=== PATIENT | female | born 2000 ===

== ENCOUNTER 2020-04-14 10:29 | Outpatient (REF) | payer MEDICAID, SELFPAY ==
--- NOTE | 2020-04-14 | US_ITS ---
EXAMINATION: US THYROID CLINICAL INFORMATION: Hypothyroidism. COMPARISON: None TECHNIQUE: Linear transducer lance-scale and color Doppler examination with attention to the region of the thyroid. FINDINGS: SIZE: Measurements of the thyroid lobes and nodules are given in sagittal, anteroposterior and transverse dimensions respectively. Right Thyroid Lobe: 4.0 x 1.3 x 1.5 cm, volume 4.1 mL. Parenchyma: The gland echotexture is homogeneous. Thyroid vascularity is normal. Left Thyroid Lobe: 3.7 x 1.0 x 1.4 cm, volume 2.7 mL. Parenchyma: The gland echotexture is homogeneous. Thyroid vascularity is normal. Isthmus: 0.3 cm in maximum AP dimension. RIGHT THYROID LOBE: No nodules. ISTHMUS: No nodules. LEFT THYROID LOBE: No nodules. NODES: No lymphadenopathy is seen in the tissue surrounding the thyroid gland. ADDITIONAL FINDINGS: There is a 1.2 x 0.5 to 0.8 cm oval hypoechoic nodule adjacent to the dorsal aspect of the inferior pole of the right thyroid gland. IMPRESSION: * Unremarkable sonographic appearance of the thyroid gland. * Incidental 1.2 x 0.5 x 0.8 cm soft tissue nodule along the dorsal aspect of the inferior right thyroid. This could be compatible with a parathyroid adenoma (a normal parathyroid gland measures 3-5 mm).
== END 2020-04-14 10:30 | disposition home or self-care (01) ==
LOC: HO.US 10:29
PROVIDERS: PCP Pediatrics; Visit Provider Internal Medicine
DX: E03.9 Hypothyroidism, unspecified (principal)
CPT/HCPCS: 76536

== ENCOUNTER 2020-05-16 15:34 | Emergency (ER) | payer MEDICAID, SELFPAY ==
[2020-05-16 15:51] VITALS: BP 140/71; PULSE 76; RESP 20; TEMP 36.8; O2SAT 99; BMI 34.0
--- NOTE | 2020-05-16 16:32 | ED.HA ---
HPI - Headache General Chief Complaint: Headache Stated Complaint: Migraine Time Seen by Provider: 05/16/20 16:08 Source: patient Mode of arrival: ambulatory History of Present Illness HPI Narrative: 19-year-old female with a past medical history of hyperlipidemia, hypertension, hypothyroid, migraines presenting to the ED complaining of migraine headache x2 weeks. Was taking ibuprofen at home without relief, however denies taking any pain medications x1 week. Admits to associated nausea and heavy feeling in her eyes. Denies headache being maximal at onset, vomiting, weakness, numbness/tingling, CP/SOB MD elicited complaint: migraine Related Data Previous Rx's Medication Instructions Recorded uxqlpxhntd-gfaybpzjelaxr-ciay 2 cap PO Q6H PRN #10 cap 05/16/20 [Fioricet] Allergies Allergy/AdvReac Type Severity Reaction Status Date / Time aloe [ALOE] Allergy Unknown RASH Unverified 03/19/20 16:53 sertraline [SERTRALINE] Allergy Unknown UNKNOWN Unverified 03/19/20 16:53 Review of Systems Review of Systems: Constitutional: No Weight loss, No Fever, No Chills ENT/Mouth: No Hearing loss, No Ear Pain, No Nasal Congestion Eyes: No Eye Pain, No Vision Changes Cardiovascular: No Chest Pain, No SOB, No Palpitations Respiratory: No Cough, No Sputum Gastrointestinal: +Nausea, No Vomiting, No Diarrhea, No Constipation, No Abdominal pain Musculoskeletal: No joint pain, No Myalgias, No Joint Swelling Skin: No Skin Lesions, No rash Neuro: No Weakness, No Numbness, No Paresthesias, No Loss of Consciousness, No Dizziness, +Headache Yes all other systems are reviewed and are negative Neurologic: Denies Abnormal speech present and Denies Sensory deficit (Neuro) [facility] Past Medical History Attestation statement: The following information was validated with the patient. Medical History (Updated 05/16/20 @ 16:44 by CR Eddy) Hypercholesteremia Hypertension Hypothyroidism Migraines Social History Social History Alcohol intake: never Smoking Status: Never smoker Use of substances other than those prescribed or required for medical reasons: No Advance Directives: No Advance Directives Information Provided: Yes Physical Exam Vital Signs: Vital Signs: Last Vital Signs Temp 98.9 F 05/16/20 17:35 Pulse 76 05/16/20 17:35 Resp 20 05/16/20 17:35 BP 121/77 05/16/20 17:35 Pulse Ox 100 05/16/20 17:35 Body Mass Index 34.0 Const: General: cooperative and healthy appearing Orientation/consciousness: patient oriented x3 Limitations: no limitations HENMT: Head: Yes normal to inspection Ears: hearing grossly normal bilaterally General nose exam: Normal external nose present Face and sinus: Yes normal facial exam Eyes: General: appearance normal, both eyes and all related structures Pupils: Equal, round and reactive pupils present EOM: EOMs intact bilaterally Neck: Neck: Yes normal visual inspection and Yes no meningeal signs Resp: Effort & Inspection: normal respiratory effort Cardio: Rate: regular rate Rhythm: regular rhythm GI: Inspection: Yes normal to inspection Palpation (GI): Soft to palpation, nontender, no guarding and not rigid Skin: Rashes: no rashes Wounds: no wounds Neuro: General: patient oriented x3, gait normal, tone normal, moves all extremities, no meningeal signs, no focal motor deficits and CN's II-XI intact bilaterally Cranial nerves: Yes Equal, round and reactive pupils present Cognition (Neuro): normal cognition Speech: No Abnormal speech present Gait exam (Neuro): Normal gait present Motor exam (neuro): 5/5 motor strength present throughout Sensory Exam: No Sensory deficit (Neuro) Extrem: General: Yes normal to inspection Course Course Course Narrative: Mild leukocytosis of 12, labs otherwise unremarkable -[id number]--patient reports symptomatic improvement in the ED, feel safe for discharge MDM - Headache MDM Narrative Medical decision making narrative: 19-year-old female with a past medical history of HLD, HTN, hypothyroid, migraines presenting to the ED complaining of migraine headache x2 weeks. On exam VSS, NAD/well-appearing, no focal neuro deficits, no meningeal signs. Likely migraine headache. Low concern for SAH/CVT, meningitis or encephalitis Plan: Labs, symptomatic therapy/reassess Lab Data Result diagrams: 05/16/20 16:54 05/16/20 16:54 Labs: Lab Results 05/16/20 05/16/20 Range/Units 16:54 16:54 WBC 12.0 H (4.8-10.8) X10*3/uL RBC 4.67 (4.20-5.50) X10*6/uL Hgb 13.7 (12.0-16.0) g/dl Hct 40.6 (37-47) % MCV 86.9 (80-98) fL MCH 29.3 (27.0-33.0) pg MCHC 33.7 (31.0-35.0) g/dl RDW 12.8 (11.0-16.0) % Plt Count 370 (160-400) X10*3/uL MPV 9.3 L (9.4-12.3) fL Immature Gran % (Auto) 0.2 (0.0-0.4) % Neut % (Auto) 66.0 (45-73) % Lymph % (Auto) 24.5 (20-40) % [place] % (Auto) 5.7 (2-11) % Eos % (Auto) 3.2 (0-4) % Baso % (Auto) 0.4 (0-2) % Lymph # (Auto) 2.9 (1.2-4.9) X10*3/uL [place] # (Auto) 0.7 (0.1-1.2) X10*3/uL Eos # (Auto) 0.4 (0.0-0.4) X10*3/uL Baso # (Auto) 0.1 (0.0-0.2) X10*3/uL Abs Immat Gran (auto) 0.03 (0.00-0.03) X10*3/uL Absolute Neuts (auto) 7.9 (2.0-8.3) X10*3/uL Absolute Nucleated RBC 0.000 (0.0-0.012) X10*3/uL Nucleated RBC % (auto) 0.0 (0.0-0.2) /100WBC Sodium 140 (135-145) mmol/L Potassium 4.0 (3.3-5.1) mmol/l Chloride 102 (96-108) mmol/L Carbon Dioxide 25 (22-29) mmol/L Anion Gap 17 (12-20) BUN 7 L (9-16) mg/dL Creatinine 0.70 (0.5-1.4) mg/dL Estim Creat Clear Calc 125.1 Estimated GFR > 60 Random Glucose 92 (60-115) mg/dL Calcium 9.3 (8.4-10.2) mg/dL Discharge Plan Discharge Clinical Impression: Migraine Patient Disposition: Home, Self-Care Instructions: Migraine Headache (ED) Additional Instructions: Your blood work was unremarkable today in the ED Continue taking ibuprofen at home for headache In addition you can take Fioricet which is a combination medication which has Tylenol mixed in Follow up with her doctor If her symptoms persist/worsen, develop nausea/persistent vomiting, weakness, or vision changes return to the ED Prescriptions: New elukuhtjff-eeqzguluczgqu-jjeb [Fioricet] 50-300-40 mg capsule 2 cap PO Q6H PRN (Reason: pain) Qty: 10 RF: 0 Referrals: Ashly Ozuna MD [Primary Care Provider] - 2 days
[2020-05-16] MEDS: Metoclopramide HCl 10 MG/2 ML VIAL IVPUSH (17:01)
[2020-05-16] MEDS: Ketorolac Tromethamine 15 MG/ML VIAL IVPUSH (17:01)
[2020-05-16] MEDS: diphenhydrAMINE HCL 50 MG/ML VIAL 25 MG IVPUSH (17:01)
[2020-05-16] MEDS: 0.9 % Sodium Chloride 1,000 ML 999 ML IVCONT (17:01)
[2020-05-16 17:07] LABS: Basophils Absolute Auto 0.1 X10*3/uL (0.0-0.2); Basophils Percent Auto 0.4 % (0-2); Eosinophils Absolute Auto 0.4 X10*3/uL (0.0-0.4); Eosinophils Percent Auto 3.2 % (0-4); Hematocrit 40.6 % (37-47); Hemoglobin 13.7 g/dl (12.0-16.0); Imm Gran Abs Auto 0.03 X10*3/uL (0.00-0.03); Imm Gran Pct Auto 0.2 % (0.0-0.4); Lymphocytes Absolute Auto 2.9 X10*3/uL (1.2-4.9); Lymphocytes Percent Auto 24.5 % (20-40); MANUAL DIFF FLAG NO; Mean Corpuscular HGB Conc 33.7 g/dl (31.0-35.0); Mean Corpuscular Hemoglobin 29.3 pg (27.0-33.0); Mean Corpuscular Volume 86.9 fL (80-98); Mean Platelet Volume 9.3 fL (9.4-12.3); Monocytes Absolute Auto 0.7 X10*3/uL (0.1-1.2); Monocytes Percent Auto 5.7 % (2-11); Neutrophils Absolute Auto 7.9 X10*3/uL (2.0-8.3); Platelet Count 370 X10*3/uL (160-400); Red Blood Count 4.67 X10*6/uL (4.20-5.50); Red Cell Distribution Width 12.8 % (11.0-16.0)
[2020-05-16 17:35] VITALS: BP 121/77; PULSE 76; RESP 20; TEMP 37.2; O2SAT 100
[2020-05-16 17:36] LABS: Anion Gap 17 (12-20); Blood Urea Nitrogen 7 mg/dL (9-16); Calcium 9.3 mg/dL (8.4-10.2); Carbon Dioxide 25 mmol/L (22-29); Chloride 102 mmol/L (96-108); Creatinine Clr Calc Pharmacy 125.1; Estimated Glomerular Filt Rate > 60; Glucose Random 92 mg/dL (60-115); Sodium 140 mmol/L (135-145)
== END 2020-05-16 19:02 | disposition home or self-care (01) ==
PROVIDERS: Physician Assistant; Emergency Provider Emergency Medicine; PCP Pediatrics
DX: G43.909 Migraine, unspecified, not intractable, without status migrainosus (principal); I10 Essential (primary) hypertension; Z79.899 Other long term (current) drug therapy
CPT/HCPCS: 36415; 80048; 85025; 96361; 96374; 96375; 99284; J1200; J1885; J2765

== ENCOUNTER → 2020-08-05 13:09 | Outpatient (BNVA) | payer MEDICAID, SELFPAY | PROVIDERS: PCP Pediatrics; Visit Provider Dietitian, Registered ==

== ENCOUNTER 2020-10-16 18:29 | Emergency (ER) | payer MEDICAID, SELFPAY ==
--- NOTE | ~2020-10-16 | US_ITS ---
EXAMINATION: US ABDOMEN LIMITED CLINICAL INFORMATION: Right upper quadrant pain with question of cystitis. COMPARISON: None TECHNIQUE: Real-time imaging of the right upper quadrant abdominal viscera. FINDINGS: PANCREAS: The pancreas appears unremarkable, without masses or ductal dilatation, with the exception of the tail which is obscured by bowel gas. LIVER: The liver is enlarged measuring over 20 cm in greatest length. The liver contour is normal. There is diffuse increased liver parenchymal echogenicity, consistent with hepatic steatosis. No focal hepatic lesion. There is no intrahepatic biliary duct dilatation seen. GALLBLADDER: The gallbladder is physiologically distended without evidence of stones, sludge, polyps, wall thickening or pericholecystic fluid. COMMON BILE DUCT: Normal in caliber measuring 0.2 cm in diameter. RIGHT KIDNEY: No hydronephrosis. No renal calculi or focal parenchymal lesions. The kidney measures 10.9 cm in maximum dimension. FREE FLUID: None. US/US abdomen limited IMPRESSION: Enlarged fatty liver. No evidence of cholecystitis.
[2020-10-16 18:30] VITALS: BP 145/97; PULSE 99; RESP 18; TEMP 36; O2SAT 100; BMI 39.0
[2020-10-16 20:24] VITALS: BP 138/87; PULSE 93; RESP 19; TEMP 37; O2SAT 99
--- NOTE | 2020-10-16 20:42 | ED_ITS ---
HPI - Abdominal Pain General Chief Complaint: Abdominal Pain Stated Complaint: right side pain Time Seen by Provider: 10/16/20 20:37 Source: patient Mode of arrival: ambulatory Limitations: no limitations History of Present Illness HPI narrative: Patient apparently fell down 5 steps started down eating mostly the lower back to the steps was doing okay for initial 3 days now complaining of pain in the right upper quadrant and right-sided abdominal pain for last 2 days no nausea no vomiting no urinary complaints history of similar pain 2 months ago not seen any doctor that time. No fever no blood in the urine MD elicited complaint: abdominal pain Related Data Previous Rx's Medication Instructions Recorded wbiddhqtfs-jiyzkttcqxllp-ddfl 2 cap PO Q6H PRN #10 cap 05/16/20 [Fioricet] ibuprofen 600 mg PO Q6H PRN #20 tab 10/16/20 Allergies Allergy/AdvReac Type Severity Reaction Status Date / Time aloe [ALOE] Allergy Unknown RASH Unverified 03/19/20 16:53 sertraline [SERTRALINE] Allergy Unknown UNKNOWN Unverified 03/19/20 16:53 Review of Systems Review of Systems Constitutional : No Weight loss, No Fever, No Chills ENT/Mouth : No sore throat, No Rhinorrhea Eyes: No Eye Pain, No Swelling Cardiovascular : No Chest Pain, no palpitations Respiratory : No Cough, No Sputum, no shortness of breath Gastrointestinal : no Nausea, No Vomiting, No Diarrhea, + abdominal Pain, no black stools Genitourinary : No Dysuria, No Urinary Frequency Musculoskeletal : No joint pain, No Myalgias, No Joint Swelling Skin : No Skin Lesions, No rash Neuro : No Weakness, No Numbness, No Dizziness, No Headache Psych : No Anxiety/Panic, No Depression Heme/Lymph: No Bruising, No Lymphadenopathy Endocrine : No Polyuria, No Polydipsia All other systems reviewed and are negative Physical Exam Vital Signs: Vital Signs: Last Vital Signs Temp 98.2 F 10/16/20 21:59 Pulse 80 10/16/20 21:59 Resp 15 10/16/20 21:59 BP 125/70 10/16/20 21:59 Pulse Ox 100 10/16/20 21:59 Body Mass Index 39.0 Appearance: Alert. Oriented X3. No acute distress. Eyes: Pupils equal, round and reactive to light. ENT: Pharynx normal. Neck: Normal inspection. Neck supple. CVS: Normal heart rate and rhythm. Pulses normal. Respiratory: No respiratory distress. Breath sounds normal. Abdomen: Soft and tender right upper quadrant no rebound tenderness or guarding , Bowel sounds are present, no mass palpable, no CVA tenderness Skin: Skin warm and dry. Normal skin color. Normal skin turgor. Extremities: No lower extremity edema. Neuro: Oriented X 3. No motor deficit. No sensory deficit. MDM - Abdominal Pain MDM Narrative Medical decision making narrative: Patient with right side abdominal pain without any direct trauma in the front also has back pain which is muscular ultrasound abdomen done which was negative labs also normal no blood in the urine nonspecific pain will discharge her on pain medication Differential Diagnosis Differential diagnosis: Likely abdominal pain Medical Records Attestation: I reviewed the patient's medical records. Lab Data Attestation: I reviewed the patient's lab results. Result diagrams: 10/16/20 21:50 10/16/20 21:50 Labs: Lab Results 10/16/20 10/16/20 10/16/20 Range/Units 20:37 20:37 21:50 WBC 12.2 H (4.8-10.8) X10*3/uL RBC 4.78 (4.20-5.50) X10*6/uL Hgb 13.8 (12.0-16.0) g/dl Hct 41.1 (37-47) % MCV 86.0 (80-98) fL MCH 28.9 (27.0-33.0) pg MCHC 33.6 (31.0-35.0) g/dl RDW 13.2 (11.0-16.0) % Plt Count 370 (160-400) X10*3/uL MPV 9.3 L (9.4-12.3) fL Immature Gran % (Auto) 0.2 (0.0-0.4) % Neut % (Auto) 63.6 (45-73) % Lymph % (Auto) 26.2 (20-40) % [place] % (Auto) 6.4 (2-11) % Eos % (Auto) 3.2 (0-4) % Baso % (Auto) 0.4 (0-2) % Lymph # (Auto) 3.2 (1.2-4.9) X10*3/uL [place] # (Auto) 0.8 (0.1-1.2) X10*3/uL Eos # (Auto) 0.4 (0.0-0.4) X10*3/uL Baso # (Auto) 0.1 (0.0-0.2) X10*3/uL Abs Immat Gran (auto) 0.02 (0.00-0.03) X10*3/uL Absolute Neuts (auto) 7.8 (2.0-8.3) X10*3/uL Absolute Nucleated RBC 0.000 (0.0-0.012) X10*3/uL Nucleated RBC % (auto) 0.0 (0.0-0.2) /100WBC Sodium (135-145) mmol/L Potassium (3.3-5.1) mmol/L Chloride (96-108) mmol/L Carbon Dioxide (22-29) mmol/L Anion Gap (12-20) BUN (9-16) mg/dL Creatinine (0.5-1.4) mg/dL Estim Creat Clear Calc Estimated GFR Random Glucose (60-115) mg/dL Calcium (8.4-10.2) mg/dL Total Bilirubin (0.0-1.0) mg/dL Direct Bilirubin (0.0-0.5) mg/dL AST (5-31) U/L ALT (0-31) U/L Alkaline Phosphatase (39-117) U/L Total Protein (6.5-8.0) g/dL Albumin (3.5-5.0) g/dL Lipase (8-78) U/L Urine Color YELLOW Urine Appearance CLEAR Urine pH 6.0 (5.0-8.0) Ur Specific [place] >= 1.030 H (1.005-1.025) Urine Protein NEG (NEG-TRACE) MG/DL Urine Glucose (UA) NEG (NEG) MG/DL Urine Ketones NEG (NEG) MG/DL Urine Blood NEG (NEG) Urine Nitrite NEG (NEG) Ur Leukocyte Esterase NEG (NEG) Urine Test NEGATIVE (NEGATIVE) 10/16/20 Range/Units 21:50 WBC (4.8-10.8) X10*3/uL RBC (4.20-5.50) X10*6/uL Hgb (12.0-16.0) g/dl Hct (37-47) % MCV (80-98) fL MCH (27.0-33.0) pg MCHC (31.0-35.0) g/dl RDW (11.0-16.0) % Plt Count (160-400) X10*3/uL MPV (9.4-12.3) fL Immature Gran % (Auto) (0.0-0.4) % Neut % (Auto) (45-73) % Lymph % (Auto) (20-40) % [place] % (Auto) (2-11) % Eos % (Auto) (0-4) % Baso % (Auto) (0-2) % Lymph # (Auto) (1.2-4.9) X10*3/uL [place] # (Auto) (0.1-1.2) X10*3/uL Eos # (Auto) (0.0-0.4) X10*3/uL Baso # (Auto) (0.0-0.2) X10*3/uL Abs Immat Gran (auto) (0.00-0.03) X10*3/uL Absolute Neuts (auto) (2.0-8.3) X10*3/uL Absolute Nucleated RBC (0.0-0.012) X10*3/uL Nucleated RBC % (auto) (0.0-0.2) /100WBC Sodium 139 (135-145) mmol/L Potassium 4.3 (3.3-5.1) mmol/L Chloride 105 (96-108) mmol/L Carbon Dioxide 23 (22-29) mmol/L Anion Gap 15 (12-20) BUN 9 (9-16) mg/dL Creatinine 0.66 (0.5-1.4) mg/dL Estim Creat Clear Calc 136.4 Estimated GFR > 60 Random Glucose 91 (60-115) mg/dL Calcium 9.5 (8.4-10.2) mg/dL Total Bilirubin 0.3 (0.0-1.0) mg/dL Direct Bilirubin < 0.2 (0.0-0.5) mg/dL AST 20 (5-31) U/L ALT 22 (0-31) U/L Alkaline Phosphatase 100 (39-117) U/L Total Protein 8.0 (6.5-8.0) g/dL Albumin 4.5 (3.5-5.0) g/dL Lipase 14 (8-78) U/L Urine Color Urine Appearance Urine pH (5.0-8.0) Ur Specific [place] (1.005-1.025) Urine Protein (NEG-TRACE) MG/DL Urine Glucose (UA) (NEG) MG/DL Urine Ketones (NEG) MG/DL Urine Blood (NEG) Urine Nitrite (NEG) Ur Leukocyte Esterase (NEG) Urine Test (NEGATIVE) Imaging Data US - abdomen: Attestation: I personally reviewed and interpreted this imaging study as follows: Radiologist's impression: Patient: Andrew GonzalezMR#: [id number]: [id number]:[id number]/Sex: 20 / FADM Date: 10/16/20Loc: EDAttending Dr: Ordering Physician: Lexx Adams MD Date of Service: 10/16/20 Procedure(s): US abdomen limited Accession Number(s): [id number] cc: Lexx Adams MD~ EXAMINATION: US ABDOMEN LIMITED CLINICAL INFORMATION: Right upper quadrant pain with question of cystitis. COMPARISON: None TECHNIQUE: Real-time imaging of the right upper quadrant abdominal viscera. FINDINGS: PANCREAS: The pancreas appears unremarkable, without masses or ductal dilatation, with the exception of the tail which is obscured by bowel gas. LIVER: The liver is enlarged measuring over 20 cm in greatest length. The liver contour is normal. There is diffuse increased liver parenchymal echogenicity, consistent with hepatic steatosis. No focal hepatic lesion. There is no intrahepatic biliary duct dilatation seen. GALLBLADDER: The gallbladder is physiologically distended without evidence of stones, sludge, polyps, wall thickening or pericholecystic fluid. COMMON BILE DUCT: Normal in caliber measuring 0.2 cm in diameter. RIGHT KIDNEY: No hydronephrosis. No renal calculi or focal parenchymal lesions. The kidney measures 10.9 cm in maximum dimension. FREE FLUID: None. US/US abdomen limited IMPRESSION: Enlarged fatty liver. No evidence of cholecystitis. Dictated By:BABS MEJÍA MDSigned By:<Electronically signed by BABS MEJÍA MD in [place]>10/16/[id number] Discharge Plan Discharge Clinical Impression: Abdominal pain Qualifiers: Abdominal location: right upper quadrant Qualified Code(s): R10.11 - Right upper quadrant pain Patient Disposition: Home, Self-Care Instructions: Abdominal Pain (ED) Additional Instructions: Your pain is nonspecific on the right side does seems musculoskeletal your urine is normal labs are stable and ultrasound for gallbladder and kidneys are normal. Tylenol/ibuprofen for pain Report to the ER/PCP pain gets worse Prescriptions: New ibuprofen 600 mg tablet 600 mg PO Q6H PRN (Reason: pain) Qty: 20 RF: 0 No Action yucsyqglrg-doefprccxbvxr-ksuo [Fioricet] 50-300-40 mg capsule 2 cap PO Q6H PRN (Reason: pain) Qty: 10 RF: 0 PMFSH Past Medical History Medical History Hypercholesteremia Hypertension Hypothyroidism Migraines Surgical History No pertinent past surgical history Family History Family History Father No problems noted. Mother Hepatitis C Hypothyroidism Hypertension Cirrhosis of liver Social History Social History Alcohol intake: never Smoking Status: Never smoker Use of substances other than those prescribed or required for medical reasons: No Advance Directives: No Advance Directives Information Provided: Yes
[2020-10-16 20:44] LABS: Glucose Urine UA NEG (NEG); Leukocyte Esterase Urine NEG (NEG); Nitrite Urine NEG (NEG); Specific Gravity - Urine >= 1.030 (1.005-1.025); Urine Blood NEG (NEG); Urine Ketones NEG (NEG); Urine Protein NEG (NEG-TRACE)
[2020-10-16 20:45] LABS: Appearance Urine CLEAR; Color Urine YELLOW
[2020-10-16 21:27] LABS: UPreg QC Valid YES; Urine Pregnancy NEGATIVE (NEGATIVE)
[2020-10-16 21:54] LABS: MANUAL DIFF FLAG NO
[2020-10-16 21:59] VITALS: BP 125/70; PULSE 80; RESP 15; TEMP 36.8; O2SAT 100
[2020-10-16 22:13] LABS: Basophils Absolute Auto 0.1 X10*3/uL (0.0-0.2); Basophils Percent Auto 0.4 % (0-2); Eosinophils Absolute Auto 0.4 X10*3/uL (0.0-0.4); Eosinophils Percent Auto 3.2 % (0-4); Hematocrit 41.1 % (37-47); Hemoglobin 13.8 g/dl (12.0-16.0); Imm Gran Abs Auto 0.02 X10*3/uL (0.00-0.03); Imm Gran Pct Auto 0.2 % (0.0-0.4); Lymphocytes Absolute Auto 3.2 X10*3/uL (1.2-4.9); Lymphocytes Percent Auto 26.2 % (20-40); Mean Corpuscular HGB Conc 33.6 g/dl (31.0-35.0); Mean Corpuscular Hemoglobin 28.9 pg (27.0-33.0); Mean Platelet Volume 9.3 fL (9.4-12.3); Monocytes Absolute Auto 0.8 X10*3/uL (0.1-1.2); Monocytes Percent Auto 6.4 % (2-11); Neutrophils Absolute Auto 7.8 X10*3/uL (2.0-8.3); Neutrophils Percent Auto 63.6 % (45-73); Platelet Count 370 X10*3/uL (160-400); Red Blood Count 4.78 X10*6/uL (4.20-5.50); Red Cell Distribution Width 13.2 % (11.0-16.0); White Blood Count 12.2 X10*3/uL (4.8-10.8)
[2020-10-16 22:29] LABS: Alanine Aminotransferase 22 U/L (0-31); Albumin Level 4.5 g/dL (3.5-5.0); Alkaline Phosphatase 100 U/L (39-117); Anion Gap 15 (12-20); Aspartate Amino Transferase 20 U/L (5-31); Bilirubin Direct < 0.2 mg/dL (0.0-0.5); Bilirubin Total 0.3 mg/dL (0.0-1.0); Blood Urea Nitrogen 9 mg/dL (9-16); Calcium 9.5 mg/dL (8.4-10.2); Carbon Dioxide 23 mmol/L (22-29); Chloride 105 mmol/L (96-108); Creatinine Clr Calc Pharmacy 136.4; Estimated Glomerular Filt Rate > 60; Glucose Random 91 mg/dL (60-115); Lipase 14 U/L (8-78); Potassium 4.3 mmol/L (3.3-5.1); Sodium 139 mmol/L (135-145)
== END 2020-10-16 23:52 | disposition home or self-care (01) ==
PROVIDERS: Emergency Provider Internal Medicine; PCP Pediatrics
DX: R10.11 Right upper quadrant pain (principal); Z79.899 Other long term (current) drug therapy
CPT/HCPCS: 36415; 76705; 80048; 80076; 81003; 81025; 83690; 85025; 99284

== ENCOUNTER 2020-11-22 04:20 | Emergency (ER) | payer MEDICAID, SELFPAY ==
[2020-11-22 05:53] VITALS: BP 116/83; PULSE 81; RESP 20; TEMP 36.9; O2SAT 100; BMI 37.0
[2020-11-22 06:20] LABS: MANUAL DIFF FLAG NO
[2020-11-22 06:23] LABS: Basophils Percent Auto 0.4 % (0-2); Eosinophils Absolute Auto 0.3 X10*3/uL (0.0-0.4); Eosinophils Percent Auto 3.5 % (0-4); Hematocrit 36.2 % (37-47); Hemoglobin 12.2 g/dl (12.0-16.0); Imm Gran Abs Auto 0.02 X10*3/uL (0.00-0.03); Imm Gran Pct Auto 0.3 % (0.0-0.4); Lymphocytes Absolute Auto 2.2 X10*3/uL (1.2-4.9); Lymphocytes Percent Auto 28.1 % (20-40); Mean Corpuscular HGB Conc 33.7 g/dl (31.0-35.0); Mean Corpuscular Hemoglobin 29.1 pg (27.0-33.0); Mean Corpuscular Volume 86.4 fL (80-98); Mean Platelet Volume 9.3 fL (9.4-12.3); Monocytes Absolute Auto 0.6 X10*3/uL (0.1-1.2); Monocytes Percent Auto 7.9 % (2-11); Neutrophils Absolute Auto 4.7 X10*3/uL (2.0-8.3); Neutrophils Percent Auto 59.8 % (45-73); Platelet Count 323 X10*3/uL (160-400); Red Blood Count 4.19 X10*6/uL (4.20-5.50); Red Cell Distribution Width 13.4 % (11.0-16.0); White Blood Count 7.8 X10*3/uL (4.8-10.8)
[2020-11-22 06:30] LABS: Glucose Urine UA NEG (NEG); Leukocyte Esterase Urine NEG (NEG); Nitrite Urine NEG (NEG); Specific Gravity - Urine >= 1.030 (1.005-1.025); Urine Blood 1+ (NEG); Urine Ketones NEG (NEG); Urine Protein 1+ MG/DL (NEG-TRACE)
[2020-11-22 06:34] LABS: Appearance Urine TURBID; Color Urine DARK YELLOW
[2020-11-22 06:47] LABS: Alanine Aminotransferase 18 U/L (0-31); Albumin Level 4.6 g/dL (3.5-5.0); Alkaline Phosphatase 93 U/L (39-117); Anion Gap 12 (12-20); Aspartate Amino Transferase 15 U/L (5-31); Bilirubin Total 0.6 mg/dL (0.0-1.0); Blood Urea Nitrogen 10 mg/dL (9-16); Calcium 9.3 mg/dL (8.4-10.2); Carbon Dioxide 24 mmol/L (22-29); Chloride 107 mmol/L (96-108); Creatinine Clr Calc Pharmacy 112.1; Estimated Glomerular Filt Rate > 60; Glucose Random 110 mg/dL (60-115); Potassium 3.6 mmol/L (3.3-5.1); Sodium 139 mmol/L (135-145); Total Protein 7.7 g/dL (6.5-8.0)
[2020-11-22 07:13] LABS: Amorphous Sediment Urine 3+ /LPF; Bacteria Urine TRACE /LPF; Calcium Oxalate Crystals Urine 1+ /LPF; Mucus Urine 2+ /LPF; Squamous Epithelial Cell Urine 1+ /LPF; WBC Urine 0 /HPF (0-4)
[2020-11-22 07:31] LABS: UPreg QC Valid YES; Urine Pregnancy NEGATIVE (NEGATIVE)
--- NOTE | 2020-11-22 09:09 | ED.GENADULT ---
HPI - General Adult General Chief complaint: Abdominal Pain Stated complaint: abdominal pain Time Seen by Provider: 11/22/20 09:02 History of Present Illness HPI narrative: This is a very pleasant 20 years old presented to the ED feeling shakiness abdominal cramps after drinking an energy drink for the 1st time. Denies any vomiting any diarrhea any chills and fever she states that she is feeling better at this time Onset (ago): hour(s) (6) Location: abdomen Radiation: non-radiation Severity: mild Quality: other (Cramps) Pain Consistency: now resolved Exacerbating factors: none Related Data Previous Rx's Medication Instructions Recorded cwqhnubslg-nuvadnfmlmmqo-axpb 2 cap PO Q6H PRN #10 cap 05/16/20 [Fioricet] ibuprofen 600 mg PO Q6H PRN #20 tab 10/16/20 Allergies Allergy/AdvReac Type Severity Reaction Status Date / Time aloe [ALOE] Allergy Unknown RASH Unverified 11/22/20 05:53 sertraline [SERTRALINE] Allergy Unknown UNKNOWN Unverified 11/22/20 05:53 Review of Systems Review of Systems: Yes all other systems are reviewed and are negative Cardiovascular: Cardiovascular: Reports no additional cardiovascular complaints Gastrointestinal: Gastrointestinal: Reports no additional gastrointestinal complaints Psychiatric: Psychiatric: Reports no additional psychiatric complaints PMFSH Past Medical History Medical History Hypercholesteremia Hypertension Hypothyroidism Migraines Surgical History No pertinent past surgical history Family History Family History Father No problems noted. Mother Hepatitis C Hypothyroidism Hypertension Cirrhosis of liver Social History Social History Alcohol intake: never Smoking Status: Never smoker Advance Directives: No Advance Directives Information Provided: No Patient : No Physical Exam Vital Signs: Vital Signs: Last Vital Signs Temp 98.4 F 11/22/20 05:53 Pulse 81 11/22/20 05:53 Resp 20 11/22/20 05:53 BP 116/83 11/22/20 05:53 Pulse Ox 100 11/22/20 05:53 Body Mass Index 37.0 Const: Other: Patient looks well she is not in distress Orientation/consciousness: oriented to person, oriented to place, oriented to time and patient oriented x3 HENMT: Head: Yes normal to inspection and Yes No palpable skull fracture present Eyes: General: appearance normal, both eyes and all related structures Visual Nunes: normal visual nunes by confrontation Eyelids: Yes eyelids normal Neck: Neck: Yes normal visual inspection, Yes full ROM, Yes no lymphadenopathy and Yes no meningeal signs Chest: Chest palpation & inspection: normal inspection of the chest and normal palpation of entire chest wall Resp: Effort & Inspection: normal respiratory effort and able to speak in complete sentences Cardio: Jugular venous distension: no JVD Palpation: normal PMI Rate: regular rate Rhythm: regular rhythm GI: Inspection: Yes normal to inspection Palpation (GI): Soft to palpation, nontender and no guarding Skin: General skin exam: no rashes or lesions noted and elasticity normal Neuro: General: oriented to person, oriented to place, oriented to time, patient oriented x3, gait normal and no meningeal signs Extrem: General: Yes normal to inspection, Yes full ROM, Yes capillary refill normal and Yes normal exam except as noted Course Course Course Narrative: Labs are within normal limited she is feeling better at this time a patient can be discharged home Medical Decision Making Lab Data Result diagrams: 11/22/20 06:13 11/22/20 06:13 Labs: Lab Results 11/22/20 11/22/20 11/22/20 Range/Units 06:13 06:13 06:13 WBC 7.8 (4.8-10.8) X10*3/uL RBC 4.19 L (4.20-5.50) X10*6/uL Hgb 12.2 (12.0-16.0) g/dl Hct 36.2 L (37-47) % MCV 86.4 (80-98) fL MCH 29.1 (27.0-33.0) pg MCHC 33.7 (31.0-35.0) g/dl RDW 13.4 (11.0-16.0) % Plt Count 323 (160-400) X10*3/uL MPV 9.3 L (9.4-12.3) fL Immature Gran % (Auto) 0.3 (0.0-0.4) % Neut % (Auto) 59.8 (45-73) % Lymph % (Auto) 28.1 (20-40) % Woodward % (Auto) 7.9 (2-11) % Eos % (Auto) 3.5 (0-4) % Baso % (Auto) 0.4 (0-2) % Lymph # (Auto) 2.2 (1.2-4.9) X10*3/uL Woodward # (Auto) 0.6 (0.1-1.2) X10*3/uL Eos # (Auto) 0.3 (0.0-0.4) X10*3/uL Baso # (Auto) 0.0 (0.0-0.2) X10*3/uL Abs Immat Gran (auto) 0.02 (0.00-0.03) X10*3/uL Absolute Neuts (auto) 4.7 (2.0-8.3) X10*3/uL Absolute Nucleated RBC 0.000 (0.0-0.012) X10*3/uL Nucleated RBC % (auto) 0.0 (0.0-0.2) /100WBC Hold Blue Top SEE NOTE Sodium 139 (135-145) mmol/L Potassium 3.6 (3.3-5.1) mmol/L Chloride 107 (96-108) mmol/L Carbon Dioxide 24 (22-29) mmol/L Anion Gap 12 (12-20) BUN 10 (9-16) mg/dL Creatinine 0.78 (0.5-1.4) mg/dL Estim Creat Clear Calc 112.1 Estimated GFR > 60 Random Glucose 110 (60-115) mg/dL Calcium 9.3 (8.4-10.2) mg/dL Total Bilirubin 0.6 (0.0-1.0) mg/dL AST 15 (5-31) U/L ALT 18 (0-31) U/L Alkaline Phosphatase 93 (39-117) U/L Total Protein 7.7 (6.5-8.0) g/dL Albumin 4.6 (3.5-5.0) g/dL Urine Color Urine Appearance Urine pH (5.0-8.0) Ur Specific Vermilion (1.005-1.025) Urine Protein (NEG-TRACE) MG/DL Urine Glucose (UA) (NEG) MG/DL Urine Ketones (NEG) MG/DL Urine Blood (NEG) Urine Nitrite (NEG) Ur Leukocyte Esterase (NEG) Urine RBC (0) /HPF Urine WBC (0-4) /HPF Ur Squamous Epith Cells /LPF Calcium Oxalate Crystal /LPF Amorphous Sediment /LPF Urine Bacteria /LPF Urine Mucus /LPF Urine Test (NEGATIVE) 11/22/20 11/22/20 Range/Units 06:14 06:14 WBC (4.8-10.8) X10*3/uL RBC (4.20-5.50) X10*6/uL Hgb (12.0-16.0) g/dl Hct (37-47) % MCV (80-98) fL MCH (27.0-33.0) pg MCHC (31.0-35.0) g/dl RDW (11.0-16.0) % Plt Count (160-400) X10*3/uL MPV (9.4-12.3) fL Immature Gran % (Auto) (0.0-0.4) % Neut % (Auto) (45-73) % Lymph % (Auto) (20-40) % Woodward % (Auto) (2-11) % Eos % (Auto) (0-4) % Baso % (Auto) (0-2) % Lymph # (Auto) (1.2-4.9) X10*3/uL Woodward # (Auto) (0.1-1.2) X10*3/uL Eos # (Auto) (0.0-0.4) X10*3/uL Baso # (Auto) (0.0-0.2) X10*3/uL Abs Immat Gran (auto) (0.00-0.03) X10*3/uL Absolute Neuts (auto) (2.0-8.3) X10*3/uL Absolute Nucleated RBC (0.0-0.012) X10*3/uL Nucleated RBC % (auto) (0.0-0.2) /100WBC Hold Blue Top Sodium (135-145) mmol/L Potassium (3.3-5.1) mmol/L Chloride (96-108) mmol/L Carbon Dioxide (22-29) mmol/L Anion Gap (12-20) BUN (9-16) mg/dL Creatinine (0.5-1.4) mg/dL Estim Creat Clear Calc Estimated GFR Random Glucose (60-115) mg/dL Calcium (8.4-10.2) mg/dL Total Bilirubin (0.0-1.0) mg/dL AST (5-31) U/L ALT (0-31) U/L Alkaline Phosphatase (39-117) U/L Total Protein (6.5-8.0) g/dL Albumin (3.5-5.0) g/dL Urine Color DARK YELLOW Urine Appearance TURBID Urine pH 6.0 (5.0-8.0) Ur Specific Vermilion >= 1.030 H (1.005-1.025) Urine Protein 1+ H (NEG-TRACE) MG/DL Urine Glucose (UA) NEG (NEG) MG/DL Urine Ketones NEG (NEG) MG/DL Urine Blood 1+ H (NEG) Urine Nitrite NEG (NEG) Ur Leukocyte Esterase NEG (NEG) Urine RBC 1-4 (0) /HPF Urine WBC 0 (0-4) /HPF Ur Squamous Epith Cells 1+ /LPF Calcium Oxalate Crystal 1+ /LPF Amorphous Sediment 3+ /LPF Urine Bacteria TRACE /LPF Urine Mucus 2+ /LPF Urine Test NEGATIVE (NEGATIVE) Discharge Plan Discharge Clinical Impression: Abdominal pain Patient Disposition: Home, Self-Care Instructions: Abdominal Pain (ED) Additional Instructions: Follow-up with your primary care physician tomorrow or return to the emergency department if you worse, vomiting ,increasing abdominal pain Prescriptions: No Action iktxlmsrcw-egqazenjotial-btlk [Fioricet] 50-300-40 mg capsule 2 cap PO Q6H PRN (Reason: pain) Qty: 10 RF: 0 ibuprofen 600 mg tablet 600 mg PO Q6H PRN (Reason: pain) Qty: 20 RF: 0 Stand Alone Forms: Work/School Release Interventions: ED Discharge Assessment Last Done: 11/22/20 09:33 Discharge Date/Time: 11/22/20 09:34
== END 2020-11-22 09:34 | disposition home or self-care (01) ==
PROVIDERS: Emergency Provider Emergency Medicine; PCP Pediatrics
DX: R10.9 Unspecified abdominal pain (principal); Z79.899 Other long term (current) drug therapy
CPT/HCPCS: 36415; 80053; 81001; 81025; 85025; 99283

== ENCOUNTER → 2021-01-13 16:30 | Outpatient (BNVA) | payer MEDICAID, SELFPAY | PROVIDERS: PCP Pediatrics; Visit Provider Dietitian, Registered | DX: E66.9 Obesity, unspecified (principal); Z68.35 Body mass index [BMI] 35.0-35.9, adult | CPT/HCPCS: 97803 ==

== ENCOUNTER 2021-04-01 07:44 | Emergency (ER) | payer MEDICAID, SELFPAY ==
[2021-04-01 07:53] VITALS: BP 122/79; PULSE 75; RESP 12; TEMP 36.4; O2SAT 99; BMI 36.1
--- NOTE | 2021-04-01 08:28 | PC.NURSE ---
SEEN BY PA. PLAN IS TO D/C TO HOME WITH RX FOR ABX AND PAIN MEDS, LIST OF DENTAL PROVIDERS. PT AWARE OF PLAN, AGREES.
--- NOTE | 2021-04-01 08:34 | ED.GENADULT ---
HPI - General Adult General Chief complaint: General Medical Stated complaint: dental pain Time Seen by Provider: 04/01/21 08:22 Source: patient Mode of arrival: ambulatory Limitations: no limitations History of Present Illness HPI narrative: 20 y/o female presenting to the ER with left sided dental pain for the last 1 year. She reports pain worsening over last 1 day. She feels like the left side of her face is swollen. She has bleeding when she brushes her teeth. She is eating and drinking normally. No fever or chills. She has not seen a dentist in 2 years. complaint: toothache Onset (ago): month(s) Location: face and mouth Radiation: other (to left ear) Severity: moderate Severity scale (1-10): 7 Quality: aching Pain Consistency: constant Relieving factors: medication Exacerbating factors: none Associated symptoms: denies other symptoms Treatments prior to arrival: none Related Data Previous Rx's Medication Instructions Recorded vynxxobawh-yevbgjfclhwzm-pcjormjj 2 cap PO Q6H PRN #10 cap 05/16/20 50 mg-300 mg-40 mg capsule (Fioricet) ibuprofen 600 mg tablet 600 mg PO Q6H PRN #20 tab 10/16/20 ibuprofen 600 mg tablet 600 mg PO Q8H PRN #20 tab 04/01/21 penicillin V potassium 500 mg 500 mg PO TID 7 Days #21 tab 04/01/21 tablet tramadol 50 mg tablet 50 mg PO BID PRN #6 tab 04/01/21 Allergies Allergy/AdvReac Type Severity Reaction Status Date / Time aloe [ALOE] Allergy Unknown RASH Unverified 11/22/20 05:53 sertraline [SERTRALINE] Allergy Unknown UNKNOWN Unverified 11/22/20 05:53 Review of Systems Review of Systems: Constitutional: No Fever, No Chills ENT/Mouth: No sore throat, No Rhinorrhea, No Swallowing Difficulty, +dental pain Cardiovascular: No Chest Pain, No SOB Respiratory: No Cough, No Sputum Gastrointestinal: No Nausea, No Vomiting,, No abdominal Pain Musculoskeletal: No joint pain, No Myalgias Skin: No Skin Lesions, No rash Neuro: No Dizziness, + Headache Psych: No Anxiety/Panic, No Depression Heme/Lymph: No Bruising, No Lymphadenopathy PMFSH Past Medical History Medical History Hypercholesteremia Hypertension Hypothyroidism Migraines Surgical History No pertinent past surgical history Family History Family History Father No problems noted. Mother Hepatitis C Hypothyroidism Hypertension Cirrhosis of liver Social History Social History Alcohol intake: never Advance Directives: No Patient : No Physical Exam Vital Signs: Vital Signs: Last Vital Signs Temp 97.5 F 04/01/21 07:53 Pulse 75 04/01/21 07:53 Resp 12 04/01/21 07:53 BP 122/79 04/01/21 07:53 Pulse Ox 99 04/01/21 07:53 Body Mass Index 36.1 Appearance: Alert. Oriented X3. No acute distress. Eyes: Pupils equal, round and reactive to light. ENT: Pharynx normal. Moist mucus membranes. Left lower molar is cracked with tenderness and associated gingival tenderness, no palpable abscess. Normal inspection and palpation of left upper dentitiion. Neck: Normal inspection. Neck supple. CVS: Normal heart rate and rhythm. Pulses normal. Respiratory: No respiratory distress. Breath sounds normal. Skin: Skin warm and dry. Normal skin color. Normal skin turgor. No rashes. Extremities: No lower extremity edema. Neuro: Oriented X 3. CN II-XII grossly intact Course Course Course Narrative: 20 y/o female presenting with acute on chronic dental pain. No appreciated abscess on exam. Emergency dentist list has been provided. She has no facial swelling objectively and appears well. Will start on empiric abx, NSAID and PRN tramadol for severe pain. She agrees to follow up with dental [facility]. Stable for d/c home. Critical Care Time Critical Care Time Critical Care Time: No Discharge Plan Discharge Clinical Impression: Toothache Patient Disposition: Home, Self-Care Instructions: Toothache (ED) Additional Instructions: Follow up with the dentist on the list provided Prescriptions: New ibuprofen 600 mg tablet 600 mg PO Q8H PRN (Reason: pain) Qty: 20 RF: 0 penicillin V potassium 500 mg tablet 500 mg PO TID 7 Days Qty: 21 RF: 0 tramadol 50 mg tablet 50 mg PO BID PRN (Reason: pain) Qty: 6 RF: 0 No Action vyhjymblsw-zfhkwcyhnkqcu-muoy [Fioricet] 50-300-40 mg capsule 2 cap PO Q6H PRN (Reason: pain) Qty: 10 RF: 0 ibuprofen 600 mg tablet 600 mg PO Q6H PRN (Reason: pain) Qty: 20 RF: 0 Interventions: ED Discharge Assessment Last Done: 04/01/21 08:45 Discharge Date/Time: 04/01/21 08:46
== END 2021-04-01 08:46 | disposition home or self-care (01) ==
PROVIDERS: Emergency Provider Emergency Medicine Emergency Medical Services; PCP Pediatrics
DX: K02.9 Dental caries, unspecified (principal); H92.02 Otalgia, left ear; Z79.899 Other long term (current) drug therapy
CPT/HCPCS: 99283

== ENCOUNTER 2021-05-06 01:30 | Emergency (ER) | payer MEDICAID, SELFPAY ==
--- NOTE | 2021-05-06 | ECG_ITS ---
Test Reason : CP Blood Pressure : / mmHG Vent. Rate : 111 BPM Atrial Rate : 111 BPM P-R Int : 136 ms QRS Dur : 066 ms QT Int : 346 ms P-R-T Axes : 044 048 019 degrees QTc Int : 470 ms Sinus tachycardia Possible Left atrial enlargement Nonspecific ST and T wave abnormality Inferior leads Abnormal ECG No previous ECGs available Referred By: Generic ED Physician Electronically Signed By:CARTER KUMAR MD
[2021-05-06 01:35] VITALS: BP 136/79; PULSE 107; RESP 18; TEMP 37.3; O2SAT 100; BMI 36.1
--- NOTE | 2021-05-06 02:13 | ED.ANXIETY ---
HPI - Anxiety General Chief Complaint: Anxiety Stated Complaint: anxiety Time Seen by Provider: 05/06/21 02:10 Source: patient Mode of arrival: ambulatory Limitations: no limitations History of Present Illness HPI narrative: Patient comes emergency room complaining of severe anxiety. Patient states that she has been diagnosed with anxiety and OCD in the past, currently not on medications. Earlier today, patient had a panic attack, her leg started shaking. Patient denies chest pain or shortness of breath. Patient states she has outpatient therapy. Patient denies SI or HI MD complaint: anxiety Related Data Previous Rx's Medication Instructions Recorded hxpoyprehd-khkpjtloznqua-qkslpcyc 2 cap PO Q6H PRN #10 cap 05/16/20 50 mg-300 mg-40 mg capsule (Fioricet) ibuprofen 600 mg tablet 600 mg PO Q6H PRN #20 tab 10/16/20 ibuprofen 600 mg tablet 600 mg PO Q8H PRN #20 tab 04/01/21 penicillin V potassium 500 mg 500 mg PO TID 7 Days #21 tab 04/01/21 tablet tramadol 50 mg tablet 50 mg PO BID PRN #6 tab 04/01/21 hydroxyzine HCl 25 mg tablet 25 mg PO TID PRN #10 tab 05/06/21 Allergies Allergy/AdvReac Type Severity Reaction Status Date / Time aloe [ALOE] Allergy Unknown RASH Verified 05/06/21 01:35 sertraline [SERTRALINE] Allergy Unknown UNKNOWN Verified 05/06/21 01:35 Review of Systems Review of Systems: Constitutional : No Weight loss, No Fever, No Chills, No Night Sweats, No Fatigue, No Malaise ENT/Mouth : No Hearing loss, No Ear Pain, No Nasal Congestion, No Sinus Pain, No Hoarseness, No sore throat, No Rhinorrhea, No Swallowing Difficulty Eyes: No Eye Pain, No Swelling, No Redness, No Foreign Body, No Discharge, No Vision Changes Cardiovascular : No Chest Pain, No SOB, No Dyspnea on Exertion, No Orthopnea, No Edema, No Palpitations Respiratory : No Cough, No Sputum, No Wheezing, No Smoke Exposure, No Dyspnea Gastrointestinal : No Nausea, No Vomiting, No Diarrhea, No Constipation, No abdominal Pain, No Hematochezia, No Melena Genitourinary : no irregular bleeding, No Dysuria, No Urinary Frequency, No Hematuria, No Urinary Incontinence, No Urgency, No Flank Pain, No Urinary Flow Changes, No Hesitancy Musculoskeletal : No joint pain, No Myalgias, No Joint Swelling Skin : No Skin Lesions, No rash Neuro : No Weakness, No Numbness, No Paresthesias, No Loss of Consciousness, No Dizziness, No Headache Psych : Complaining of anxiety and panic attack, No Depression, No SI/HI/AH/VH, No Social Issues, Heme/Lymph: No Bruising, No Bleeding,No Lymphadenopathy Endocrine : No Polyuria, No Polydipsia, No Temperature Intolerance [facility] Past Medical History Medical History Anxiety Hypercholesteremia Hypertension Hypothyroidism Migraines Surgical History No pertinent past surgical history Family History Family History Father No problems noted. Mother Hepatitis C Hypothyroidism Hypertension Cirrhosis of liver Social History Social History Alcohol intake: never Advance Directives: No Advance Directives Information Provided: Yes Patient : No Physical Exam Vital Signs: Vital Signs: Last Vital Signs Temp 99.1 F 05/06/21 01:35 Pulse 107 H 05/06/21 01:35 Resp 18 05/06/21 01:35 BP 136/79 05/06/21 01:35 Pulse Ox 100 05/06/21 01:35 Body Mass Index 36.1 Const: Other: Appearance: Alert. Oriented X3. No acute distress. Eyes: Pupils equal, round and reactive to light. ENT: Pharynx normal. Neck: Normal inspection. Neck supple. No lymph nodes noted. No crepitus CVS: Normal heart rate and rhythm. Pulses normal. Normal S1 and S2 Respiratory: No respiratory distress. Breath sounds normal. No Wheezing. No rales Abdomen: Soft and nontender. No rigidity. No distention. good BS x4 Skin: Skin warm and dry. Normal skin color. Normal skin turgor. Extremities: No lower extremity edema. No lower extremity edema. No Lacerations. No Rash Neuro: Oriented X 3. No motor deficit. No sensory deficit. Moving all extermities. No slurred speech. Course Course Course Narrative: Patient's family at bedside consoling her. Patient given 1 mg of Ativan p.o.. Patient will follow-up with her primary care physician. Patient denies SI or HI Discharge Plan Discharge Clinical Impression: Anxiety Patient Disposition: Home, Self-Care Instructions: Anxiety (ED) Additional Instructions: Please follow-up with your primary care physician tomorrow. If you have any worsening or new symptoms, please return to the emergency room or call 911 Prescriptions: New hydroxyzine HCl 25 mg tablet 25 mg PO TID PRN (Reason: nausea and vomiting) Qty: 10 RF: 0 No Action gudcthbqtz-mfimrscfuycsl-yuxa [Fioricet] 50-300-40 mg capsule 2 cap PO Q6H PRN (Reason: pain) Qty: 10 RF: 0 ibuprofen 600 mg tablet 600 mg PO Q6H PRN (Reason: pain) Qty: 20 RF: 0 ibuprofen 600 mg tablet 600 mg PO Q8H PRN (Reason: pain) Qty: 20 RF: 0 penicillin V potassium 500 mg tablet 500 mg PO TID 7 Days Qty: 21 RF: 0 tramadol 50 mg tablet 50 mg PO BID PRN (Reason: pain) Qty: 6 RF: 0
[2021-05-06] MEDS: LORazepam 1 MG TABLET PO (02:40)
[2021-05-06 03:02] VITALS: BP 138/96; PULSE 100; RESP 16; O2SAT 99
== END 2021-05-06 03:04 | disposition home or self-care (01) ==
PROVIDERS: Emergency Provider Emergency Medicine; PCP Pediatrics
DX: F41.9 Anxiety disorder, unspecified (principal); I10 Essential (primary) hypertension
CPT/HCPCS: 93005; 96365; 99283; 99284

== ENCOUNTER 2021-05-10 17:06 | Emergency (ER) | payer MEDICAID, SELFPAY ==
[2021-05-10 18:17] VITALS: BP 127/79; PULSE 100; RESP 20; TEMP 36.8; O2SAT 99; BMI 36.1
--- NOTE | 2021-05-10 21:25 | ED.DIZZY ---
HPI - Dizziness General Chief Complaint: Dizziness Stated Complaint: dizzyness and blurry vision Time Seen by Provider: 05/10/21 21:23 Source: patient Mode of arrival: ambulatory Limitations: no limitations History of Present Illness HPI Narrative: Patient history of anxiety/panic attack was seen here before started on fluoxetine by PCP and hydroxyzine but patient has not taken it as it stays side effects as dizziness. For last 1 week patient able to sleep well very anxious feel dizzy not eating well feel depressed but not suicidal Related Data Previous Rx's Medication Instructions Recorded iwwbgokmgw-ogzsfiapzppnw-hcqmfynz 2 cap PO Q6H PRN #10 cap 05/16/20 50 mg-300 mg-40 mg capsule (Fioricet) ibuprofen 600 mg tablet 600 mg PO Q6H PRN #20 tab 10/16/20 ibuprofen 600 mg tablet 600 mg PO Q8H PRN #20 tab 04/01/21 penicillin V potassium 500 mg 500 mg PO TID 7 Days #21 tab 04/01/21 tablet tramadol 50 mg tablet 50 mg PO BID PRN #6 tab 04/01/21 hydroxyzine HCl 25 mg tablet 25 mg PO TID PRN #10 tab 05/06/21 Allergies Allergy/AdvReac Type Severity Reaction Status Date / Time aloe [ALOE] Allergy Unknown RASH Verified 05/10/21 18:17 sertraline [SERTRALINE] Allergy Unknown UNKNOWN Verified 05/10/21 18:17 Review of Systems Review of Systems: Yes all other systems are reviewed and are negative [facility] Past Medical History Medical History Anxiety Hypercholesteremia Hypertension Hypothyroidism Migraines Surgical History No pertinent past surgical history Family History Family History Father No problems noted. Mother Hepatitis C Hypothyroidism Hypertension Cirrhosis of liver Social History Social History Alcohol intake: never Advance Directives: No Patient : No Physical Exam Vital Signs: Vital Signs: Last Vital Signs Temp 98.2 F 05/10/21 18:17 Pulse 100 05/10/21 18:17 Resp 20 05/10/21 18:17 BP 127/79 05/10/21 18:17 Pulse Ox 99 05/10/21 18:17 Body Mass Index 36.1 Appearance: Alert. Oriented X3. No acute distress. Anxious Eyes no pallor icterus ENT: Pharynx normal. Oral Mucosa moist Neck: Normal inspection. Neck supple. CVS: Normal heart rate and rhythm. Pulses normal. Respiratory: No respiratory distress. Equal air entry bilateral, no wheezing/rales/rhonchi Abdomen: Soft and nontender. Bowel sounds are present, no mass palpable, Skin: Skin warm and dry. Normal skin color. Normal skin turgor. Extremities: No lower extremity edema. No calf tenderness Neuro: Oriented X 3. Discharge Plan Discharge Clinical Impression: Anxiety Patient Disposition: Home, Self-Care Instructions: Anxiety (ED) Additional Instructions: Continue medication as prescribed and follow with PCP/therapist Prescriptions: No Action [place]-rrilatbhpvtwf-etbq [Fioricet] 50-300-40 mg capsule 2 cap PO Q6H PRN (Reason: pain) Qty: 10 RF: 0 ibuprofen 600 mg tablet 600 mg PO Q6H PRN (Reason: pain) Qty: 20 RF: 0 hydroxyzine HCl 25 mg tablet 25 mg PO TID PRN (Reason: nausea and vomiting) Qty: 10 RF: 0 ibuprofen 600 mg tablet 600 mg PO Q8H PRN (Reason: pain) Qty: 20 RF: 0 penicillin V potassium 500 mg tablet 500 mg PO TID 7 Days Qty: 21 RF: 0 tramadol 50 mg tablet 50 mg PO BID PRN (Reason: pain) Qty: 6 RF: 0 Interventions: ED Discharge Assessment Last Done: 05/10/21 23:36 Discharge Date/Time: 05/10/21 23:38
[2021-05-10] MEDS: clonazePAM 1 MG TABLET PO (22:17)
== END 2021-05-10 23:38 | disposition home or self-care (01) ==
PROVIDERS: Emergency Provider Internal Medicine; PCP Pediatrics
DX: R42 Dizziness and giddiness (principal); F41.1 Generalized anxiety disorder; F43.0 Acute stress reaction; Z79.899 Other long term (current) drug therapy
CPT/HCPCS: 99283

== ENCOUNTER 2021-06-03 17:36 | Emergency (ER) | payer MEDICAID, SELFPAY ==
--- NOTE | 2021-06-03 | ECG_ITS ---
Test Reason : CP Blood Pressure : / mmHG Vent. Rate : 074 BPM Atrial Rate : 074 BPM P-R Int : 138 ms QRS Dur : 074 ms QT Int : 392 ms P-R-T Axes : 054 066 027 degrees QTc Int : 435 ms Normal sinus rhythm with sinus arrhythmia Normal ECG When compared with ECG of 06-MAY-2021 01:45, Vent. rate has decreased BY 37 BPM Referred By: Generic ED Physician Electronically Signed By:YVONNE ARMANDO
--- NOTE | ~2021-06-03 | XR_ITS ---
EXAMINATION: XR CHEST CLINICAL INFORMATION: Sternal pain COMPARISON: None TECHNIQUE: Frontal view of the chest was obtained. FINDINGS: No significant abnormality is noted involving the heart, lungs, mediastinum, bony thorax or soft tissues. XR/XR chest 1V IMPRESSION: Unremarkable examination.
[2021-06-03 17:38] VITALS: BP 146/91; PULSE 87; RESP 18; TEMP 36.1; O2SAT 100; BMI 36.1
--- NOTE | 2021-06-03 18:27 | ED.CHESTPAIN ---
HPI - Chest Pain General Chief Complaint: Chest Pain Stated Complaint: Chest/Rib Pain Time Seen by Provider: 06/03/21 18:13 Source: patient Mode of arrival: ambulatory Limitations: no limitations History of Present Illness HPI narrative: Patient comes emergency room complaining of 1 month of left-sided rib pain and substernal chest pain. Patient denies coughing, no shortness of breath. Patient states that for the last 4 days she has had a constant home patient that there is something sitting on her chest. Related Data Previous Rx's Medication Instructions Recorded ojiippixco-moeiympzdythh-czvvdtjh 2 cap PO Q6H PRN #10 cap 05/16/20 50 mg-300 mg-40 mg capsule (Fioricet) ibuprofen 600 mg tablet 600 mg PO Q6H PRN #20 tab 10/16/20 ibuprofen 600 mg tablet 600 mg PO Q8H PRN #20 tab 04/01/21 penicillin V potassium 500 mg 500 mg PO TID 7 Days #21 tab 04/01/21 tablet tramadol 50 mg tablet 50 mg PO BID PRN #6 tab 04/01/21 hydroxyzine HCl 25 mg tablet 25 mg PO TID PRN #10 tab 05/06/21 Allergies Allergy/AdvReac Type Severity Reaction Status Date / Time aloe [ALOE] Allergy Unknown RASH Verified 05/10/21 18:17 sertraline [SERTRALINE] Allergy Unknown UNKNOWN Verified 05/10/21 18:17 [facility] Past Medical History Medical History Anxiety Hypercholesteremia Hypertension Hypothyroidism Migraines Surgical History No pertinent past surgical history Family History Family History Father No problems noted. Mother Hepatitis C Hypothyroidism Hypertension Cirrhosis of liver Social History Social History Alcohol intake: never Advance Directives: No Advance Directives Information Provided: No Physical Exam Vital Signs: Vital Signs: Last Vital Signs Temp 97 F 06/03/21 17:38 Pulse 87 06/03/21 17:38 Resp 18 06/03/21 17:38 BP 146/91 H 06/03/21 17:38 Pulse Ox 100 06/03/21 17:38 BMI result Body Mass Index 36.1 Course Course Course Narrative: I discussed the labs and imaging with the patient. Patient's pain is likely musculoskeletal. Unlikely to be of cardiac etiology. Will be criteria score is 0, DVT not suspected. MDM - Chest Pain Lab Data Result diagrams: 06/03/21 19:24 06/03/21 19:24 Labs: Lab Results 06/03/21 06/03/21 06/03/21 Range/Units 19:24 19:24 19:24 WBC 7.4 (4.8-10.8) X10*3/uL RBC 4.33 (4.20-5.50) X10*6/uL Hgb 12.4 (12.0-16.0) g/dl Hct 36.8 L (37.0-47.0) % MCV 85.0 (80.0-98.0) fL MCH 28.6 (27.0-33.0) pg MCHC 33.7 (31.0-35.0) g/dl RDW 13.3 (11.0-16.0) % Plt Count 339 (160-400) X10*3/uL MPV 9.2 L (9.4-12.3) fL Immature Gran % (Auto) 0.1 (0.0-0.4) % Neut % (Auto) 60.4 (45-73) % Lymph % (Auto) 29.1 (20-40) % Hayes % (Auto) 7.3 (2-11) % Eos % (Auto) 2.7 (0-4) % Baso % (Auto) 0.4 (0-2) % Lymph # (Auto) 2.2 (1.2-4.9) X10*3/uL Hayes # (Auto) 0.5 (0.1-1.2) X10*3/uL Eos # (Auto) 0.2 (0.0-0.4) X10*3/uL Baso # (Auto) 0.0 (0.0-0.2) X10*3/uL Abs Immat Gran (auto) 0.01 (0.00-0.03) X10*3/uL Absolute Neuts (auto) 4.5 (2.0-8.3) x10*3/uL Absolute Nucleated RBC 0.000 (0.0-0.012) X10*3/uL Nucleated RBC % (auto) 0.0 (0.0-0.2) /100WBC Sodium 139 (135-145) mmol/L Potassium 3.5 (3.3-5.1) mmol/L Chloride 106 (96-108) mmol/L Carbon Dioxide 25 (22-29) mmol/L Anion Gap 12 (12-20) BUN 8 L (9-16) mg/dL Creatinine 0.68 (0.5-1.4) mg/dL Estim Creat Clear Calc 126.7 Estimated GFR > 60 Random Glucose 90 (60-115) mg/dL Calcium 9.3 (8.4-10.2) mg/dL Troponin I High Sens < 3.5 (<3.5-17.0) ng/L Discharge Plan Discharge Clinical Impression: Atypical chest pain Patient Disposition: Home, Self-Care Instructions: Chest Pain (ED) Additional Instructions: Please follow-up with your primary care physician tomorrow. If you have any worsening or new symptoms, please return to the emergency room or call 911 Prescriptions: No Action qauoyoneos-pnysnylbekqfd-vqrc [Fioricet] 50-300-40 mg capsule 2 cap PO Q6H PRN (Reason: pain) Qty: 10 RF: 0 ibuprofen 600 mg tablet 600 mg PO Q6H PRN (Reason: pain) Qty: 20 RF: 0 hydroxyzine HCl 25 mg tablet 25 mg PO TID PRN (Reason: nausea and vomiting) Qty: 10 RF: 0 ibuprofen 600 mg tablet 600 mg PO Q8H PRN (Reason: pain) Qty: 20 RF: 0 penicillin V potassium 500 mg tablet 500 mg PO TID 7 Days Qty: 21 RF: 0 tramadol 50 mg tablet 50 mg PO BID PRN (Reason: pain) Qty: 6 RF: 0
[2021-06-03 19:30] LABS: MANUAL DIFF FLAG NO
[2021-06-03 19:31] LABS: Basophils Percent Auto 0.4 % (0-2); Eosinophils Absolute Auto 0.2 X10*3/uL (0.0-0.4); Eosinophils Percent Auto 2.7 % (0-4); Hematocrit 36.8 % (37.0-47.0); Hemoglobin 12.4 g/dl (12.0-16.0); Imm Gran Abs Auto 0.01 X10*3/uL (0.00-0.03); Imm Gran Pct Auto 0.1 % (0.0-0.4); Lymphocytes Absolute Auto 2.2 X10*3/uL (1.2-4.9); Lymphocytes Percent Auto 29.1 % (20-40); Mean Corpuscular HGB Conc 33.7 g/dl (31.0-35.0); Mean Corpuscular Hemoglobin 28.6 pg (27.0-33.0); Mean Platelet Volume 9.2 fL (9.4-12.3); Monocytes Absolute Auto 0.5 X10*3/uL (0.1-1.2); Monocytes Percent Auto 7.3 % (2-11); Neutrophils Absolute Auto 4.5 x10*3/uL (2.0-8.3); Neutrophils Percent Auto 60.4 % (45-73); Platelet Count 339 X10*3/uL (160-400); Red Blood Count 4.33 X10*6/uL (4.20-5.50); Red Cell Distribution Width 13.3 % (11.0-16.0); White Blood Count 7.4 X10*3/uL (4.8-10.8)
[2021-06-03 19:48] LABS: Anion Gap 12 (12-20); Blood Urea Nitrogen 8 mg/dL (9-16); Calcium 9.3 mg/dL (8.4-10.2); Carbon Dioxide 25 mmol/L (22-29); Chloride 106 mmol/L (96-108); Creatinine Clr Calc Pharmacy 126.7; Estimated Glomerular Filt Rate > 60; Glucose Random 90 mg/dL (60-115); Potassium 3.5 mmol/L (3.3-5.1); Sodium 139 mmol/L (135-145)
[2021-06-03 19:50] LABS: Troponin-I High Sensitivity < 3.5 ng/L (<3.5-17.0)
== END 2021-06-03 20:51 | disposition home or self-care (01) ==
PROVIDERS: Emergency Provider Emergency Medicine; PCP Pediatrics
DX: R07.89 Other chest pain (principal); I10 Essential (primary) hypertension
CPT/HCPCS: 36415; 71045; 80048; 84484; 85025; 93005; 99283

== ENCOUNTER → 2021-07-19 14:09 | Outpatient (BNVA) | payer MEDICAID, SELFPAY | PROVIDERS: PCP Pediatrics; Visit Provider Dietitian, Registered | DX: E66.9 Obesity, unspecified (principal); Z68.35 Body mass index [BMI] 35.0-35.9, adult; I10 Essential (primary) hypertension; Z71.3 Dietary counseling and surveillance | CPT/HCPCS: 97803 ==

== ENCOUNTER 2021-09-13 16:50 | Emergency (ER) | payer MEDICAID, SELFPAY ==
--- NOTE | 2021-09-13 18:05 | ED.GENADULT ---
HPI - General Adult General Chief complaint: Dental/Oral Stated complaint: Dental pain Time Seen by Provider: 09/13/21 18:04 Source: patient Mode of arrival: ambulatory Limitations: no limitations History of Present Illness HPI narrative: Patient is a 21 year old female presenting to the emergency department today with dental pain. Patient states that she has a tooth on the lower right side of her mouth that needs a root canal and she has problems with it every now and then. Patient states that she has had her dentist appointment moved, multiple times. Patient denies any dizziness, lightheadedness, abdominal pain, nausea, vomiting, fever, chills, blurry vision, double vision, loss of vision, chest pain, difficulty breathing, shortness of breath, back pain, night sweats, pain with urination, increased urinary frequency, increased urinary urgency, blood in her urine or stool, syncope or a near syncopal episode, recent trauma or falls, bowel incontinence, bladder incontinence, bowel retention, bladder retention, or any other complaints at this time. Patient describes the pain as achy, non-radiating from the lower right side of her mouth, and a 4/10 on the pain scale. Onset (ago): hour(s) Location: mouth Radiation: non-radiation Severity: mild Severity scale (1-10): 4 Quality: aching Pain Consistency: constant Relieving factors: none Exacerbating factors: none Associated symptoms: denies other symptoms Treatments prior to arrival: none Related Data Previous Rx's Medication Instructions Recorded ftewusvttn-gmmnioakpplwx-eedwsqwc 2 cap PO Q6H PRN #10 cap 05/16/20 50 mg-300 mg-40 mg capsule (Fioricet) ibuprofen 600 mg tablet 600 mg PO Q6H PRN #20 tab 10/16/20 ibuprofen 600 mg tablet 600 mg PO Q8H PRN #20 tab 04/01/21 penicillin V potassium 500 mg 500 mg PO TID 7 Days #21 tab 04/01/21 tablet tramadol 50 mg tablet 50 mg PO BID PRN #6 tab 04/01/21 hydroxyzine HCl 25 mg tablet 25 mg PO TID PRN #10 tab 05/06/21 hydrocodone 5 mg-acetaminophen 325 1 tab PO Q4H PRN #4 tab 09/13/21 mg tablet penicillin V potassium 500 mg 500 mg PO QID 7 Days #28 tab 09/13/21 tablet Allergies Allergy/AdvReac Type Severity Reaction Status Date / Time aloe [ALOE] Allergy Unknown RASH Verified 05/10/21 18:17 sertraline [SERTRALINE] Allergy Unknown UNKNOWN Verified 05/10/21 18:17 Review of Systems Constitutional: Constitutional: Reports no additional constitutional complaints, Denies chills, Denies fever(s) and Denies night sweats Eyes: Eyes: Reports no additional eye complaints, Denies blurry vision, Denies change in vision, Denies diplopia, Denies eye discharge, Denies loss of vision and Denies eye pain ENT: Reports dental pain and Denies dizziness Cardiovascular: Cardiovascular: Reports no additional cardiovascular complaints, Denies chest pain, Denies lightheadedness, Denies Loss of Consciousness and Denies dyspnea Respiratory: Respiratory: Reports no additional respiratory complaints and Denies dyspnea Gastrointestinal: Gastrointestinal: Reports no additional gastrointestinal complaints, Denies abdominal pain, Denies melena, Denies hematochezia, Denies change in bowel habits and Denies change in stool character Genitourinary: Genitourinary: Denies hematuria, Denies urinary frequency, Denies dysuria, Denies urinary incontinence, Denies urinary hesitancy and Denies urinary urgency Musculoskeletal: Musculoskeletal: Reports no additional musculoskeletal complaints, Denies numbness and Denies tingling Neurologic: Denies dizziness, Denies loss of vision, Denies numbness and Denies tingling Psychiatric: Psychiatric: Reports no additional psychiatric complaints Endocrine: Endocrine: Reports no additional endocrine complaints Hematologic/Lymphatic: Hematologic/Lymphatic: Reports no additional hematologic/lymphatic complaints Allergic/Immunologic: Allergic/Immunologic: Reports no additional allergic/immunologic complaints [facility] Past Medical History Attestation statement: The following information was validated with the patient. Source: old records reviewed Medical History Anxiety Hypercholesteremia Hypertension Hypothyroidism Migraines Surgical History No pertinent past surgical history Family History Family History Father No problems noted. Mother Hepatitis C Hypothyroidism Hypertension Cirrhosis of liver Social History Social History Alcohol intake: never Advance Directives: No Advance Directives Information Provided: No Patient : No Physical Exam ED Vital Signs: Vital Signs - 24 hr 09/13/21 18:07 Temperature 98.2 F Pulse Rate 91 Respiratory Rate 16 Blood Pressure 148/91 H Pulse Oximetry 100 BMI result Body Mass Index 37.5 Const General: cooperative, no acute distress, alert and awake Nutritional Appearance: well nourished Orientation/consciousness: patient oriented x3 Limitations: no limitations HENMT Head: Yes normal to inspection and Yes atraumatic Ears: hearing grossly normal bilaterally and external ears normal General nose exam: Normal external nose present, no nasal discharge noted and no epistaxis Face and sinus: Yes normal facial exam, No abrasion and No laceration Mouth: Normal oral and palatal mucosa present, no drooling and no muffled voice Teeth and gingiva: other (dental pain to tooth 17, swelling and erythema around tooth 17) Eyes General: appearance normal, both eyes and all related structures Periorbital: periorbital findings normal Eyelids: Yes eyelids normal Conjunctivae: conjunctivae normal Pupils: Equal, round and reactive pupils present EOM: EOMs intact bilaterally Neck Neck: Yes normal visual inspection, Yes full ROM and Yes no lymphadenopathy Chest Chest palpation & inspection: normal inspection of the chest Resp Effort & Inspection: normal respiratory effort and able to speak in complete sentences Auscultation: clear to auscultation bilaterally Cardio Rate: regular rate Rhythm: regular rhythm GI Inspection: Yes normal to inspection Neuro General: patient oriented x3 and moves all extremities Cranial nerves: Yes Equal, round and reactive pupils present Cognition (Neuro): normal cognition Motor exam (neuro): 5/5 motor strength present throughout Sensory Exam: Normal double simultaneous stimulation for sensation Coordination: sspgtt-dz-qden test normal Extrem General: Yes normal to inspection, Yes full ROM and Yes capillary refill normal Psych Appearance: grossly normal Mental Status: mental status grossly normal Affect: normal affect Attitude: cooperative Thought process: Normal thought process present Thought content: Normal thought content present Insight: Good insight present (Psych) Medical Decision Making MDM Narrative Medical decision making narrative: Patient is a 21 year old female presenting to the emergency department today with dental pain. Patient's physical exam showed mild swelling and erythema around tooth #17 as well as pain to palpation of tooth #17. I explained my physical exam findings to the patient. I answered all questions asked by the patient. I stressed the importance of the patient taking her medication as prescribed. I stressed the importance of the patient following up with her primary care provider and a dentist. I stressed the importance of the patient returning to the emergency department immediately if her symptoms were to worsen or if she were to develop any dizziness, shortness of breath, difficulty breathing, chest pain, blurry vision, loss of vision, nausea, vomiting, abdominal pain, fever, chills, back pain, or any other complaints. Patient verbalized agreement and understanding with this treatment plan and discharge. Differential Diagnosis Differential Diagnosis: dental pain, dental caries, dental abscess Medical Records Medical records reviewed: Yes I reviewed the patient's medical records. Discharge Plan Discharge Clinical Impression: Toothache, Dental abscess, Dental caries Patient Disposition: Home, Self-Care Instructions: Dental Abscess (ED), Toothache (ED) Additional Instructions: Follow up with your primary care provider. Return to the emergency department immediately if your symptoms worsen or if you develop any dizziness, shortness of breath, difficulty breathing, chest pain, blurry vision, loss of vision, nausea, vomiting, abdominal pain, fever, chills, back pain, or any other complaints. Call or visit any of the clinics below to establish with a dentist: [facility] [address] [place] [address] [address] [facility], [address] [address] [facility] [address] [place] [id number] [facility] [address] [place] [address] [address] [place] [address] Prescriptions: New penicillin V potassium 500 mg tablet 500 mg PO QID 7 Days Qty: 28 0RF hydrocodone-acetaminophen 5-325 mg tablet 1 tab PO Q4H PRN (Reason: pain) Qty: 4 0RF No Action vwokmnrtsj-wylosvvtuhxnl-gyia [Fioricet] 50-300-40 mg capsule 2 cap PO Q6H PRN (Reason: pain) Qty: 10 0RF Rx Instructions: do not exceed 6 caps per day ibuprofen 600 mg tablet 600 mg PO Q6H PRN (Reason: pain) Qty: 20 0RF hydroxyzine HCl 25 mg tablet 25 mg PO TID PRN (Reason: nausea and vomiting) Qty: 10 0RF Rx Instructions: P.r.n. anxiety ibuprofen 600 mg tablet 600 mg PO Q8H PRN (Reason: pain) Qty: 20 0RF penicillin V potassium 500 mg tablet 500 mg PO TID 7 Days Qty: 21 0RF tramadol 50 mg tablet 50 mg PO BID PRN (Reason: pain) Qty: 6 0RF Referrals: Ashly Ozuna MD [Primary Care Provider] - 2 days Stand Alone Forms: Dental Emergency Numbers Interventions: ED Discharge Assessment Last Done: 09/13/21 19:08 Discharge Date/Time: 09/13/21 19:09 Print Language: Tajik
[2021-09-13 18:07] VITALS: BP 148/91; PULSE 91; RESP 16; TEMP 36.8; O2SAT 100; BMI 37.5
== END 2021-09-13 19:09 | disposition home or self-care (01) ==
PROVIDERS: Emergency Provider Emergency Medicine; PCP Pediatrics
DX: K08.89 Other specified disorders of teeth and supporting structures (principal); K04.7 Periapical abscess without sinus; K02.9 Dental caries, unspecified; I10 Essential (primary) hypertension; E78.5 Hyperlipidemia, unspecified
CPT/HCPCS: 99283

== ENCOUNTER 2021-10-20 04:16 | Emergency (ER) | payer MEDICAID, SELFPAY ==
--- NOTE | 2021-10-20 04:25 | ECG_ITS ---
Test Reason : chest burning/pain Blood Pressure : / mmHG Vent. Rate : 096 BPM Atrial Rate : 096 BPM P-R Int : 148 ms QRS Dur : 072 ms QT Int : 374 ms P-R-T Axes : 041 041 008 degrees QTc Int : 472 ms Normal sinus rhythm Normal ECG When compared with ECG of 03-JUN-2021 17:44, No significant change was found Referred By: Generic ED Physician Electronically Signed By:EARNESTINE ROBERT MD
[2021-10-20 04:28] VITALS: BP 137/8; PULSE 90; RESP 18; TEMP 36.8; O2SAT 98; BMI 38.0
[2021-10-20 04:37] LABS: Hematocrit 36.7 % (37.0-47.0); Hemoglobin 12.1 g/dl (12.0-16.0); Mean Corpuscular Hemoglobin 27.6 pg (27.0-33.0); Mean Corpuscular Volume 83.8 fL (80.0-98.0); Mean Platelet Volume 9.1 fL (9.4-12.3); Platelet Count 373 X10*3/uL (160-400); Red Blood Count 4.38 X10*6/uL (4.20-5.50); White Blood Count 9.2 X10*3/uL (4.8-10.8)
[2021-10-20 05:05] LABS: Alanine Aminotransferase 16 U/L (0-31); Albumin Level 4.5 g/dL (3.5-5.0); Alkaline Phosphatase 106 U/L (39-117); Anion Gap 16 (12-20); Aspartate Amino Transferase 17 U/L (5-31); Bilirubin Total 0.2 mg/dL (0.0-1.0); Blood Urea Nitrogen 9 mg/dL (9-16); Calcium 9.6 mg/dL (8.4-10.2); Carbon Dioxide 22 mmol/L (22-29); Chloride 105 mmol/L (96-108); Estimated Glomerular Filt Rate > 60; Glucose Random 105 mg/dL (60-115); Potassium 3.8 mmol/L (3.3-5.1); Sodium 139 mmol/L (135-145); Total Protein 7.7 g/dL (6.5-8.0)
[2021-10-20] MEDS: Lidocaine HCl Viscous 2 % 15 ML SOLUTION 10 ML MUCOUS MEM (05:30)
[2021-10-20] MEDS: Sucralfate Oral Suspension 1 GM/10 ML ORAL.SUSP PO (05:30)
[2021-10-20] MEDS: Magnesium Hydrox/Alum Hydrox 30 ML ORAL.SUSP PO (05:31)
[2021-10-20 05:32] LABS: Lipase 17 U/L (8-78)
--- NOTE | 2021-10-20 05:36 | ED_ITS ---
HPI - General Adult General Chief complaint: General Medical Stated complaint: chest/heart barajas Time Seen by Provider: 10/20/21 05:18 Source: patient Mode of arrival: ambulatory History of Present Illness HPI narrative: 21-year-old female with history of anxiety and acid reflux presents with significant burning sensation in the epigastrium and radiating up into her chest. She otherwise denies any shortness of breath, palpitations, fever, chills, diarrhea. Related Data Previous Rx's Medication Instructions Recorded nqyhtqdzxo-ivfozytchgzsw-osvtoqrs 2 cap PO Q6H PRN #10 cap 05/16/20 50 mg-300 mg-40 mg capsule (Fioricet) ibuprofen 600 mg tablet 600 mg PO Q6H PRN #20 tab 10/16/20 ibuprofen 600 mg tablet 600 mg PO Q8H PRN #20 tab 04/01/21 penicillin V potassium 500 mg 500 mg PO TID 7 Days #21 tab 04/01/21 tablet tramadol 50 mg tablet 50 mg PO BID PRN #6 tab 04/01/21 hydroxyzine HCl 25 mg tablet 25 mg PO TID PRN #10 tab 05/06/21 hydrocodone 5 mg-acetaminophen 325 1 tab PO Q4H PRN #4 tab 09/13/21 mg tablet penicillin V potassium 500 mg 500 mg PO QID 7 Days #28 tab 09/13/21 tablet omeprazole 20 mg capsule,delayed 20 mg PO DAILY 30 Days #30 cap 10/20/21 release Allergies Allergy/AdvReac Type Severity Reaction Status Date / Time aloe [ALOE] Allergy Unknown RASH Verified 05/10/21 18:17 sertraline [SERTRALINE] Allergy Unknown UNKNOWN Verified 05/10/21 18:17 Review of Systems Review of Systems: Pertinent positives and negatives as stated in HPI 10 point review of systems is otherwise negative. [facility] Past Medical History Source: nursing notes reviewed Medical History Anxiety Hypercholesteremia Hypertension Hypothyroidism Migraines Surgical History No pertinent past surgical history Family History Family History Father No problems noted. Mother Hepatitis C Hypothyroidism Hypertension Cirrhosis of liver Social History Social History Alcohol intake: never Advance Directives: No Advance Directives Information Provided: Yes Physical Exam ED Vital Signs: Vital Signs - 24 hr 10/20/21 04:28 Temperature 98.2 F Pulse Rate 90 Respiratory Rate 18 Blood Pressure 137/8 L Pulse Oximetry 98 BMI result Body Mass Index 38.0 VITAL SIGNS: Reviewed. GENERAL: Well developed, well nourished, in no acute distress. HEAD: Normocephalic/atraumatic EYES: PERRLA, EOMI EARS: Ext canals without abnormality OROPHARYNX: no oral lesions noted, posterior pharynx clear LUNGS: Normal breath sounds. No adventitious sounds or accessory muscle use. SpO2<98> CARDIOVASCULAR: Regular rate and rhythm without noted murmurs ABDOMEN: Soft, non-tender, non-distended with bowel sounds. SKIN: Inspection of the skin reveals no rashes NEUROLOGIC: Alert and oriented x 4. Strength and sensation to light touch were grossly intact x 4. Course Course Course Narrative: 21-year-old female with history and clinical presentation consistent with acid reflux and on review of all investigations there are no acute findings. Patient was provided with a GI cocktail as well as Carafate and on re-evaluation she reports complete resolution of her symptoms. She is otherwise stable for discharge to home. Medical Decision Making Lab Data Result diagrams: 10/20/21 04:29 10/20/21 04:29 Labs: Lab Results 10/20/21 10/20/21 Range/Units 04:29 04:29 WBC 9.2 (4.8-10.8) X10*3/uL RBC 4.38 (4.20-5.50) X10*6/uL Hgb 12.1 (12.0-16.0) g/dl Hct 36.7 L (37.0-47.0) % MCV 83.8 (80.0-98.0) fL MCH 27.6 (27.0-33.0) pg MCHC 33.0 (31.0-35.0) g/dl RDW 14.0 (11.0-16.0) % Plt Count 373 (160-400) X10*3/uL MPV 9.1 L (9.4-12.3) fL Absolute Nucleated RBC 0.000 (0.0-0.012) X10*3/uL Nucleated RBC % (auto) 0.0 (0.0-0.2) /100WBC Sodium 139 (135-145) mmol/L Potassium 3.8 (3.3-5.1) mmol/L Chloride 105 (96-108) mmol/L Carbon Dioxide 22 (22-29) mmol/L Anion Gap 16 (12-20) BUN 9 (9-16) mg/dL Creatinine 0.71 (0.5-1.4) mg/dL Estim Creat Clear Calc 124.0 Estimated GFR > 60 Random Glucose 105 (60-115) mg/dL Calcium 9.6 (8.4-10.2) mg/dL Total Bilirubin 0.2 (0.0-1.0) mg/dL AST 17 (5-31) U/L ALT 16 (0-31) U/L Alkaline Phosphatase 106 (39-117) U/L Total Protein 7.7 (6.5-8.0) g/dL Albumin 4.5 (3.5-5.0) g/dL Lipase 17 (8-78) U/L ECG Data Attestation: I personally reviewed and interpreted this ECG as follows: Prior ECG tracings: available for review Interpretation: Normal sinus rhythm, HR-96, no STEMI, HI/QRS/QTC are within normal limits. Discharge Plan Discharge Clinical Impression: Acid reflux, Anxiety Patient Disposition: Home, Self-Care Instructions: Diet for Stomach Ulcers and Gastritis (ED), Gastroesophageal Reflux Disease (ED), Anxiety (ED) Additional Instructions: 1. You have been prescribed Prilosec, which does not interact with your f luoxetine. You should take it as directed. 2. Follow-up with your primary care provider the next 2-3 days for re-evaluation and further outpatient management. Return to the ER for worsening symptoms. Prescriptions: New omeprazole 20 mg capsule,delayed release(DR/EC) 20 mg PO DAILY 30 Days Qty: 30 0RF No Action tsylwhgxco-ikudzfcivvtbc-pnie [Fioricet] 50-300-40 mg capsule 2 cap PO Q6H PRN (Reason: pain) Qty: 10 0RF Rx Instructions: do not exceed 6 caps per day ibuprofen 600 mg tablet 600 mg PO Q6H PRN (Reason: pain) Qty: 20 0RF hydroxyzine HCl 25 mg tablet 25 mg PO TID PRN (Reason: nausea and vomiting) Qty: 10 0RF Rx Instructions: P.r.n. anxiety ibuprofen 600 mg tablet 600 mg PO Q8H PRN (Reason: pain) Qty: 20 0RF penicillin V potassium 500 mg tablet 500 mg PO TID 7 Days Qty: 21 0RF tramadol 50 mg tablet 50 mg PO BID PRN (Reason: pain) Qty: 6 0RF penicillin V potassium 500 mg tablet 500 mg PO QID 7 Days Qty: 28 0RF hydrocodone-acetaminophen 5-325 mg tablet 1 tab PO Q4H PRN (Reason: pain) Qty: 4 0RF
[2021-10-20 06:16] VITALS: BP 136/72; PULSE 85; RESP 18; TEMP 36.8; O2SAT 98
== END 2021-10-20 06:17 | disposition home or self-care (01) ==
PROVIDERS: Emergency Provider Student in an Organized Health Care Education/Training Program
DX: K21.9 Gastro-esophageal reflux disease without esophagitis (principal); F41.9 Anxiety disorder, unspecified
CPT/HCPCS: 36415; 80053; 83690; 85027; 93005; 99283; 99284

== ENCOUNTER 2021-12-27 18:08 | Emergency (ER) | payer MEDICAID, SELFPAY ==
--- NOTE | ~2021-12-27 | XR_ITS ---
EXAMINATION: XR CHEST CLINICAL INFORMATION: Palpitations and chest pain COMPARISON: Chest x-ray 06/03/2021 TECHNIQUE: Frontal view of the chest was obtained. FINDINGS: The lungs are clear. No airspace consolidation, pleural effusion, or pneumothorax. The cardiomediastinal silhouette is within normal limits. No acute osseous injury. XR/XR chest 1V IMPRESSION: No acute pulmonary process.
[2021-12-27 18:12] VITALS: BP 131/89; PULSE 98; RESP 20; TEMP 37.1; O2SAT 96; BMI 38.2
--- NOTE | 2021-12-27 18:18 | ECG_ITS ---
Test Reason : heart palp Blood Pressure : / mmHG Vent. Rate : 081 BPM Atrial Rate : 081 BPM P-R Int : 140 ms QRS Dur : 068 ms QT Int : 366 ms P-R-T Axes : 042 048 028 degrees QTc Int : 425 ms Normal sinus rhythm with sinus arrhythmia Normal ECG When compared with ECG of 20-OCT-2021 04:27, No significant change was found Referred By: Generic ED Physician Electronically Signed By:YVONNE ARMANDO
[2021-12-27 18:33] LABS: MANUAL DIFF FLAG NO
[2021-12-27 18:46] LABS: Anion Gap 13 (12-20); Blood Urea Nitrogen 8 mg/dL (9-16); Calcium 9.6 mg/dL (8.4-10.2); Carbon Dioxide 24 mmol/L (22-29); Chloride 104 mmol/L (96-108); Creatinine Clr Calc Pharmacy 116.2; Estimated Glomerular Filt Rate > 60; Glucose Random 103 mg/dL (60-115); Potassium 3.9 mmol/L (3.3-5.1); Sodium 137 mmol/L (135-145)
[2021-12-27 18:47] LABS: Basophils Percent Auto 0.4 % (0-2); Eosinophils Absolute Auto 0.4 X10*3/uL (0.0-0.4); Eosinophils Percent Auto 4.5 % (0-4); Hematocrit 36.6 % (37.0-47.0); Hemoglobin 12.6 g/dl (12.0-16.0); Imm Gran Abs Auto 0.02 X10*3/uL (0.00-0.03); Imm Gran Pct Auto 0.2 % (0.0-0.4); Lymphocytes Absolute Auto 2.7 X10*3/uL (1.2-4.9); Lymphocytes Percent Auto 33.3 % (20-40); Mean Corpuscular HGB Conc 34.4 g/dl (31.0-35.0); Mean Corpuscular Hemoglobin 28.4 pg (27.0-33.0); Mean Corpuscular Volume 82.6 fL (80.0-98.0); Mean Platelet Volume 9.5 fL (9.4-12.3); Monocytes Absolute Auto 0.7 X10*3/uL (0.1-1.2); Monocytes Percent Auto 8.5 % (2-11); Neutrophils Absolute Auto 4.3 x10*3/uL (2.0-8.3); Neutrophils Percent Auto 53.1 % (45-73); Platelet Count 375 X10*3/uL (160-400); Red Blood Count 4.43 X10*6/uL (4.20-5.50); Red Cell Distribution Width 13.7 % (11.0-16.0)
[2021-12-27 18:54] LABS: Troponin-I High Sensitivity < 3.5 ng/L (<3.5-17.0)
--- NOTE | 2021-12-27 21:26 | ED_ITS ---
HPI - Chest Pain General Chief Complaint: Chest Pain Stated Complaint: heart palpitation/chest pains/SOB Time Seen by Provider: 12/27/21 21:26 Source: patient Mode of arrival: ambulatory Limitations: no limitations History of Present Illness HPI narrative: Patient 21 years old with history of anxiety under increased stress lately noticed palpitation episodes since yesterday 2 times yesterday she was sitting at the desk and today again shows eating and this both episode lasted for an hour no dizziness or passing-out episode no chest pain Related Data Previous Rx's Medication Instructions Recorded gmxvzdcoqb-oybwbltcnzcyy-zrrhenfz 2 cap PO Q6H PRN pain #10 caps 05/16/20 50 mg-300 mg-40 mg capsule (Fioricet) ibuprofen 600 mg tablet 600 mg PO Q6H PRN pain #20 tabs 10/16/20 ibuprofen 600 mg tablet 600 mg PO Q8H PRN pain #20 tabs 04/01/21 penicillin V potassium 500 mg 500 mg PO TID 7 days #21 tabs 04/01/21 tablet tramadol 50 mg tablet 50 mg PO BID PRN pain #6 tabs 04/01/21 hydroxyzine HCl 25 mg tablet 25 mg PO TID PRN nausea and 05/06/21 vomiting #10 tabs hydrocodone 5 mg-acetaminophen 325 1 tab PO Q4H PRN pain #4 tabs 09/13/21 mg tablet penicillin V potassium 500 mg 500 mg PO QID 7 days #28 tabs 09/13/21 tablet omeprazole 20 mg capsule,delayed 20 mg PO DAILY 30 days #30 caps 10/20/21 release hydroxyzine HCl 50 mg tablet 50 mg PO TID PRN anxiety #20 tabs 12/27/21 Allergies Allergy/AdvReac Type Severity Reaction Status Date / Time aloe [ALOE] Allergy Unknown RASH Verified 12/27/21 18:17 sertraline [SERTRALINE] Allergy Unknown UNKNOWN Verified 12/27/21 18:17 Review of Systems Review of Systems: Yes all other systems are reviewed and are negative [facility] Past Medical History Medical History Hypercholesteremia Hypertension Hypothyroidism Migraines Surgical History No pertinent past surgical history Family History Family History Father No problems noted. Mother Hepatitis C Hypothyroidism Hypertension Cirrhosis of liver Social History Social History Alcohol intake: never Advance Directives: No Physical Exam Vital Signs: Vital Signs: Last Vital Signs Temp 98.8 F 12/27/21 18:12 Pulse 98 12/27/21 18:12 Resp 20 12/27/21 18:12 BP 131/89 12/27/21 18:12 Pulse Ox 96 12/27/21 18:12 O2 Del Method 12/27/21 18:12 BMI result Body Mass Index 38.2 Appearance: Alert. Oriented X3. No acute distress. Anxious Eyes: PERRLA, No Nystagmus ENT: Pharynx normal. Oral Mucosa moist Neck: Normal inspection. Neck supple. CVS: Normal heart rate and rhythm. Pulses normal. Respiratory: No respiratory distress. Equal air entry bilateral, no wheezing/rales/rhonchi Abdomen: Soft and nontender. Bowel sounds are present, no mass palpable, no CVA tenderness Skin: Skin warm and dry. Normal skin color. Normal skin turgor. Extremities: No lower extremity edema. No calf tenderness Neuro: Oriented X 3. No motor deficit. MDM - Chest Pain MDM Narrative Medical decision making narrative: Patient palpitation episode with anxiety with atypical chest pain workup is ne gative discharge patient home at this time patient her heart is beating 81 beats per minute Lab Data Result diagrams: 12/27/21 18:23 12/27/21 18:23 Labs: Lab Results 12/27/21 12/27/21 12/27/21 Range/Units 18:23 18:23 18:23 WBC 8.0 (4.8-10.8) X10*3/uL RBC 4.43 (4.20-5.50) X10*6/uL Hgb 12.6 (12.0-16.0) g/dl Hct 36.6 L (37.0-47.0) % MCV 82.6 (80.0-98.0) fL MCH 28.4 (27.0-33.0) pg MCHC 34.4 (31.0-35.0) g/dl RDW 13.7 (11.0-16.0) % Plt Count 375 (160-400) X10*3/uL MPV 9.5 (9.4-12.3) fL Immature Gran % (Auto) 0.2 (0.0-0.4) % Neut % (Auto) 53.1 (45-73) % Lymph % (Auto) 33.3 (20-40) % [place] % (Auto) 8.5 (2-11) % Eos % (Auto) 4.5 H (0-4) % Baso % (Auto) 0.4 (0-2) % Lymph # (Auto) 2.7 (1.2-4.9) X10*3/uL [place] # (Auto) 0.7 (0.1-1.2) X10*3/uL Eos # (Auto) 0.4 (0.0-0.4) X10*3/uL Baso # (Auto) 0.0 (0.0-0.2) X10*3/uL Abs Immat Gran (auto) 0.02 (0.00-0.03) X10*3/uL Absolute Neuts (auto) 4.3 (2.0-8.3) x10*3/uL Absolute Nucleated RBC 0.000 (0.0-0.012) X10*3/uL Nucleated RBC % (auto) 0.0 (0.0-0.2) /100WBC Sodium 137 (135-145) mmol/L Potassium 3.9 (3.3-5.1) mmol/L Chloride 104 (96-108) mmol/L Carbon Dioxide 24 (22-29) mmol/L Anion Gap 13 (12-20) BUN 8 L (9-16) mg/dL Creatinine 0.76 (0.5-1.4) mg/dL Estim Creat Clear Calc 116.2 Estimated GFR > 60 Random Glucose 103 (60-115) mg/dL Calcium 9.6 (8.4-10.2) mg/dL Troponin I High Sens < 3.5 (<3.5-17.0) ng/L ECG Data ECG #1: Interpretation: Normal sinus rhythm heart rate 81 beats per minute normal interval normal axis no acute agitation no acute ischemia Discharge Plan Discharge Clinical Impression: Anxiety, Heart palpitations Patient Disposition: Home, Self-Care Instructions: Heart Palpitations (ED), Anxiety (ED) Additional Instructions: Rest at home Increase the dose of hydroxyzine to 50 mg every 8 hours as needed for increased anxiety/sleep Prescriptions: New hydroxyzine HCl 50 mg tablet 50 mg PO TID PRN (Reason: anxiety) Qty: 20 0RF No Action kcbxlxtajm-zzuojasdvunfc-biwo [Fioricet] 50-300-40 mg capsule 2 cap PO Q6H PRN (Reason: pain) Qty: 10 0RF Rx Instructions: do not exceed 6 caps per day ibuprofen 600 mg tablet 600 mg PO Q6H PRN (Reason: pain) Qty: 20 0RF hydroxyzine HCl 25 mg tablet 25 mg PO TID PRN (Reason: nausea and vomiting) Qty: 10 0RF Rx Instructions: P.r.n. anxiety omeprazole 20 mg capsule,delayed release(DR/EC) 20 mg PO DAILY 30 Days Qty: 30 0RF ibuprofen 600 mg tablet 600 mg PO Q8H PRN (Reason: pain) Qty: 20 0RF penicillin V potassium 500 mg tablet 500 mg PO TID 7 Days Qty: 21 0RF tramadol 50 mg tablet 50 mg PO BID PRN (Reason: pain) Qty: 6 0RF penicillin V potassium 500 mg tablet 500 mg PO QID 7 Days Qty: 28 0RF hydrocodone-acetaminophen 5-325 mg tablet 1 tab PO Q4H PRN (Reason: pain) Qty: 4 0RF
== END 2021-12-27 21:53 | disposition home or self-care (01) ==
PROVIDERS: Emergency Provider Internal Medicine; PCP Pediatrics
DX: R00.2 Palpitations (principal); R06.02 Shortness of breath; R07.89 Other chest pain; F41.1 Generalized anxiety disorder; F43.0 Acute stress reaction; Z79.899 Other long term (current) drug therapy
CPT/HCPCS: 36415; 71045; 80048; 84484; 85025; 93005; 99283

== ENCOUNTER 2022-04-15 02:36 | Emergency (ER) | payer MEDICAID, SELFPAY ==
--- NOTE | ~2022-04-15 | XR_ITS ---
EXAMINATION: XR CHEST CLINICAL INFORMATION: Chest pain COMPARISON: 12/27/2021 TECHNIQUE: Frontal view of the chest was obtained. FINDINGS: The lungs are clear with no focal consolidation. No evidence of pneumothorax, pulmonary edema, or pleural effusions. The cardiomediastinal silhouette is unremarkable. No acute osseous findings. XR/XR chest 1V IMPRESSION: No acute cardiopulmonary findings.
--- NOTE | 2022-04-15 02:42 | ECG_ITS ---
Test Reason : chest pain Blood Pressure : / mmHG Vent. Rate : 095 BPM Atrial Rate : 095 BPM P-R Int : 144 ms QRS Dur : 066 ms QT Int : 370 ms P-R-T Axes : 048 043 038 degrees QTc Int : 464 ms Normal sinus rhythm with sinus arrhythmia Possible Left atrial enlargement Otherwise normal ECG When compared with ECG of 27-DEC-2021 18:14, No significant change was found Referred By: Generic ED Physician Electronically Signed By:CARTER KUMAR MD
[2022-04-15 03:04] VITALS: BP 130/86; PULSE 94; RESP 16; TEMP 36.9; O2SAT 97; BMI 38.7
[2022-04-15 03:06] LABS: MANUAL DIFF FLAG NO
[2022-04-15 03:07] LABS: Basophils Absolute Auto 0.1 X10*3/uL (0.0-0.2); Basophils Percent Auto 0.5 % (0-2); Eosinophils Absolute Auto 0.5 X10*3/uL (0.0-0.4); Eosinophils Percent Auto 5.3 % (0-4); Hemoglobin 12.1 g/dl (12.0-16.0); Imm Gran Abs Auto 0.01 X10*3/uL (0.00-0.03); Imm Gran Pct Auto 0.1 % (0.0-0.4); Lymphocytes Absolute Auto 2.5 X10*3/uL (1.2-4.9); Mean Corpuscular HGB Conc 33.6 g/dl (31.0-35.0); Mean Corpuscular Hemoglobin 28.2 pg (27.0-33.0); Mean Corpuscular Volume 83.9 fL (80.0-98.0); Mean Platelet Volume 8.9 fL (9.4-12.3); Monocytes Absolute Auto 0.6 X10*3/uL (0.1-1.2); Monocytes Percent Auto 6.2 % (2-11); Neutrophils Absolute Auto 5.9 x10*3/uL (2.0-8.3); Neutrophils Percent Auto 61.9 % (45-73); Platelet Count 378 X10*3/uL (160-400); Red Blood Count 4.29 X10*6/uL (4.20-5.50); Red Cell Distribution Width 14.1 % (11.0-16.0); White Blood Count 9.6 X10*3/uL (4.8-10.8)
[2022-04-15 03:08] VITALS: BP 123/77; PULSE 85; PULSE 89; RESP 12; TEMP 36.8; O2SAT 97
--- NOTE | 2022-04-15 03:16 | ED.CHESTPAIN ---
HPI - Chest Pain General Chief Complaint: Chest Pain Stated Complaint: cp, diff breathing Time Seen by Provider: 04/15/22 03:06 Source: patient Mode of arrival: ambulatory Limitations: no limitations History of Present Illness HPI narrative: Patient history of anxiety under increased stress lately with history of recurrent chest pains comes here with similar chest pain in the mid chest with heartburn feeling started about 3 hours ago no history of coronary artery disease patient been here multiple times with same situation Related Data Previous Rx's Medication Instructions Recorded nqpcheimam-kkgqcjmqstasj-nyxwirae 2 cap PO Q6H PRN pain #10 caps 05/16/20 50 mg-300 mg-40 mg capsule (Fioricet) ibuprofen 600 mg tablet 600 mg PO Q6H PRN pain #20 tabs 10/16/20 ibuprofen 600 mg tablet 600 mg PO Q8H PRN pain #20 tabs 04/01/21 penicillin V potassium 500 mg 500 mg PO TID 7 days #21 tabs 04/01/21 tablet tramadol 50 mg tablet 50 mg PO BID PRN pain #6 tabs 04/01/21 hydroxyzine HCl 25 mg tablet 25 mg PO TID PRN nausea and 05/06/21 vomiting #10 tabs hydrocodone 5 mg-acetaminophen 325 1 tab PO Q4H PRN pain #4 tabs 09/13/21 mg tablet penicillin V potassium 500 mg 500 mg PO QID 7 days #28 tabs 09/13/21 tablet omeprazole 20 mg capsule,delayed 20 mg PO DAILY 30 days #30 caps 10/20/21 release hydroxyzine HCl 50 mg tablet 50 mg PO TID PRN anxiety #20 tabs 12/27/21 lorazepam 0.5 mg tablet (Ativan) 0.5 mg PO BEDTIME PRN anxiety #14 04/15/22 tabs Allergies Allergy/AdvReac Type Severity Reaction Status Date / Time aloe [ALOE] Allergy Unknown RASH Verified 12/27/21 18:17 sertraline [SERTRALINE] Allergy Unknown UNKNOWN Verified 12/27/21 18:17 Review of Systems Review of Systems: Yes all other systems are reviewed and are negative [facility] Past Medical History Medical History Anxiety Hypercholesteremia Hypertension Hypothyroidism Migraines Surgical History No pertinent past surgical history Family History Family History Father No problems noted. Mother Hepatitis C Hypothyroidism Hypertension Cirrhosis of liver Social History Social History Alcohol intake: never Patient Tobacco Use Status: Never used Tobacco Use of substances other than those prescribed or required for medical reasons: No Advance Directives: No Advance Directives Information Provided: No Physical Exam Vital Signs: Vital Signs: Last Vital Signs Temp 98.7 F 04/15/22 04:36 Pulse 86 04/15/22 04:36 Resp 16 04/15/22 04:36 BP 131/93 H 04/15/22 04:36 Pulse Ox 99 04/15/22 04:36 O2 Del Method 04/15/22 04:36 BMI result Body Mass Index 38.7 Appearance: Alert. Oriented X3. No acute distress. Anxious Eyes: PERRLA, No Nystagmus ENT: Pharynx normal. Oral Mucosa moist Neck: Normal inspection. Neck supple. CVS: Normal heart rate and rhythm. Pulses normal. Respiratory: No respiratory distress. Equal air entry bilateral, no wheezing/rales/rhonchi Abdomen: Soft and nontender. Bowel sounds are present, no mass palpable, no CVA tenderness Skin: Skin warm and dry. Normal skin color. Normal skin turgor. Extremities: No lower extremity edema. No calf tenderness Neuro: Oriented X 3. No motor deficit. No sensory deficit.No cerebellar signs , cranial nerves II-XII intact MDM - Chest Pain MDM Narrative Medical decision making narrative: Patient with anxiety atypical chest pain discharge home on Ativan Lab Data Attestation: I reviewed the patient's lab results. Result diagrams: 04/15/22 03:01 04/15/22 03:01 Labs: Lab Results 04/15/22 04/15/22 04/15/22 Range/Units 03:01 03:01 03:01 WBC 9.6 (4.8-10.8) X10*3/uL RBC 4.29 (4.20-5.50) X10*6/uL Hgb 12.1 (12.0-16.0) g/dl Hct 36.0 L (37.0-47.0) % MCV 83.9 (80.0-98.0) fL MCH 28.2 (27.0-33.0) pg MCHC 33.6 (31.0-35.0) g/dl RDW 14.1 (11.0-16.0) % Plt Count 378 (160-400) X10*3/uL MPV 8.9 L (9.4-12.3) fL Immature Gran % (Auto) 0.1 (0.0-0.4) % Neut % (Auto) 61.9 (45-73) % Lymph % (Auto) 26.0 (20-40) % [place] % (Auto) 6.2 (2-11) % Eos % (Auto) 5.3 H (0-4) % Baso % (Auto) 0.5 (0-2) % Lymph # (Auto) 2.5 (1.2-4.9) X10*3/uL [place] # (Auto) 0.6 (0.1-1.2) X10*3/uL Eos # (Auto) 0.5 H (0.0-0.4) X10*3/uL Baso # (Auto) 0.1 (0.0-0.2) X10*3/uL Abs Immat Gran (auto) 0.01 (0.00-0.03) X10*3/uL Absolute Neuts (auto) 5.9 (2.0-8.3) x10*3/uL Absolute Nucleated RBC 0.000 (0.0-0.012) X10*3/uL Nucleated RBC % (auto) 0.0 (0.0-0.2) /100WBC Sodium 139 (135-145) mmol/L Potassium 4.2 (3.3-5.1) mmol/L Chloride 105 (96-108) mmol/L Carbon Dioxide 21 L (22-29) mmol/L Anion Gap 17 (12-20) BUN 13 D (9-16) mg/dL Creatinine 0.78 (0.5-1.4) mg/dL Estim Creat Clear Calc 118.6 Estimated GFR > 60 Random Glucose 103 (60-115) mg/dL Calcium 9.5 (8.4-10.2) mg/dL Troponin I High Sens < 3.5 (<3.5-17.0) ng/L COVID-19 ([facility]) (Negative) COVID-19 Clin Com 04/15/22 Range/Units 03:01 WBC (4.8-10.8) X10*3/uL RBC (4.20-5.50) X10*6/uL Hgb (12.0-16.0) g/dl Hct (37.0-47.0) % MCV (80.0-98.0) fL MCH (27.0-33.0) pg MCHC (31.0-35.0) g/dl RDW (11.0-16.0) % Plt Count (160-400) X10*3/uL MPV (9.4-12.3) fL Immature Gran % (Auto) (0.0-0.4) % Neut % (Auto) (45-73) % Lymph % (Auto) (20-40) % [place] % (Auto) (2-11) % Eos % (Auto) (0-4) % Baso % (Auto) (0-2) % Lymph # (Auto) (1.2-4.9) X10*3/uL [place] # (Auto) (0.1-1.2) X10*3/uL Eos # (Auto) (0.0-0.4) X10*3/uL Baso # (Auto) (0.0-0.2) X10*3/uL Abs Immat Gran (auto) (0.00-0.03) X10*3/uL Absolute Neuts (auto) (2.0-8.3) x10*3/uL Absolute Nucleated RBC (0.0-0.012) X10*3/uL Nucleated RBC % (auto) (0.0-0.2) /100WBC Sodium (135-145) mmol/L Potassium (3.3-5.1) mmol/L Chloride (96-108) mmol/L Carbon Dioxide (22-29) mmol/L Anion Gap (12-20) BUN (9-16) mg/dL Creatinine (0.5-1.4) mg/dL Estim Creat Clear Calc Estimated GFR Random Glucose (60-115) mg/dL Calcium (8.4-10.2) mg/dL Troponin I High Sens (<3.5-17.0) ng/L COVID-19 ([facility]) Negative (Negative) COVID-19 Clin Com See Note ECG Data ECG #1: Attestation: I personally reviewed and interpreted this ECG as follows: Interpretation: Normal sinus rhythm heart rate 95 beats from normal intervals normal axis no acute ST changes no acute ischemia Discharge Plan Discharge Clinical Impression: Atypical chest pain, Anxiety Patient Disposition: Home, Self-Care Instructions: Noncardiac Chest Pain (ED), Anxiety (ED) Additional Instructions: Rest at home Ativan 1 tablet every night for severe anxiety/sleep Prescriptions: New lorazepam [Ativan] 0.5 mg tablet 0.5 mg PO BEDTIME PRN (Reason: anxiety) Qty: 14 0RF No Action aaxlyzllfj-jxghffemgnaaj-gwbo [Fioricet] 50-300-40 mg capsule 2 cap PO Q6H PRN (Reason: pain) Qty: 10 0RF Rx Instructions: do not exceed 6 caps per day ibuprofen 600 mg tablet 600 mg PO Q6H PRN (Reason: pain) Qty: 20 0RF hydroxyzine HCl 25 mg tablet 25 mg PO TID PRN (Reason: nausea and vomiting) Qty: 10 0RF Rx Instructions: P.r.n. anxiety omeprazole 20 mg capsule,delayed release(DR/EC) 20 mg PO DAILY 30 Days Qty: 30 0RF hydroxyzine HCl 50 mg tablet 50 mg PO TID PRN (Reason: anxiety) Qty: 20 0RF ibuprofen 600 mg tablet 600 mg PO Q8H PRN (Reason: pain) Qty: 20 0RF penicillin V potassium 500 mg tablet 500 mg PO TID 7 Days Qty: 21 0RF tramadol 50 mg tablet 50 mg PO BID PRN (Reason: pain) Qty: 6 0RF penicillin V potassium 500 mg tablet 500 mg PO QID 7 Days Qty: 28 0RF hydrocodone-acetaminophen 5-325 mg tablet 1 tab PO Q4H PRN (Reason: pain) Qty: 4 0RF Interventions: ED Discharge Assessment Last Done: 04/15/22 04:38 Discharge Date/Time: 04/15/22 04:39
[2022-04-15 03:22] LABS: Anion Gap 17 (12-20); Blood Urea Nitrogen 13 mg/dL (9-16); Calcium 9.5 mg/dL (8.4-10.2); Carbon Dioxide 21 mmol/L (22-29); Chloride 105 mmol/L (96-108); Creatinine Clr Calc Pharmacy 118.6; Estimated Glomerular Filt Rate > 60; Glucose Random 103 mg/dL (60-115); Potassium 4.2 mmol/L (3.3-5.1); Sodium 139 mmol/L (135-145)
[2022-04-15 03:23] LABS: COVID-19 Test Negative (Negative)
[2022-04-15 03:28] LABS: Troponin-I High Sensitivity < 3.5 ng/L (<3.5-17.0)
[2022-04-15] MEDS: LORazepam 0.5 MG TABLET PO (04:33)
[2022-04-15 04:36] VITALS: BP 131/93; PULSE 86; RESP 16; TEMP 37.1; O2SAT 99
== END 2022-04-15 04:39 | disposition home or self-care (01) ==
PROVIDERS: Emergency Provider Internal Medicine; PCP Pediatrics
DX: R07.89 Other chest pain (principal); F41.1 Generalized anxiety disorder; F43.0 Acute stress reaction; R06.02 Shortness of breath; R12 Heartburn; Z20.822 Contact with and (suspected) exposure to COVID-19; Z79.899 Other long term (current) drug therapy
CPT/HCPCS: 71045; 80048; 84484; 85025; 87635; 93005; 99283; 99285

== ENCOUNTER 2022-05-21 23:10 | Emergency (ER) | payer MEDICAID, SELFPAY ==
[2022-05-21 23:58] VITALS: BP 144/85; PULSE 86; RESP 16; TEMP 36.9; O2SAT 98; BMI 39.0
[2022-05-22 00:26] LABS: Strep A Nucleic Acid Negative (Negative)
[2022-05-22 00:29] LABS: COVID-19 Test Negative (Negative); IDNOW Serial# 16C4AD1C; IDNOW Serial# BCCEAD1C; Influenza A Negative (Negative); Influenza B2 Negative (Negative)
--- NOTE | 2022-05-22 01:23 | ED.DENTAL ---
HPI - Dental/Oral General Chief complaint: Dental/Oral Stated complaint: tongue and jaw pain Time Seen by Provider: 05/22/22 01:17 Source: patient Mode of arrival: ambulatory Limitations: no limitations History of Present Illness HPI Narrative: Patient comes to emergency room complaining of left-sided jaw pain. Patient states that she has been having tooth pain for over 2 years, she finally got an appointment with her dentist for a root canal on June 22. Patient was started on amoxicillin yesterday. Patient complaining that her gums and the left side of her tongue laterally hurts. Patient states she has had 2 doses of the antibiotic. Related Data Previous Rx's Medication Instructions Recorded oxtsedcfmm-qmgjinkieazsx-skdsgxfh 2 cap PO Q6H PRN pain #10 caps 05/16/20 50 mg-300 mg-40 mg capsule (Fioricet) ibuprofen 600 mg tablet 600 mg PO Q6H PRN pain #20 tabs 10/16/20 ibuprofen 600 mg tablet 600 mg PO Q8H PRN pain #20 tabs 04/01/21 penicillin V potassium 500 mg 500 mg PO TID 7 days #21 tabs 04/01/21 tablet tramadol 50 mg tablet 50 mg PO BID PRN pain #6 tabs 04/01/21 hydroxyzine HCl 25 mg tablet 25 mg PO TID PRN nausea and 05/06/21 vomiting #10 tabs hydrocodone 5 mg-acetaminophen 325 1 tab PO Q4H PRN pain #4 tabs 09/13/21 mg tablet penicillin V potassium 500 mg 500 mg PO QID 7 days #28 tabs 09/13/21 tablet omeprazole 20 mg capsule,delayed 20 mg PO DAILY 30 days #30 caps 10/20/21 release hydroxyzine HCl 50 mg tablet 50 mg PO TID PRN anxiety #20 tabs 12/27/21 lorazepam 0.5 mg tablet (Ativan) 0.5 mg PO BEDTIME PRN anxiety #14 04/15/22 tabs Allergies Allergy/AdvReac Type Severity Reaction Status Date / Time aloe [ALOE] Allergy Unknown RASH Verified 12/27/21 18:17 sertraline [SERTRALINE] Allergy Unknown UNKNOWN Verified 12/27/21 18:17 Review of Systems Review of Systems: Constitutional : No Weight loss, No Fever, No Chills, No Night Sweats, No Fatigue, No Malaise ENT/Mouth : No Hearing loss, No Ear Pain, No Nasal Congestion, No Sinus Pain, No Hoarseness, No sore throat, No Rhinorrhea, No Swallowing Difficulty, complaining of dental pain on the left side, the gum, left side of the tongue Eyes: No Eye Pain, No Swelling, No Redness, No Foreign Body, No Discharge, No Vision Changes Cardiovascular : No Chest Pain, No SOB, No Dyspnea on Exertion, No Orthopnea, No Edema, No Palpitations Respiratory : No Cough, No Sputum, No Wheezing, No Smoke Exposure, No Dyspnea Gastrointestinal : No Nausea, No Vomiting, No Diarrhea, No Constipation, No abdominal Pain, No Hematochezia, No Melena Genitourinary : no irregular bleeding, No Dysuria, No Urinary Frequency, No Hematuria, No Urinary Incontinence, No Urgency, No Flank Pain, No Urinary Flow Changes, No Hesitancy Musculoskeletal : No joint pain, No Myalgias, No Joint Swelling Skin : No Skin Lesions, No rash Neuro : No Weakness, No Numbness, No Paresthesias, No Loss of Consciousness, No Dizziness, No Headache Psych : No Anxiety/Panic, No Depression, No SI/HI/AH/VH, No Social Issues, Heme/Lymph: No Bruising, No Bleeding,No Lymphadenopathy Endocrine : No Polyuria, No Polydipsia, No Temperature Intolerance PMFSH Past Medical History Medical History Anxiety Hypercholesteremia Hypertension Hypothyroidism Migraines Surgical History No pertinent past surgical history Family History Family History Father No problems noted. Mother Hepatitis C Hypothyroidism Hypertension Cirrhosis of liver Social History Social History Alcohol intake: never Patient Tobacco Use Status: Never used Tobacco Advance Directives: No Advance Directives Information Provided: Yes Physical Exam Vital Signs: Vital Signs: Last Vital Signs Temp 98.5 F 05/21/22 23:58 Pulse 86 05/21/22 23:58 Resp 16 05/21/22 23:58 BP 144/85 H 05/21/22 23:58 Pulse Ox 98 05/21/22 23:58 O2 Del Method 05/21/22 23:58 BMI result Body Mass Index 39.0 Const: Other: Appearance: Alert. Oriented X3. No acute distress. Well-appearing Eyes: Pupils equal, round and reactive to light. ENT: Pharynx normal. Gums look normal, no visualized abscesses that could possibly be drained. Left side of the tongue looks normal, no lesions, no aphthous ulcers Neck: Normal inspection. Neck supple. No lymph nodes noted. No crepitus CVS: Normal heart rate and rhythm. Pulses normal. Normal S1 and S2 Respiratory: No respiratory distress. Breath sounds normal. No Wheezing. No rales Abdomen: Soft and nontender. No rigidity. No distention. Skin: Skin warm and dry. Normal skin color. Normal skin turgor. Extremities: No lower extremity edema. No Lacerations. No Rash Neuro: Oriented X 3. No motor deficit. No sensory deficit. Moving all extremities. No slurred speech. CN 2 through 12 grossly intact Psych: calm, cooperative, anxious Course Course Course Narrative: I discussed with the patient that the dental pain can be referred to the tongue jaw and even to the ear. Patient is getting 1 dose of IM Toradol in the emergency room. Patient has taken less than 24 hours of antibiotic. Instructed wait for 24 more hours, if she has no PE, she may return to the emergency room. Patient states that she has Tylenol and ibuprofen at home. MDM - Dental/Oral Lab Data Labs: Lab Results 05/22/22 05/22/22 05/22/22 Range/Units 00:03 00:03 00:03 COVID-19 ([facility]) Negative (Negative) COVID-19 Clin Com See Note Influenza Type A ([facility]) Negative (Negative) Influenza Type B ([facility]) Negative (Negative) Influenza A & B Note See Note S. pyogenes GrpA [facility] Negative (Negative) Discharge Plan Discharge Clinical Impression: Toothache Patient Disposition: Home, Self-Care Instructions: Toothache (ED) Additional Instructions: Please follow-up with your primary care physician tomorrow. If you have any worsening or new symptoms, please return to the emergency room or call 911 Prescriptions: No Action qunoprkoxe-ubqtyhzzdtzef-tqal [Fioricet] 50-300-40 mg capsule 2 cap PO Q6H PRN (Reason: pain) Qty: 10 0RF Rx Instructions: do not exceed 6 caps per day ibuprofen 600 mg tablet 600 mg PO Q6H PRN (Reason: pain) Qty: 20 0RF hydroxyzine HCl 25 mg tablet 25 mg PO TID PRN (Reason: nausea and vomiting) Qty: 10 0RF Rx Instructions: P.r.n. anxiety omeprazole 20 mg capsule,delayed release(DR/EC) 20 mg PO DAILY 30 Days Qty: 30 0RF hydroxyzine HCl 50 mg tablet 50 mg PO TID PRN (Reason: anxiety) Qty: 20 0RF lorazepam [Ativan] 0.5 mg tablet 0.5 mg PO BEDTIME PRN (Reason: anxiety) Qty: 14 0RF ibuprofen 600 mg tablet 600 mg PO Q8H PRN (Reason: pain) Qty: 20 0RF penicillin V potassium 500 mg tablet 500 mg PO TID 7 Days Qty: 21 0RF tramadol 50 mg tablet 50 mg PO BID PRN (Reason: pain) Qty: 6 0RF penicillin V potassium 500 mg tablet 500 mg PO QID 7 Days Qty: 28 0RF hydrocodone-acetaminophen 5-325 mg tablet 1 tab PO Q4H PRN (Reason: pain) Qty: 4 0RF
== END 2022-05-22 01:41 | disposition home or self-care (01) ==
PROVIDERS: Emergency Provider Emergency Medicine; PCP Pediatrics
DX: K08.89 Other specified disorders of teeth and supporting structures (principal); R68.84 Jaw pain; Z20.822 Contact with and (suspected) exposure to COVID-19; Z79.899 Other long term (current) drug therapy
CPT/HCPCS: 87502; 87635; 87651; 96372; 99282; 99284

== ENCOUNTER 2022-06-14 15:53 | Emergency (ER) | payer MEDICAID, SELFPAY ==
--- NOTE | ~2022-06-14 | XR_ITS ---
EXAMINATION: XR CHEST CLINICAL INFORMATION: Cough and fever COMPARISON: 04/15/2022 TECHNIQUE: 2 views of the chest were obtained. FINDINGS: No significant abnormality is noted involving the heart, lungs, mediastinum, bony thorax or soft tissues. XR/XR chest 2V IMPRESSION: Unremarkable examination.
[2022-06-14 17:15] VITALS: BP 135/73; PULSE 148; RESP 20; TEMP 39.5; O2SAT 99; BMI 39.0
--- NOTE | 2022-06-14 17:15 | ED.URI ---
HPI - URI/Sore Throat General Chief Complaint: Fever <CR Godfrey - Last Filed: 06/14/22 17:20> Stated Complaint: Fever <CR Godfrey - Last Filed: 06/14/22 17:20> Time Seen by Provider: 06/14/22 20:15 <CR Godfrey - Last Filed: 06/14/22 17:20> Source: patient and family <Petra Garibay MD - Last Filed: 06/14/22 21:23> Mode of arrival: ambulatory <Petra Garibay MD - Last Filed: 06/14/22 21:23> Limitations: no limitations <Petra Garibay MD - Last Filed: 06/14/22 21:23> History of Present Illness HPI Narrative: 21-year-old female presented with nonproductive coughing, high fever, runny nose, feeling congested, dizziness, generalized body aches, generalized joint pain, exposed to a sick family member last week, no recent travel, no photophobia, no neck stiffness. <Petra Garibay MD - Last Filed: 06/14/22 21:23> Related Data Home Medications: Previous Rx's Medication Instructions Recorded vaqtqknige-jhjqnbnfutqqr-sbnaxexq 2 cap PO Q6H PRN pain #10 caps 05/16/20 50 mg-300 mg-40 mg capsule (Fioricet) ibuprofen 600 mg tablet 600 mg PO Q6H PRN pain #20 tabs 10/16/20 ibuprofen 600 mg tablet 600 mg PO Q8H PRN pain #20 tabs 04/01/21 penicillin V potassium 500 mg 500 mg PO TID 7 days #21 tabs 04/01/21 tablet tramadol 50 mg tablet 50 mg PO BID PRN pain #6 tabs 04/01/21 hydroxyzine HCl 25 mg tablet 25 mg PO TID PRN nausea and 05/06/21 vomiting #10 tabs hydrocodone 5 mg-acetaminophen 325 1 tab PO Q4H PRN pain #4 tabs 09/13/21 mg tablet penicillin V potassium 500 mg 500 mg PO QID 7 days #28 tabs 09/13/21 tablet omeprazole 20 mg capsule,delayed 20 mg PO DAILY 30 days #30 caps 10/20/21 release hydroxyzine HCl 50 mg tablet 50 mg PO TID PRN anxiety #20 tabs 12/27/21 lorazepam 0.5 mg tablet (Ativan) 0.5 mg PO BEDTIME PRN anxiety #14 04/15/22 tabs oseltamivir 75 mg capsule (Tamiflu) 75 mg PO BID 5 days #10 caps 06/14/22 <CR Godfrey - Last Filed: 06/14/22 17:20> Allergies/Adverse Reactions: Allergies Allergy/AdvReac Type Severity Reaction Status Date / Time aloe [ALOE] Allergy Unknown RASH Verified 12/27/21 18:17 sertraline [SERTRALINE] Allergy Unknown UNKNOWN Verified 12/27/21 18:17 <CR Godfrey - Last Filed: 06/14/22 17:20> Review of Systems Review of Systems: All other systems are reviewed and are negative Constitutional: Reports as per HPI and Reports no additional constitutional complaints Eyes: Reports as per HPI and Reports no additional eye complaints Reports system reviewed and no additional complaints, except as documented Cardiovascular: Reports as per HPI and Reports no additional cardiovascular complaints Respiratory: Reports as per HPI and Reports no additional respiratory complaints Gastrointestinal: Reports as per HPI and Reports no additional gastrointestinal complaints Genitourinary: Reports no additional female genitourinary complaints Musculoskeletal: Reports no additional musculoskeletal complaints Skin/Breast: Reports system reviewed and no additional complaints, except as docu Psychiatric: Reports no additional psychiatric complaints Endocrine: Reports no additional endocrine complaints Hematologic/Lymphatic: Reports no additional hematologic/lymphatic complaints Allergic/Immunologic: Reports no additional allergic/immunologic complaints Reports system reviewed and no additional complaints, except as documented and Reports Abnormal speech present <Petra Garibay MD - Last Filed: 06/14/22 21:23> [facility] Past Medical History Medical History: Medical History Anxiety Hypercholesteremia Hypertension Hypothyroidism Migraines <CR Godfrey - Last Filed: 06/14/22 17:20> Surgical History: Surgical History No pertinent past surgical history <CR Godfrey - Last Filed: 06/14/22 17:20> Family History Family History: Family History Father No problems noted. Mother Hepatitis C Hypothyroidism Hypertension Cirrhosis of liver <CR Godfrey - Last Filed: 06/14/22 17:20> Social History Social History: Social History Alcohol intake: never Patient Tobacco Use Status: Never used Tobacco Advance Directives: No Advance Directives Information Provided: No <CR Godfrey - Last Filed: 06/14/22 17:20> Physical Exam Vital Signs: Vital Signs: Last Vital Signs Temp 98.8 F 06/14/22 21:19 Pulse 121 H 06/14/22 20:35 Resp 18 06/14/22 20:35 BP 119/60 06/14/22 20:35 Pulse Ox 97 06/14/22 20:35 O2 Del Method 06/14/22 20:35 BMI result Body Mass Index 39.0 <CR Godfrey - Last Filed: 06/14/22 17:20> Vital Signs: Last Vital Signs Temp 98.8 F 06/14/22 21:19 Pulse 121 H 06/14/22 20:35 Resp 18 06/14/22 20:35 BP 119/60 06/14/22 20:35 Pulse Ox 97 06/14/22 20:35 O2 Del Method 06/14/22 20:35 BMI result Body Mass Index 39.0 Vital signs have been reviewed as appeared to be correct. Blood pressure normal. Heart rate elevated. Respiration rate normal. Temperature elevated. Oxygen saturation normal. <Petra Garibay MD - Last Filed: 06/14/22 21:23> Appearance: Alert. Oriented X3. No acute distress. Head: Normal external exam. Normocephalic. Atraumatic. No [place] signs noted. No raccoon eyes noted Eyes: PERRLA. EOMI. Conjunctiva and sclera normal. Eyelids normal. ENT: TM's Normal. Pharynx normal. Uvula midline. Moist mucous membranes. No trismus noted. No drooling noted. No muffled voice noted. Neck: Normal inspection. Neck supple. FROM. No adenopathy. Thyroid Normal. No meningeal signs. No neck mass noted. CVS: Normal heart rate and rhythm. Heart sound normal. No murmurs noted. Pulses normal throughout. Respiratory: No respiratory distress. Painless inspiration. Breath sounds normal. No wheezes/rales/rhonchi noted. Chest nontender. No accessory muscle usage noted or decreased air movement noted. Abdomen: Soft and nontender. Bowel sounds normal in all 4 quadrants. No distention noted. No organomegaly noted. No visible injury noted. Back: No CVA tenderness. Full range of motion noted. Skin: Skin warm and dry. Normal skin color. Normal skin turgor. No rashes/lesions/lacerations noted. Extremities: No lower extremity edema. Extremities exhibit normal range of motion. Extremities nontender. Neuro: Oriented X 3. Cranial nerve exam: II-XII are grossly intact No motor deficit. No sensory deficit. Reflexes normal. <Petra Garibay MD - Last Filed: 06/14/22 21:23> Course Course Course Narrative: 17:20pm - 21yoF c PMHx of hypothyroidism presenting to the ER with complaints of fevers up to 105.0,chills, fatigues, malaise, intermittent dizziness, nasal congestion/rhinorrhea, sore throat and a cough x2 days. Denies any other symptoms complaints or concerns at this time. Plan: CXR, rapid strep, COVID/RSV/flu swab ordered at this time. Patient is stable. Patient will be sent back to the waiting room for further evaluation treatment Emergency minor care. <CR Godfrey - Last Filed: 06/14/22 17:20> Reevaluation(s) Reevaluation #1: Influenza A positive with a high fever, patient has no photophobia, no neck stiffness, fever is improving to ibuprofen and Tylenol will start the patient on Tamiflu. Vital sign improving after ibuprofen/Tylenol. <Petra Garibay MD - Last Filed: 06/14/22 21:23> Time: 20:33 <Petra Garibay MD - Last Filed: 06/14/22 21:23> Medications Administered Discontinued Medications Generic Name Dose Route Start Last Admin Trade Name Freq PRN Reason Stop Dose Admin Acetaminophen 650 mg 06/14/22 20:25 06/14/22 20:36 Acetaminophen 325 Mg Tablet PO 06/14/22 20:26 650 mg ONCE ONE Administration Ibuprofen 800 mg 06/14/22 17:15 06/14/22 19:44 Ibuprofen 800 Mg Tablet PO 06/14/22 17:16 800 mg ONCE ONE Administration <CR Godfrey - Last Filed: 06/14/22 17:20> Medications Administered Discontinued Medications Generic Name Dose Route Start Last Admin Trade Name Sloan PRN Reason Stop Dose Admin Acetaminophen 650 mg 06/14/22 20:25 06/14/22 20:36 Acetaminophen 325 Mg Tablet PO 06/14/22 20:26 650 mg ONCE ONE Administration Ibuprofen 800 mg 06/14/22 17:15 06/14/22 19:44 Ibuprofen 800 Mg Tablet PO 06/14/22 17:16 800 mg ONCE ONE Administration <Petra Garibay MD - Last Filed: 06/14/22 21:23> Medical Decision Making Differential Diagnosis Differential Diagnoses: The differential diagnosis associated with the presentation includes <Petra Garibay MD - Last Filed: 06/14/22 21:23> Pneumonia, influenza, COVID-19 infection, RSV, meningitis, strep pharyngitis. <Petra Garibay MD - Last Filed: 06/14/22 21:23> Lab Data MDM Lab Attestation statement: I reviewed the patient's lab results. <Petra Garibay MD - Last Filed: 06/14/22 21:23> Labs: Lab Results 06/14/22 06/14/22 Range/Units 17:24 17:24 Influenza Type A (PCR) POSITIVE A (Negative) Influenza Type B (PCR) NEGATIVE (Negative) RSV RNA Qual (PCR) NEGATIVE (Negative) SARS-CoV-2 RNA (RT-PCR) NEGATIVE (Negative) S. pyogenes GrpA CHANTAL Negative (Negative) <CR Godfrey - Last Filed: 06/14/22 17:20> Lab Results 06/14/22 06/14/22 Range/Units 17:24 17:24 Influenza Type A (PCR) POSITIVE A (Negative) Influenza Type B (PCR) NEGATIVE (Negative) RSV RNA Qual (PCR) NEGATIVE (Negative) SARS-CoV-2 RNA (RT-PCR) NEGATIVE (Negative) S. pyogenes GrpA CHANTAL Negative (Negative) <Petra Garibay MD - Last Filed: 06/14/22 21:23> Discharge Plan Discharge Clinical Impression: Influenza <CR Godfrey - Last Filed: 06/14/22 17:20> Patient Disposition: Home, Self-Care <CR Godfrey - Last Filed: 06/14/22 17:20> Instructions: Influenza (ED) <CR Godfrey - Last Filed: 06/14/22 17:20> Prescriptions: New oseltamivir [Tamiflu] 75 mg capsule 75 mg PO BID 5 Days Qty: 10 0RF No Action pntyktljhs-gnzoroprsaopx-emfb [Fioricet] 50-300-40 mg capsule 2 cap PO Q6H PRN (Reason: pain) Qty: 10 0RF Rx Instructions: do not exceed 6 caps per day ibuprofen 600 mg tablet 600 mg PO Q6H PRN (Reason: pain) Qty: 20 0RF hydroxyzine HCl 25 mg tablet 25 mg PO TID PRN (Reason: nausea and vomiting) Qty: 10 0RF Rx Instructions: P.r.n. anxiety omeprazole 20 mg capsule,delayed release(DR/EC) 20 mg PO DAILY 30 Days Qty: 30 0RF hydroxyzine HCl 50 mg tablet 50 mg PO TID PRN (Reason: anxiety) Qty: 20 0RF lorazepam [Ativan] 0.5 mg tablet 0.5 mg PO BEDTIME PRN (Reason: anxiety) Qty: 14 0RF ibuprofen 600 mg tablet 600 mg PO Q8H PRN (Reason: pain) Qty: 20 0RF penicillin V potassium 500 mg tablet 500 mg PO TID 7 Days Qty: 21 0RF tramadol 50 mg tablet 50 mg PO BID PRN (Reason: pain) Qty: 6 0RF penicillin V potassium 500 mg tablet 500 mg PO QID 7 Days Qty: 28 0RF hydrocodone-acetaminophen 5-325 mg tablet 1 tab PO Q4H PRN (Reason: pain) Qty: 4 0RF <CR Godfrey - Last Filed: 06/14/22 17:20> Referrals: Ashly Ozuna MD [Primary Care Provider] - <CR Godfrey - Last Filed: 06/14/22 17:20> Stand Alone Forms: Work/School Release <CR Godfrey - Last Filed: 06/14/22 17:20>
[2022-06-14 17:55] LABS: Strep A Nucleic Acid Negative (Negative)
[2022-06-14 19:02] LABS: Influenza A PCR POSITIVE (Negative); Influenza B PCR NEGATIVE (Negative); Resp Syncy Virus RNA Qual PCR NEGATIVE (Negative); SARS COV2 PCR INHOUSE NEGATIVE (Negative)
[2022-06-14] MEDS: Ibuprofen 800 MG TABLET PO (19:44)
[2022-06-14 20:35] VITALS: BP 119/60; PULSE 121; RESP 18; TEMP 38.6; O2SAT 97
[2022-06-14] MEDS: Acetaminophen 325 MG TABLET 650 MG PO (20:36)
[2022-06-14 21:18] VITALS: TEMP 37.1
[2022-06-14 21:19] VITALS: TEMP 37.1
--- NOTE | 2022-06-14 21:37 | PC.NURSE ---
pt fever now down to 98.8 orally, pt verbalizes that she feels better, and her head pain has gotten better, pt alert and cooperative awaiting d/c paperwork
== END 2022-06-14 22:09 | disposition home or self-care (01) ==
PROVIDERS: Physician Assistant Medical; Emergency Provider Emergency Medicine; PCP Pediatrics
DX: J10.1 Influenza due to other identified influenza virus with other respiratory manifestations (principal); R50.9 Fever, unspecified; R05.9 Cough, unspecified; M79.10 Myalgia, unspecified site; Z20.822 Contact with and (suspected) exposure to COVID-19
CPT/HCPCS: 0241U; 71046; 87651; 99283

== ENCOUNTER 2022-07-23 16:03 | Emergency (ER) | payer MEDICAID, SELFPAY ==
--- NOTE | ~2022-07-23 | XR_ITS ---
EXAMINATION: XR CHEST CLINICAL INFORMATION: Shortness of breath. Chest pain. COMPARISON: Chest radiograph done on 06/14/2022. TECHNIQUE: 2 views of the chest were obtained. FINDINGS: No significant abnormality is noted involving the heart, lungs, mediastinum, bony thorax or soft tissues. XR/XR chest 2V IMPRESSION: Unremarkable examination. No significant change since 06/14/2022.
--- NOTE | 2022-07-23 16:04 | ECG_ITS ---
Test Reason : CHEST PAIN Blood Pressure : / mmHG Vent. Rate : 084 BPM Atrial Rate : 084 BPM P-R Int : 130 ms QRS Dur : 072 ms QT Int : 388 ms P-R-T Axes : 030 044 020 degrees QTc Int : 458 ms Normal sinus rhythm Normal ECG When compared with ECG of 15-APR-2022 02:45, No significant change was found Referred By: Kelle Gamble Electronically Signed By:EARNESTINE ROBERT MD
--- NOTE | 2022-07-23 16:37 | ED.SOB ---
HPI - SOB/Dyspnea General Chief Complaint: Chest Pain <Kelle Gamble CNP - Last Filed: 07/23/22 16:42> Stated Complaint: chest pain,sob <Kelle Gamble CNP - Last Filed: 07/23/22 16:42> Time Seen by Provider: 07/23/22 17:05 <Kelle Gamble CNP - Last Filed: 07/23/22 16:42> Source: patient <CR Campbell - Last Filed: 07/23/22 18:34> Mode of arrival: ambulatory <CR Campbell - Last Filed: 07/23/22 18:34> Limitations: no limitations <CR Campbell - Last Filed: 07/23/22 18:34> History of Present Illness HPI Narrative: This is a 22-year-old female history of anxiety, obesity, hypothyroidism, HTN presenting to the emergency department with complaints of chest pain, cough, shortness of breath x2 weeks. Patient tells me chest pain has been going on for the past 2 weeks constant nature, localized to the substernal region, and at times radiates towards the left side, she tells me it is a sharp pain and it varies in intensity however when it comes on sometimes it is very strong. Patient reports shortness of breath both at rest and with exertion. She has also been experiencing a dry cough for the past 2 weeks intermittently, not improving. Patient tells me she tried anti anxiety meds as she does have a history of anxiety, and they did not help her symptoms. Patient tells me when she had this in the past she they told her that this was anxiety. Patient denies lower extremity pain and swelling, nausea, vomiting, abdominal pain, recent travel, oral contraceptive use, no history of PE/DVT or malignancy, <CR Campbell - Last Filed: 07/23/22 18:34> Related Data Home Medications: Previous Rx's Medication Instructions Recorded [id number]-[id number]-[id number] 2 cap PO Q6H PRN pain #10 caps 05/16/20 50 mg-300 mg-40 mg capsule (Fioricet) ibuprofen 600 mg tablet 600 mg PO Q6H PRN pain #20 tabs 04/16/21 ibuprofen 600 mg tablet 600 mg PO Q8H PRN pain #20 tabs 04/01/21 penicillin V potassium 500 mg 500 mg PO TID 7 days #21 tabs 04/01/21 tablet tramadol 50 mg tablet 50 mg PO BID PRN pain #6 tabs 04/01/21 hydroxyzine HCl 25 mg tablet 25 mg PO TID PRN nausea and 05/06/21 vomiting #10 tabs hydrocodone 5 mg-acetaminophen 325 1 tab PO Q4H PRN pain #4 tabs 09/13/21 mg tablet penicillin V potassium 500 mg 500 mg PO QID 7 days #28 tabs 09/13/21 tablet omeprazole 20 mg capsule,delayed 20 mg PO DAILY 30 days #30 caps 10/20/21 release hydroxyzine HCl 50 mg tablet 50 mg PO TID PRN anxiety #20 tabs 12/27/21 lorazepam 0.5 mg tablet (Ativan) 0.5 mg PO BEDTIME PRN anxiety #14 04/15/22 tabs oseltamivir 75 mg capsule (Tamiflu) 75 mg PO BID 5 days #10 caps 06/14/22 hydroxyzine HCl 25 mg tablet 25 mg PO BEDTIME PRN anxiety #10 07/23/22 tabs ketorolac 10 mg tablet 10 mg PO TID PRN pain 5 days #14 07/23/22 tabs <Kelle Gambel CNP - Last Filed: 07/23/22 16:42> Allergies/Adverse Reactions: Allergies Allergy/AdvReac Type Severity Reaction Status Date / Time aloe [ALOE] Allergy Unknown RASH Verified 12/27/21 18:17 sertraline [SERTRALINE] Allergy Unknown UNKNOWN Verified 12/27/21 18:17 <Kelle Gamble CNP - Last Filed: 07/23/22 16:42> Review of Systems Review of Systems: Constitutional : No Weight loss, No Fever, No Chills, No Fatigue, No Malaise ENT/Mouth : No sore throat, No Rhinorrhea Eyes: No Eye Pain, No Swelling, No Redness Cardiovascular : + Chest Pain, + SOB, No Dyspnea on Exertion, No Orthopnea, No Edema, No Palpitations Respiratory : + Cough, No Sputum, No Wheezing Gastrointestinal : No Nausea, No Vomiting, No Diarrhea, No Constipation, No abdominal Pain, No Hematochezia, No Melena Genitourinary : No Dysuria, No Urinary Frequency, No Hematuria, Musculoskeletal : No joint pain, No Myalgias, No Joint Swelling Skin : No Skin Lesions, No rash Neuro : No Weakness, No Numbness, No Dizziness, No Headache Psych : No Anxiety/Panic, No Depression All other systems reviewed and are negative <CR Campbell - Last Filed: 07/23/22 18:34> Yes all other systems are reviewed and are negative <CR Campbell - Last Filed: 07/23/22 18:34> [facility] Past Medical History Attestation statement: The following information was validated with the patient. <CR Campbell - Last Filed: 07/23/22 18:34> Source: old records reviewed and nursing notes reviewed <CR Campbell - Last Filed: 07/23/22 18:34> Medical History: Medical History Anxiety Hypercholesteremia Hypertension Hypothyroidism Migraines <Kelle Gamble CNP - Last Filed: 07/23/22 16:42> Surgical History: Surgical History No pertinent past surgical history <Kelle Gamble CNP - Last Filed: 07/23/22 16:42> Family History Family History: Family History Father No problems noted. Mother Hepatitis C Hypothyroidism Hypertension Cirrhosis of liver <Kelle Gamble CNP - Last Filed: 07/23/22 16:42> Social History Social History: Social History Alcohol intake: former Patient Tobacco Use Status: Never used Tobacco Smoked in Last 30 Days: No Advance Directives: No Advance Directives Information Provided: No Patient : No <Kelle Gamble CNP - Last Filed: 07/23/22 16:42> Physical Exam Vital Signs: Vital Signs: Last Vital Signs Temp 98.0 F 07/23/22 18:17 Pulse 91 07/23/22 18:17 Resp 20 07/23/22 18:17 BP 138/85 07/23/22 18:17 Pulse Ox 97 07/23/22 18:17 O2 Del Method 07/23/22 18:17 BMI result Body Mass Index 40.0 <Kelle Krystinadelmy Gamble CNP - Last Filed: 07/23/22 16:42> Vital Signs: Last Vital Signs Temp 98.0 F 07/23/22 18:17 Pulse 91 07/23/22 18:17 Resp 20 07/23/22 18:17 BP 138/85 07/23/22 18:17 Pulse Ox 97 07/23/22 18:17 O2 Del Method 07/23/22 18:17 BMI result Body Mass Index 40.0 Patient noted to be hypertensive likely secondary to anxiety <CR Campbell - Last Filed: 07/23/22 18:34> Appearance: Alert.? Oriented X3.? No acute distress.? Head: Normocephalic, atraumatic, no step-offs or deformities Eyes: Pupils equal, round and reactive to light.? ENT: Pharynx normal.? Neck: Normal inspection.? Neck supple.? CVS: Normal heart rate and rhythm.? Pulses normal.? Pain with palpation to anterior chest wall Respiratory: No respiratory distress.? Breath sounds normal.? Abdomen: Soft and nontender.? Skin: Skin warm and dry.? Normal skin color.? Normal skin turgor.? Extremities: No lower extremity edema.? No calf ttp, negative Vernell bilaterally. 5/5 strength to bilateral upper and lower extremities Neuro: Oriented X 3.? No motor deficit.? No sensory deficit. CN 2-12 intact <CR Campbell - Last Filed: 07/23/22 18:34> Course Course Course Narrative: This is an RME: Additional HPI, ROS, PE not included below will be deferred to primary provider. Patient is a 22-year-old female presenting to the emergency department with complaints of 2 weeks with Constant Chest pain, mid sternal radiating towards left, sharp, varying intensity. Has had similar pain in the past which she was told was due to anxiety, she trialed anxiolytic medication at home which did not improve the pain. Associated cough, and shortness of breath intermittently. Denies leg pain, swelling, redness, use of oral contraceptives, personal history of DVT/PE/malignancy. Plan: labs, EKG, CXR, viral testing <Kelle Gamble CNP - Last Filed: 07/23/22 16:42> Reevaluation(s) Reevaluation #1: CBC appears to be within normal limits. Chemistry with no acute findings requiring intervention. Troponin negative, EKG nonischemic unlikely ACS. Patient PERC negative, unlikely PE, patient does not have significant risk factors for PE. COVID and influenza negative. Chest x-ray unremarkable. Likely anxiety and chostocondritis. Patient feeling better at this time every before ativan. Educated patient on diagnosis and treatment plan, answered all question, patient verbalizes understanding. At this time patient will be discharged home, advised to return with new or worsening symptoms. Educated on worrisome signs and symptoms and when to return. At this time I feel comfortable discharge home. <CR Campbell - Last Filed: 07/23/22 18:34> Time: 18:28 <CR Campbell - Last Filed: 07/23/22 18:34> Medical Decision Making Medical Decision Making [facility] Narrative: 1706 22-year-old female presents with chest pain, shortness of breath, dry cough x2 weeks. History of anxiety. No risk factors for DVT. Physical examination with pain with palpation of anterior chest wall, negative Vernell bilaterally. Patient noted to be hypertensive likely secondary to anxiety. Likely anxiety and costochondritis, I do not suspect ACS, PE, dissection, pneumonia. Will rule out electrolyte abnormalities and infection although unlikely. Upon chart review it is noted the patient has had multiple visits with similar presentations, all of which have been negative workups and patient has been discharged home with a diagnosis of anxiety. Patient PERC negative Plan at this time labs, imaging. Will give Toradol and this low dose of Ativan Labs and imaging ordered from triage, patient's EKG showed normal sinus rhythm ventricular rate of 84, normal ID, normal QT/QTC, normal QRS, no ST elevations or inversions concerning for ischemia. No significant change when compared with previous <CR Campbell Last Filed: 07/23/22 18:34> Differential Diagnosis Differential Diagnoses: The differential diagnosis associated with the presentation includes <CR Campbell - Last Filed: 07/23/22 18:34> Likely anxiety, I do not suspect ACS, PE, dissection, pneumonia. Will rule out electrolyte abnormalities and infection although unlikely. <CR Campbell - Last Filed: 07/23/22 18:34> Admission/Observation Consideration of admission/observation: Escalation of care including admission/observation considered <CR Campbell - Last Filed: 07/23/22 18:34> Unlikely <CR Campbell - Last Filed: 07/23/22 18:34> Lab Data MDM Lab Attestation statement: I reviewed the patient's lab results. <CR Campbell - Last Filed: 07/23/22 18:34> Result Diagrams: 07/23/22 17:02 07/23/22 17:02 <Kelle Gamble CNP - Last Filed: 07/23/22 16:42> Labs: Lab Results 07/23/22 07/23/22 07/23/22 Range/Units 17:02 17:02 17:02 WBC 8.7 (4.8-10.8) X10*3/uL RBC 4.22 (4.20-5.50) X10*6/uL Hgb 12.1 (12.0-16.0) g/dl Hct 35.4 L (37.0-47.0) % MCV 83.9 (80.0-98.0) fL MCH 28.7 (27.0-33.0) pg MCHC 34.2 (31.0-35.0) g/dl RDW 14.1 (11.0-16.0) % Plt Count 399 (160-400) X10*3/uL MPV 9.4 (9.4-12.3) fL Immature Gran % (Auto) 0.9 H (0.0-0.4) % Neut % (Auto) 55.5 (45-73) % Lymph % (Auto) 32.2 (20-40) % George % (Auto) 6.6 (2-11) % Eos % (Auto) 4.1 H (0-4) % Baso % (Auto) 0.7 (0-2) % Lymph # (Auto) 2.8 (1.2-4.9) X10*3/uL George # (Auto) 0.6 (0.1-1.2) X10*3/uL Eos # (Auto) 0.4 (0.0-0.4) X10*3/uL Baso # (Auto) 0.1 (0.0-0.2) X10*3/uL Abs Immat Gran (auto) 0.08 H (0.00-0.03) X10*3/uL Absolute Neuts (auto) 4.8 (2.0-8.3) x10*3/uL Absolute Nucleated RBC 0.000 (0.0-0.012) X10*3/uL Nucleated RBC % (auto) 0.0 (0.0-0.2) /100WBC PT 11.7 (10.0-13.1) SEC INR 1.0 (0.9-1.1) Sodium 141 (135-145) mmol/L Potassium 4.3 (3.3-5.1) mmol/L Chloride 106 (96-108) mmol/L Carbon Dioxide 24 (22-29) mmol/L Anion Gap 15 (12-20) BUN 11 (9-16) mg/dL Creatinine 0.78 (0.5-1.4) mg/dL Estim Creat Clear Calc 115.2 Estimated GFR > 60 Random Glucose 101 (60-115) mg/dL Calcium 9.6 (8.4-10.2) mg/dL Total Bilirubin 0.2 (0.0-1.0) mg/dL AST 16 (5-31) U/L ALT 19 (0-31) U/L Alkaline Phosphatase 109 (39-117) U/L Troponin I High Sens (<3.5-17.0) ng/L Total Protein 7.6 (6.5-8.0) g/dL Albumin 4.4 (3.5-5.0) g/dL Lipase 23 (8-78) U/L Beta HCG, Quant < 2 mIU/mL COVID-19 ([facility]) (Negative) COVID-19 Clin Com Influenza Type A ([facility]) (Negative) Influenza Type B ([facility]) (Negative) Influenza A & B Note 07/23/22 07/23/22 07/23/22 Range/Units 17:02 17:04 17:04 WBC (4.8-10.8) X10*3/uL RBC (4.20-5.50) X10*6/uL Hgb (12.0-16.0) g/dl Hct (37.0-47.0) % MCV (80.0-98.0) fL MCH (27.0-33.0) pg MCHC (31.0-35.0) g/dl RDW (11.0-16.0) % Plt Count (160-400) X10*3/uL MPV (9.4-12.3) fL Immature Gran % (Auto) (0.0-0.4) % Neut % (Auto) (45-73) % Lymph % (Auto) (20-40) % George % (Auto) (2-11) % Eos % (Auto) (0-4) % Baso % (Auto) (0-2) % Lymph # (Auto) (1.2-4.9) X10*3/uL George # (Auto) (0.1-1.2) X10*3/uL Eos # (Auto) (0.0-0.4) X10*3/uL Baso # (Auto) (0.0-0.2) X10*3/uL Abs Immat Gran (auto) (0.00-0.03) X10*3/uL Absolute Neuts (auto) (2.0-8.3) x10*3/uL Absolute Nucleated RBC (0.0-0.012) X10*3/uL Nucleated RBC % (auto) (0.0-0.2) /100WBC PT (10.0-13.1) SEC INR (0.9-1.1) Sodium (135-145) mmol/L Potassium (3.3-5.1) mmol/L Chloride (96-108) mmol/L Carbon Dioxide (22-29) mmol/L Anion Gap (12-20) BUN (9-16) mg/dL Creatinine (0.5-1.4) mg/dL Estim Creat Clear Calc Estimated GFR Random Glucose (60-115) mg/dL Calcium (8.4-10.2) mg/dL Total Bilirubin (0.0-1.0) mg/dL AST (5-31) U/L ALT (0-31) U/L Alkaline Phosphatase (39-117) U/L Troponin I High Sens < 3.5 (<3.5-17.0) ng/L Total Protein (6.5-8.0) g/dL Albumin (3.5-5.0) g/dL Lipase (8-78) U/L Beta HCG, Quant mIU/mL COVID-19 ([facility]) Negative (Negative) COVID-19 Clin Com See Note Influenza Type A ([facility]) Negative (Negative) Influenza Type B ([facility]) Negative (Negative) Influenza A & B Note See Note <Kelle Gamble, [employer] - Last Filed: 07/23/22 16:42> Lab Results 07/23/22 07/23/22 07/23/22 Range/Units 17:02 17:02 17:02 WBC 8.7 (4.8-10.8) X10*3/uL RBC 4.22 (4.20-5.50) X10*6/uL Hgb 12.1 (12.0-16.0) g/dl Hct 35.4 L (37.0-47.0) % MCV 83.9 (80.0-98.0) fL MCH 28.7 (27.0-33.0) pg MCHC 34.2 (31.0-35.0) g/dl RDW 14.1 (11.0-16.0) % Plt Count 399 (160-400) X10*3/uL MPV 9.4 (9.4-12.3) fL Immature Gran % (Auto) 0.9 H (0.0-0.4) % Neut % (Auto) 55.5 (45-73) % Lymph % (Auto) 32.2 (20-40) % George % (Auto) 6.6 (2-11) % Eos % (Auto) 4.1 H (0-4) % Baso % (Auto) 0.7 (0-2) % Lymph # (Auto) 2.8 (1.2-4.9) X10*3/uL George # (Auto) 0.6 (0.1-1.2) X10*3/uL Eos # (Auto) 0.4 (0.0-0.4) X10*3/uL Baso # (Auto) 0.1 (0.0-0.2) X10*3/uL Abs Immat Gran (auto) 0.08 H (0.00-0.03) X10*3/uL Absolute Neuts (auto) 4.8 (2.0-8.3) x10*3/uL Absolute Nucleated RBC 0.000 (0.0-0.012) X10*3/uL Nucleated RBC % (auto) 0.0 (0.0-0.2) /100WBC PT 11.7 (10.0-13.1) SEC INR 1.0 (0.9-1.1) Sodium 141 (135-145) mmol/L Potassium 4.3 (3.3-5.1) mmol/L Chloride 106 (96-108) mmol/L Carbon Dioxide 24 (22-29) mmol/L Anion Gap 15 (12-20) BUN 11 (9-16) mg/dL Creatinine 0.78 (0.5-1.4) mg/dL Estim Creat Clear Calc 115.2 Estimated GFR > 60 Random Glucose 101 (60-115) mg/dL Calcium 9.6 (8.4-10.2) mg/dL Total Bilirubin 0.2 (0.0-1.0) mg/dL AST 16 (5-31) U/L ALT 19 (0-31) U/L Alkaline Phosphatase 109 (39-117) U/L Troponin I High Sens (<3.5-17.0) ng/L Total Protein 7.6 (6.5-8.0) g/dL Albumin 4.4 (3.5-5.0) g/dL Lipase 23 (8-78) U/L Beta HCG, Quant < 2 mIU/mL COVID-19 ([facility]) (Negative) COVID-19 Clin Com Influenza Type A ([facility]) (Negative) Influenza Type B ([facility]) (Negative) Influenza A & B Note 07/23/22 07/23/22 07/23/22 Range/Units 17:02 17:04 17:04 WBC (4.8-10.8) X10*3/uL RBC (4.20-5.50) X10*6/uL Hgb (12.0-16.0) g/dl Hct (37.0-47.0) % MCV (80.0-98.0) fL MCH (27.0-33.0) pg MCHC (31.0-35.0) g/dl RDW (11.0-16.0) % Plt Count (160-400) X10*3/uL MPV (9.4-12.3) fL Immature Gran % (Auto) (0.0-0.4) % Neut % (Auto) (45-73) % Lymph % (Auto) (20-40) % George % (Auto) (2-11) % Eos % (Auto) (0-4) % Baso % (Auto) (0-2) % Lymph # (Auto) (1.2-4.9) X10*3/uL George # (Auto) (0.1-1.2) X10*3/uL Eos # (Auto) (0.0-0.4) X10*3/uL Baso # (Auto) (0.0-0.2) X10*3/uL Abs Immat Gran (auto) (0.00-0.03) X10*3/uL Absolute Neuts (auto) (2.0-8.3) x10*3/uL Absolute Nucleated RBC (0.0-0.012) X10*3/uL Nucleated RBC % (auto) (0.0-0.2) /100WBC PT (10.0-13.1) SEC INR (0.9-1.1) Sodium (135-145) mmol/L Potassium (3.3-5.1) mmol/L Chloride (96-108) mmol/L Carbon Dioxide (22-29) mmol/L Anion Gap (12-20) BUN (9-16) mg/dL Creatinine (0.5-1.4) mg/dL Estim Creat Clear Calc Estimated GFR Random Glucose (60-115) mg/dL Calcium (8.4-10.2) mg/dL Total Bilirubin (0.0-1.0) mg/dL AST (5-31) U/L ALT (0-31) U/L Alkaline Phosphatase (39-117) U/L Troponin I High Sens < 3.5 (<3.5-17.0) ng/L Total Protein (6.5-8.0) g/dL Albumin (3.5-5.0) g/dL Lipase (8-78) U/L Beta HCG, Quant mIU/mL COVID-19 ([facility]) Negative (Negative) COVID-19 Clin Com See Note Influenza Type A ([facility]) Negative (Negative) Influenza Type B ([facility]) Negative (Negative) Influenza A & B Note See Note <CR Campbell - Last Filed: 07/23/22 18:34> Independent Interpretation I performed an independent interpretation of an: EKG ( EKG showed normal sinus rhythm ventricular rate of 84, normal ID, normal QT/QTC, normal QRS, no ST elevations or inversions concerning for ischemia. No significant change when compared with previous) and Plain X-Ray <CR Campbell - Last Filed: 07/23/22 18:34> Radiology Impression Discussion of test interpretation with radiology: I have reviewed the radiologist's reading. <CR Campbell - Last Filed: 07/23/22 18:34> External Record Review External record reviewed: Inpatient record, Office record, Outpatient record, Prior outpatient labs, Prior outpatient radiology and Primary care record <CR Campbell - Last Filed: 07/23/22 18:34> Chronic Conditions Patient?s care impacted by: Hypertension <CR Campbell - Last Filed: 07/23/22 18:34> Core Measures AMI core measures followed: Yes <CR Campbell - Last Filed: 07/23/22 18:34> Measure exclusions: not indicated <CR Campbell - Last Filed: 07/23/22 18:34> Critical Care Time Critical Care Time Critical Care Time: No <CR Campbell - Last Filed: 07/23/22 18:34> Discharge Plan Discharge Clinical Impression: Anxiety, Chest pain, Shortness of breath <Kelle Gamble CNP - Last Filed: 07/23/22 16:42> Patient Disposition: Home, Self-Care <Kelle Gamble CNP - Last Filed: 07/23/22 16:42> Instructions: Chest Pain (ED), Anxiety (ED), Shortness of Breath (ED) <Kelle Gamble CNP - Last Filed: 07/23/22 16:42> Additional Instructions: Take your medications as prescribed. If you were prescribed antibiotics today, it is important that you take your medication to their entirety, do not skip any doses, do not finish them early. Follow-up with your primary care provider this week. Return to the emergency department with new or worsening symptoms. Such as fevers, chills, chest pain, shortness of breath, nausea, vomiting, dizziness, headache, vision changes, lethargy, anxiety, depression, suicidal ideation or homicidal ideation or hallucinations In case of emergency call 911 Toradol has been sent to your pharmacy, you tolerated this well in the department. Please take this as prescribed do not take this with ibuprofen, or other NSAIDs, do not mix this with alcohol. Side effects of this medication including increased risk for bleeding and possible kidney injury. <Kelle Gamble CNP - Last Filed: 07/23/22 16:42> Prescriptions: New hydroxyzine HCl 25 mg tablet 25 mg PO BEDTIME PRN (Reason: anxiety) Qty: 10 0RF ketorolac 10 mg tablet 10 mg PO TID PRN (Reason: pain) 5 Days Qty: 14 0RF Rx Instructions: Tolerated IM in the department No Action [id number]-[id number]-svkr [Fioricet] 50-300-40 mg capsule 2 cap PO Q6H PRN (Reason: pain) Qty: 10 0RF Rx Instructions: do not exceed 6 caps per day ibuprofen 600 mg tablet 600 mg PO Q6H PRN (Reason: pain) Qty: 20 0RF hydroxyzine HCl 25 mg tablet 25 mg PO TID PRN (Reason: nausea and vomiting) Qty: 10 0RF Rx Instructions: P.r.n. anxiety omeprazole 20 mg capsule,delayed release(DR/EC) 20 mg PO DAILY 30 Days Qty: 30 0RF hydroxyzine HCl 50 mg tablet 50 mg PO TID PRN (Reason: anxiety) Qty: 20 0RF lorazepam [Ativan] 0.5 mg tablet 0.5 mg PO BEDTIME PRN (Reason: anxiety) Qty: 14 0RF oseltamivir [Tamiflu] 75 mg capsule 75 mg PO BID 5 Days Qty: 10 0RF ibuprofen 600 mg tablet 600 mg PO Q8H PRN (Reason: pain) Qty: 20 0RF penicillin V potassium 500 mg tablet 500 mg PO TID 7 Days Qty: 21 0RF tramadol 50 mg tablet 50 mg PO BID PRN (Reason: pain) Qty: 6 0RF penicillin V potassium 500 mg tablet 500 mg PO QID 7 Days Qty: 28 0RF hydrocodone-acetaminophen 5-325 mg tablet 1 tab PO Q4H PRN (Reason: pain) Qty: 4 0RF <Kelle Gamble CNP - Last Filed: 07/23/22 16:42> Referrals: [facility] [Provider Group] - 2 days Ashly Ozuna MD [Primary Care Provider] - 2 days <Kelle Gamble CNP - Last Filed: 07/23/22 16:42> Stand Alone Forms: Work/School Release <Kelle Gamble CNP - Last Filed: 07/23/22 16:42>
[2022-07-23 16:39] VITALS: BP 165/105; PULSE 83; RESP 18; TEMP 36.8; O2SAT 98; BMI 40.0
[2022-07-23 17:12] LABS: MANUAL DIFF FLAG NO
[2022-07-23 17:21] LABS: Prothrombin Time 11.7 SEC (10.0-13.1)
[2022-07-23 17:26] LABS: Basophils Absolute Auto 0.1 X10*3/uL (0.0-0.2); Basophils Percent Auto 0.7 % (0-2); Eosinophils Absolute Auto 0.4 X10*3/uL (0.0-0.4); Eosinophils Percent Auto 4.1 % (0-4); Hematocrit 35.4 % (37.0-47.0); Hemoglobin 12.1 g/dl (12.0-16.0); Imm Gran Abs Auto 0.08 X10*3/uL (0.00-0.03); Imm Gran Pct Auto 0.9 % (0.0-0.4); Lymphocytes Absolute Auto 2.8 X10*3/uL (1.2-4.9); Lymphocytes Percent Auto 32.2 % (20-40); Mean Corpuscular HGB Conc 34.2 g/dl (31.0-35.0); Mean Corpuscular Hemoglobin 28.7 pg (27.0-33.0); Mean Corpuscular Volume 83.9 fL (80.0-98.0); Mean Platelet Volume 9.4 fL (9.4-12.3); Monocytes Absolute Auto 0.6 X10*3/uL (0.1-1.2); Monocytes Percent Auto 6.6 % (2-11); Neutrophils Absolute Auto 4.8 x10*3/uL (2.0-8.3); Neutrophils Percent Auto 55.5 % (45-73); Platelet Count 399 X10*3/uL (160-400); Red Blood Count 4.22 X10*6/uL (4.20-5.50); Red Cell Distribution Width 14.1 % (11.0-16.0); White Blood Count 8.7 X10*3/uL (4.8-10.8)
[2022-07-23 17:38] LABS: Alanine Aminotransferase 19 U/L (0-31); Albumin Level 4.4 g/dL (3.5-5.0); Alkaline Phosphatase 109 U/L (39-117); Anion Gap 15 (12-20); Aspartate Amino Transferase 16 U/L (5-31); Bilirubin Total 0.2 mg/dL (0.0-1.0); Blood Urea Nitrogen 11 mg/dL (9-16); Calcium 9.6 mg/dL (8.4-10.2); Carbon Dioxide 24 mmol/L (22-29); Chloride 106 mmol/L (96-108); Creatinine Clr Calc Pharmacy 115.2; Estimated Glomerular Filt Rate > 60; Glucose Random 101 mg/dL (60-115); HCG Quantitative < 2 mIU/mL; Lipase 23 U/L (8-78); Potassium 4.3 mmol/L (3.3-5.1); Sodium 141 mmol/L (135-145); Total Protein 7.6 g/dL (6.5-8.0); Troponin-I High Sensitivity < 3.5 ng/L (<3.5-17.0)
[2022-07-23 17:42] LABS: IDNOW Serial# 9DB6401D
[2022-07-23 17:43] LABS: Influenza A Negative (Negative); Influenza B2 Negative (Negative)
[2022-07-23 17:47] LABS: COVID-19 Test Negative (Negative); IDNOW Serial# 9DB6401D
[2022-07-23 18:11] VITALS: BP 136/64; PULSE 85; RESP 18; TEMP 37; O2SAT 96
[2022-07-23 18:17] VITALS: BP 138/85; PULSE 91; RESP 20; TEMP 36.7; O2SAT 97
[2022-07-23] MEDS: LORazepam 0.5 MG TABLET PO (18:29)
[2022-07-23] MEDS: Ketorolac Tromethamine 15 MG/ML VIAL 30 MG IVPUSH (18:30)
--- NOTE | 2022-07-23 18:37 | PC.NURSE ---
patient a/ox4 . pearrla . heart rate regular at 90 beats per minute . breathing even and unlabored .skin pink warm and pink . patient reports 5 out of 10 chest pain that radiates from midline to the left of her rib cage . patients labs done . patient on engine monitor . EKG done . medicated with o.5 mg of Ativan PO . as ordered and 30mgof tordal IM . patient aware of plan of care .
--- NOTE | 2022-07-23 19:01 | PC.NURSE ---
patient a/ox4 . went over discharge instructions as ordered by provider . patient to follow up with primary care . patient to return to Ed if symptoms worsen . no questions at this time .
== END 2022-07-23 19:03 | disposition home or self-care (01) ==
PROVIDERS: Nurse Practitioner Family; Emergency Provider Internal Medicine; PCP Pediatrics
DX: F41.9 Anxiety disorder, unspecified (principal); R07.9 Chest pain, unspecified; R06.02 Shortness of breath; Z20.822 Contact with and (suspected) exposure to COVID-19; I10 Essential (primary) hypertension; E78.00 Pure hypercholesterolemia, unspecified; E66.9 Obesity, unspecified; Z68.41 Body mass index [BMI] 40.0-44.9, adult; Z79.899 Other long term (current) drug therapy
CPT/HCPCS: 71046; 80053; 83690; 84484; 84702; 85025; 85610; 87502; 87635; 93005; 96374; 99284; 99285; J1885

== ENCOUNTER 2022-09-22 10:51 | Outpatient (REF) | payer MEDICAID, SELFPAY ==
[2022-09-22 14:07] LABS: Hematocrit 36.4 % (37.0-47.0); Hemoglobin 11.9 g/dl (12.0-16.0); Mean Corpuscular HGB Conc 32.7 g/dl (31.0-35.0); Mean Corpuscular Hemoglobin 27.6 pg (27.0-33.0); Mean Corpuscular Volume 84.5 fL (80.0-98.0); Mean Platelet Volume 9.6 fL (9.4-12.3); Platelet Count 389 X10*3/uL (160-400); Red Blood Count 4.31 X10*6/uL (4.20-5.50); Red Cell Distribution Width 14.5 % (11.0-16.0); White Blood Count 7.5 X10*3/uL (4.8-10.8)
[2022-09-22 14:45] LABS: Alanine Aminotransferase 41 U/L (0-31); Albumin Level 4.4 g/dL (3.5-5.0); Alkaline Phosphatase 112 U/L (39-117); Anion Gap 11 (12-20); Aspartate Amino Transferase 24 U/L (5-31); Bilirubin Total 0.3 mg/dL (0.0-1.0); Blood Urea Nitrogen 11 mg/dL (9-16); Calcium 9.2 mg/dL (8.4-10.2); Carbon Dioxide 24 mmol/L (22-29); Chloride 109 mmol/L (96-108); Cholesterol 252 mg/dL; Estimated Glomerular Filt Rate > 60; Glucose Fasting 94 mg/dL (60-99); HDL Cholesterol 32 mg/dL; LDL Cholesterol Calculated 161 mg/dl; Potassium 4.4 mmol/L (3.3-5.1); Sodium 140 mmol/L (135-145); Total Protein 7.6 g/dL (6.5-8.0); Triglycerides 297 mg/dL
[2022-09-22 15:00] LABS: TSH reflex Free T4 4.99 uIU/mL (0.32-4.0)
[2022-09-22 16:20] LABS: Free T4 (Free Thyroxine) 0.87 ng/dL (0.71-1.85)
== END 2022-09-22 10:52 | disposition home or self-care (01) ==
LOC: HO.WFDLDS 10:51
PROVIDERS: Visit Provider Hospitalist
DX: Z00.00 Encounter for general adult medical examination without abnormal findings (principal); E66.01 Morbid (severe) obesity due to excess calories
CPT/HCPCS: 36415; 80053; 80061; 84439; 84443; 85027

== ENCOUNTER 2022-10-27 15:41 | Emergency (ER) | payer MEDICAID, SELFPAY ==
[2022-10-27 16:59] VITALS: BP 139/89; PULSE 84; RESP 18; TEMP 36.8; O2SAT 99; BMI 40.6
--- NOTE | 2022-10-27 17:26 | ED.DENTAL ---
HPI - Dental/Oral General Chief complaint: Dental/Oral Stated complaint: Dental Pain Time Seen by Provider: 10/27/22 17:24 Source: patient Mode of arrival: ambulatory History of Present Illness HPI Narrative: 22-year-old female with a past medical history of anxiety, HLD, HTN, hypothyroid, migraines, presenting to the ED complaining of left-sided dental pain radiating to left jaw and ear s/p having partial crown placed this afternoon around noon. States lidocaine injection did not have effect on her. Reports called dentist office shortly after procedure complaining of pain however doctor was no longer in, has an appointment to see them tomorrow morning. Denies fever, chills, difficulty/inability to swallow, drainage MD Complaint: tooth pain Related Data Home Medications Medication Instructions Recorded Confirmed acetaminophen 500 mg tablet 1,000 mg PO Q6H PRN 07/27/22 (Tylenol Extra Strength) Previous Rx's Medication Instructions Recorded albuterol sulfate 90 mcg/actuation 2 puff inhalation Q4-6H PRN 08/17/22 aerosol inhaler (Ventolin HFA) shortness of breath or wheezing #8.5 grams famotidine 20 mg tablet (Acid 20 mg PO BEDTIME #90 tabs 08/17/22 Packaging Assembler (famotidine)) fluoxetine 20 mg capsule 20 mg PO DAILY #90 caps 08/17/22 hydroxyzine HCl 50 mg tablet 50 mg PO BID PRN anxiety 3 months 08/17/22 #180 tabs cetirizine 10 mg tablet (Zyrtec) 10 mg PO DAILY #30 tabs 10/10/22 fluticasone propionate 50 2 spray intranasal DAILY 1 month 10/10/22 mcg/actuation nasal #16 grams spray,suspension (Allergy Relief (fluticasone)) ibuprofen 600 mg tablet 600 mg PO Q8H PRN pain #90 tabs 10/10/22 ketorolac 10 mg tablet 10 mg PO TID PRN pain 5 days #15 10/27/22 tabs Allergies Allergy/AdvReac Type Severity Reaction Status Date / Time aloe [ALOE] Allergy Unknown RASH Verified 10/10/22 10:39 sertraline [SERTRALINE] Allergy Unknown UNKNOWN Verified 10/10/22 10:39 Review of Systems Review of Systems: Constitutional: No Fever, No Chills ENT/Mouth: +dental pain, No Ear Pain, No Nasal Congestion, No Sinus Pain, No Hoarseness, No sore throat, No Rhinorrhea, No Swallowing Difficulty Cardiovascular: No Chest Pain, No SOB Respiratory: No Cough, No Sputum Gastrointestinal: No Nausea, No Vomiting, No Diarrhea, No Constipation, No Abdominal pain Musculoskeletal: No joint pain, No Myalgias, No Joint Swelling Skin: No Skin Lesions, No rash Neuro: No Weakness Yes all other systems are reviewed and are negative Constitutional: Constitutional: Reports as per [facility] Past Medical History Attestation statement: The following information was validated with the patient. Medical History Anxiety Hypercholesteremia Hypertension Hypothyroidism Migraines Surgical History No pertinent past surgical history Family History Family History Father Hypertension Mother Hepatitis C Hypothyroidism Hypertension Cirrhosis of liver Social History Social History Housing: Apartment Alcohol intake: former Patient Tobacco Use Status: Never used Tobacco e-Cigarette/Vaping Use: Never Used Advance Directives: No Advance Directives Information Provided: No Current occupational status: employed Cognitive needs: No Hearing needs: No Vision needs: Yes Physical Exam Vital Signs: Vital Signs: Last Vital Signs Temp 98.2 F 10/27/22 16:59 Pulse 84 10/27/22 16:59 Resp 18 10/27/22 16:59 BP 139/89 10/27/22 16:59 Pulse Ox 99 10/27/22 16:59 O2 Del Method Room Air 10/27/22 16:59 BMI result Body Mass Index 40.6 Const: General: cooperative, healthy appearing and no acute distress Orientation/consciousness: patient oriented x3 Limitations: no limitations HEENT: Other: No appreciable facial swelling. Left lower 1st molar with gingival tenderness. No erythema, no fluctuance/induration or abscess. No cellulitis. Head: Yes normal to inspection and Yes atraumatic Ears: hearing grossly normal bilaterally, external ears normal, TM's normal bilaterally and mastoids normal General nose exam: Normal external nose present Face and sinus: Yes normal facial exam and No crepitus Throat: Yes posterior oropharynx normal, Yes uvula midline, No peritonsillar mass and No uvular edema Eyes: General: appearance normal, both eyes and all related structures EOM: EOMs intact bilaterally Neck: Neck: Yes normal visual inspection, Yes no lymphadenopathy, Yes no meningeal signs, Yes trachea midline, No anterior neck swelling and No torticollis Resp: Effort & Inspection: normal respiratory effort and no respiratory distress Cardio: Rate: regular rate Heart sounds: S1 normal heart sound present and S2 normal heart sound present Skin: Rashes: no rashes Wounds: no wounds Neuro: General: patient oriented x3, tone normal and no meningeal signs Gait exam (Neuro): Normal gait present Extrem: General: Yes normal to inspection Medications Administered Discontinued Medications Generic Name Dose Route Start Last Admin Trade Name Freq PRN Reason Stop Dose Admin Ketorolac Tromethamine 30 mg 10/27/22 17:33 10/27/22 17:44 Ketorolac Tromethamine 30 Mg/Ml Vial IM 10/27/22 17:34 30 mg ONCE ONE Administration Medical Decision Making Medical Decision Making [facility] Narrative: 22-year-old female with a past medical history of anxiety, HLD, HTN, hypothyroid, migraines, presenting to the ED complaining of left-sided dental pain radiating to left jaw and ear s/p having partial crown placed this afternoon around noon. On exam vital signs stable, NAD, nontoxic appearing, no appreciable facial swelling. Left lower 1st molar with gingival tenderness. No surrounding cellulitis, no fluctuance/induration or drainage. Concern for post-dental procedural pain. No evidence of infection or abscess. No evidence of [employer]CHNICIAN Plan: IM Toradol, patient has follow-up with her dentist tomorrow Please refer to course for remaining clinical decision making, interpretation of labs/imaging results, and discussions with consultants and/or family members. Differential Diagnosis Differential Diagnoses: The differential diagnosis associated with the presentation includes As above Admission/Observation Consideration of admission/observation: Escalation of care including admission/observation considered Lab Data [facility] Lab Attestation statement: I reviewed the patient's lab results. Radiology Impression Discussion of test interpretation with radiology: I have reviewed the radiologist's reading. External Record Review External record reviewed: Inpatient record, Office record, Outpatient record, Prior outpatient labs, Prior outpatient radiology, Primary care record and Outside ED record Discharge Plan Discharge Clinical Impression: Pain, dental Patient Disposition: Home, Self-Care Instructions: Toothache (ED) Additional Instructions: Toradol as an anti-inflammatory/pain medication, take with food. Do not take Toradol and ibuprofen or Motrin as these are similar medications. Follow-up with her dentist tomorrow as scheduled If pain persist or worsen/becomes unbearable, facial swelling, drainage from her mouth return to the ED Prescriptions: New ketorolac 10 mg tablet 10 mg PO TID PRN (Reason: pain) 5 Days Qty: 15 0RF No Action fluoxetine 20 mg capsule 20 mg PO DAILY Qty: 90 1RF hydroxyzine HCl 50 mg tablet 50 mg PO BID PRN (Reason: anxiety) 90 Days Qty: 180 1RF famotidine [Acid Packaging Assembler (famotidine)] 20 mg tablet 20 mg PO BEDTIME Qty: 90 1RF albuterol sulfate [Ventolin HFA] 90 mcg/actuation HFA aerosol inhaler 2 puff inhalation Q4-6H PRN (Reason: shortness of breath or wheezing) Qty: 8.5 2RF Rx Instructions: family hx of asthma and shortness of breath which is most consistent with exercise induced asthma acetaminophen [Tylenol Extra Strength] 500 mg tablet 1,000 mg PO Q6H PRN fluticasone propionate [Allergy Relief (fluticasone)] 50 mcg/actuation spray,suspension 2 spray intranasal DAILY 30 Days Qty: 16 6RF Rx Instructions: administer into each nostril cetirizine [Zyrtec] 10 mg tablet 10 mg PO DAILY Qty: 30 6RF ibuprofen 600 mg tablet 600 mg PO Q8H PRN (Reason: pain) Qty: 90 1RF Referrals: Silke Antony NP [Primary Care Provider] - 3 days Stand Alone Forms: Work/School Release Interventions: ED Discharge Assessment Last Done: 10/27/22 17:59 Discharge Date/Time: 10/27/22 18:00
[2022-10-27] MEDS: Ketorolac Tromethamine 30 MG/ML VIAL IM (17:44)
== END 2022-10-27 18:00 | disposition home or self-care (01) ==
PROVIDERS: Emergency Provider Student in an Organized Health Care Education/Training Program; PCP Hospitalist
DX: K08.89 Other specified disorders of teeth and supporting structures (principal); I10 Essential (primary) hypertension; E78.00 Pure hypercholesterolemia, unspecified; Z79.899 Other long term (current) drug therapy
CPT/HCPCS: 96372; 99283; 99284; J1885

== ENCOUNTER 2022-12-18 22:40 | Emergency (ER) | payer MEDICAID, SELFPAY ==
--- NOTE | ~2022-12-18 | XR_ITS ---
EXAMINATION: XR CHEST CLINICAL INFORMATION: Chest pain. COMPARISON: Chest radiograph 07/23/2022. TECHNIQUE: Frontal view of the chest was obtained. FINDINGS: No significant abnormality is noted involving the heart, lungs, mediastinum, bony thorax or soft tissues. XR/XR chest 1V IMPRESSION: Unremarkable examination.
--- NOTE | 2022-12-18 22:44 | ECG_ITS ---
Test Reason : CHEST PAIN Blood Pressure : / mmHG Vent. Rate : 092 BPM Atrial Rate : 092 BPM P-R Int : 140 ms QRS Dur : 068 ms QT Int : 360 ms P-R-T Axes : 039 040 028 degrees QTc Int : 445 ms Normal sinus rhythm with sinus arrhythmia Cannot rule out Anterior infarct , age undetermined Abnormal ECG When compared with ECG of 23-JUL-2022 16:51, No significant change was found Referred By: Generic ED Physician Electronically Signed By:YVONNE ARMANDO
[2022-12-18 22:58] VITALS: BP 149/95; PULSE 103; RESP 16; TEMP 36.9; O2SAT 99; BMI 39.4
[2022-12-19 00:09] VITALS: BP 138/102; PULSE 98; RESP 20; O2SAT 100
--- NOTE | 2022-12-19 00:12 | ED_ITS ---
HPI - Chest Pain General Chief Complaint: Chest Pain Stated Complaint: chest pain Time Seen by Provider: 12/19/22 00:11 Source: patient Mode of arrival: ambulatory Limitations: no limitations History of Present Illness HPI narrative: Patient is a 22 year old assigned female at with a history of anxiety and GERD presenting to the emergency department today with epigastric type pain. Patient states that over the last 2 days she has had epigastric type pain that is briefly relieved with OTC pain medication. Patient denies any dizziness, lightheadedness, abdominal pain, nausea, vomiting, fever, chills, blurry vision, double vision, loss of vision, difficulty breathing, shortness of breath, back pain, night sweats, pain with urination, increased urinary frequency, increased urinary urgency, blood in her urine or stool, syncope or a near syncopal episode, recent trauma or falls, bowel incontinence, bladder incontinence, bowel retention, bladder retention, or any other complaints at this time. Onset (ago): day(s) (2) Pain radiation: none Severity: mild Pain scale (0-10): 3 Treatment prior to arrival: other (OTC pain medication) Related Data Home Medications Medication Instructions Recorded Confirmed acetaminophen 500 mg tablet 1,000 mg PO Q6H PRN 07/27/22 (Tylenol Extra Strength) Previous Rx's Medication Instructions Recorded albuterol sulfate 90 mcg/actuation 2 puff inhalation Q4-6H PRN 08/17/22 aerosol inhaler (Ventolin HFA) shortness of breath or wheezing #8.5 grams famotidine 20 mg tablet (Acid 20 mg PO BEDTIME #90 tabs 08/17/22 Equipment Engineer (famotidine)) fluoxetine 20 mg capsule 20 mg PO DAILY #90 caps 08/17/22 hydroxyzine HCl 50 mg tablet 50 mg PO BID PRN anxiety 3 months 08/17/22 #180 tabs cetirizine 10 mg tablet (Zyrtec) 10 mg PO DAILY #30 tabs 10/10/22 fluticasone propionate 50 2 spray intranasal DAILY 1 month 10/10/22 mcg/actuation nasal #16 grams spray,suspension (Allergy Relief (fluticasone)) ibuprofen 600 mg tablet 600 mg PO Q8H PRN pain #90 tabs 10/10/22 ketorolac 10 mg tablet 10 mg PO TID PRN pain 5 days #15 10/27/22 tabs Allergies Allergy/AdvReac Type Severity Reaction Status Date / Time aloe [ALOE] Allergy Unknown RASH Verified 12/18/22 22:57 sertraline [SERTRALINE] Allergy Unknown UNKNOWN Verified 12/18/22 22:57 Review of Systems Constitutional: Constitutional: Reports no additional constitutional complaints, Denies chills, Denies fever(s) and Denies night sweats Eyes: Eyes: Reports no additional eye complaints, Denies blurry vision, Denies change in vision, Denies diplopia, Denies eye discharge, Denies loss of vision and Denies eye pain ENT: Denies dizziness Cardiovascular: Cardiovascular: Reports no additional cardiovascular complaints, Denies chest pain, Denies lightheadedness, Denies Loss of Consciousness and Denies dyspnea Respiratory: Respiratory: Reports no additional respiratory complaints and Denies dyspnea Gastrointestinal: Gastrointestinal: Reports no additional gastrointestinal complaints, Denies melena, Denies hematochezia, Denies change in bowel habits and Denies change in stool character Comments: epigastric pain Genitourinary: Genitourinary: Denies hematuria, Denies urinary frequency, Denies dysuria, Denies urinary incontinence, Denies urinary hesitancy and Denies urinary urgency Musculoskeletal: Musculoskeletal: Reports no additional musculoskeletal complaints, Denies numbness and Denies tingling Neurologic: Denies dizziness, Denies loss of vision, Denies numbness and Denies tingling Psychiatric: Psychiatric: Reports no additional psychiatric complaints Endocrine: Endocrine: Reports no additional endocrine complaints Hematologic/Lymphatic: Hematologic/Lymphatic: Reports no additional hematologic/lymphatic complaints Allergic/Immunologic: Allergic/Immunologic: Reports no additional allergic/immunologic complaints [facility] Past Medical History Attestation statement: The following information was validated with the patient. Source: old records reviewed and nursing notes reviewed Medical History Anxiety Hypercholesteremia Hypertension Hypothyroidism Migraines Surgical History No pertinent past surgical history Family History Family History Father Hypertension Mother Hepatitis C Hypothyroidism Hypertension Cirrhosis of liver Social History Social History Housing: Apartment Alcohol intake: former Patient Tobacco Use Status: Never used Tobacco Smoked in Last 30 Days: No e-Cigarette/Vaping Use: Never Used Use of substances other than those prescribed or required for medical reasons: No Advance Directives: No Advance Directives Information Provided: No Current occupational status: employed Cognitive needs: No Hearing needs: No Vision needs: Yes Physical Exam Vital Signs: Vital Signs: Last Vital Signs Temp 99.2 F 12/19/22 00:18 Pulse 99 12/19/22 00:18 Resp 16 12/19/22 00:18 BP 145/94 H 12/19/22 00:18 Pulse Ox 98 12/19/22 00:18 O2 Del Method Room Air 12/19/22 00:18 BMI result Body Mass Index 39.4 Const: General: cooperative, no acute distress, alert and awake Nutritional Appearance: well nourished Orientation/consciousness: patient oriented x3 Limitations: no limitations HEENT: Head: Yes normal to inspection and Yes atraumatic Ears: hearing grossly normal bilaterally and external ears normal General nose exam: Normal external nose present, no nasal discharge noted and no epistaxis Face and sinus: Yes normal facial exam, No abrasion and No laceration Mouth: Normal oral and palatal mucosa present, no drooling and no muffled voice Eyes: General: appearance normal, both eyes and all related structures Periorbital: periorbital findings normal Eyelids: Yes eyelids normal Conjunctivae: conjunctivae normal Pupils: Equal, round and reactive pupils present EOM: EOMs intact bilaterally Neck: Neck: Yes normal visual inspection, Yes full ROM and Yes no lymphadenopathy Chest: Chest palpation & inspection: normal inspection of the chest Resp: Effort & Inspection: normal respiratory effort and able to speak in complete sentences Auscultation: clear to auscultation bilaterally Cardio: Rate: regular rate Rhythm: regular rhythm GI: Inspection: Yes normal to inspection Palpation (GI): Soft to palpation, not firm, nontender and no guarding Neuro: General: patient oriented x3 and moves all extremities Cranial nerves: Yes Equal, round and reactive pupils present Cognition (Neuro): normal cognition Motor exam (neuro): 5/5 motor strength present throughout Sensory Exam: Normal double simultaneous stimulation for sensation Coordination: [id number] test normal Extrem: General: Yes normal to inspection, Yes full ROM and Yes capillary refill normal Psych: Appearance: grossly normal Mental Status: mental status grossly normal Affect: normal affect Attitude: cooperative Thought process: Normal thought process present Thought content: Normal thought content present Insight: Good insight present (Psych) Medications Administered Generic Name Dose Route Start Last Admin Trade Name Sloan PRN Reason Stop Dose Admin Sodium Chloride 1,000 mls @ 999 mls/hr 12/19/22 00:30 12/19/22 00:39 Ns IV 12/19/22 01:30 999 mls/hr .Q1H1M DANIEL Administration Discontinued Medications Generic Name Dose Route Start Last Admin Trade Name Fredavis PRN Reason Stop Dose Admin Al Hydroxide/Mg Hydroxide 15 ml 12/19/22 00:19 12/19/22 00:33 Magnesium Hydrox/Alum Hydrox 30 Ml Oral.Susp PO 12/19/22 00:20 15 ml ONCE ONE Administration Lidocaine HCl 15 ml 12/19/22 00:19 12/19/22 00:33 Lidocaine Hcl Viscous 2 % 15 Ml Solution MUCOUS MEM 12/19/22 00:20 15 ml ONCE ONE Administration Pantoprazole Sodium 40 mg 12/19/22 00:19 12/19/22 00:39 Pantoprazole Sodium 40 Mg/10 Ml Vial IVPUSH 12/19/22 00:20 40 mg ONCE ONE Administration Medical Decision Making Medical Decision Making MDM Narrative: Patient is a 22 year old assigned female at with a history of anxiety and GERD presenting to the emergency department today with epigastric pain. Patient's physical exam was unremarkable. Patient's blood work was unremarkable. Patient's urine showed no acute process. Patient's EKG was unremarkable. Patient's chest x-ray showed no acute process. I explained my physical exam findings as well as all test results to the patient. I answered all questions asked by the patient. Patient received a GI cocktail which she stated helped her symptoms significantly. I stressed the importance of the patient taking her medication as prescribed. I stressed the importance of the patient following up with her primary care provider. I stressed the importance of the patient returning to the emergency department immediately if her symptoms were to worsen or if she were to develop any dizziness, shortness of breath, difficulty breathing, chest pain, blurry vision, loss of vision, nausea, vomiting, abdominal pain, fever, chills, back pain, or any other complaints. Patient verbalized agreement and understanding with this treatment plan and discharge. Differential Diagnosis Differential Diagnoses: The differential diagnosis associated with the presentation includes epigastric pain Admission/Observation Consideration of admission/observation: Escalation of care including admission/observation considered Patient would have been admitted to the hospital had her work up had any findings where hospital admission was appropriate. Lab Data MDM Lab Attestation statement: I reviewed the patient's lab results. My interpretation of these studies and their corresponding values is that they are grossly normal. 12/19/22 00:41 12/19/22 00:41 Labs: Lab Results 12/19/22 12/19/22 12/19/22 Range/Units 00:27 00:27 00:41 WBC (4.8-10.8) X10*3/uL RBC (4.20-5.50) X10*6/uL Hgb (12.0-16.0) g/dl Hct (37.0-47.0) % MCV (80.0-98.0) fL MCH (27.0-33.0) pg MCHC (31.0-35.0) g/dl RDW (11.0-16.0) % Plt Count (160-400) X10*3/uL MPV (9.4-12.3) fL Absolute Nucleated RBC (0.0-0.012) X10*3/uL Nucleated RBC % (auto) (0.0-0.2) /100WBC Sodium 140 (135-145) mmol/L Potassium 4.8 (3.3-5.1) mmol/L Chloride 106 (96-108) mmol/L Carbon Dioxide 22 (22-29) mmol/L Anion Gap 17 (12-20) BUN 12 (9-16) mg/dL Creatinine 0.77 (0.5-1.4) mg/dL Estim Creat Clear Calc 115.7 Estimated GFR > 60 Random Glucose 106 (60-115) mg/dL Calcium 9.8 D (8.4-10.2) mg/dL Magnesium 2.3 (1.6-2.6) mg/dL Troponin I High Sens (<3.5-17.0) ng/L Beta HCG, Quant mIU/mL Urine Color Urine Appearance Urine pH (5.0-9.0) Ur Specific [place] (1.005-1.025) Urine Protein (Neg-Trace) mg/dL Urine Glucose (UA) (Negative) mg/dL Urine Ketones (Negative) mg/dL Urine Blood (Negative) Urine Nitrite (Negative) Ur Leukocyte Esterase (Negative) Urine RBC (0-2) /HPF Urine WBC (0-5) /HPF Ur Squamous Epith Cells (0-2) /HPF Urine Bacteria (None Seen) Hyaline Casts (0-2) /LPF COVID-19 ([facility]) Negative (Negative) COVID-19 Clin Com See Note S. pyogenes GrpA CHANTAL Negative (Negative) 12/19/22 12/19/22 12/19/22 Range/Units 00:41 00:41 00:41 WBC 11.0 H (4.8-10.8) X10*3/uL RBC 4.42 (4.20-5.50) X10*6/uL Hgb 12.4 (12.0-16.0) g/dl Hct 36.4 L (37.0-47.0) % MCV 82.4 (80.0-98.0) fL MCH 28.1 (27.0-33.0) pg MCHC 34.1 (31.0-35.0) g/dl RDW 13.5 (11.0-16.0) % Plt Count 390 (160-400) X10*3/uL MPV 9.4 (9.4-12.3) fL Absolute Nucleated RBC 0.000 (0.0-0.012) X10*3/uL Nucleated RBC % (auto) 0.0 (0.0-0.2) /100WBC Sodium (135-145) mmol/L Potassium (3.3-5.1) mmol/L Chloride (96-108) mmol/L Carbon Dioxide (22-29) mmol/L Anion Gap (12-20) BUN (9-16) mg/dL Creatinine (0.5-1.4) mg/dL Estim Creat Clear Calc Estimated GFR Random Glucose (60-115) mg/dL Calcium (8.4-10.2) mg/dL Magnesium (1.6-2.6) mg/dL Troponin I High Sens < 2.7 (<3.5-17.0) ng/L Beta HCG, Quant < 2 mIU/mL Urine Color Urine Appearance Urine pH (5.0-9.0) Ur Specific [place] (1.005-1.025) Urine Protein (Neg-Trace) mg/dL Urine Glucose (UA) (Negative) mg/dL Urine Ketones (Negative) mg/dL Urine Blood (Negative) Urine Nitrite (Negative) Ur Leukocyte Esterase (Negative) Urine RBC (0-2) /HPF Urine WBC (0-5) /HPF Ur Squamous Epith Cells (0-2) /HPF Urine Bacteria (None Seen) Hyaline Casts (0-2) /LPF COVID-19 ([facility]) (Negative) COVID-19 Clin Com S. pyogenes GrpA CHANTAL (Negative) 12/19/22 Range/Units 00:45 WBC (4.8-10.8) X10*3/uL RBC (4.20-5.50) X10*6/uL Hgb (12.0-16.0) g/dl Hct (37.0-47.0) % MCV (80.0-98.0) fL MCH (27.0-33.0) pg MCHC (31.0-35.0) g/dl RDW (11.0-16.0) % Plt Count (160-400) X10*3/uL MPV (9.4-12.3) fL Absolute Nucleated RBC (0.0-0.012) X10*3/uL Nucleated RBC % (auto) (0.0-0.2) /100WBC Sodium (135-145) mmol/L Potassium (3.3-5.1) mmol/L Chloride (96-108) mmol/L Carbon Dioxide (22-29) mmol/L Anion Gap (12-20) BUN (9-16) mg/dL Creatinine (0.5-1.4) mg/dL Estim Creat Clear Calc Estimated GFR Random Glucose (60-115) mg/dL Calcium (8.4-10.2) mg/dL Magnesium (1.6-2.6) mg/dL Troponin I High Sens (<3.5-17.0) ng/L Beta HCG, Quant mIU/mL Urine Color Yellow Urine Appearance Cloudy Urine pH >= 9.0 (5.0-9.0) Ur Specific [place] 1.020 (1.005-1.025) Urine Protein Negative (Neg-Trace) mg/dL Urine Glucose (UA) Negative (Negative) mg/dL Urine Ketones Negative (Negative) mg/dL Urine Blood Small (1+) H (Negative) Urine Nitrite Negative (Negative) Ur Leukocyte Esterase Negative (Negative) Urine RBC 0-2 (0-2) /HPF Urine WBC 0-5 (0-5) /HPF Ur Squamous Epith Cells 0-2 (0-2) /HPF Urine Bacteria None Seen (None Seen) Hyaline Casts 0-2 (0-2) /LPF COVID-19 ([facility]) (Negative) COVID-19 Clin Com S. pyogenes GrpA [facility]AL (Negative) Independent Interpretation I performed an independent interpretation of an: EKG and Plain X-Ray Interpretation: My interpretation is in agreement with the radiologist's impression of this imaging study. EXAMINATION: XR CHEST CLINICAL INFORMATION: Chest pain. COMPARISON: Chest radiograph 07/23/2022. TECHNIQUE: Frontal view of the chest was obtained. FINDINGS: No significant abnormality is noted involving the heart, lungs, mediastinum, bony thorax or soft tissues. XR/XR chest 1V IMPRESSION: Unremarkable examination. Dictated By: Nicole Deal Signed By: Electronically signed by Duy 12/18/22 2349 - Vent. Rate: 092 BPM ? ? Atrial Rate: 092 BPM P-R Int: 140 ms? QRS Dur: 068 ms QT Int: 360 ms ? ? ? P-R-T Axes: 039 040 028 degrees QTc Int: 445 ms ? Normal sinus rhythm with sinus arrhythmia Cannot rule out Anterior infarct , age undetermined Abnormal ECG When compared with ECG of 23-JUL-2022 16:51, No significant change was found DD/ [id number] Discharge Plan Discharge Clinical Impression: Acute epigastric pain Patient Disposition: Home, Self-Care Instructions: Epigastric Pain (ED) Additional Instructions: Follow up with your primary care provider. Return to the emergency department immediately if your symptoms worsen or if you develop any dizziness, shortness of breath, difficulty breathing, chest pain, blurry vision, loss of vision, nausea, vomiting, abdominal pain, fever, chills, back pain, or any other compl aints. Prescriptions: No Action ketorolac 10 mg tablet 10 mg PO TID PRN (Reason: pain) 5 Days Qty: 15 0RF fluoxetine 20 mg capsule 20 mg PO DAILY Qty: 90 1RF hydroxyzine HCl 50 mg tablet 50 mg PO BID PRN (Reason: anxiety) 90 Days Qty: 180 1RF famotidine [Acid Equipment Engineer (famotidine)] 20 mg tablet 20 mg PO BEDTIME Qty: 90 1RF albuterol sulfate [Ventolin HFA] 90 mcg/actuation HFA aerosol inhaler 2 puff inhalation Q4-6H PRN (Reason: shortness of breath or wheezing) Qty: 8.5 2RF Rx Instructions: family hx of asthma and shortness of breath which is most consistent with exercise induced asthma acetaminophen [Tylenol Extra Strength] 500 mg tablet 1,000 mg PO Q6H PRN fluticasone propionate [Allergy Relief (fluticasone)] 50 mcg/actuation spray,suspension 2 spray intranasal DAILY 30 Days Qty: 16 6RF Rx Instructions: administer into each nostril cetirizine [Zyrtec] 10 mg tablet 10 mg PO DAILY Qty: 30 6RF ibuprofen 600 mg tablet 600 mg PO Q8H PRN (Reason: pain) Qty: 90 1RF Referrals: Antony,Silke, MATERIALS DIRECTOR [Primary Care Provider] - Stand Alone Forms: Work/School Release Print Language: Bengali
[2022-12-19 00:18] VITALS: BP 145/94; PULSE 99; RESP 16; TEMP 37.3; O2SAT 98
[2022-12-19] MEDS: Magnesium Hydrox/Alum Hydrox 30 ML ORAL.SUSP 15 ML PO (00:33)
[2022-12-19] MEDS: Lidocaine HCl Viscous 2 % 15 ML SOLUTION MUCOUS MEM (00:33)
[2022-12-19] MEDS: 0.9 % Sodium Chloride 1,000 ML 999 ML IV (00:39)
[2022-12-19] MEDS: Pantoprazole Sodium 40 MG/10 ML VIAL IVPUSH (00:39)
[2022-12-19 00:43] LABS: IDNOW Serial# 08D9AD1C; Strep A Nucleic Acid Negative (Negative)
--- NOTE | 2022-12-19 00:46 | MHC.EDTECH ---
this pct assumed care of pt ,pt was hooked up to ekg monitor ,vitals sign taken ,blood drawn covid ,streap swab and urine sample collected and sent to lab .
[2022-12-19 00:47] LABS: Hematocrit 36.4 % (37.0-47.0); Hemoglobin 12.4 g/dl (12.0-16.0); Mean Corpuscular HGB Conc 34.1 g/dl (31.0-35.0); Mean Corpuscular Hemoglobin 28.1 pg (27.0-33.0); Mean Corpuscular Volume 82.4 fL (80.0-98.0); Mean Platelet Volume 9.4 fL (9.4-12.3); Platelet Count 390 X10*3/uL (160-400); Red Blood Count 4.42 X10*6/uL (4.20-5.50); Red Cell Distribution Width 13.5 % (11.0-16.0)
[2022-12-19 00:50] LABS: COVID-19 Test Negative (Negative); IDNOW Serial# BCCEAD1C
[2022-12-19 00:58] LABS: Appearance Urine Cloudy; Color Urine Yellow; Glucose Urine UA Negative (Negative); Leukocyte Esterase Urine Negative (Negative); Nitrite Urine Negative (Negative); PH >= 9.0 (5.0-9.0); UMIC TRIGGER UACC YES; Urine Blood Small (1+) (Negative); Urine Ketones Negative (Negative); Urine Protein Negative (Neg-Trace)
[2022-12-19 01:04] LABS: Anion Gap 17 (12-20); Blood Urea Nitrogen 12 mg/dL (9-16); Calcium 9.8 mg/dL (8.4-10.2); Carbon Dioxide 22 mmol/L (22-29); Chloride 106 mmol/L (96-108); Creatinine Clr Calc Pharmacy 115.7; Estimated Glomerular Filt Rate > 60; Glucose Random 106 mg/dL (60-115); Magnesium 2.3 mg/dL (1.6-2.6); Potassium 4.8 mmol/L (3.3-5.1); Sodium 140 mmol/L (135-145)
[2022-12-19 01:09] LABS: Bacteria Urine None Seen (None Seen); Hyaline Casts Urine 0-2 /LPF (0-2); RBC Urine 0-2 /HPF (0-2); Squamous Epithelial Cell Urine 0-2 /HPF (0-2); WBC Urine 0-5 /HPF (0-5)
[2022-12-19 01:09] LABS: HCG Quantitative < 2 mIU/mL
[2022-12-19 01:10] LABS: Troponin-I High Sensitivity < 2.7 ng/L (<3.5-17.0)
[2022-12-19 02:00] VITALS: BP 126/88; PULSE 98; RESP 18; TEMP 37.3; O2SAT 98
== END 2022-12-19 02:42 | disposition home or self-care (01) ==
PROVIDERS: Physician Assistant Medical; Emergency Provider Emergency Medicine; PCP Hospitalist
DX: R07.89 Other chest pain (principal); R10.13 Epigastric pain; Z20.822 Contact with and (suspected) exposure to COVID-19; Z20.828 Contact with and (suspected) exposure to other viral communicable diseases; Z79.899 Other long term (current) drug therapy
CPT/HCPCS: 36415; 71045; 80048; 81001; 83735; 84484; 84702; 85027; 87635; 87651; 93005; 96361; 96374; 99284; 99285

== ENCOUNTER 2022-12-23 12:55 | Emergency (ER) | payer MEDICAID, SELFPAY ==
--- NOTE | 2022-12-23 | ECG_ITS ---
Test Reason : cp Blood Pressure : / mmHG Vent. Rate : 093 BPM Atrial Rate : 093 BPM P-R Int : 150 ms QRS Dur : 068 ms QT Int : 368 ms P-R-T Axes : 041 046 026 degrees QTc Int : 457 ms Normal sinus rhythm Normal ECG When compared with ECG of 18-DEC-2022 22:44, No significant change was found Referred By: Generic ED Physician Electronically Signed By:YVONNE ARMANDO
[2022-12-23 13:13] VITALS: BP 154/97; PULSE 95; RESP 18; TEMP 36.9; O2SAT 100; BMI 39.1
--- NOTE | 2022-12-23 13:17 | ED.CHESTPAIN ---
HPI - Chest Pain General Chief Complaint: Chest Pain Stated Complaint: chest pain Time Seen by Provider: 12/23/22 14:59 Source: patient Mode of arrival: ambulatory Limitations: no limitations History of Present Illness HPI narrative: 22 yo female who denies medical history here with complaints of intermittent episodes of palpitations (hr up to 120)/shortness of breath/chest pain which occur at rest x several weeks. These last 30 minutes. No vomiting/diaphoresis. Not exertional. Seen here 12/19 for chest pain. Thought to be GERD. Has been seen by PCP. Supposed to be starting anatacid but did not start yet. No OCP use. No recent travel, no recent surgery. No history of DVT or PE. No leg swelling or leg pain. Related Data Home Medications Medication Instructions Recorded Confirmed acetaminophen 500 mg tablet 1,000 mg PO Q6H PRN 07/27/22 (Tylenol Extra Strength) Previous Rx's Medication Instructions Recorded albuterol sulfate 90 mcg/actuation 2 puff inhalation Q4-6H PRN 08/17/22 aerosol inhaler (Ventolin HFA) shortness of breath or wheezing #8.5 grams famotidine 20 mg tablet (Acid 20 mg PO BEDTIME #90 tabs 08/17/22 [employer] (famotidine)) fluoxetine 20 mg capsule 20 mg PO DAILY #90 caps 08/17/22 hydroxyzine HCl 50 mg tablet 50 mg PO BID PRN anxiety 3 months 08/17/22 #180 tabs cetirizine 10 mg tablet (Zyrtec) 10 mg PO DAILY #30 tabs 10/10/22 fluticasone propionate 50 2 spray intranasal DAILY 1 month 10/10/22 mcg/actuation nasal #16 grams spray,suspension (Allergy Relief (fluticasone)) ibuprofen 600 mg tablet 600 mg PO Q8H PRN pain #90 tabs 10/10/22 ketorolac 10 mg tablet 10 mg PO TID PRN pain 5 days #15 10/27/22 tabs Allergies Allergy/AdvReac Type Severity Reaction Status Date / Time aloe [ALOE] Allergy Unknown RASH Verified 12/23/22 13:17 sertraline [SERTRALINE] Allergy Unknown UNKNOWN Verified 12/23/22 13:17 Review of Systems Review of Systems: Yes all other systems are reviewed and are negative Constitutional: Constitutional: Reports no additional constitutional complaints, Denies body ache(s), Denies chills, Denies fever(s), Denies headache(s) and Denies weakness Eyes: Eyes: Reports no additional eye complaints and Denies change in vision ENT: Reports system reviewed and no additional complaints, except as documented, Denies dizziness, Denies headache(s), Denies nasal congestion, Denies nasal discharge and Denies neck pain Cardiovascular: Cardiovascular: Reports no additional cardiovascular complaints, Reports chest pain, Denies leg edema, Reports palpitations and Reports dyspnea Respiratory: Respiratory: Reports no additional respiratory complaints, Denies cough and Reports dyspnea Gastrointestinal: Gastrointestinal: Reports no additional gastrointestinal complaints, Denies abdominal pain, Denies diarrhea, Denies nausea and Denies vomiting Genitourinary: Genitourinary: Reports no additional female genitourinary complaints and Denies urinary incontinence Musculoskeletal: Musculoskeletal: Reports no additional musculoskeletal complaints, Denies back pain, Denies arthralgias, Denies joint swelling, Denies neck pain, Denies numbness and Denies tingling Integumentary/Breasts: Skin/Breast: Reports system reviewed and no additional complaints, except as docu and Denies rash Neurologic: Reports system reviewed and no additional complaints, except as documented, Denies Abnormal speech present, Denies dizziness, Denies headache(s), Denies numbness, Denies tingling and Denies weakness Endocrine: Endocrine: Reports palpitations PMFSH Past Medical History Attestation statement: The following information was validated with the patient. Source: old records reviewed and nursing notes reviewed Medical History Anxiety Hypercholesteremia Hypertension Hypothyroidism Migraines Surgical History No pertinent past surgical history Family History Family History Father Hypertension Mother Hepatitis C Hypothyroidism Hypertension Cirrhosis of liver Social History Social History Housing: Apartment Alcohol intake: never Patient Tobacco Use Status: Never used Tobacco Smoked in Last 30 Days: No e-Cigarette/Vaping Use: Never Used Use of substances other than those prescribed or required for medical reasons: No Advance Directives: No Advance Directives Information Provided: No Current occupational status: employed Cognitive needs: No Hearing needs: No Vision needs: Yes Physical Exam Vital Signs: Vital Signs: Last Vital Signs Temp 98.9 F 12/23/22 18:00 Pulse 86 12/23/22 18:00 Resp 16 12/23/22 18:00 BP 107/69 12/23/22 18:00 Pulse Ox 100 12/23/22 18:00 O2 Del Method Room Air 12/23/22 18:00 BMI result Body Mass Index 39.1 Const: General: cooperative, healthy appearing, comfortable and no acute distress Orientation/consciousness: patient oriented x3 Limitations: no limitations HEENT: Head: Yes normal to inspection Ears: hearing grossly normal bilaterally General nose exam: Normal external nose present Face and sinus: Yes normal facial exam Mouth: Normal oral and palatal mucosa present Throat: Yes posterior oropharynx normal Eyes: General: appearance normal, both eyes and all related structures Pupils: Equal, round and reactive pupils present Neck: Neck: Yes normal visual inspection Chest: Chest palpation & inspection: normal inspection of the chest Resp: Effort & Inspection: normal respiratory effort Auscultation: clear to auscultation bilaterally Cardio: Rate: regular rate Rhythm: regular rhythm Peripheral pulses: Peripheral pulses 2+ throughout GI: Inspection: Yes normal to inspection Palpation (GI): Soft to palpation and nontender Auscultation: normal bowel sounds Back/Spine/Pelvis: Thoracic/Lumbar Spine: thoracic and lumbar spine normal to inspection Skin: General skin exam: no rashes or lesions noted Neuro: General: patient oriented x3, no focal motor deficits and normal sensation to monofilament Cranial nerves: Yes Equal, round and reactive pupils present Cognition (Neuro): normal cognition Speech: No Abnormal speech present Gait exam (Neuro): Normal gait present Motor exam (neuro): 5/5 motor strength present throughout Extrem: General: Yes normal to inspection Course Course Course Narrative: RME performed by Georgette Ren PA-C. Patient is a 22 year old assigned female at presenting to the emergency department with chest pain. Labs ordered. Patient placed back in the waiting room pending room availability and results. Reevaluation(s) Reevaluation #1: 1899-Sign out to georgette aguirre pending labs Reevaluation #2: Patient cleared for discharge. Time: 20:30 Medical Decision Making Medical Decision Making MDM Narrative: 20-year-old female here with complaints of intermittent episodes shortness of palpitations chest pain which occurred at rest her rate 120. Patient has been seen in the ER and by her primary care. She tells me that her symptoms were to be secondary to GERD and she is supposed to be taking famotidine but she is not. Exam is benign Will check labs, EKG, chest x-ray Differential Diagnosis Differential Diagnoses: The differential diagnosis associated with the presentation includes anxiety, acs, aortic dissection, pe, arrthymia, pots, thyroid storm Lab Data [facility] Lab Attestation statement: I reviewed the patient's lab results. 12/23/22 14:04 12/23/22 14:04 Labs: Lab Results 12/23/22 12/23/22 12/23/22 Range/Units 14:04 14:04 14:04 WBC 7.8 (4.8-10.8) X10*3/uL RBC 4.52 (4.20-5.50) X10*6/uL Hgb 12.7 (12.0-16.0) g/dl Hct 37.8 (37.0-47.0) % MCV 83.6 (80.0-98.0) fL MCH 28.1 (27.0-33.0) pg MCHC 33.6 (31.0-35.0) g/dl RDW 13.5 (11.0-16.0) % Plt Count 376 (160-400) X10*3/uL MPV 9.2 L (9.4-12.3) fL Immature Gran % (Auto) 0.1 (0.0-0.4) % Neut % (Auto) 62.9 (45-73) % Lymph % (Auto) 26.6 (20-40) % [place] % (Auto) 6.0 (2-11) % Eos % (Auto) 3.9 (0-4) % Baso % (Auto) 0.5 (0-2) % Lymph # (Auto) 2.1 (1.2-4.9) X10*3/uL [place] # (Auto) 0.5 (0.1-1.2) X10*3/uL Eos # (Auto) 0.3 (0.0-0.4) X10*3/uL Baso # (Auto) 0.0 (0.0-0.2) X10*3/uL Abs Immat Gran (auto) 0.01 (0.00-0.03) X10*3/uL Absolute Neuts (auto) 4.9 (2.0-8.3) x10*3/uL Absolute Nucleated RBC 0.000 (0.0-0.012) X10*3/uL Nucleated RBC % (auto) 0.0 (0.0-0.2) /100WBC Sodium 139 (135-145) mmol/L Potassium 3.7 D (3.3-5.1) mmol/L Chloride 104 (96-108) mmol/L Carbon Dioxide 24 (22-29) mmol/L Anion Gap 15 (12-20) BUN 10 (9-16) mg/dL Creatinine 0.73 (0.5-1.4) mg/dL Estim Creat Clear Calc 121.3 Estimated GFR > 60 Random Glucose 105 (60-115) mg/dL Calcium 9.8 (8.4-10.2) mg/dL Magnesium 1.9 (1.6-2.6) mg/dL Total Bilirubin 0.5 (0.0-1.0) mg/dL AST 32 H (5-31) U/L ALT 43 H (0-31) U/L Alkaline Phosphatase 104 (39-117) U/L Troponin I High Sens < 2.7 (<3.5-17.0) ng/L Total Protein 8.4 H (6.5-8.0) g/dL Albumin 4.6 (3.5-5.0) g/dL TSH 7.93 H (0.32-4.0) uIU/mL Free T4 0.90 (0.71-1.85) ng/dL Independent Interpretation I performed an independent interpretation of an: EKG and Plain X-Ray Interpretation: I independently reviewed EKG which shows normal sinus rhythm with a rate of 93, normal AR, QRS, or QT Radiology Impression Discussion of test interpretation with radiology: I have reviewed the radiologist's reading. Discharge Plan Discharge Clinical Impression: Chest pain Patient Disposition: Still a Patient Instructions: Chest Pain (DC) Additional Instructions: Your TSH is 7.99. Your free T4 is Please follow-up with your PCP to discuss your labs Prescriptions: No Action ketorolac 10 mg tablet 10 mg PO TID PRN (Reason: pain) 5 Days Qty: 15 0RF fluoxetine 20 mg capsule 20 mg PO DAILY Qty: 90 1RF hydroxyzine HCl 50 mg tablet 50 mg PO BID PRN (Reason: anxiety) 90 Days Qty: 180 1RF famotidine [Acid [employer] (famotidine)] 20 mg tablet 20 mg PO BEDTIME Qty: 90 1RF albuterol sulfate [Ventolin HFA] 90 mcg/actuation HFA aerosol inhaler 2 puff inhalation Q4-6H PRN (Reason: shortness of breath or wheezing) Qty: 8.5 2RF Rx Instructions: family hx of asthma and shortness of breath which is most consistent with exercise induced asthma acetaminophen [Tylenol Extra Strength] 500 mg tablet 1,000 mg PO Q6H PRN fluticasone propionate [Allergy Relief (fluticasone)] 50 mcg/actuation spray,suspension 2 spray intranasal DAILY 30 Days Qty: 16 6RF Rx Instructions: administer into each nostril cetirizine [Zyrtec] 10 mg tablet 10 mg PO DAILY Qty: 30 6RF ibuprofen 600 mg tablet 600 mg PO Q8H PRN (Reason: pain) Qty: 90 1RF Referrals: Silke Antony NP [Primary Care Provider] - 5 days
[2022-12-23 14:08] LABS: MANUAL DIFF FLAG NO
[2022-12-23 14:09] LABS: Basophils Percent Auto 0.5 % (0-2); Eosinophils Absolute Auto 0.3 X10*3/uL (0.0-0.4); Eosinophils Percent Auto 3.9 % (0-4); Hematocrit 37.8 % (37.0-47.0); Hemoglobin 12.7 g/dl (12.0-16.0); Imm Gran Abs Auto 0.01 X10*3/uL (0.00-0.03); Imm Gran Pct Auto 0.1 % (0.0-0.4); Lymphocytes Absolute Auto 2.1 X10*3/uL (1.2-4.9); Lymphocytes Percent Auto 26.6 % (20-40); Mean Corpuscular HGB Conc 33.6 g/dl (31.0-35.0); Mean Corpuscular Hemoglobin 28.1 pg (27.0-33.0); Mean Corpuscular Volume 83.6 fL (80.0-98.0); Mean Platelet Volume 9.2 fL (9.4-12.3); Monocytes Absolute Auto 0.5 X10*3/uL (0.1-1.2); Neutrophils Absolute Auto 4.9 x10*3/uL (2.0-8.3); Neutrophils Percent Auto 62.9 % (45-73); Platelet Count 376 X10*3/uL (160-400); Red Blood Count 4.52 X10*6/uL (4.20-5.50); Red Cell Distribution Width 13.5 % (11.0-16.0); White Blood Count 7.8 X10*3/uL (4.8-10.8)
[2022-12-23 14:40] LABS: Alanine Aminotransferase 43 U/L (0-31); Albumin Level 4.6 g/dL (3.5-5.0); Alkaline Phosphatase 104 U/L (39-117); Anion Gap 15 (12-20); Aspartate Amino Transferase 32 U/L (5-31); Bilirubin Total 0.5 mg/dL (0.0-1.0); Blood Urea Nitrogen 10 mg/dL (9-16); Calcium 9.8 mg/dL (8.4-10.2); Carbon Dioxide 24 mmol/L (22-29); Chloride 104 mmol/L (96-108); Creatinine Clr Calc Pharmacy 121.3; Estimated Glomerular Filt Rate > 60; Glucose Random 105 mg/dL (60-115); Magnesium 1.9 mg/dL (1.6-2.6); Potassium 3.7 mmol/L (3.3-5.1); Sodium 139 mmol/L (135-145); Total Protein 8.4 g/dL (6.5-8.0); Troponin-I High Sensitivity < 2.7 ng/L (<3.5-17.0)
[2022-12-23 15:25] VITALS: BP 119/70; PULSE 76
[2022-12-23 15:27] VITALS: BP 131/73; PULSE 75
[2022-12-23 15:30] VITALS: BP 114/80; PULSE 88
--- NOTE | 2022-12-23 17:53 | MHC.EDTECH ---
Brought patient warm blanket.
[2022-12-23 18:00] VITALS: BP 107/69; PULSE 86; RESP 16; TEMP 37.2; O2SAT 100
[2022-12-23 18:06] LABS: TSH reflex Free T4 7.93 uIU/mL (0.32-4.0)
[2022-12-23 20:00] VITALS: BP 105/65; PULSE 84; RESP 16; TEMP 37.2; O2SAT 99
== END 2022-12-23 20:49 | disposition still patient (30) ==
PROVIDERS: Nurse Practitioner Family; Physician Assistant Medical; Emergency Provider Internal Medicine; PCP Hospitalist
DX: R07.89 Other chest pain (principal); R00.2 Palpitations; Z79.899 Other long term (current) drug therapy
CPT/HCPCS: 36415; 80053; 83735; 84439; 84443; 84484; 85025; 93005; 99283; 99284

== ENCOUNTER 2023-02-10 13:40 | Outpatient (AMB) | payer MEDICAID, SELFPAY ==
[2023-02-10 13:47] VITALS: BP 120/72; PULSE 91; TEMP 37.5; O2SAT 98; BMI 39.3
--- NOTE | 2023-02-10 13:47 | MHC.PC.OV ---
Vital Signs 02/10/23 13:47 Height 5 ft Weight 201 lb 2 oz BMI 39.3 BP 120/72 Blood Pressure Location Lt brachial Position Sitting Pulse 91 Pulse Source Pulse Oximeter Temp 99.5 F Temp Source Oral Pulse Oximetry (%) 98 Oxygen Delivery Method Room Air Intake Visit Reasons: continued chest pain, cardiology referral Intake Note: Patient is here with continued chest pain, still, times it's sudden and really painful. Allergies aloe [ALOE] Allergy (Unknown, Verified 02/10/23 14:05) RASH sertraline [SERTRALINE] Allergy (Unknown, Verified 02/10/23 14:05) UNKNOWN Medication List - Last Reconciled 02/10/23 by Aleksandra Myrick CNP acetaminophen (Tylenol Extra Strength) 1,000 mg PO Q6H PRN albuterol sulfate 90 mcg/actuation (Ventolin HFA) 2 puffs inhalation Q4-6H PRN famotidine (Acid [employer] (famotidine)) 20 mg PO BEDTIME fluticasone propionate 50 mcg/actuation (Allergy Relief (fluticasone)) 2 sprays intranasal DAILY 1 month hydroxyzine HCl 50 mg PO BID PRN 3 months ibuprofen 600 mg PO Q8H PRN Tobacco use date assessed: 02/10/23 Dental Screening Dental Screen Date: 02/10/23 Did you have a dental visit in the last 12 months?: Yes Did you have a dental problem in the last 6 months where you did not have access to dental care?: No Was dental information given to patient?: No HPI HPI Comments History of Present Illness Details 22-year-old female presents for chest pain follow-up. She was initially seen at [facility] on 12/19/2022 for palpitations, shortness of breath, and chest pain thought to be GERD. She was [place] [facility] [place] for similar complaints.? EKG was unremarkable.? Labs were unremarkable except for elevated TSH of 7.93.? Free T4 was normal.? She reports continued intermittent in her sternum. She notes her symptoms intensify with physical activity and improves with rest. No new symptoms. She is currently followed by a chiropractor. She notes she started taking famotidine which is reliving her heartburn. She notes that are anxiety symptoms have been controlled. She takes Hydroxyzine as prescribed and continues to follow her therapist weekly. She request cardiology referral. [facility] Medical History Anxiety Hypercholesteremia Hypertension Hypothyroidism Migraines Surgical History No pertinent past surgical history Family History Father Hypertension Mother Hepatitis C Hypothyroidism Hypertension Cirrhosis of liver Social History Housing: Apartment Alcohol intake: never Patient Tobacco Use Status: Never used Tobacco e-Cigarette/Vaping Use: Never Used service: No Current occupational status: unemployed Cognitive needs: No Hearing needs: No Vision needs: No Questionnaire Thrive Questionnaire Date Thrive assessed: 08/17/22 AGUSTINA-7 AMB Questionnaire AGUSTINA-7 Date AGUSTINA - 7 assessed: 12/29/22 Source: Developed by Drs. Ozzie Allison, Denia Benoit, Ministerio Alarcon and colleagues, with an educational jessica from [employer]. Review of Systems Const Details: Const Denies chills, Denies fatigue, Denies fever(s), Denies headache(s) and Denies weakness ENT Denies dizziness and Denies headache(s) Card Reports sternal pain, Denies lightheadedness, Denies dyspnea and Denies other (Palpitations) Resp Denies cough, Denies dyspnea, Denies wheezing and Denies other ( shortness of breath) GI Denies abdominal pain, Denies melena, Denies hematochezia, Denies change in bowel habits, Denies dyspepsia and Denies nausea Denies hematuria and Denies dysuria Musc Denies abnormal gait, Denies myalgias, Denies arthralgias, Denies numbness and Denies tingling Skin/Breast Denies rash, Denies unusual bruising and Denies wounds Neuro Denies abnormal gait, Denies dizziness, Denies headache(s), Denies memory loss, Denies numbness, Denies Sensory deficit (Neuro), Denies tingling and Denies weakness Psych Denies anxiety, Denies depression, Denies memory loss Endo Denies cold intolerance, Denies fatigue, Denies heat intolerance, Denies polydipsia and Denies polyuria Aller/Immun Denies wheezing Physical exam (Primary Care) Vital Signs: Last Vital Signs Temp 99.5 F 02/10/23 13:47 Pulse 91 02/10/23 13:47 BP 120/72 02/10/23 13:47 Pulse Ox 98 02/10/23 13:47 Oxygen Delivery Method Room Air 02/10/23 13:47 BMI result Body Mass Index 39.3 Tobacco/Smoking Status: Tobacco use Status Tobacco use date assessed 02/10/23 02/10/23 13:57 Patient Tobacco Use Status Never used Tobacco 02/10/23 13:57 e-Cigarette/Vaping Use Never Used 02/10/23 13:57 Thrive Assessment: Date of Thrive Assessment Date Thrive assessed 08/17/22 02/10/23 13:57 Const Other: General: no acute distress and well developed Nutritional Appearance: well nourished Orientation/consciousness: patient oriented x3 HENMT Head: Yes normocephalic and Yes atraumatic Eyes General: appearance normal, both eyes and all related structures Pupils: Equal, round and reactive pupils present EOM: EOMs intact bilaterally Resp Effort & Inspection: normal respiratory effort Auscultation: clear to auscultation bilaterally Cardio Rate: regular rate Rhythm: regular rhythm Heart sounds: S1 normal heart sound present, S2 normal heart sound present, no gallops, no murmurs and no rubs Tenderness to palpation of the sternum GI Palpation (GI): No Abdominal aortic bruit present, Soft to palpation, nontender, No hepatosplenomegaly present and No Rebound tenderness present Auscultation: normal bowel sounds General: Yes no CVA tenderness Back/Spine/Pelvis Back: no CVA tenderness Cervical Spine: cervical ROM normal and No Cervical spine tenderness Thoracic/Lumbar Spine: thoraco-lumbar ROM normal, No pain with thoraco-lumbar ROM, No thoracic spinal tenderness and No lumbar spinal tenderness Extrem General: Yes normal to inspection, No edema and No calf tenderness Skin General: warm and dry. Normal skin color. Normal skin turgor Lesions: no lesions Rashes: no rashes Trauma: no lacerations or abrasions Wounds: no wounds Nails: normal Neuro General: patient oriented x3, gait normal and no focal neuro deficit Cranial nerves: Yes Equal, round and reactive pupils present Cognition (Neuro): normal cognition Gait exam (Neuro): Normal gait present Sensory Exam: No Sensory deficit (Neuro) Psych Appearance: grossly normal Affect: normal affect Attitude: cooperative Thought process: Normal thought process present Assessment and Plan Assessment & Plan (1) Chest pain: Code(s): R07.9 - Chest pain, unspecified Plan: Reports continued intermittent in her sternum. She notes her symptoms intensify with physical activity and improves with rest. No new symptoms. Tenderness to palpation of the sternum Likely musculoskeletal pain Ibuprofen ordered. Take as prescribed Warm/cold compresses encouraged Referred to Cardiology Follow-up with worsening or new symptoms Verbalized understanding and agreed with treatment plan. Orders: Referrals Cardiology Referral R07.9 - Chest pain, unspecified Medications: Refilled ibuprofen 600 mg PO Q8H PRN 90 tabs 0RF pain M54.9 - Dorsalgia, unspecified Coding Level of Care Code Est Pt Level 3 (70468) Diagnoses Chest pain R07.9 Time Spent (min) 25
== END 2023-02-10 14:19 | disposition home or self-care (01) ==
PROVIDERS: PCP Hospitalist; Visit Provider Nurse Practitioner Family
DX: R07.9 Chest pain, unspecified (principal)
CPT/HCPCS: 99213

== ENCOUNTER 2023-05-30 12:44 | Outpatient (AMB) | payer MEDICAID, SELFPAY ==
--- NOTE | 2023-05-30 12:53 | A.OFFVIS_ITS ---
Intake Vital Signs 05/30/23 13:01 Height 5 ft Weight 202 lb 13.204 oz BMI 39.6 BP 110/70 Blood Pressure Location Lt brachial Position Sitting Pulse 96 Intake Visit Reasons: NPV/Chest Pain/S. Antony Intake Note: New patient c/o chest pain has been in the Ed happens weekly for a few hours no chest pain today Customer Quality Specialist Required: No Allergies aloe [ALOE] Allergy (Unknown, Verified 02/10/23 14:05) RASH sertraline [SERTRALINE] Allergy (Unknown, Verified 02/10/23 14:05) UNKNOWN Medication List - Last Reconciled 05/30/23 by Taz Stanford MD acetaminophen (Tylenol Extra Strength) 1,000 mg PO Q6H PRN albuterol sulfate 90 mcg/actuation (Ventolin HFA) 2 puffs inhalation Q4-6H PRN fluticasone propionate 50 mcg/actuation (Allergy Relief (fluticasone)) 2 sprays intranasal DAILY 1 month hydroxyzine HCl 50 mg PO BID PRN 3 months ibuprofen 600 mg PO Q8H PRN HPI HPI Comments History of Present Illness Details Andrew was referred here because of left-sided chest pain. She is 22-year-old with no significant past medical history from cardiovascular risk factor perspective except for mild hyperlipidemia. Patient was referred here because she has been having recurrent left-sided chest pain over many years. She is presently emergency room multiple times. The chest pain happen sometimes with exertion sometimes at rest. He is always localized feeling like pressure or tightness in her chest. She says the symptoms can last up to 1-2 hours. She is not sure as to the reproducible nature of chest pain but says occasionally when she presses on it when she is having symptoms will get worse. No pleuritic component to it. She denies consistent exertional chest pain. No other symptoms. She denies any lightheadedness, syncope. [facility] Medical History Anxiety Migraines Hypothyroidism Hypertension Hypercholesteremia Surgical History No pertinent past surgical history Family History Father Hypertension Mother Hepatitis C Hypothyroidism Hypertension Cirrhosis of liver Murmur, cardiac Social History Housing: Apartment Alcohol intake: never Patient Tobacco Use Status: Never used Tobacco e-Cigarette/Vaping Use: Never Used service: No Current occupational status: unemployed Cognitive needs: No Hearing needs: No Vision needs: No Review of Systems Const Denies chills, Denies daytime sleepiness, Denies fatigue, Denies fever(s), Denies frequent falls, Denies poor appetite, Denies snoring, Denies stops breathing during sleep, Denies weakness, Denies weight gain and Denies weight loss Eyes Denies loss of vision ENT Denies dizziness and Denies hearing loss Card Denies chest pain, Denies claudication, Denies leg edema, Denies lightheadedness, Denies palpitations, Denies dyspnea, Denies dyspnea on exertion and Denies orthopnea Resp Denies cough, Denies excessive phlegm production, Denies dyspnea, Denies dyspnea on exertion, Denies snoring and Denies wheezing GI Denies abdominal pain, Denies hematochezia, Denies change in bowel habits, Denies nausea and Denies vomiting Denies urinary frequency and Denies dysuria Musc Denies arthralgias, Denies muscle weakness, Denies numbness and Denies other (frequent falls) Skin/Breast Denies nail changes and Denies rash Neuro Denies Abnormal speech present, Denies dizziness, Denies frequent falls, Denies loss of vision, Denies memory loss, Denies numbness and Denies weakness Psych Denies depression and Denies memory loss Endo Denies fatigue and Denies palpitations Mikey/Lymph Reports easy bruising and Reports other (anemia) Aller/Immun Denies wheezing Physical Exam Vital Signs: Last Vital Signs Pulse 96 05/30/23 13:01 BP 110/70 05/30/23 13:01 BMI result Body Mass Index 39.6 Const General: cooperative, comfortable, no acute distress, alert and awake Nutritional Appearance: obese Orientation/consciousness: patient oriented x3 Limitations: no limitations HEENT Head: Yes normocephalic and Yes atraumatic Neck Neck: Yes trachea midline, Yes supple and Yes no JVD Resp Effort & Inspection: normal respiratory effort Auscultation: clear to auscultation bilaterally Cardio Jugular venous distension: no JVD Palpation: normal PMI Rate: regular rate Rhythm: regular rhythm Heart sounds: S1 normal heart sound present, S2 normal heart sound present, no click, no gallops, no murmurs and no rubs GI Inspection: Yes obesity Auscultation: normal bowel sounds Skin General skin exam: no rashes or lesions noted Neuro General: patient oriented x3 and no focal motor deficits Speech: No Abnormal speech present Extrem General: Yes no clubbing, cyanosis or edema Psych Appearance: grossly normal Assessment & Plan Assessment & Plan (1) Atypical chest pain: Code(s): R07.89 - Other chest pain Plan: Patient with left-sided chest pain with very atypical features. Unlikely to represent cardiovascular causes including myocardial ischemia. Likelihood of either musculoskeletal chest pain related to costochondritis and/or fibromyalgia and possibly psychological in nature. She is worried about her hyperlipidemia. Given that she has had multiple ED presentations with chest pain and EKGs have been normal I would suggest a ETT to rule out any unusual causes of chest pain such as coronary anomaly and/or myocardial ischemia which is very low likelihood. In terms of treatment for hyperlipidemia needs to be with lifestyle modification. Statin therapy is not indicated in her at this point time and this was discussed with her due to low long-term benefit with high risk for adverse events. Advise regular physical activity and weight loss program and nonpharmacological means such as Garlique and/or red yeast rice. Will follow up in the clinic if need be. Thank you for allowing me to partake in the care Orders: Orders CA stress test Today R07.89 - Other chest pain Coding Level of Care Code New Pt Level 3 (43572) Diagnoses Atypical chest pain R07.89
[2023-05-30 13:01] VITALS: BP 110/70; PULSE 96; BMI 39.6
== END 2023-05-30 13:22 | disposition home or self-care (01) ==
PROVIDERS: PCP Hospitalist; Visit Provider Internal Medicine Cardiovascular Disease
DX: R07.89 Other chest pain (principal)
CPT/HCPCS: 99203

== ENCOUNTER → 2023-05-30 12:44 | Outpatient (BNVA) | payer MEDICAID, SELFPAY | PROVIDERS: PCP Hospitalist; Visit Provider Internal Medicine Cardiovascular Disease | DX: R07.89 Other chest pain (principal); E78.5 Hyperlipidemia, unspecified | CPT/HCPCS: 99202 ==

== ENCOUNTER → 2023-08-30 10:18 | Outpatient (REF) | payer OTHER, SELFPAY ==
--- NOTE | 2023-08-30 10:21 | CA_ITS ---
Acquisition Time: 2023-08-30 10:53:45 Total Exercise Time: 00:05:01 Test Indications: CHEST PAIN Medications: Protocol: SHAINA Max HR: 173 BPM 87% of Pred: 197 BPM Max BP: 150/088 mmHG Max Work Load: 7.0 METS Exercise stress test exercise 5 min 1 sec of Shaina protocol achieving 87% MPHR, 4-5/10 chest squeezing at baseline 6/10 at peak, with mild SOB, without arrhythmias, with normotensive response to exercise, without EKG changes. Chest pain returned to baseline with rest. Test reviewed with Dr. Rucker. Referred By: Taz Stanford Overread By: Afshan Castanon
== END ==
LOC: HO.CARD 10:18
PROVIDERS: PCP Nurse Practitioner Family; Visit Provider Internal Medicine Cardiovascular Disease
DX: R07.89 Other chest pain (principal)
CPT/HCPCS: 93017

== ENCOUNTER → 2023-08-30 10:21 | Outpatient (BNV) | payer OTHER, SELFPAY | PROVIDERS: PCP Nurse Practitioner Family; Visit Provider Nurse Practitioner | DX: R07.89 Other chest pain (principal); R06.02 Shortness of breath | CPT/HCPCS: 93016; 93018 ==

== ENCOUNTER 2023-10-28 10:38 | Outpatient (AMB) | payer OTHER, SELFPAY ==
[2023-10-28 10:40] VITALS: BP 112/70; PULSE 90; TEMP 36.8; O2SAT 98; BMI 39.3
--- NOTE | 2023-10-28 10:40 | MHC.OFFWIV ---
Intake Vital Signs 10/28/23 10:40 Height 5 ft Weight 201 lb BMI 39.3 BP 112/70 Blood Pressure Location Lt brachial Position Sitting Pulse 90 Pulse Source Pulse Oximeter Temp 98.2 F Temp Source Oral Pulse Oximetry (%) 98 Oxygen Delivery Method Room Air Intake Visit Reasons: EP pain back of head/neck Intake Note: Pt is here today c/o back of neck pain x1week due to crack it herself Patient Tobacco Use Status: Never used Tobacco Allergies aloe [ALOE] Allergy (Unknown, Verified 10/28/23 11:04) RASH sertraline [SERTRALINE] Allergy (Unknown, Verified 10/28/23 11:04) UNKNOWN shellfish derived Adverse Reaction (Verified 10/28/23 11:04) rash Medication List - Last Reconciled 10/28/23 by RIYA SepulvedaP- acetaminophen (Tylenol Extra Strength) 1,000 mg PO Q6H PRN albuterol sulfate 90 mcg/actuation (Ventolin HFA) 2 puffs inhalation Q4-6H PRN fluticasone propionate 50 mcg/actuation (Allergy Relief (fluticasone)) 2 sprays intranasal DAILY 1 month ibuprofen 600 mg PO Q8H PRN HPI HPI Comments History of Present Illness Details Here today with complaints of left-sided neck pain that radiates down into her shoulder. This is an acute on chronic problem. Reports that she has a need to crack her neck by herself for pain relief. When she did this most recently she developed a pinching like pain. The left side of her neck hurts. It is interrupting her sleep. She is using ibuprofen which is helping. She is just unsure how much ibuprofen she should be taking. She denies any red flag symptoms. [facility] Medical History Anxiety Migraines Hypothyroidism Hypertension Hypercholesteremia Surgical History No pertinent past surgical history Family History Father Hypertension Mother Hepatitis C Hypothyroidism Hypertension Cirrhosis of liver Murmur, cardiac Social History Housing: Apartment Alcohol intake: never Patient Tobacco Use Status: Never used Tobacco e-Cigarette/Vaping Use: Never Used service: No Current occupational status: unemployed Cognitive needs: No Hearing needs: No Vision needs: No Review of Systems Const All systems reviewed & are unremarkable except as noted in HPI and below Physical Exam Vital Signs: Last Vital Signs Temp 98.2 F 10/28/23 10:40 Pulse 90 10/28/23 10:40 BP 112/70 10/28/23 10:40 Pulse Ox 98 10/28/23 10:40 Oxygen Delivery Method Room Air 10/28/23 10:40 BMI result Body Mass Index 39.3 HEENT Head images: 1. Pain with palpation. Palpable muscle not noted. Full range of motion of neck. Does have some pain with flexion. Neurovascularly intact. Assessment & Plan Assessment & Plan (1) Neck muscle spasm: Code(s): M62.838 - Other muscle spasm Plan: . Medications: New tizanidine (Zanaflex) 2 mg (1/2 x 4 mg) PO BID 5 days PRN 5 tabs 0RF muscle spasticity meloxicam 7.5 mg PO DAILY 14 tabs 0RF Patient Instructions: Advised to take meloxicam once per day with food for 2 weeks. Do not use any other zwet-[id number]-[id number] NSAIDs while taking meloxicam. Sparing use of muscle relaxer can be used. Supportive care to include topical analgesics as well as heating pad and gentle range of motion and stretching was also encouraged. If no improvement or worsening of symptoms advised to follow up. She does not have a primary care provider. I did advise her to call the [facility] in [place] to establish care with 1 of our providers there. Coding Level of Care Code Est Pt Level 3 (16721) Diagnoses Neck muscle spasm M62.838
== END 2023-10-28 11:38 | disposition home or self-care (01) ==
PROVIDERS: PCP Nurse Practitioner Family; Visit Provider Nurse Practitioner Family
DX: M62.838 Other muscle spasm (principal)
CPT/HCPCS: 99051; 99213

== ENCOUNTER 2023-12-08 16:16 | Outpatient (AMB) | payer OTHER, SELFPAY ==
--- NOTE | 2023-12-08 16:17 | A.OFFPC_ITS ---
Vital Signs 12/08/23 16:20 Height 5 ft Weight 199 lb 8 oz BMI 39.0 BP 124/74 Blood Pressure Location Rt brachial Position Sitting Respiration 13 Pulse 89 Pulse Source Pulse Oximeter Temp 97.6 F Temp Source Temporal Artery Scan Pulse Oximetry (%) 99 Oxygen Delivery Method Room Air Intake Visit Reasons: Neck pain F-U Intake Note: Would like refill of ibuprofen. Dramatic Critic Required: No Accompanied by: Self / Same As Patient Allergies aloe [ALOE] Allergy (Unknown, Verified 12/08/23 16:28) RASH sertraline [SERTRALINE] Allergy (Unknown, Verified 12/08/23 16:28) UNKNOWN shellfish derived Adverse Reaction (Verified 12/08/23 16:28) rash Medication List - Last Reconciled 12/08/23 by Aleksandra Myrick CNP acetaminophen (Tylenol Extra Strength) 1,000 mg PO Q6H PRN albuterol sulfate 90 mcg/actuation (Ventolin HFA) 2 puffs inhalation Q4-6H PRN fluticasone propionate 50 mcg/actuation (Allergy Relief (fluticasone)) 2 sprays intranasal DAILY 1 month ibuprofen 600 mg PO Q8H PRN Tobacco use date assessed: 12/08/23 Dental Screening Dental Screen Date: 12/08/23 Did you have a dental visit in the last 12 months?: Yes Did you have a dental problem in the last 6 months where you did not have access to dental care?: No Was dental information given to patient?: Patient has dentist HPI HPI Comments History of Present Illness Details 23-year-old female presents with complai nts of acute on chronic left- sided neck pain She was seen at the walk-in for same complaints at the end of October and was prescribed meloxicam and tizanidine. She notes she ran out of medications and has been taking ibuprofen which has not been as effect. She attributes her symptoms to prolonged standing from work and h/o frequent cracking her neck with her hands. Ibuprofen has not been as effective as Meloxicam and tizanidine. No tingling, numbness, or loss of sensation [facility] Medical History Anxiety Migraines Hypothyroidism Hypertension Hypercholesteremia Surgical History No pertinent past surgical history Family History Father Hypertension Mother Hepatitis C Hypothyroidism Hypertension Cirrhosis of liver Murmur, cardiac Social History Housing: Apartment Alcohol intake: never Patient Tobacco Use Status: Never used Tobacco e-Cigarette/Vaping Use: Never Used service: No Current occupational status: unemployed Cognitive needs: No Hearing needs: No Vision needs: No Questionnaire Thrive Questionnaire Date Thrive assessed: 08/17/22 AGUSTINA-7 AMB Questionnaire AGUSTINA-7 Date AGUSTINA - 7 assessed: 12/29/22 Source: Developed by Drs. Ozzie Allison, Denia Benoit, Ministerio Alarcon and colleagues, with an educational jessica from [employer]. Review of Systems Const Details: Const Denies chills, Denies fatigue, Denies fever(s), Denies headache(s) and Denies weakness ENT Denies dizziness and Denies headache(s) Card Denies chest pain, Denies lightheadedness, Denies dyspnea and Denies other (Palpitations) Resp Denies cough, Denies dyspnea, Denies wheezing and Denies other ( shortness of breath) GI Denies abdominal pain, Denies melena, Denies hematochezia, Denies change in bowel habits, Denies dyspepsia and Denies nausea Denies hematuria and Denies dysuria Musc Reports as per HPI Skin/Breast Denies rash, Denies unusual bruising and Denies wounds Neuro Denies abnormal gait, Denies dizziness, Denies headache(s), Denies memory loss, Denies numbness, Denies Sensory deficit (Neuro), Denies tingling and Denies weakness Psych Denies anxiety, Denies depression, Denies memory loss Endo Denies cold intolerance, Denies fatigue, Denies heat intolerance, Denies polydipsia and Denies polyuria Aller/Immun Denies wheezing Physical exam (Primary Care) Vital Signs: Last Vital Signs Temp 97.6 F 12/08/23 16:20 Pulse 89 12/08/23 16:20 Resp 13 12/08/23 16:20 BP 124/74 12/08/23 16:20 Pulse Ox 99 12/08/23 16:20 Oxygen Delivery Method Room Air 12/08/23 16:20 BMI result Body Mass Index 39.0 Tobacco/Smoking Status: Tobacco use Status Tobacco use date assessed 02/10/23 12/08/23 16:22 Patient Tobacco Use Status Never used Tobacco 12/08/23 16:22 e-Cigarette/Vaping Use Never Used 12/08/23 16:22 Thrive Assessment: Date of Thrive Assessment Date Thrive assessed 08/17/22 12/08/23 16:22 Const Other: General: no acute distress and well developed Nutritional Appearance: well nourished Orientation/consciousness: patient oriented x3 HENMT Head: Yes normocephalic and Yes atraumatic Eyes General: appearance normal, both eyes and all related structures Pupils: Equal, round and reactive pupils present EOM: EOMs intact bilaterally Resp Effort & Inspection: normal respiratory effort Auscultation: clear to auscultation bilaterally Cardio Rate: regular rate Rhythm: regular rhythm Heart sounds: S1 normal heart sound present, S2 normal heart sound present, no gallops, no murmurs and no rubs GI Palpation (GI): No Abdominal aortic bruit present, Soft to palpation, nontender, No hepatosplenomegaly present and No Rebound tenderness present Auscultation: normal bowel sounds General: Yes no CVA tenderness Back/Spine/Pelvis Back: no CVA tenderness Cervical Spine: cervical ROM normal and No Cervical spine tenderness Thoracic/Lumbar Spine: thoraco-lumbar ROM normal, No pain with thoraco-lumbar ROM, No thoracic spinal tenderness and No lumbar spinal tenderness Extrem General: Yes normal to inspection, No edema and No calf tenderness Skin General: warm and dry. Normal skin color. Normal skin turgor Neuro General: patient oriented x3, gait normal and no focal neuro deficit Cranial nerves: Yes Equal, round and reactive pupils present Cognition (Neuro): normal cognition Gait exam (Neuro): Normal gait present Sensory Exam: No Sensory deficit (Neuro) Psych Appearance: grossly normal Affect: normal affect Attitude: cooperative Thought process: Normal thought process present Assessment and Plan Assessment & Plan (1) Neck muscle spasm: Code(s): M62.838 - Other muscle spasm Plan: Tenderness to palpation of the left lateral neck; normal range of motion; no overt injury or trauma Meloxicam in tizanidine refill sent. Advised to take as prescribed Warm/cool compresses encouraged Advised to avoid manipulating of her neck with hands or prolonged standing X-ray of the cervical spine ordered Advised to schedule an appointment with one of our PCP Return with worsening or new symptoms Verbalized understanding and agreed with the treatment plan Orders: Orders XR cervical spine 2V Today M62.838 - Other muscle spasm Medications: Refilled meloxicam 7.5 mg PO DAILY 14 tabs 0RF tizanidine (Zanaflex) 2 mg (1/2 x 4 mg) PO BID 5 days PRN 5 tabs 0RF muscle spasticity Discontinued ibuprofen Discontinued Reason: Patient no longer taking 600 mg PO Q8H PRN 90 tabs 0RF pain M54.9 - Dorsalgia, unspecified Coding Level of Care Code Est Pt Level 3 (79404) Diagnoses Neck muscle spasm M62.838
[2023-12-08 16:20] VITALS: BP 124/74; PULSE 89; RESP 13; TEMP 36.4; O2SAT 99; BMI 39.0
== END 2023-12-08 16:40 | disposition home or self-care (01) ==
PROVIDERS: PCP Nurse Practitioner Family; Visit Provider Nurse Practitioner Family
DX: M62.838 Other muscle spasm (principal)
CPT/HCPCS: 99213

== ENCOUNTER 2023-12-15 15:28 | Outpatient (REF) | payer OTHER, SELFPAY ==
--- NOTE | ~2023-12-15 | XR_ITS ---
EXAMINATION: XR CERVICAL SPINE CLINICAL INFORMATION: Muscle spasm COMPARISON: None available. TECHNIQUE: 3 views of the cervical spine were obtained. FINDINGS: There is straightening of the cervical spine. There are no prevertebral soft tissue or bony abnormalities demonstrated. No compression fractures or subluxations are identified. Alignment is maintained at the atlanto-axial articulation. The disc spaces are preserved. No endplate changes are seen. The prevertebral soft tissues are normal. XR/XR cervical spine 2V IMPRESSION: Straightening of the cervical spine which can be seen with muscle spasm. No acute finding.
== END 2023-12-15 15:29 | disposition home or self-care (01) ==
LOC: HO.XRAY 15:28
PROVIDERS: PCP Nurse Practitioner Family; Visit Provider Nurse Practitioner Family
DX: M62.838 Other muscle spasm (principal)
CPT/HCPCS: 72040

== ENCOUNTER 2024-01-10 16:17 | Outpatient (AMB) | payer OTHER, SELFPAY ==
--- NOTE | 2024-01-10 16:04 | A.OFFPC_ITS ---
Intake Visit Reasons: X- Ray results ~ [phone] Allergies aloe [ALOE] Allergy (Unknown, Verified 01/10/24 16:09) RASH sertraline [SERTRALINE] Allergy (Unknown, Verified 01/10/24 16:09) UNKNOWN shellfish derived Adverse Reaction (Verified 01/10/24 16:09) rash Medication List - Last Reconciled 01/10/24 by Gisel Hartman, STRING LASTER- acetaminophen (Tylenol Extra Strength) 1,000 mg PO Q6H PRN albuterol sulfate 90 mcg/actuation (Ventolin HFA) 2 puffs inhalation Q4-6H PRN fluticasone propionate 50 mcg/actuation (Allergy Relief (fluticasone)) 2 sprays intranasal DAILY 1 month meloxicam 7.5 mg PO DAILY tizanidine (Zanaflex) 2 mg (1/2 x 4 mg) PO BID PRN 5 days Tobacco use date assessed: 12/08/23 Dental Screening Dental Screen Date: 12/08/23 HPI HPI Comments History of Present Illness Details Telehealth visit today to discuss the results of her cervical spine x-ray ordered by another provider in December. The results below were reviewed with her in detail today. In regards to her symptoms she reports that she responded very well to the meloxicam when she was taking it. She reports that her pain was 90% improved. She is only needed to use the muscle relaxer twice. She no longer has any of the meloxicam as the scripts were only for 2 weeks. She has returned to using [id number]-akv-ebqpimy ibuprofen which does not seem as effective. She offers no new symptoms in relation to her neck pain. She also endorses symptoms of chest pain which was noted to be acid reflux in the past. She was using famotidine. This did help however she stopped it. She would like to have a refill on this. Plan: Discuss the treatment of her neck pain today. Given the chronicity I have made the recommendation to see [facility]'s pain management group and I have placed a referral for this today. Given that she has had such a great benefit with the meloxicam I have sent in a prescription for her to take daily with food. She can continue to use the Zanaflex as needed. Reminded to not use any rguo-hku-almaoei NSAIDs while taking the meloxicam. Okay to use Tylenol for breakthrough pain. Refill for famotidine sent today She has due for a complete physical exam, I have sent a note to the front office staff to call her and arrange for this to be scheduled. She is aware that she can come to see me sooner if needed. This note is constructed using voice recognition software. While every effort has been made to ensure accuracy in sap crm developer, still errors may have been included Sometimes, these errors may affect the content or meaning of the given sentence . PFS Medical History Anxiety Migraines Hypothyroidism Hypertension Hypercholesteremia Surgical History No pertinent past surgical history Family History Father Hypertension Mother Hepatitis C Hypothyroidism Hypertension Cirrhosis of liver Murmur, cardiac Social History Housing: Apartment Alcohol intake: never Patient Tobacco Use Status: Never used Tobacco e-Cigarette/Vaping Use: Never Used service: No Current occupational status: unemployed Cognitive needs: No Hearing needs: No Vision needs: No Questionnaire Thrive Questionnaire Date Thrive assessed: 08/17/22 AGUSTINA-7 AMB Questionnaire AGUSTINA-7 Date AGUSTINA - 7 assessed: 12/29/22 Source: Developed by Drs. Ozzie Allison, Denia Benoit, Ministerio Alarcon and colleagues, with an educational jessica from [place]. Physical exam (Primary Care) Tobacco/Smoking Status: Tobacco use Status Tobacco use date assessed 12/08/23 01/10/24 16:04 Patient Tobacco Use Status Never used Tobacco 01/10/24 16:04 e-Cigarette/Vaping Use Never Used 01/10/24 16:04 Thrive Assessment: Date of Thrive Assessment Date Thrive assessed 08/17/22 01/10/24 16:04 Telehealth Telehealth Telehealth Platform: Telephone Location of provider rendering services: practice address Location of patient: address on file Patient Identification confirmed using: Name, : Yes Telehealth method: voice only Patient verbally consented to treatment: Yes Patient verbally consented to billing insurance company: Yes Patient informed of any privacy concerns related to visit: Yes Minutes spent on Phone/Video with Pt.: 11 Results Reviewed Results Reviewed: [address] [address] XRay Report Signed Patient: Andrew Gonzalez MR#: [id number] : 2000 Acct:[id number] Age/Sex: 23 / F ADM Date: 12/15/23 Loc: [facility] Attending Dr: Aleksandra Myrick CNP Ordering Physician: Aleksandra Myrick CNP Date of Service: 12/15/23 Procedure(s): XR cervical spine 2V Accession Number(s): [id number] cc: Gisel Hartman-; Aleksandra Myrick CNP~ EXAMINATION: XR CERVICAL SPINE CLINICAL INFORMATION: Muscle spasm COMPARISON: None available. TECHNIQUE: 3 views of the cervical spine were obtained. FINDINGS: There is straightening of the cervical spine. There are no prevertebral soft tissue or bony abnormalities demonstrated. No compression fractures or subluxations are identified. Alignment is maintained at the atlanto-axial articulation. The disc spaces are preserved. No endplate changes are seen. The prevertebral soft tissues are normal. XR/XR cervical spine 2V IMPRESSION: Straightening of the cervical spine which can be seen with muscle spasm. No acute finding. Dictated By: Aron Cross MD Signed By: <Electronically signed by Aron Cross MD in OV> 01/02/24 0836 Assessment and Plan Assessment & Plan (1) Mid back pain on left side: Code(s): M54.9 - Dorsalgia, unspecified (2) Neck muscle spasm: Code(s): M62.838 - Other muscle spasm Orders: Referrals Pain Management Referral M54.9 - Dorsalgia, unspecified, M62.838 - Other muscle spasm Medications: Refilled famotidine (Acid Collar Tailor (famotidine)) 20 mg PO BEDTIME 90 tabs 1RF K21.9 - Gastro-esophageal reflux disease without esophagitis meloxicam 7.5 mg PO DAILY 30 tabs 4RF Coding Level of Care Code Tele Est Pt Level 2 (77286) Diagnoses Mid back pain on left side M54.9 Neck muscle spasm M62.838
== END 2024-01-10 16:19 | disposition home or self-care (01) ==
LOC: HO.HMGFM 16:17
PROVIDERS: PCP Nurse Practitioner Family; Visit Provider Nurse Practitioner Family
DX: M54.9 Dorsalgia, unspecified (principal); M62.838 Other muscle spasm
CPT/HCPCS: 99212

== ENCOUNTER 2024-01-24 15:21 | Outpatient (AMB) | payer OTHER, SELFPAY ==
--- NOTE | 2024-01-24 15:23 | A.OFFPC_ITS ---
Vital Signs 01/24/24 15:30 01/24/24 16:26 Height 5 ft Weight 199 lb 8 oz BMI 39.0 BP 132/70 Blood Pressure Location Lt brachial Position Sitting Respiration 16 Pulse 105 H 88 Pulse Source Pulse Oximeter Auscultation Temp 98.4 F Temp Source Oral Pulse Oximetry (%) 99 Oxygen Delivery Method Room Air Intake Visit Reasons: [employer],PE- NEEDS PHQ9 Intake Note: patient here for CPE. Csw Required: No Is last menstrual period known: Yes Last menstrual period: 01/10/24 Post menopausal: No Patient : No Allergies aloe [ALOE] Allergy (Unknown, Verified 01/24/24 15:45) RASH sertraline [SERTRALINE] Allergy (Unknown, Verified 01/24/24 15:45) UNKNOWN shellfish derived Adverse Reaction (Verified 01/24/24 15:45) rash Medication List - Last Reconciled 01/24/24 by Gisel Hartman, ASSEMBLER [employer]UC[employer]- acetaminophen (Tylenol Extra Strength) 1,000 mg PO Q6H PRN albuterol sulfate 90 mcg/actuation (Ventolin HFA) 2 puffs inhalation Q4-6H PRN epinephrine 0.3 mg (0.3 mL) IM Q4H PRN famotidine (Acid Anthropology Department Chair (famotidine)) 20 mg PO BEDTIME hydroxyzine HCl 25 mg PO BEDTIME meloxicam 7.5 mg PO DAILY tizanidine (Zanaflex) 2 mg (1/2 x 4 mg) PO BID PRN 5 days Tobacco use date assessed: 01/24/24 Dental Screening Dental Screen Date: 01/24/24 Did you have a dental visit in the last 12 months?: Yes Did you have a dental problem in the last 6 months where you did not have access to dental care?: No Was dental information given to patient?: Patient has dentist HPI HPI Comments History of Present Illness Details 23-year-old female with hyperlipidemia, subclinical hypothyroidism, seasonal allergies, morbid obesity, chronic GERD, generalized anxiety disorder, migraines without aura, hepatic steatosis with elevated LFTs, mild anemia, MDD, AGUSTINA Health Maintenance: ? PAP has never had one, referral placed ? Tdap 04/2022 Specialists: Cardiology stress test negative, cleared from future f/u Nutrition pain management initial appt on Monday GI HERE TODAY FOR COMPLETE PHYSICAL EXAM. She continues to have pain in her neck and her back. She has a initial appointment with pain management on Monday. She continues to take NSAIDs and muscle relaxers with some relief. She continues to suffer from chronic and recurrent GERD. She feels burning in the back of her throat. At times she can feel like she is choking on foods. Specifically things like rice. She takes Pepcid daily. She also has hepatic steatosis with elevated LFTs. She is not currently active with Gastroenterology. > refer to gastroenterology In regards to her asthma is well controlled with p.r.n. use of Zofia only. She has known shellfish allergies and seasonal allergies. She reports that her mother touch the shrimp to her hand and she broke out in a rash very quickly. She would like to have some allergy testing done. She does not currently have an EpiPen. >New RX Epi pen given today. In regards to her mood,Was active w/ counselor in the past, this was not a beneficial in the past [tried bhn and chd in the past]. hydroxyzine for sleep and panic attacks in the past, would like refill> Will refer to [facility] & refill on hydroxyzine sent today. Eyes: last eye exam 1 year ago, reports pressure in eyes - this was done @ [facility] (I do not have these records) Admits vision has changed. Wears glasses. > Referred to [facility] today to [facility] care and for updated eye exam. Endo: She has a history of subclinical hypothyroidism. The last TSH was around 7 in 2022. She is not currently on any thyroid supplements. In April of 2020 she did have a thyroid ultrasound with the following results: Incidental 1.2 x 0.5 x 0.8 cm soft tissue nodule along the dorsal aspect of the inferior right thyroid. This could be compatible with a parathyroid adenoma (a normal parathyroid gland measures 3-5 mm). She is unsure if this has been followed up on or not. Cards: History of chest pain with a negative stress test in the past. She was evaluated by Cardiology. She continues to have intermittent chest pain that comes and goes. Has known hyperlipidemia. Positive obesity. Was active with interested in the past. Sedentary lifestyle. Cards notes indicate no statin at this time given age. Review of labs show chronic mild anemia. She denies any overt bleeding. General: Well developed, well nourished, in no acute distress. Appears stated age. Head: Normocephalic, atraumatic. Eyes: Pupils are equal, round and reactive to light and accommodation. Conjunctivae are clear. Vision grossly normal. Mild exophthalmos bilat Ears: TMs clear AU, EACS WNL Nose: Patent, without discharge. Mouth: There are no ulcers or lesions noted. No inflammation, no post nasal drip, no plaques nor exudates. Neck: Supple, no adenopathy or thyromegaly. Lungs: Clear to auscultation bilaterally. No rales, rhonchi or wheeze noted. Good air flow in all cisneros. Heart: Regular rate and rhythm. No murmurs, click, rubs or gallops are noted. Abdomen: Bowel sounds present in all quadrants. The abdomen is soft, nontender, with no masses or organomegaly noted. No hernias are noted. Complaints of pain generally speaking with mild palpation. Musculoskeletal: Joints are nontender, without swelling, redness, or effusions. Range of motion is observed to be normal. Pulses: Peripheral pulses are equal and palpable bilaterally. Extremities: No clubbing, cyanosis nor edema is noted. Neurologic: Gait and station normal. Cranial Nerves 2-12 intact. Motor strength grossly symmetrical and intact. No sensory loss. Balance normal. Skin: No rashes, ulcers, or lesions noted. Turgor is good. Skin color is good. Hair and nails are without abnormalities. Psych: Normal eye contact, affect and mood appropriate, and normal interactions. Patient is alert and appropriate to context. Plan: Refer to gastroenterology, [facility], per diem nurse, ENT, really counseling New Rx for EpiPen. Check thyroid ultrasound specifically to evaluate parathyroid Check routine screening labs & problem specific labs Return to the office in 8 weeks to follow up on the lab and ultrasound results, sooner as needed. This note is constructed using voice recognition software. While every effort has been made to ensure accuracy in clinical application specialist, still errors may have been included Sometimes, these errors may affect the content or meaning of the given sentence . An additional 20 was spent addressing the problem(s) noted at todays visit. This includes time spent before the visit reviewing the chart, time spent during the visit, and time spent after the visit on documentation [facility] Medical History (Updated 01/24/24 @ 16:30 by Gisel Hartman, ASSEMBLER [employer]-) Neck muscle spasm Anxiety Migraines Hypothyroidism Hypertension Hypercholesteremia Surgical History No pertinent past surgical history Family History Father Hypertension Mother Hepatitis C Hypothyroidism Hypertension Cirrhosis of liver Murmur, cardiac Social History Housing: Apartment Alcohol intake: never Patient Tobacco Use Status: Never used Tobacco e-Cigarette/Vaping Use: Never Used Second Hand Smoke Exposure: No service: No Current occupational status: unemployed Cognitive needs: No Hearing needs: No Vision needs: No Female Reproductive History Menstrual Date of last menstrual period: 01/10/24 Questionnaire PHQ-9 Over the last 2 weeks, how often have you been bothered by any of the following problems? 1. Little interest or pleasure in doing things: more than half the days 2. Feeling down, depressed, or hopeless: several days 3. Trouble falling or staying asleep, or sleeping too much: nearly every day 4. Feeling tired or having little energy: more than half the days 5. Poor appetite or overeating: more than half the days 6. Feeling bad about yourself - or that you are a failure or have let yourself or your family down: not at all 7. Trouble concentrating on things, such as reading the newspaper or watching television: more than half the days 8. Moving or speaking so slowly that other people could have noticed. Or the opposite - being so fidgety or restless that you have been moving around a lot more than usual: not at all 9. Thoughts that you would be better off or of hurting yourself in some way: not at all Total score: 12 Depression Screening Interpretation: Positive Depression Screening Follow-up: Existing condition Depression Screening Done: Yes 55591 - PHQ-9 Billing: Yes Source: Developed by Drs. Ozzie Allison, Denia Benoit, Ministerio Alarcon and colleagues, with an educational jessica from [employer]. Thrive Questionnaire Date Thrive assessed: 01/24/24 I am a: Patient What is your living situation today?: I have a steady place to live Within the past 12 months, did the food you bought not last and you didn't have the money to get more?: Never true Within the past 12 months, did you worry whether your food would run out before you got money to buy more?: Never true Do you have trouble paying for medicines?: No Do you have trouble getting transportation to medical appointments?: No Do you have trouble paying your heating and electricity bill?: No Do you have trouble taking care of your child, family member or friend?: No Do you have trouble with day-to-day activities such as bathing, preparing meals, shopping, managing finances, etc.?: No Are you currently unemployed and looking for a job?: No Are you interested in more education?: No Please select the resources that you would like help with: None Currently or been in a relationship where the following occur: No concerns reported THRIVE Score: 0 AUDIT C Alcohol Use Questionnaire (AUDIT-C) 1. How often do you have a drink containing alcohol?: Never Total Score: 0 Score Reviewed/Action Taken: Yes AGUSTINA-7 AMB Questionnaire AGUSTINA-7 Date AGUSTINA - 7 assessed: 01/24/24 Feeling nervous, anxious, or on edge: 1 = Several days Not being able to stop or control worryin = More than half the days Worrying too much about different things: 2 = More than half the days Trouble relaxin = More than half the days Being so restless that it is hard to sit still: 0 = Not at all Becoming easily annoyed or irritable: 1 = Several days Feeling afraid as if something awful might happen: 1 = Several days Total AGUSTINA-7 score (0-4 normal; 5-9 mild; 10-14 moderate; 15-21 severe): 9 Source: Developed by Drs. Ozzie Allison, Denia Benoit, Ministerio Alarcon and colleagues, with an educational jessica from [employer]. AGUSTINA-7 Assessment Billing AGUSTINA-7 Assessment Tool: AGUSTINA-7 Assessment 55408 ACT Questionnaire In the past 4 weeks, how much of the time did your asthma keep you from getting as much done at work, school or at home?: Some of the time During the past 4 weeks, how often have you had shortness of breath?: Once a day During the past 4 weeks, how often did your asthma symptoms wake you up at night or earlier than usual in the morning?: Not at all During the past 4 weeks, how often have you had to use your rescue inhaler or nebulizer medication?: Not at all How would you rate your asthma control during the past 4 weeks?: Somewhat controlled Score: 18 Physical exam (Primary Care) Vital Signs: Last Vital Signs Temp 98.4 F 01/24/24 15:30 Pulse 105 H 01/24/24 15:30 Resp 16 01/24/24 15:30 BP 132/70 01/24/24 15:30 Pulse Ox 99 01/24/24 15:30 Oxygen Delivery Method Room Air 01/24/24 15:30 BMI result Body Mass Index 39.0 BMI Assessment/Plan discussion: High BMI High, discussed plan: lifestyle Tobacco/Smoking Status: Tobacco use Status Tobacco use date assessed 01/24/24 01/24/24 15:29 Patient Tobacco Use Status Never used Tobacco 01/24/24 15:24 e-Cigarette/Vaping Use Never Used 01/24/24 15:24 PHQ-9: PHQ-9 Score PHQ-9: Total score 12 01/24/24 15:36 Depression Screening Interpretation: Positive Depression Screening Follow-up: Existing condition Thrive Assessment: Date of Thrive Assessment Date Thrive assessed 08/17/22 01/24/24 15:24 Currently or been in a relationship where the following occur: No concerns reported Assessment and Plan Assessment & Plan (1) Encounter for general adult medical examination with abnormal findings: Code(s): Z00.01 - Encounter for general adult medical examination with abnormal findings (2) MDD (major depressive disorder), recurrent episode: Code(s): F33.9 - Major depressive disorder, recurrent, unspecified Qualifiers: Major depression episode severity: moderate Qualified Code(s): F33.1 - Major depressive disorder, recurrent, moderate (3) Hepatic steatosis: Code(s): K76.0 - Fatty (change of) liver, not elsewhere classified (4) AGUSTINA (generalized anxiety disorder): Code(s): F41.1 - Generalized anxiety disorder (5) Migraine without aura: Code(s): G43.009 - Migraine without aura, not intractable, without status migrainosus Qualifiers: Status migrainosus presence: without status migrainosus Intractability: not intractable Qualified Code(s): G43.009 - Migraine without aura, not intractable, without status migrainosus (6) Elevated LFTs: Code(s): R79.89 - Other specified abnormal findings of blood chemistry (7) Mild anemia: Code(s): D64.9 - Anemia, unspecified (8) Severe obesity (BMI 35.0-39.9) with comorbidity: Code(s): E66.01 - Morbid (severe) obesity due to excess calories (9) Cervical cancer screening: Code(s): Z12.4 - Encounter for screening for malignant neoplasm of cervix (10) Seasonal allergies: Code(s): J30.2 - Other seasonal allergic rhinitis (11) Shellfish allergy: Code(s): Z91.013 - Allergy to seafood (12) Glaucoma suspect: Code(s): H40.009 - Preglaucoma, unspecified, unspecified eye Qualifiers: Laterality: bilateral Qualified Code(s): H40.003 - Preglaucoma, unspecified, bilateral (13) Parathyroid abnormality: Code(s): E21.5 - Disorder of parathyroid gland, unspecified (14) Chronic GERD: Code(s): K21.9 - Gastro-esophageal reflux disease without esophagitis (15) Hypothyroidism: Code(s): E03.9 - Hypothyroidism, unspecified Qualifiers: Hypothyroidism type: other Qualified Code(s): E03.8 - Other specified hypothyroidism (16) Hyperlipidemia: Code(s): E78.5 - Hyperlipidemia, unspecified Qualifiers: Hyperlipidemia type: mixed hyperlipidemia Qualified Code(s): E78.2 - Mixed hyperlipidemia Orders: Orders Complete Blood Count no Diff Today D64.9 - Anemia, unspecified, E03.9 - Hypothyroidism, unspecified, E21.5 - Disorder of parathyroid gland, unspecified, E78.5 - Hyperlipidemia, unspecified, R79.89 - Other specified abnormal findings of blood chemistry Hemoglobin A1c Today D64.9 - Anemia, unspecified, E03.9 - Hypothyroidism, unspecified, E21.5 - Disorder of parathyroid gland, unspecified, E78.5 - Hyperlipidemia, unspecified, R79.89 - Other specified abnormal findings of blood chemistry Vitamin B12 and Folate Today D64.9 - Anemia, unspecified, E03.9 - Hypothyroid ism, unspecified, E21.5 - Disorder of parathyroid gland, unspecified, E78.5 - Hyperlipidemia, unspecified, R79.89 - Other specified abnormal findings of blood chemistry TSH reflex Free T4 Today D64.9 - Anemia, unspecified, E03.9 - Hypothyroidism, unspecified, E21.5 - Disorder of parathyroid gland, unspecified, E78.5 - Hyperlipidemia, unspecified, R79.89 - Other specified abnormal findings of blood chemistry Hepatitis A,B,C Profile Today D64.9 - Anemia, unspecified, E03.9 - Hypothyroidism, unspecified, E21.5 - Disorder of parathyroid gland, unspecified, E78.5 - Hyperlipidemia, unspecified, R79.89 - Other specified abnormal findings of blood chemistry Phosphorus Today D64.9 - Anemia, unspecified, E03.9 - Hypothyroidism, unspecified, E21.5 - Disorder of parathyroid gland, unspecified, E78.5 - Hyperlipidemia, unspecified, R79.89 - Other specified abnormal findings of blood chemistry Parathyroid Hormone Intact Today D64.9 - Anemia, unspecified, E03.9 - Hypothyroidism, unspecified, E21.5 - Disorder of parathyroid gland, unspecified, E78.5 - Hyperlipidemia, unspecified, R79.89 - Other specified abnormal findings of blood chemistry US thyroid Today E21.5 - Disorder of parathyroid gland, unspecified Comprehensive Galliano. Panel Fast Today D64.9 - Anemia, unspecified, E03.9 - Hypothyroidism, unspecified, E21.5 - Disorder of parathyroid gland, unspecified, E78.5 - Hyperlipidemia, unspecified, R79.89 - Other specified abnormal findings of blood chemistry IRON PROFILE Today D64.9 - Anemia, unspecified, E03.9 - Hypothyroidism, unspecified, E21.5 - Disorder of parathyroid gland, unspecified, E78.5 - Hy perlipidemia, unspecified, R79.89 - Other specified abnormal findings of blood chemistry Lipid Panel Today D64.9 - Anemia, unspecified, E03.9 - Hypothyroidism, unspecified, E21.5 - Disorder of parathyroid gland, unspecified, E78.5 - Hyperlipidemia, unspecified, R79.89 - Other specified abnormal findings of blood chemistry Microalbumin, Random (w Creat) Today D64.9 - Anemia, unspecified, E03.9 - Hypothyroidism, unspecified, E21.5 - Disorder of parathyroid gland, unspecified, E78.5 - Hyperlipidemia, unspecified, R79.89 - Other specified abnormal findings of blood chemistry Vitamin D 1,25 dihydroxy Today D64.9 - Anemia, unspecified, E03.9 - Hypothyroidism, unspecified, E21.5 - Disorder of parathyroid gland, unspecified, E78.5 - Hyperlipidemia, unspecified, R79.89 - Other specified abnormal findings of blood chemistry Magnesium Today D64.9 - Anemia, unspecified, E03.9 - Hypothyroidism, unspecified, E21.5 - Disorder of parathyroid gland, unspecified, E78.5 - Hyperlipidemia, unspecified, R79.89 - Other specified abnormal findings of blood chemistry H pylori Ag Stool Today K21.9 - Gastro-esophageal reflux disease without esophagitis Referrals [employer] Referral Z12.4 - Encounter for screening for malignant neoplasm of cervix Ear/Nose/Throat Referral J30.2 - Other seasonal allergic rhinitis, Z91.013 - Allergy to seafood Counseling Referral F33.9 - Major depressive disorder, recurrent, unspecified, F41.1 - Generalized anxiety disorder Ophthalmology Referral H40.009 - Preglaucoma, unspecified, unspecified eye Gastroenterology Referral K21.9 - Gastro-esophageal reflux disease without esophagitis, K76.0 - Fatty (change of) liver, not elsewhere classified, R79.89 - Other specified abnormal findings of blood chemistry Medications: New epinephrine 0.3 mg (0.3 mL) IM Q4H PRN 2 ea 1RF anaphylaxis hydroxyzine HCl 25 mg PO BEDTIME PRN 30 tabs 2RF anxiety or insomnia Refilled tizanidine (Zanaflex) 2 mg (1/2 x 4 mg) PO BID 5 days PRN 5 tabs 0RF muscle spasticity Patient Instructions: Health screenings for women You should visit your health care provider from time to time, even if you are healthy. The purpose of these visits is to: Screen for medical issues Assess your risk for future medical problems Encourage a healthy lifestyle Update vaccinations and other preventive care services Help you get to know your provider in case of an illness Information Even if you feel fine, you should still see your provider for regular checkups. These visits can help you avoid problems in the future. For example, the only way to find out if you have high blood pressure is to have it checked regularly. High blood sugar and high cholesterol levels also may not have any symptoms in the early stages. A simple blood test can check for these conditions. There are specific times when you should see your provider or receive specific health screenings. The [place] Preventive Services Task Force publishes a list of recommended screenings. Below are screening guidelines for women ages 18 to 39. BLOOD PRESSURE SCREENING Your blood pressure should be checked at least once every 3 to 5 years if: Your blood pressure is in the normal range (top number less than 120 mm Hg and bottom number less than 80 mm Hg) You don't have risk factors for high blood pressure Ask your provider if you need your blood pressure checked more often if: The top number is 120 to 129 mm Hg or the bottom number is 70 to 79 mm Hg You have diabetes, heart disease, kidney problems, are overweight, or have certain other health conditions You have a first-degree relative with high blood pressure You are Black You had high blood pressure during a If the top number is 130 mm Hg or greater or the bottom number is 80 mm Hg or greater, this is considered stage 1 hypertension. Schedule an appointment with your provider to learn how you can reduce your blood pressure. Watch for blood pressure screenings in your area. Ask your provider if you can stop in to have your blood pressure checked. BREAST CANCER SCREENING Experts do not agree about the benefits of breast self-exams in finding breast cancer or saving lives. Talk to your provider about what is best for you. A screening mammogram is not recommended for most women under age 40. Your provider may discuss and recommend mammograms, MRI scans, or ultrasounds if you have an increased risk for breast cancer, such as: A mother or sister who had breast cancer at a young age (most often starting screening earlier than the age the close relative was diagnosed) You carry a high-risk genetic marker CERVICAL CANCER SCREENING Cervical cancer screening should start at age 21 years unless your provider ad vises otherwise. After the first test: Women ages 21 through 29 should have a Pap test every 3 years. Exoprts do not agree on whether HPV testing is recommended for this age group. Women ages 30 through 65 should be screened with either a Pap test every 3 years or the HPV test every 5 years or both tests every 5 years (called cotesting ). Women who have been treated for precancer (cervical dysplasia) should continue to have Pap tests for 20 years after treatment or until age 65, whichever is longer. If you have had your uterus and cervix removed (total hysterectomy), and you have not been diagnosed with cervical cancer or precancer (high grade cervical neoplasia), you do not need cervical cancer screening. CHOLESTEROL SCREENING Cholesterol screening should begin at: Age 45 for women with no known risk factors for coronary heart disease Age 20 for women with known risk factors for coronary heart disease Repeat cholesterol screening should take place: Every 5 years for women with normal cholesterol levels More often if changes occur in lifestyle (including weight gain and diet) More often if you have diabetes, heart disease, kidney problems, or certain other conditions DIABETES SCREENING You should be screened for diabetes starting at age 35 and then repeated every 3 years if you have no risk factors for diabetes. Screening may need to start earlier and be repeated more often if you have other risk factors for diabetes, such as: You have a first degree relative with diabetes. You are overweight or have obesity. You have high blood pressure, prediabetes, or a history of heart disease. Screening for diabetes should be done if you are planning to become and you are overweight and have other risk factors such as high blood pressure. DENTAL EXAM Go to the dentist once or twice every year for an exam and cleaning. Your dentist will evaluate if you need more frequent visits. EYE EXAM Have an eye exam every 5 to 10 years before age 40. If you have vision problems, have an eye exam every 2 years or more often if recommended by your provider. You should have an eye exam that includes an examination of your retina (back of your eye) at least every year if you have diabetes. IMMUNIZATIONS Commonly needed vaccines include: Flu shot: get one every year. COVID-19 vaccine: ask your provider what is best for you. Tetanus-diphtheria and acellular pertussis (Tdap) vaccine: have one at or after age 19 as one of your tetanus-diphtheria vaccines if you did not receive it as an adolescent. Tetanus-diphtheria: have a booster (or Tdap) every 10 years. Varicella vaccine: receive 2 doses if you never had chickenpox or the varicella vaccine. Hepatitis B vaccine: receive 2, 3, or 4 doses, depending on your exact circumstances. Measles, mumps, and rubella (MMR) vaccine: receive 1 to 2 doses if you are not already immune to MMR. Your provider can tell you if you are immune. Ask your provider about the human papillomavirus (HPV) vaccine if: You have not received the HPV vaccine in the past You have not completed the full vaccine series (you should catch up on this shot) Ask your provider if you should receive other immunizations if you have certain health problems that increase your risk for some diseases such as pneumonia. INFECTIOUS DISEASE SCREENING Women who are sexually active should be screened for chlamydia and gonorrhea up until age 25. Women 25 years and older should be screened for chlamydia and gonorrhea if at high risk. Screening for hepatitis C: All adults ages 18 to 79 should get a one-time test for hepatitis C. people should be screened at every . Screening for human immunodeficiency virus (HIV): All people ages 15 to 65 should get a one-time test for HIV. Depending on your lifestyle and medical history, you may also need to be screened for infections such as syphilis and HIV, as well as other infections. PHYSICAL EXAM All adults should visit their provider from time to time, even if they are healt . The purpose of these visits is to: Screen for disease Assess your risk of future medical problems Encourage a healthy lifestyle Update your vaccinations and other preventive care services Maintain a relationship with a provider in case of an illness Your height, weight, and BMI should be checked at every exam. During your exam, your provider may ask you about: Depression and anxiety Diet and exercise Alcohol and tobacco use Safety issues, such as using seat belts, smoke detectors, and intimate partner violence Your medicines and risk for interactions SKIN SELF-EXAM Your provider may check your skin for signs of skin cancer, especially if you're at high risk, such as if you: Have had skin cancer before Have close relatives with skin cancer Have a weakened immune system OTHER SCREENING Talk with your provider about colon cancer screening if you have a strong family history of colon cancer or polyps, or if you have had inflammatory bowel disease or polyps yourself. Routine bone density screening of women under 40 is not recommended. Coding Level of Care Code Est Pt Level 3 (46897) Complex EM visit Add On G2211 Diagnoses Encounter for general adult medical examination with abnormal findings Z00.01 Moderate episode of recurrent major depressive disorder F33.1 Major depression episode severity: moderate Hepatic steatosis K76.0 AGUSTINA (generalized anxiety disorder) F41.1 Migraine without aura and without status migrainosus, not intractable G43.009 Status migrainosus presence: without status migrainosus Intractability: not intractable Elevated LFTs R79.89 Mild anemia D64.9 Severe obesity (BMI 35.0-39.9) with comorbidity E66.01 Cervical cancer screening Z12.4 Seasonal allergies J30.2 Shellfish allergy Z91.013 Glaucoma suspect of both eyes H40.003 Laterality: bilateral 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
[2024-01-24 15:30] VITALS: BP 132/70; PULSE 105; RESP 16; TEMP 36.9; O2SAT 99; BMI 39.0
[2024-01-24 16:26] VITALS: PULSE 88
== END 2024-01-24 16:20 | disposition home or self-care (01) ==
PROVIDERS: PCP Nurse Practitioner Family; Visit Provider Nurse Practitioner Family
DX: Z00.00 Encounter for general adult medical examination without abnormal findings (principal); F33.1 Major depressive disorder, recurrent, moderate; E66.01 Morbid (severe) obesity due to excess calories; E21.5 Disorder of parathyroid gland, unspecified; Z68.39 Body mass index [BMI] 39.0-39.9, adult; K76.0 Fatty (change of) liver, not elsewhere classified; F41.1 Generalized anxiety disorder; G43.009 Migraine without aura, not intractable, without status migrainosus; R79.89 Other specified abnormal findings of blood chemistry; D64.9 Anemia, unspecified; J30.2 Other seasonal allergic rhinitis; Z91.013 Allergy to seafood
CPT/HCPCS: 99213; 99395

== ENCOUNTER 2024-01-29 08:56 | Outpatient (AMB) | payer OTHER, SELFPAY ==
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
[2024-01-29 09:08] VITALS: BP 135/99; PULSE 99; O2SAT 98; BMI 39.1
== END 2024-01-29 09:52 | disposition home or self-care (01) ==
PROVIDERS: PCP Nurse Practitioner Family; Referring Provider Nurse Practitioner Family; Visit Provider Nurse Practitioner Family
DX: M54.2 Cervicalgia (principal); G43.009 Migraine without aura, not intractable, without status migrainosus
CPT/HCPCS: 99204

== ENCOUNTER → 2024-01-29 08:56 | Outpatient (BNVA) | payer OTHER, SELFPAY | PROVIDERS: PCP Nurse Practitioner Family; Referring Provider Nurse Practitioner Family; Visit Provider Nurse Practitioner Family | DX: M54.2 Cervicalgia (principal); G43.009 Migraine without aura, not intractable, without status migrainosus | CPT/HCPCS: 99202 ==

== ENCOUNTER 2024-02-07 15:26 | Outpatient (REF) | payer OTHER, SELFPAY ==
--- NOTE | ~2024-02-07 | US_ITS ---
EXAMINATION: US THYROID CLINICAL INFORMATION: Disorder of parathyroid gland, unspecified. 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 COMPARISON: Thyroid ultrasound 04/14/2020. TECHNIQUE: Linear transducer grayscale and color Doppler examination with attention to the region of the thyroid. FINDINGS: SIZE: Measurements of the thyroid lobes and nodules are given in sagittal, anteroposterior and transverse dimensions respectively. Right Thyroid Lobe: 4.4 x 1.2 x 1.3 cm, volume 3.6 mL. Previously 4.0 x 1.3 x 1.5 cm, volume 4.1 mL. Parenchyma: The gland echotexture is homogeneous. Thyroid vascularity is normal. Left Thyroid Lobe: 4.0 x 1.2 x 1.3 cm, volume 3.2 mL. Previously 3.7 x 1.0 x 1.4 cm, volume 2.7 mL. Parenchyma: The gland echotexture is homogeneous. Thyroid vascularity is normal. Isthmus: 0.27 cm in maximum AP dimension. Previously 0.30 cm. No focal thyroid nodule is seen. NODES: No lymphadenopathy is seen in the tissue surrounding the thyroid gland. ADDITIONAL FINDINGS: A 1.2 x 0.5 x 1.1 cm hypoechoic nodule along the posterior inferior aspect of the right thyroid lobe previously measured 1.2 x 0.5 x 0.8 cm on 04/14/2020. Differential considerations include a parathyroid/adenoma, atypical lymph node or exophytic thyroid nodule. US/US thyroid IMPRESSION: A 1.2 x 0.5 x 1.1 cm hypoechoic nodule along the posterior inferior aspect of the right thyroid lobe previously measured 1.2 x 0.5 x 0.8 cm on 04/14/2020. Differential considerations include a parathyroid/adenoma, atypical lymph node or exophytic thyroid nodule. ACR TI-RADS RECOMMENDATION REFERENCE: Ultrasound-guided fine-needle aspiration, follow up ultrasound, no further followup. * TR1 (0 point) and TR2 (2 points): No FNA or followup * TR3 (3 points): FNA if more than or equal to 2.5 cm in maximum dimension, follow up ultrasound in 1, 3 and 5 years if 1.5 to 2.4 cm in maximum dimension. * TR4 (4-6 points): FNA if more than or equal to 1.5 cm in maximum dimension, follow up ultrasound in 1, 2, 3 and 5 years if 1 to 1.4 cm in maximum dimension. * TR5 (more than or equal to 7 points): FNA if more than or equal to 1 cm in maximum dimension, follow up ultrasound every year for 5 years if 0.5 to 0.9 cm in maximum dimension. * TR3, TR4 or TR5 nodules that are below the size threshold for follow up receive no followup.
== END 2024-02-07 15:27 | disposition home or self-care (01) ==
LOC: HO.HMGCX 15:26
PROVIDERS: PCP Nurse Practitioner Family; Visit Provider Nurse Practitioner Family
DX: E21.5 Disorder of parathyroid gland, unspecified (principal)
CPT/HCPCS: 76536

== ENCOUNTER 2024-03-08 22:00 | Outpatient (REF) | payer OTHER, SELFPAY | END 2024-03-08 22:01 | disposition home or self-care (01) | LOC: HO.LNP 22:00 | PROVIDERS: Visit Provider Nurse Practitioner Family | DX: K21.9 Gastro-esophageal reflux disease without esophagitis (principal) | CPT/HCPCS: 87338 ==

== ENCOUNTER 2024-03-26 15:24 | Outpatient (AMB) | payer OTHER, SELFPAY ==
[2024-03-26 15:26] VITALS: BP 122/90; PULSE 123; BMI 38.9
--- NOTE | 2024-03-26 15:26 | MHC.OFFVIS ---
Vital Signs 03/26/24 15:26 03/26/24 16:01 Height 5 ft Weight 199 lb 4.766 oz BMI 38.9 BP 122/90 H Blood Pressure Location Lt brachial Position Sitting Pulse 123 H 84 Pulse Source Pulse Oximeter Palpation Intake Visit Reasons: Nontoxic single thyroid nodule/UNABLE TO LVM Intake Note: Patient present today for Nontoxic single thyroid nodule office visit. 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 Clerk Required: No Accompanied by: Self / Same As Patient Allergies aloe [ALOE] Allergy (Unknown, Verified 03/26/24 15:30) RASH sertraline [SERTRALINE] Allergy (Unknown, Verified 03/26/24 15:30) UNKNOWN shellfish derived Adverse Reaction (Verified 03/26/24 15:30) rash Medication List - Last Reconciled 03/26/24 by Shannon Vasquez MD acetaminophen (Tylenol Extra Strength) 1,000 mg PO Q6H PRN albuterol sulfate 90 mcg/actuation (Ventolin HFA) 2 puffs inhalation Q4-6H PRN epinephrine 0.3 mg (0.3 mL) IM Q4H PRN famotidine (Acid [employer] (famotidine)) 20 mg PO BEDTIME hydroxyzine HCl 25 mg PO BEDTIME PRN magnesium glycinate 200 mg (2 x 100 mg) PO DAILY 30 days meloxicam 7.5 mg PO DAILY riboflavin (vitamin B2) 400 mg PO DAILY 30 days tizanidine (Zanaflex) 2 mg (1/2 x 4 mg) PO BID PRN 5 days HPI Comments Details: 23-year-old female coming in today for initial evaluation of subclinical hypothyroidism, thyroid nodule. Labs from December 2022 showed TSH of 7.93 with free T4 of 0.90. Most recent thyroid ultrasound from February 2024 showed right inferior lobe exophytic thyroid nodule, I reviewed the images myself. This is stable in size when compared to ultrasound from 2020. Reports palpitations for years but has diagnosis of anxiety. Reports dry skin and hair thinning. Periods regular, LMP 03/11/24. No . Heterosexual, Uses condoms. Reports fatigue. No proximal muscle weakness, feels like its hard to loose weight. Denies easy bruising. Patient currently denies heat or cold intolerance, diarrhea or constipation, weight changes, changes in appearance of eyes or vision changes,has some blurriness pending eye appointment, reports tremors. ? Reports some trouble swallowing with solids, for the past few months. Feels voice is more hoarse, but not sure. Patient reports pain on swallowing or voice changes or difficulty breathing. She is pending to see GI , on famotadine for GERD. Patient denies any history of childhood neck radiation. Denies having ever used lithium, amiodarone or biotin supplements. Patient denies any family history of thyroid cancer. 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 Pulmonary: No SOB GI:No abdominal pain, no nausea or vomiting, no anorexia, no blood in stool Physical exam General: sitting comfortably in no acute distress HEENT: normocephalic/atraumatic, , moist oral mucosa Neck: supple, symmetrical, no thyromegaly Cardiac: normal heart sounds Pulm: normal breath sounds B/L, no added breath sounds Abd: not distended, no tenderness, no abdominal striae Extremities: no edema, no signs of myxedema, no proximal muscle weakness, does have fine tremors PFSH Medical History Neck muscle spasm Anxiety Migraines Hypothyroidism Hypertension Hypercholesteremia Surgical History No pertinent past surgical history Family History Father Hypertension Mother Hepatitis C Hypothyroidism Hypertension Cirrhosis of liver Murmur, cardiac Social History Housing: Apartment Alcohol intake: never Patient Tobacco Use Status: Never used Tobacco e-Cigarette/Vaping Use: Never Used Second Hand Smoke Exposure: No service: No Current occupational status: unemployed Cognitive needs: No Hearing needs: No Vision needs: No Physical Exam Vital Signs: Last Vital Signs Pulse 123 H 03/26/24 15:26 BP 122/90 H 03/26/24 15:26 BMI result Body Mass Index 38.9 Results Reviewed Results Reviewed: Laboratory Tests 03/26/20 09/22/22 12/23/22 11:59 10:56 14:04 Calcium 9.8 Magnesium 1.9 Albumin 4.6 Free T4 0.82 0.87 0.90 TSH 4.99 H 7.93 H Thyroglobulin Antibody <1 Thyroid Peroxidase Ab 7 US THYROID 02/23 I reviewed the images myself, which showed homogeneous thyroid gland with the right inferior lobe exophytic structure. This does not appear cystic like a parathyroid adenoma nodules it look like a lymph node. Could possibly be an exophytic hard of her thyroid gland, I do not see any calcifications, the border is not irregular, it does not taller than wide. Solid isoechoic. Low suspicion thyroid nodule possibly per ERIK with 5-10% chance malignancy. At this time does not meet criteria for FNA, we will plan to repeat thyroid ultrasound in 1 year. CLINICAL INFORMATION: Disorder of parathyroid gland, unspecified. 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 COMPARISON: Thyroid ultrasound 04/14/2020. TECHNIQUE: Linear transducer grayscale and color Doppler examination with attention to the region of the thyroid. FINDINGS: SIZE: Measurements of the thyroid lobes and nodules are given in sagittal, anteroposterior and transverse dimensions respectively. Right Thyroid Lobe: 4.4 x 1.2 x 1.3 cm, volume 3.6 mL. Previously 4.0 x 1.3 x 1.5 cm, volume 4.1 mL. Parenchyma: The gland echotexture is homogeneous. Thyroid vascularity is normal. Left Thyroid Lobe: 4.0 x 1.2 x 1.3 cm, volume 3.2 mL. Previously 3.7 x 1.0 x 1.4 cm, volume 2.7 mL. Parenchyma: The gland echotexture is homogeneous. Thyroid vascularity is normal. Isthmus: 0.27 cm in maximum AP dimension. Previously 0.30 cm. No focal thyroid nodule is seen. NODES: No lymphadenopathy is seen in the tissue surrounding the thyroid gland. ADDITIONAL FINDINGS: A 1.2 x 0.5 x 1.1 cm hypoechoic nodule along the posterior inferior aspect of the right thyroid lobe previously measured 1.2 x 0.5 x 0.8 cm on 04/14/2020. Differential considerations include a parathyroid/adenoma, atypical lymph node or exophytic thyroid nodule. US/US thyroid IMPRESSION: A 1.2 x 0.5 x 1.1 cm hypoechoic nodule along the posterior inferior aspect of the right thyroid lobe previously measured 1.2 x 0.5 x 0.8 cm on 04/14/2020. Differential considerations include a parathyroid/adenoma, atypical lymph node or exophytic thyroid nodule. US THYROID 04/21 CLINICAL INFORMATION: Hypothyroidism. COMPARISON: None TECHNIQUE: Linear transducer lance-scale and color Doppler examination with attention to the region of the thyroid. FINDINGS: SIZE: Measurements of the thyroid lobes and nodules are given in sagittal, anteroposterior and transverse dimensions respectively. Right Thyroid Lobe: 4.0 x 1.3 x 1.5 cm, volume 4.1 mL. Parenchyma: The gland echotexture is homogeneous. Thyroid vascularity is normal. Left Thyroid Lobe: 3.7 x 1.0 x 1.4 cm, volume 2.7 mL. Parenchyma: The gland echotexture is homogeneous. Thyroid vascularity is normal. Isthmus: 0.3 cm in maximum AP dimension. RIGHT THYROID LOBE: No nodules. ISTHMUS: No nodules. LEFT THYROID LOBE: No nodules. NODES: No lymphadenopathy is seen in the tissue surrounding the thyroid gland. ADDITIONAL FINDINGS: There is a 1.2 x 0.5 to 0.8 cm oval hypoechoic nodule adjacent to the dorsal aspect of the inferior pole of the right thyroid gland. IMPRESSION: * Unremarkable sonographic appearance of the thyroid gland. * Incidental 1.2 x 0.5 x 0.8 cm soft tissue nodule along the dorsal aspect of the inferior right thyroid. This could be compatible with a parathyroid adenoma (a normal parathyroid gland measures 3-5 mm). Assessment & Plan Assessment & Plan (1) Subclinical hypothyroidism: Code(s): E03.8 - Other specified hypothyroidism Category: Medical Plan: Patient with a history of subclinical hypothyroidism with last set of labs from December 2022 which showed elevated TSH at 7, with normal free T4 of 0.9. She does have symptoms tiredness, difficulty losing weight, hair loss. Possibly these could be related to her thyroid. However because you do not have recent labs, I am going to repeat her thyroid function testing along with TPO antibodies. Treatment criteria for subclinical hyperthyroidism is TSH greater than 10 are between 6-9 with significant symptoms. She is somewhat symptomatic and we could possibly consider treating her with low-dose levothyroxine. Or we can monitor it conservatively. Regardless we will repeat thyroid function testing. She is sexually active but using barrier contraception and not looking to get . I did benefits counselor her that women with subclinical hypothyroidism who have TPO antibodies, need to go on levothyroxine during . She might also require levothyroxine if she has trouble getting . Patient verbalized understanding. Plan: -ordered TSH, free T4, TPO and thyroglobulin antibodies (2) Thyroid nodule: Code(s): E04.1 - Nontoxic single thyroid nodule Category: Medical Plan: Patient had thyroid ultrasound in February of 2024 which showed 1.2 cm right inferior lobe nodule. This is exophytic nodule, does not look like a parathyroid gland. It does not look like a lymph node. Possibly she has some trabeculation in her thyroid which makes this look like an exophytic nodule. It is well-defined, solid, isoechoic, no calcifications seen. At this time per ERIK this would be a low suspicion nodule with a 5-10% chance of malignancy, and does not meet criteria for FNA. If this grows greater than 1.5 cm, would consider FNA. At this time I would like to repeat her thyroid ultrasound in 1 year from the last 1 which would be in January 2025. While I do not think this is a parathyroid adenoma, we will check her PTH, calcium levels as LS related labs. Plan: -ordered thyroid ultrasound for 1 year -ordered calcium, albumin, PTH, vitamin-D magnesium and phosphorus levels -follow up in 6 months Plan I spent 45 minutes in reviewing the record, seeing the patient and documenting in the medical record. Orders: Orders Thyroid Peroxidase Antibodies Today E03.8 - Other specified hypothyroidism Albumin Level Today E03.8 - Other specified hypothyroidism Calcium Today E03.8 - Other specified hypothyroidism Parathyroid Hormone Intact Today E03.8 - Other specified hypothyroidism Magnesium Today E03.8 - Other specified hypothyroidism Thyroid Stimulating Hormone Today E03.8 - Other specified hypothyroidism Free T4 (Free Thyroxine) Today E03.8 - Other specified hypothyroidism Thyroglobulin Antibodies Today E03.8 - Other specified hypothyroidism Vitamin D 25-OH Total Today E03.8 - Other specified hypothyroidism Phosphorus Today E03.8 - Other specified hypothyroidism US thyroid 1 Year E04.1 - Nontoxic single thyroid nodule Patient Instructions: do blood work We will communicate results through the portal Follow up in 6 months with repeat blood work Do ultrasound in 1 year Coding Level of Care Code New Pt Level 4 (14626) Diagnoses Subclinical hypothyroidism E03.8 Thyroid nodule E04.1 Time Spent (min) 45
[2024-03-26 16:01] VITALS: PULSE 84
== END 2024-03-26 16:06 | disposition home or self-care (01) ==
PROVIDERS: PCP Nurse Practitioner Family; Visit Provider Student in an Organized Health Care Education/Training Program
DX: E03.8 Other specified hypothyroidism (principal); E04.1 Nontoxic single thyroid nodule
CPT/HCPCS: 99204

== ENCOUNTER 2024-03-26 15:24 | Outpatient (REF) | payer OTHER, SELFPAY ==
[2024-03-26 17:06] LABS: Hematocrit 37.6 % (37.0-47.0); Hemoglobin 13.1 g/dl (12.0-16.0); Mean Corpuscular HGB Conc 34.8 g/dl (31.0-35.0); Mean Corpuscular Hemoglobin 28.6 pg (27.0-33.0); Mean Corpuscular Volume 82.1 fL (80.0-98.0); Mean Platelet Volume 9.1 fL (9.4-12.3); Platelet Count 396 X10*3/uL (160-400); Red Blood Count 4.58 X10*6/uL (4.20-5.50); Red Cell Distribution Width 13.8 % (11.0-16.0)
[2024-03-26 17:43] LABS: Estimated Average Glucose 105 mg/dL; Hemoglobin A1c % 5.3 % (<6.0)
[2024-03-26 17:59] LABS: Microalbum/Creatinine Ratio Ur 5.5 ug/mg cr (<30)
[2024-03-26 18:30] LABS: Alanine Aminotransferase 25 U/L (0-31); Albumin Level 4.5 g/dL (3.5-5.0); Alkaline Phosphatase 93 U/L (39-117); Anion Gap 10 (12-20); Aspartate Amino Transferase 19 U/L (5-31); Bilirubin Total 0.5 mg/dL (0.0-1.0); Blood Urea Nitrogen 6 mg/dL (9-16); Calcium 9.7 mg/dL (8.4-10.2); Carbon Dioxide 27 mmol/L (22-29); Chloride 105 mmol/L (96-108); Cholesterol 230 mg/dL (<200); Estimated Glomerular Filt Rate > 60; Glucose Fasting 95 mg/dL (60-99); HDL Cholesterol 33 mg/dL (>40); Iron 91 mcg/dL (30-160); LDL Cholesterol Calculated 148 mg/dL (<100); Magnesium 1.8 mg/dL (1.6-2.6); Percent Iron Saturation 27 % (15-50); Phosphorus 2.7 mg/dL (2.7-4.5); Potassium 3.7 mmol/L (3.3-5.1); Sodium 138 mmol/L (135-145); TSH reflex Free T4 4.03 uIU/mL (0.32-4.0); Total Iron Binding Capacity 335 mcg/dL (228-428); Total Protein 8.1 g/dL (6.5-8.0); Triglycerides 249 mg/dL (<150); Unsaturated Iron Binding 244 ug/dL
[2024-03-26 18:31] LABS: Albumin Level 4.5 g/dL (3.5-5.0); Calcium 9.7 mg/dL (8.4-10.2); Magnesium 1.6 mg/dL (1.6-2.6); Phosphorus 2.7 mg/dL (2.7-4.5)
[2024-03-26 18:33] LABS: Free T4 (Free Thyroxine) 0.83 ng/dL (0.71-1.85); Thyroid Stimulating Hormone 3.94 uIU/mL (0.32-4.0); Vitamin D 25-OH Total 10.8 ng/mL (>30)
[2024-03-26 18:37] LABS: Folate 7.7 ng/mL (> or = 4.0); Vitamin B12 333 pg/mL (200-900)
[2024-03-26 18:54] LABS: Parathyroid Hormone Intact 73.4 pg/mL (8.7-77.1); Parathyroid Hormone Intact 76.6 pg/mL (8.7-77.1)
[2024-03-27 08:44] LABS: HBS Num1 0.25 mIU/mL (0-7.99); HBc Num1 0.09 S/CO (0.00-0.79); HBsAGNum1 0.46 S/CO (0.00-0.99); Hepatitis A Antibody IgM 0.19 Index (0-0.79); Hepatitis B Core Antibody Nonreactive (Nonreactive); Hepatitis B Surface Antigen Negative (Negative); ~HepC Num1 0.21 S/CO (0.00-0.79); ~Hepatitis A Antibody IgM Nonreactive (Nonreactive); ~Hepatitis B Surface Antibody NONREACTIVE (Nonreactive); ~Hepatitis C Antibody Nonreactive (Nonreactive)
[2024-03-28 05:45] LABS: Thyroglobulin Antibodies <1 IU/mL (< or = 1); Thyroid Peroxidase Antibodies 19 IU/mL (<9)
[2024-03-30 17:53] LABS: VITAMIN D (1,25 OH) D3 45 pg/mL; Vit D (1,25-Dihydroxy) Total 45 pg/mL (18-72); Vitamin D (1,25 OH) D2 <8 pg/mL
== END 2024-03-26 15:25 | disposition home or self-care (01) ==
LOC: HO.LAB 15:24
PROVIDERS: PCP Nurse Practitioner Family; Visit Provider Student in an Organized Health Care Education/Training Program
DX: E03.8 Other specified hypothyroidism (principal); E21.5 Disorder of parathyroid gland, unspecified; D64.9 Anemia, unspecified; R79.89 Other specified abnormal findings of blood chemistry; E78.5 Hyperlipidemia, unspecified; E03.9 Hypothyroidism, unspecified; E04.1 Nontoxic single thyroid nodule
CPT/HCPCS: 36415; 80053; 80061; 82040; 82043; 82306; 82310; 82570; 82607; 82652; 82746; 83036; 83540; 83735; 83970; 84100; 84439; 84443; 85027; 86376; 86704; 86706; 86709; 86800; 86803; 87340; 99202

== ENCOUNTER 2024-04-02 11:00 | Outpatient (RCR) | payer OTHER, SELFPAY ==
--- NOTE | 2024-02-21 15:02 | MHC.PT.EP ---
[facility] [place] Office [place] Office [place] Office [address] Zulma Rodriguez [address] [phone] F: [phone] F: [phone] F: [phone] F: [phone] Physical Therapy Plan of Care Date of Evaluation: 02/21/24 Date of Surgery: Diagnosis: This is a 23 yo female presenting to skilled PT with a script for cervicalgia, myofascial neck pain. Assessment: This is a 23 yo female presenting to skilled PT with a script for cervicalgia, myofascial neck pain. Patient is here today reporting chronic neck pain worsening over over the last 3-4 months. 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 Patient reports neck pain is most movements but increased the most with L cervical rotation and cervical flexion. Pain is intermittent and feels restricted all the time. Her pain is located at the L side cervical, UT and scapulae. She does get GLASS's once a week from this (located at the the L side posterior head and latter day). She has been treating her symptoms with ibuprofen, muscle relaxant, rest and adequate sleep. She has not tried any physical therapy, chiropractic therapy, acupuncture or massage yet. Also of note per MD note, patient is concerned she might have fibromyalgia due to widespread body pain. She is currently being followed by [facility] pain management. Assessment reveals pain that ranges from up to a 8/10 at the worst. Patient demos decreased cervical and L shoulder ROM, strength of L shoulder and upper back, TTP at cervical and thoracic surrounding soft tissues, UT as well as scap border and impaired posture with forward head and rounded shoulders. Based on functional limitations, impaired QOL and pain tolerance patient is a good candidate for skilled PT 2x/wk for 4wks. Frequency and Duration: The patient will be seen 2x/wk for 4wks Short Term Goals: (in 2 wks) I in HEP Improve cervical ROM by at least 25% Demo proper cervical positioning with progression of UB strengthening exercises without cues from PT Toys Inspector Goals: (in 4 wks) Report 50% improvement in QOL Tolerate sleeping through the night without waking from pain Improve NDI by 10 points Improve pain to no more than 2/10 at the worst Treatment Plan: Modalities to reduce pain, spasms and effusion. Manual therapy to restore motion and function. Therapeutic exercise to improve strength and flexibility. Neuromuscular re-education for posture and balance. Therapeutic activities to return to functional activities of daily living. Electronically signed by: Linette Hernandez PT Please sign and return to therapist. Thank you for your referral.
--- NOTE | 2024-05-01 08:42 | MHC.PT.DC ---
[facility] [place] Office [place] Office [place] Office [address] Zulma Rodriguez [address] [phone] F: [phone] F: [phone] F: [phone] F: [phone] Physical Therapy Discharge Report Diagnosis: This is a 23 yo female presenting to skilled PT with a script for cervicalgia, myofascial neck pain. Date of Surgery: Date of Evaluation: 02/21/24 Date of Discharge: 05/01/24 Treatments to Date: 9 Cancellations to Date: 0 No Shows to Date: 0 Discharge Status: Patient Elected to Stop Recommend MD Follow-up Discharge Summary: 03/28: Patient with continued pains. She does demo normal cervical ROM. Today we talked about DCing due to constant pains still. She is to see pain management again. Overall, we have tried very gentle stretching and strengthening, manual soft tissue work, postural education, relaxation techniques and very gentle cervical traction (manual and mechanical). Plan to DC due to lack of progress being made. She did want to try the traction machine because she said it helped the last time, however did not feel the same the second time. It was noted that the patient has been anxious in regards to her symptoms throughout her physical therapy course/past years of work related trauma and may benefit from a referral to speak with a trained mental health professional about her symptoms. She has an HEP to continue on her own in the mean time. We provided education on the benefits of exercise. Electronically signed by: Linette Hernandez PT Please sign and return to therapist. Thank you for your referral.
== END 2024-05-01 08:42 | disposition home or self-care (01) ==
LOC: HO.PTCHIC 11:00
PROVIDERS: PCP Nurse Practitioner Family; Visit Provider Nurse Practitioner Family
DX: M54.2 Cervicalgia (principal)
CPT/HCPCS: 97012; 97110; 97140; 97161

== ENCOUNTER 2024-04-10 15:26 | Outpatient (AMB) | payer OTHER, SELFPAY ==
[2024-04-10 15:36] VITALS: BP 128/78; PULSE 66; O2SAT 98; BMI 39.3
--- NOTE | 2024-04-10 15:36 | MHC.OFFWIV ---
Intake Vital Signs 04/10/24 15:36 Height 5 ft Weight 201 lb 6 oz BMI 39.3 BP 128/78 Blood Pressure Location Lt brachial Position Sitting Pulse 66 Pulse Source Pulse Oximeter Pulse Oximetry (%) 98 Oxygen Delivery Method Room Air Intake Visit Reasons: EP Neck Pain Intake Note: Patient here for neck pain, she states she was doing PT and was put through a cervical machine which made things worsen. Patient Tobacco Use Status: Never used Tobacco Allergies aloe [ALOE] Allergy (Unknown, Verified 04/10/24 15:38) RASH sertraline [SERTRALINE] Allergy (Unknown, Verified 04/10/24 15:38) UNKNOWN shellfish derived Adverse Reaction (Verified 04/10/24 15:38) rash Do you need a note to return to daycare/school/sports/work: No HPI HPI Comments History of Present Illness Details Patient is a 23-year-old female complaining of worsening neck pain. 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 She tells me the pain is on both sides of her neck and extends to the base of her skull and on the left side it goes into her left shoulder blade. She states she saw her primary care doctor for this issue, she has been given muscle relaxers which seemed to help a little bit and Mobic which also seemed to help a little bit with the pain. she has seen pain management and physical therapy. 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 She tells me she has been going to physical therapy and they used a cervical traction machine on her which she thinks has made the pain worse. It she tells me that overall, despite everything she has been doing, her pain in her neck and shoulders is getting worse. She sometimes uses heat and ice alternating and that seems to help temporarily. She denies any additional trauma to her neck or shoulders. [facility] Medical History (Updated 03/29/24 @ 08:01 by Gisel Hartman [facility]) Vitamin D deficiency Subclinical hypothyroidism Neck muscle spasm Anxiety Migraines Hypothyroidism Hypertension Hypercholesteremia Surgical History No pertinent past surgical history Family History Father Hypertension Mother Hepatitis C Hypothyroidism Hypertension Cirrhosis of liver Murmur, cardiac Social History Housing: Apartment Alcohol intake: never Patient Tobacco Use Status: Never used Tobacco e-Cigarette/Vaping Use: Never Used Second Hand Smoke Exposure: No service: No Current occupational status: unemployed Cognitive needs: No Hearing needs: No Vision needs: No Review of Systems Const All systems reviewed & are unremarkable except as noted in HPI and below Physical Exam Vital Signs: Last Vital Signs Pulse 66 04/10/24 15:36 BP 128/78 04/10/24 15:36 Pulse Ox 98 04/10/24 15:36 Oxygen Delivery Method Room Air 04/10/24 15:36 BMI result Body Mass Index 39.3 Const General: cooperative, healthy appearing and comfortable Orientation/consciousness: patient oriented x3 HEENT Head: Yes normal to inspection and Yes normocephalic General nose exam: Normal external nose present Face and sinus: Yes normal facial exam Eyes General: appearance normal, both eyes and all related structures Resp Effort & Inspection: normal respiratory effort and able to speak in complete sentences Back/Spine/Pelvis Cervical Spine: cervical ROM normal, cervical muscular tenderness (bilaterally), No cervical spasm and No Cervical spine tenderness Thoracic/Lumbar Spine: thoracic and lumbar spine normal to inspection, paraspinal muscle tenderness on the left, No thoracic spinal tenderness and No lumbar spinal tenderness Neuro General: patient oriented x3 Assessment & Plan Assessment & Plan (1) Cervicalgia: Code(s): M54.2 - Cervicalgia Plan: Physical exam was relatively unremarkable. Recommended she use the Mobic as needed for pain, she tells me she has some from her last prescription still. I will send a more muscle relaxers to her pharmacy. We will get a cervical x-ray today to rule out any further issues since her last one in December which showed possible muscle spasms but no acute issues. She does have a follow up with her PCP next week. Plan See above Medications: New cyclobenzaprine 5 mg PO Q8H PRN 10 tabs 0RF Muscle Spasm Coding Level of Care Code Est Pt Level 4 (50646) Diagnoses Cervicalgia M54.2
== END 2024-04-10 15:48 | disposition home or self-care (01) ==
PROVIDERS: PCP Nurse Practitioner Family; Visit Provider Physician Assistant
DX: M54.2 Cervicalgia (principal)

== ENCOUNTER → 2024-04-10 15:26 | Outpatient (BNVA) | payer OTHER, SELFPAY | PROVIDERS: PCP Nurse Practitioner Family | DX: M54.2 Cervicalgia (principal) | CPT/HCPCS: 99212 ==

== ENCOUNTER 2024-04-10 15:49 | Outpatient (REF) | payer OTHER, SELFPAY ==
--- NOTE | ~2024-04-10 | XR_ITS ---
EXAMINATION: XR CERVICAL SPINE CLINICAL INFORMATION: Cervicalgia. COMPARISON: Cervical spine radiographs dated 12/15/2023. TECHNIQUE: AP, lateral, open-mouth, and bilateral oblique views of the cervical spine. FINDINGS: Mild straightening of the normal cervical lordosis which may be positional or related to muscular spasm. No acute fracture or subluxation. No loss of vertebral body or intervertebral disc height. Corticated ossification at the distal aspect of the dens, consistent with a persistent ossiculum terminale which is a normal variant. Normal atlantoaxial alignment. No concerning lytic or blastic osseous lesion. No abnormal soft tissue calcification. Unremarkable prevertebral soft tissues. XR/XR cervical spine 4V IMPRESSION: 1. Mild straightening of the normal cervical lordosis which may be positional or related to muscular spasm. 2. No acute fracture or subluxation. Electronically signed by: Alberto Murillo MD 04/11/2024 08:53 AM EDT
== END 2024-04-10 15:50 | disposition home or self-care (01) ==
LOC: HO.HMGCX 15:49
PROVIDERS: PCP Nurse Practitioner Family; Visit Provider Physician Assistant
DX: M54.2 Cervicalgia (principal)
CPT/HCPCS: 72050

== ENCOUNTER 2024-04-17 13:09 | Outpatient (AMB) | payer OTHER, SELFPAY ==
--- NOTE | 2024-04-17 13:13 | A.OFFPC_ITS ---
Vital Signs 04/17/24 13:16 Height 5 ft Weight 198 lb BMI 38.7 BP 126/78 Blood Pressure Location Lt brachial Position Sitting Respiration 14 Pulse 103 H Pulse Source Pulse Oximeter Pulse Oximetry (%) 99 Oxygen Delivery Method Room Air Intake Visit Reasons: FU LABS US and Referrals Intake Note: follow up on labs, ultrasound and referrals Allergies aloe [ALOE] Allergy (Unknown, Verified 04/17/24 13:43) RASH sertraline [SERTRALINE] Allergy (Unknown, Verified 04/17/24 13:43) UNKNOWN shellfish derived Adverse Reaction (Verified 04/17/24 13:43) rash Medication List - Last Reconciled 04/17/24 by Gisel Montoya, [employer]- acetaminophen (Tylenol Extra Strength) 1,000 mg PO Q6H PRN albuterol sulfate 90 mcg/actuation (Ventolin HFA) 2 puffs inhalation Q4-6H PRN cyclobenzaprine 5 mg PO Q8H PRN epinephrine 0.3 mg (0.3 mL) IM Q4H PRN famotidine (Acid Cell Attendant (famotidine)) 20 mg PO BEDTIME hydroxyzine HCl 25 mg PO BEDTIME PRN magnesium glycinate 200 mg (2 x 100 mg) PO DAILY 30 days meloxicam 7.5 mg PO DAILY riboflavin (vitamin B2) 400 mg PO DAILY 30 days tizanidine (Zanaflex) 2 mg (1/2 x 4 mg) PO BID PRN 5 days Tobacco use date assessed: 01/24/24 Dental Screening Dental Screen Date: 01/24/24 HPI HPI Comments History of Present Illness Details 23-year-old female with hyperlipidemia, subclinical hypothyroidism, seasonal allergies, morbid obesity, chronic GERD, generalized anxiety disorder, migraines without aura, hepatic steatosis with elevated LFTs, mild anemia, MDD, AGUSTINA , vit d def, + TPO Ab Family hx: mom with Hep C s/p [facility] Health Maintenance: ?PAP has never had one, referral placed ?Tdap 04/2022 Specialists: Cardiology stress test negative, cleared from future f/u Nutrition pain management GI [facility] ObGyn ENT Endo annual thyroid US Here today to f/u on lab results, referrals and chronic conditions: Endo cosult/labs and US 03/2024 reviewed. Needs annual US next 01/2025. RTO with repeat labs 6 months Was placed on Vit d supplement but cannot swallow this GI appt in Nov. Cont w trouble swallowing. And regurg, a lot Wonders about Hep C. Mom had Hep C when she was born. Hep A B C negative 03/26/24 Has Eye exam 04/2024 ENT not until 08/2024 wonders about food allergy testing ObGyn - missed appt, will reschedule Counseling - active. This has been good. Seeing weekly. Hyperlipidemia/obesity: Nutrition referral in place, has appt scheduled. Referred in past but only had 1 visit. Feels she would benefit from more and i agree w/ this. on 04/08/24 she sent a portal message: Eliazar Montoya. Hope you're doing well. We had discussed me going to physical therapy for a couple months for my neck injury the last time I visited you and I just finished it. I was making good progress but my neck was still having issues, but it had become manageable and the next step would now be whatever pain management recommends next. However, in physical therapy they put me through a cervical traction machine on my last week of therapy that helped after using it once. Last they did it to me for a second time, and I have not felt right since. I feel a sense of heaviness on my head and I gener ally feel very unwell and can't do activities for too long. I'm in more pain then I was before and on the top of my head hurts and more neck areas. There's a heavy feeling in my eyes and jaw pain. Over the weekend I felt odd pain in my face on both sides. I feel a weird heaviness in my forehead that isn't allergies but just feels heavy. I went to physical therapy this Monday and could barely do my regular stretches. I wanted to ask you if it sounds like something I should get checked up on somewhere [facility] or if it sounds like something that can wait till our appointment. I don't know if something like that can maybe cause a small concussion or anything, but the back of head is definitely painful to the touch and just added to the pain to what I already had and I feel pain in more areas. I asked the Physical Therapist what she thought and she wasn't sure. They tried to do the normal routine massage and it was very painful and uncomfortable I had to leave early. The pain doesn't go away with Tylenol and i've been very tired since that happened on and have been very exhausted and drained and have had issues sleeping. I feel like i've had changes in vision that worries me but i've also had that in the past which is why I have the appointment for possible pre-glaucoma coming up so I can't tell if they're linked but it is concerning. Thank you for you time. I advised her to talk to the walk in, which she did. Note reviewed along w/ xray Today she states she is worried she has a concussion; no injury. Was given muscle relaxer did not take as boyfriend said if she has a concussion this shouldnt be taking. Family feels like memory is now impaired, having numbness in bilat arms L>R, feeling tired overall since this time. She did not make any further fu with Pain mgmt. Issue since high school, when going uphill, has burning in calfs, when bruising hair cant have arm up for more than 10 seconds, when crouching has burning in legs. Has not been evaled for this yet; would like this looked at to help get answers for the cause. The following was reviewed with her today: 03/12/24 negative h pylori 02/07/24 US thyroid: A 1.2 x 0.5 x 1.1 cm hypoechoic nodule along the posterior inferior aspect of the right thyroid lobe previously measured 1.2 x 0.5 x 0.8 cm on 04/14/2020. Differential considerations include a parathyroid/adenoma, atypical lymph node or exophytic thyroid nodule 03/2024 labs normal except low Vit D, low normal b12, + TPO AB 19, b12 low end of normal, elevated lipids Plan: Declined flu vaccine Recommend allergy testing to be done through ENT and this includes food Refer to Neuro for tremors, memory complaints, BUE parasthesia, recommend mentioning the muscle complaints that started in HS to Neuro when you see them for further eval and tx. I let her know her sx are not suggestive of a concussion as she did not have an injury that would have caused a concussion. It is ok to take the muscle relaxer. Has meloxicam on hand. Recommend scheduling a f/u with Pain Mgmt for additional imaging Reschedule ObGyn referral Recommend OTC Viactiv Chews to help w/ Vitamin D Cont fu with Care team Cont all meds as directed, consult w/ pharm about what meds can be crushed or opened RTO December CPE, sooner PRN This note is constructed using voice recognition software. While every effort has been made to ensure accuracy in shirt sewer, still errors may have been included Sometimes, these errors may affect the content or meaning of the given sentence . Total time spent caring for the patient today was 60 minutes. This includes time spent before the visit reviewing the chart, time spent during the visit, and time spent after the visit on documentation [facility] Medical History (Updated 04/17/24 @ 15:34 by Gisel Montoya, [facility]) Vitamin D deficiency Subclinical hypothyroidism Neck muscle spasm Anxiety Migraines Hypothyroidism Hypertension Hypercholesteremia Surgical History No pertinent past surgical history Family History Father Hypertension Mother Hepatitis C Hypothyroidism Hypertension Cirrhosis of liver Murmur, cardiac Social History Housing: Apartment Alcohol intake: never Patient Tobacco Use Status: Never used Tobacco e-Cigarette/Vaping Use: Never Used Second Hand Smoke Exposure: No service: No Current occupational status: unemployed Cognitive needs: No Hearing needs: No Vision needs: No Questionnaire PHQ-9 Over the last 2 weeks, how often have you been bothered by any of the following problems? 1. Little interest or pleasure in doing things: several days 2. Feeling down, depressed, or hopeless: several days 3. Trouble falling or staying asleep, or sleeping too much: nearly every day 4. Feeling tired or having little energy: nearly every day 5. Poor appetite or overeating: more than half the days 6. Feeling bad about yourself - or that you are a failure or have let yourself or your family down: not at all 7. Trouble concentrating on things, such as reading the newspaper or watching television: several days 8. Moving or speaking so slowly that other people could have noticed. Or the opposite - being so fidgety or restless that you have been moving around a lot more than usual: not at all 9. Thoughts that you would be better off or of hurting yourself in some way: not at all Total score: 11 41497 - PHQ-9 Billing: Yes Source: Developed by Drs. Ozzie Allison, Denia Benoit, Ministerio Alarcon and colleagues, with an educational jessica from [employer]. Thrive Questionnaire Date Thrive assessed: 04/17/24 I am a: Patient What is your living situation today?: I have a steady place to live Within the past 12 months, did the food you bought not last and you didn't have the money to get more?: I choose not to answer this question Within the past 12 months, did you worry whether your food would run out before you got money to buy more?: I choose not to answer this question Do you have trouble paying for medicines?: No Do you have trouble getting transportation to medical appointments?: I choose not to answer this question Do you have trouble paying your heating and electricity bill?: No Do you have trouble taking care of your child, family member or friend?: No Do you have trouble with day-to-day activities such as bathing, preparing meals, shopping, managing finances, etc.?: No Are you currently unemployed and looking for a job?: I choose not to answer this question Are you interested in more education?: I choose not to answer this question Please select the resources that you would like help with: Job search/training Currently or been in a relationship where the following occur: No concerns reported THRIVE Score: 0 AUDIT C Alcohol Use Questionnaire (AUDIT-C) 1. How often do you have a drink containing alcohol?: Never Total Score: 0 AGUSTINA-7 AMB Questionnaire AGUSTINA-7 Date AGUSTINA - 7 assessed: 04/17/24 Feeling nervous, anxious, or on edge: 1 = Several days Not being able to stop or control worryin = Several days Worrying too much about different things: 2 = More than half the days Trouble relaxin = More than half the days Being so restless that it is hard to sit still: 0 = Not at all Becoming easily annoyed or irritable: 1 = Several days Feeling afraid as if something awful might happen: 0 = Not at all Total AGUSTINA-7 score (0-4 normal; 5-9 mild; 10-14 moderate; 15-21 severe): 7 Source: Developed by Drs. Ozzie Allison, Denia Benoit, Ministerio Alarcon and colleagues, with an educational jessica from [employer]. AGUSTINA-7 Assessment Billing AGUSTINA-7 Assessment Tool: AGUSTINA-7 Assessment 68988 Physical exam (Primary Care) Vital Signs: Last Vital Signs Pulse 103 H 04/17/24 13:16 Resp 14 04/17/24 13:16 BP 126/78 04/17/24 13:16 Pulse Ox 99 04/17/24 13:16 Oxygen Delivery Method Room Air 04/17/24 13:16 BMI result Body Mass Index 38.7 Tobacco/Smoking Status: Tobacco use Status Tobacco use date assessed 01/24/24 04/17/24 13:18 Patient Tobacco Use Status Never used Tobacco 04/17/24 13:18 e-Cigarette/Vaping Use Never Used 04/17/24 13:18 PHQ-9: PHQ-9 Score PHQ-9: Total score 11 04/17/24 13:49 Thrive Assessment: Date of Thrive Assessment Date Thrive assessed 04/17/24 04/17/24 13:18 Currently or been in a relationship where the following occur: No concerns reported Results Reviewed Results Reviewed: [address] [facility] [place] [address] XRay Report Signed Patient: Andrew Gonzalez MR#: [id number] : 2000 Acct:[id number] Age/Sex: 23 / F ADM Date: 04/10/24 Loc: HO.HMGCX Attending Dr: Lindsey Nichols PA-C Ordering Physician: Lindsey Nichols PA-C Date of Service: 04/10/24 Procedure(s): XR cervical spine 4V Accession Number(s): [id number] cc: Lindsey Nichols PA-C; Gisel Montoya~ EXAMINATION: XR CERVICAL SPINE CLINICAL INFORMATION: Cervicalgia. COMPARISON: Cervical spine radiographs dated 12/15/2023. TECHNIQUE: AP, lateral, open-mouth, and bilateral oblique views of the cervical spine. FINDINGS: Mild straightening of the normal cervical lordosis which may be positional or related to muscular spasm. No acute fracture or subluxation. No loss of vertebral body or intervertebral disc height. Corticated ossification at the distal aspect of the dens, consistent with a persistent ossiculum terminale which is a normal variant. Normal atlantoaxial alignment. No concerning lytic or blastic osseous lesion. No abnormal soft tissue calcification. Unremarkable prevertebral soft tissues. XR/XR cervical spine 4V IMPRESSION: 1. Mild straightening of the normal cervical lordosis which may be positional or related to muscular spasm. 2. No acute fracture or subluxation. Electronically signed by: Alberto Murillo MD 04/11/2024 08:53 AM EDT RP Dictated By: Alberto Murillo MD Signed By: <Electronically signed by Alberto Murillo MD in OV> 04/11/24 0853 DD/ 1557 Coding Level of Care Code Est Pt Level 5 (33058) Complex EM visit Add On G2211 Diagnoses Paresthesia of upper extremity R20.2 Migraine without aura and without status migrainosus, not intractable G43.009 Intractability: not intractable Status migrainosus presence: without status migrainosus Subjective memory complaints R41.89 Tremor R25.1 Subclinical hypothyroidism E03.8 Vitamin D deficiency E55.9 Thyroid nodule E04.1 Cervicalgia M54.2 Myofascial neck pain M54.2 AGUSTINA (generalized anxiety disorder) F41.1 Mixed hyperlipidemia E78.2 Hyperlipidemia type: mixed hyperlipidemia Dysphagia, unspecified type R13.10 Dysphagia type: unspecified Additional Codes AGUSTINA-7 Assessment Billing - AGUSTINA-7 Assessment Tool: AGUSTINA-7 Assessment 07312 ([id number]) Assessment & Plan Assessment & Plan (1) Paresthesia of upper extremity: Code(s): R20.2 - Paresthesia of skin Category: Medical Plan: . (2) Migraine without aura: Code(s): G43.009 - Migraine without aura, not intractable, without status migrainosus Category: Medical Qualifiers: Intractability: not intractable Status migrainosus presence: without status migrainosus Qualified Code(s): G43.009 - Migraine without aura, not intractable, without status migrainosus Plan: . (3) Subjective memory complaints: Code(s): R41.89 - Other symptoms and signs involving cognitive functions and awareness Category: Medical Plan: . (4) Tremor: Code(s): R25.1 - Tremor, unspecified Category: Medical Plan: . (5) Subclinical hypothyroidism: Code(s): E03.8 - Other specified hypothyroidism Category: Medical Plan: . (6) Vitamin D deficiency: Code(s): E55.9 - Vitamin D deficiency, unspecified Category: Medical Plan: . (7) Thyroid nodule: Code(s): E04.1 - Nontoxic single thyroid nodule Category: Medical Plan: . (8) Cervicalgia: Code(s): M54.2 - Cervicalgia Category: Medical Plan: . (9) Myofascial neck pain: Code(s): M54.2 - Cervicalgia Category: Medical Plan: . (10) AGUSTINA (generalized anxiety disorder): Code(s): F41.1 - Generalized anxiety disorder Category: Medical Plan: . (11) Hyperlipidemia: Code(s): E78.5 - Hyperlipidemia, unspecified Category: Medical Qualifiers: Hyperlipidemia type: mixed hyperlipidemia Qualified Code(s): E78.2 - Mixed hyperlipidemia Plan: . (12) Dysphagia: Code(s): R13.10 - Dysphagia, unspecified Category: Medical Qualifiers: Dysphagia type: unspecified Qualified Code(s): R13.10 - Dysphagia, unspecified Plan: . Orders: Referrals Neurology Referral G43.009 - Migraine without aura, not intractable, without status migrainosus, R20.2 - Paresthesia of skin, R25.1 - Tremor, unspecified, R41.89 - Other symptoms and signs involving cognitive functions and awareness Medications: Discontinued cyclobenzaprine Discontinued Reason: Patient no longer taking 5 mg PO Q8H PRN 10 tabs 0RF Muscle Spasm
[2024-04-17 13:16] VITALS: BP 126/78; PULSE 103; RESP 14; O2SAT 99; BMI 38.7
== END 2024-04-17 14:03 | disposition home or self-care (01) ==
PROVIDERS: PCP Nurse Practitioner Family; Visit Provider Nurse Practitioner Family
DX: R20.2 Paresthesia of skin (principal); G43.009 Migraine without aura, not intractable, without status migrainosus; R41.89 Other symptoms and signs involving cognitive functions and awareness; R25.1 Tremor, unspecified; E03.8 Other specified hypothyroidism; E55.9 Vitamin D deficiency, unspecified; E04.1 Nontoxic single thyroid nodule; M54.2 Cervicalgia; F41.1 Generalized anxiety disorder; E78.2 Mixed hyperlipidemia; R13.10 Dysphagia, unspecified

== ENCOUNTER → 2024-04-17 13:09 | Outpatient (BNVA) | payer OTHER, SELFPAY | PROVIDERS: PCP Nurse Practitioner Family; Visit Provider Nurse Practitioner Family | DX: R20.0 Anesthesia of skin (principal); G43.009 Migraine without aura, not intractable, without status migrainosus; R41.89 Other symptoms and signs involving cognitive functions and awareness; R25.1 Tremor, unspecified; E03.8 Other specified hypothyroidism; E55.9 Vitamin D deficiency, unspecified; E04.1 Nontoxic single thyroid nodule; M54.2 Cervicalgia; F41.1 Generalized anxiety disorder; E78.2 Mixed hyperlipidemia; R13.10 Dysphagia, unspecified | CPT/HCPCS: 96127; 99212 ==

== ENCOUNTER 2024-05-02 11:45 | Outpatient (AMB) | payer OTHER, SELFPAY ==
--- NOTE | 2024-05-02 11:47 | MHC.OFFVIS ---
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 She reports significant improvement with PT with initial symptoms up until the past few sessions where she tried cervical traction machine which exacerbated her neck pain on the right side. She went [place] [facility] for increasing neck pain on 04/10/24 and was prescribed cyclobenzaprine that she has not tried yet. Patient reports significant muscle stiffness and spasm with limited range of motion with lateral rotations and bending on the right. She has full range of motion to the left, extension and flexion. Denies any numbness, tingling, paresthesias, or weakness in the upper or lower extremities. She does reports the neck pain radiates to her mid back and shoulder blades since exacerbation neck pain with cervical traction device. Denies any recent cough, cold, infection, fever or other significant changes in medical history since last office visit. PT Discharge Summary Date of Evaluation: 02/21/24 Date of Discharge: 05/01/24 Treatments to Date: 9 Cancellations to Date: 0 No Shows to Date: 0 Discharge Status: Patient Elected to Stop Recommend MD Follow-up Discharge Summary: 03/28: Patient with continued pains. She does demo normal cervical ROM. Today we talked about DCing due to constant pains still. She is to see pain management again. Overall, we have tried very gentle stretching and strengthening, manual soft tissue work, postural education, relaxation techniques and very gentle cervical traction (manual and mechanical). Plan to DC due to lack of progress being made. She did want to try the traction machine because she said it helped the last time, however did not feel the same the second time. It was noted that the patient has been anxious in regards to her symptoms throughout her physical therapy course/past years of work related trauma and may benefit from a referral to speak with a trained mental health professional about her symptoms. She has an HEP to continue on her own in the mean time. We provided education on the benefits of exercise. [facility] Medical History (Updated 05/02/24 @ 15:44 by CIARAN Mukherjee) Vitamin D deficiency Subclinical hypothyroidism Neck muscle spasm Anxiety Migraines Hypothyroidism Hypertension Hypercholesteremia Surgical History No pertinent past surgical history Family History Father Hypertension Mother Hepatitis C Hypothyroidism Hypertension Cirrhosis of liver Murmur, cardiac Social History Housing: Apartment Alcohol intake: never Patient Tobacco Use Status: Never used Tobacco e-Cigarette/Vaping Use: Never Used Second Hand Smoke Exposure: No service: No Current occupational status: unemployed Cognitive needs: No Hearing needs: No Vision needs: No Review of Systems Const All systems reviewed & are unremarkable except as noted in HPI and below Physical Exam Vital Signs: Last Vital Signs Pulse 91 05/02/24 11:52 BP 147/81 H 05/02/24 11:52 Pulse Ox 100 05/02/24 11:52 Oxygen Delivery Method Room Air 05/02/24 11:52 BMI result Body Mass Index 39.1 General: Appears afebrile. Alert and oriented. Mood and affect appropriate. Follows and participates in conversation appropriately. Respiratory effort is unlabored. No cough. Able to transition from sit to stand unassisted. Ambulates with bilaterally normal heel strike and toe off. Neck Other: Patient with decreased cervical ROM with right llateral rotation. Denies increased pain with cervical extension and flexion. 2 + radial pulses. Significant tightness throughout left upper trapezius as well as TTP throughout bilateral upper trapezius muscles. No paravertebral tenderness over facet joints bilaterally. Multiple taut bands palpated throughout bilateral upper trapezius muscles. Neck: Yes normal visual inspection, Yes full ROM (limited on the right), Yes no lymphadenopathy, Yes supple, No anterior neck swelling, Yes no JVD and Yes prominent dorsocervical fat pad General: Yes no CVA tenderness Back/Spine/Pelvis Back: no CVA tenderness Cervical Spine: loss of normal cervical lordosis, cervical muscular tenderness, pain with cervical ROM, No Cervical spine scars present, cervical spasm, No Cervical spine tenderness and No step off deformity Thoracic/Lumbar Spine: thoracic and lumbar spine normal to inspection, No Thoracic/lumbar spine scar(s), Lasegue's sign negative, straight leg raise negative bilaterally, pain with thoraco-lumbar ROM, No thoracic spinal tenderness and lumbar spinal tenderness at L4 and at L5 Sacroiliac joints: bilaterally tender to palpation Psych Appearance: grossly normal Mental Status: mental status grossly normal Speech and movement: Normal speech and movement present Affect: normal affect and Sad affect present Attitude: cooperative Thought process: Normal thought process present Thought content: Normal thought content present, suicidality, no hallucinations and Depressive thoughts present Insight: Good insight present (Psych) Judgement: Good judgement present (Psych) Results Reviewed Results Reviewed: XR CERVICAL SPINE 12/15/23 CLINICAL INFORMATION: Muscle spasm FINDINGS: There is straightening of the cervical spine. There are no prevertebral soft tissue or bony abnormalities demonstrated. No compression fractures or subluxations are identified. Alignment is maintained at the atlanto-axial articulation. The disc spaces are preserved. No endplate changes are seen. The prevertebral soft tissues are normal. IMPRESSION: Straightening of the cervical spine which can be seen with muscle spasm. No acute finding. XR CERVICAL SPINE 04/10/24 CLINICAL INFORMATION: Cervicalgia. COMPARISON: Cervical spine radiographs dated 12/15/2023. FINDINGS: Mild straightening of the normal cervical lordosis which may be positional or related to muscular spasm. No acute fracture or subluxation. No loss of vertebral body or intervertebral disc height. Corticated ossification at the distal aspect of the dens, consistent with a persistent ossiculum terminale which is a normal variant. Normal atlantoaxial alignment. No concerning lytic or blastic osseous lesion. No abnormal soft tissue calcification. Unremarkable prevertebral soft tissues. IMPRESSION: 1. Mild straightening of the normal cervical lordosis which may be positional or related to muscular spasm. 2. No acute fracture or subluxation. Assessment & Plan Assessment & Plan (1) Cervicalgia: Code(s): M54.2 - Cervicalgia Category: Medical (2) Myofascial neck pain: Code(s): M54.2 - Cervicalgia Category: Medical (3) Mid back pain: Code(s): M54.9 - Dorsalgia, unspecified Category: Medical (4) Chronic pain syndrome: Code(s): G89.4 - Chronic pain syndrome Category: Medical (5) MDD (major depressive disorder), recurrent episode: Code(s): F33.9 - Major depressive disorder, recurrent, unspecified Category: Medical Qualifiers: Major depression episode severity: moderate Qualified Code(s): F33.1 - Major depressive disorder, recurrent, moderate (6) AGUSTINA (generalized anxiety disorder): Code(s): F41.1 - Generalized anxiety disorder Category: Medical Plan Reviewed repeated after recent Walk-In clinic cervical spine imaging findings with patient. Recommend to continue home exercise program. We will order thoracic spine x-ray for mid back pain and to assess any degenerative changes thoracic spine. Previously discussed interventional treatments for cervicogenic, occipital and migraine headaches and neck pain. Encouraged sleep hygiene, adequate hydration, weight loss, good posture, daily physical activity and well-balanced diet for a longer-term management of current pain generators. Continue Tylenol, NSAIDs, muscle relaxants, and topical OTC applications as well as some heat therapy as needed. Refill sent for cyclobenzaprine. Discussed that fix and precautions with patient. Patient is aware to avoid tizanidine while trialing cyclobenzaprine. Psychology referral for counseling in regards to chronic depression and anxiety and chronic pain syndrome. All questions and concerns have been answered and patient agreed with the treatment plan. Follow-up for xray/medication review and sooner as needed. Orders: Orders XR thoracic spine 3V Today M54.2 - Cervicalgia, M54.9 - Dorsalgia, unspecified Referrals Psychology Referral F33.1 - Major depressive disorder, recurrent, moderate, F41.1 - Generalized anxiety disorder, G89.4 - Chronic pain syndrome Medications: Refilled cyclobenzaprine 5 mg PO Q8H PRN 10 tabs 0RF Muscle Spasm M54.2 - Cervicalgia Coding Level of Care Code Est Pt Level 4 (08838) Complex EM visit Add On G2211 Diagnoses Cervicalgia M54.2 Myofascial neck pain M54.2 Mid back pain M54.9 Chronic pain syndrome G89.4 Moderate episode of recurrent major depressive disorder F33.1 Major depression episode severity: moderate AGUSTINA (generalized anxiety disorder) F41.1
[2024-05-02 11:52] VITALS: BP 147/81; PULSE 91; O2SAT 100; BMI 39.1
== END 2024-05-02 12:21 | disposition home or self-care (01) ==
LOC: HO.PMC 11:46
PROVIDERS: PCP Nurse Practitioner Family; Visit Provider Nurse Practitioner Family
DX: M54.2 Cervicalgia (principal); M54.9 Dorsalgia, unspecified; G89.4 Chronic pain syndrome; F33.1 Major depressive disorder, recurrent, moderate; F41.1 Generalized anxiety disorder
CPT/HCPCS: 99214; G2211

== ENCOUNTER → 2024-05-02 11:45 | Outpatient (BNVA) | payer OTHER, SELFPAY | PROVIDERS: PCP Nurse Practitioner Family; Visit Provider Nurse Practitioner Family | DX: M54.2 Cervicalgia (principal); M54.9 Dorsalgia, unspecified; F33.1 Major depressive disorder, recurrent, moderate; F41.1 Generalized anxiety disorder; G89.4 Chronic pain syndrome | CPT/HCPCS: 99212 ==

== ENCOUNTER 2024-05-28 15:00 | Outpatient (REF) | payer OTHER, SELFPAY | END 2024-05-28 15:01 | disposition home or self-care (01) | LOC: HO.HMGCX 15:00 | PROVIDERS: PCP Nurse Practitioner Family; Visit Provider Nurse Practitioner Family | DX: M54.9 Dorsalgia, unspecified (principal); M54.2 Cervicalgia | CPT/HCPCS: 72072 ==

== ENCOUNTER → 2024-05-28 15:03 | Outpatient (BNV) | payer OTHER, SELFPAY | PROVIDERS: PCP Nurse Practitioner Family; Visit Provider Radiology Diagnostic Radiology | DX: M54.2 Cervicalgia (principal) | CPT/HCPCS: 72072 ==

== ENCOUNTER 2024-06-19 10:12 | Outpatient (REF) | payer OTHER, SELFPAY ==
[2024-06-19 12:52] LABS: Hematocrit 35.3 % (37.0-47.0); Hemoglobin 11.9 g/dl (12.0-16.0); Mean Corpuscular HGB Conc 33.7 g/dl (31.0-35.0); Mean Corpuscular Hemoglobin 27.5 pg (27.0-33.0); Mean Corpuscular Volume 81.5 fL (80.0-98.0); Mean Platelet Volume 9.2 fL (9.4-12.3); Platelet Count 368 X10*3/uL (160-400); Red Blood Count 4.33 X10*6/uL (4.20-5.50); Red Cell Distribution Width 14.1 % (11.0-16.0); White Blood Count 10.4 X10*3/uL (4.8-10.8)
[2024-06-19 12:59] LABS: Prothrombin Time 12.1 SEC (10.9-12.4)
[2024-06-19 13:34] LABS: Alanine Aminotransferase 29 U/L (0-31); Albumin Level 4.5 g/dL (3.5-5.0); Alkaline Phosphatase 89 U/L (39-117); Anion Gap 11 (12-20); Aspartate Amino Transferase 24 U/L (5-31); Bilirubin Total 0.4 mg/dL (0.0-1.0); Blood Urea Nitrogen 8 mg/dL (9-16); Calcium 8.9 mg/dL (8.4-10.2); Carbon Dioxide 24 mmol/L (22-29); Chloride 107 mmol/L (96-108); Cholesterol 223 mg/dL (<200); Estimated Glomerular Filt Rate > 60; Glucose Random 94 mg/dL (60-115); HDL Cholesterol 39 mg/dL (>40); Iron 101 mcg/dL (30-160); LDL Cholesterol Calculated 150 mg/dL (<100); Percent Iron Saturation 29 % (15-50); Potassium 3.6 mmol/L (3.3-5.1); Sodium 138 mmol/L (135-145); Total Iron Binding Capacity 350 mcg/dL (228-428); Triglycerides 171 mg/dL (<150); Unsaturated Iron Binding 249 ug/dL
[2024-06-19 13:39] LABS: Gamma Glutamyl Transpeptidase 26 U/L (7-33)
[2024-06-19 13:51] LABS: Ferritin 18 ng/mL (10-122); HIV AB/AG Nonreactive (Nonreactive); HIV Num 1 0.05 S/CO (0.00-0.99); ~HepC Num1 0.24 S/CO (0.00-0.79); ~Hepatitis C Antibody Nonreactive (Nonreactive)
[2024-06-20 20:24] LABS: Transglutaminase IgA <1.0 U/mL
[2024-06-21 13:58] LABS: Anti Nuclear Antibody Screen NEGATIVE (NEGATIVE)
[2024-06-22 13:03] LABS: Immunoglobulin A 226 mg/dL (47-310); Immunoglobulin G 1442 mg/dL (600-1640)
[2024-06-22 14:37] LABS: Alpha 1 Anti-trypsin 157 mg/dL (83-199); Ceruloplasmin 28 mg/dL (14-48)
[2024-06-24 10:43] LABS: Mitochondrial Antibodies NEGATIVE (NEGATIVE)
[2024-06-24 12:42] LABS: Alk.Phos Iso. Macrohepatic 0 % (<=0); Alk.Phos Isoenzymes Bone 57 % (28-66); Alk.Phos Isoenzymes Intest 0 % (1-24); Alk.Phos Isoenzymes Liver 43 % (25-69); Alk.Phos Isoenzymes Placental 0 % (<=0); Alk.Phos Isoenzymes Total 90 U/L (31-125)
[2024-06-26 06:18] LABS: Liver Kidney Microsomal Ab <=20.0 U (<=20.0)
[2024-06-26 23:43] LABS: Smooth Muscle Antibody <20 U (<20)
== END 2024-06-19 10:13 | disposition home or self-care (01) ==
LOC: HO.LAB 10:12
PROVIDERS: PCP Nurse Practitioner Family; Visit Provider Internal Medicine
DX: K76.0 Fatty (change of) liver, not elsewhere classified (principal); K21.9 Gastro-esophageal reflux disease without esophagitis; E66.9 Obesity, unspecified
CPT/HCPCS: 36415; 80053; 80061; 82103; 82390; 82728; 82784; 82977; 83540; 84080; 85027; 85610; 86015; 86038; 86364; 86376; 86381; 86803; 87389; 99202

== ENCOUNTER 2024-06-19 10:12 | Outpatient (AMB) | payer OTHER, SELFPAY ==
--- NOTE | 2024-06-19 10:19 | A.OFFVIS_ITS ---
Vital Signs 06/19/24 10:29 Height 5 ft Weight 202 lb 13.204 oz BMI 39.6 BP 145/77 H Blood Pressure Location Lt brachial Position Sitting Pulse 106 H Intake Visit Reasons: Fatty (change of) liver Intake Note: Andrew presents in the office as a new patient for Fatty liver. CC: She states that she just found out that 2 years ago that there was excess enzymes in her liver - she has bad issues with GERD. Sometimes she has constipation and diarrhea but not regular. Since december she has been having issues with swallowing. She noticed that she is having issues breathing and she is not sure if that is also related to heartburn. She states that she is dealing with a neck injury and that the pains in the front of her neck could be related to heartburn as well. 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 1. Has had a few visits to ER chest pain which she describes as an ache behind her sternum that radiates down to her abd triggered by certain foods. Assoc with shortness of breat, nausea and vomiting. For the past few months has noticed increased intensity and frequency of the symptoms. Now occurs almost 2-3 times a month. The pain gets better with vomiting/regurgitating. Was prescribed famotidine 20 OD in summer but has sx break through within 4-6 hours. 2. Also reports difficulty swallowing since December which started with pain in throat almost a stabbing sensation and has progressed to choking on solid foods such as bread, crackers, pasta, pills. Has environmental allergies. No eczema. ?? asthma as is on inhaler for occ shortness of breath. 3. In terms of fatty liver, had an ultrasound in 2020 during an ER visit for R sided abd pain that showed hepatomegaly and steatosis. Apart from December 2022 LFts have remained normal since 2019. Has obesity with BMI of almost 40. Also reports extensive family history of high cholesterol. Patient herself has severe dyslipidemia. Reports anti-hyperlipid treatments have been deferred so far due to her age. [facility] Medical History Vitamin D deficiency Subclinical hypothyroidism Neck muscle spasm Anxiety Migraines Hypothyroidism Hypertension Hypercholesteremia Surgical History No pertinent past surgical history Family History Father Hypertension Mother Hepatitis C Hypothyroidism Hypertension Cirrhosis of liver Murmur, cardiac Social History Housing: Apartment Alcohol intake: never Patient Tobacco Use Status: Never used Tobacco e-Cigarette/Vaping Use: Never Used Second Hand Smoke Exposure: No service: No Current occupational status: unemployed Cognitive needs: No Hearing needs: No Vision needs: No Review of Systems Const All systems reviewed & are unremarkable except as noted in HPI and below Physical Exam Vital Signs: Last Vital Signs Pulse 106 H 06/19/24 10:29 BP 145/77 H 06/19/24 10:29 BMI result Body Mass Index 39.6 With obesity No acute distress No overt respiratory symptoms Abdomen soft, nontender, palpable liver edge on deep inhalation No lower extremity edema Assessment & Plan Assessment & Plan (1) Hepatic steatosis: Code(s): K76.0 - Fatty (change of) liver, not elsewhere classified Category: Medical (2) Obesity: Code(s): E66.9 - Obesity, unspecified Category: Medical (3) Acid reflux: Code(s): K21.9 - Gastro-esophageal reflux disease without esophagitis Category: Medical Plan 1. Signs and symptoms consistent with GERD. This is likely in the setting of compromised physiological reflux barrier due to severe obesity. Patient with suboptimal response to famotidine. Plan: -stop famotidine -start omeprazole 20 mg once daily on empty stomach -patient advised to stay upright for at least 45-60 minutes post meals -avoid fatty food -barium swallow 2. Dysphagia Differentials include esophagitis jia since has gerd as well, ring/web, stricture, EoE, dysmotility. Plan: -EGD to be booked for luminal evaluation +/-biopsy -patient to hold omeprazole for 2 weeks prior to the EGD 3. Fatty liver Likely secondary to MASLD. BMI >39. HLD. We will order workup to rule out other etiology of chronic liver disease. Plan: -blood work to rule out other causes of chronic liver disease -patient counseled on control of metabolic diseases including obesity and hyperlipidemia -encourage her to discuss indication of screening for familial hyperlipidemia with her PCP -discussed 10% total body weight loss over the next 6 months -bariatric surgery referral Follow up after EGD Orders: Orders Prothrombin Time INR Today K76.0 - Fatty (change of) liver, not elsewhere classified Alpha 1 Anti-trypsin Today K76.0 - Fatty (change of) liver, not elsewhere classified Ceruloplasmin Today K76.0 - Fatty (change of) liver, not elsewhere classified Gamma Glutamyl Transpeptidase Today K76.0 - Fatty (change of) liver, not elsewhere classified Hepatitis C Antibody Today K76.0 - Fatty (change of) liver, not elsewhere classified Immunoglobulin A Today K76.0 - Fatty (change of) liver, not elsewhere classified Lipid Panel Today K76.0 - Fatty (change of) liver, not elsewhere classified Liver Kidney Microsomal Ab Today K76.0 - Fatty (change of) liver, not elsewhere classified Transglutaminase IgA Today K76.0 - Fatty (change of) liver, not elsewhere classified US abdomen complete Today K76.0 - Fatty (change of) liver, not elsewhere classified Complete Blood Count no Diff Today K76.0 - Fatty (change of) liver, not elsewhere classified Comprehensive Met. Panel Today K76.0 - Fatty (change of) liver, not elsewhere classified Alkaline Phosphatase Isoenzyme Today K76.0 - Fatty (change of) liver, not elsewhere classified FERCHO Reflex Titer and Pattern Today K76.0 - Fatty (change of) liver, not elsewhere classified Ferritin Today K76.0 - Fatty (change of) liver, not elsewhere classified HIV Ab/Ag Today K76.0 - Fatty (change of) liver, not elsewhere classified Immunoglobulin G Today K76.0 - Fatty (change of) liver, not elsewhere classified IRON PROFILE Today K76.0 - Fatty (change of) liver, not elsewhere classified Mitochondrial Antibody Today K76.0 - Fatty (change of) liver, not elsewhere classified Smooth Muscle Antibody Today K76.0 - Fatty (change of) liver, not elsewhere classified FL barium swallow Today K21.9 - Gastro-esophageal reflux disease without esophagitis Referrals Bariatric Surgery Referral E66.9 - Obesity, unspecified Medications: New omeprazole 20 mg PO DAILY 90 days 90 caps 1RF Discontinued famotidine (Acid Jack Strip Assembler (famotidine)) Discontinued Reason: Doctor's Order 20 mg PO BEDTIME 90 tabs 1RF K21.9 - Gastro-esophageal reflux disease without esophagitis Coding Level of Care Code New Pt Level 4 (94216) Complex EM visit Add On G2211 Diagnoses Hepatic steatosis K76.0 Obesity E66.9 Acid reflux K21.9
[2024-06-19 10:29] VITALS: BP 145/77; PULSE 106; BMI 39.6
== END 2024-06-19 12:06 | disposition home or self-care (01) ==
PROVIDERS: PCP Nurse Practitioner Family; Visit Provider Internal Medicine
DX: K76.0 Fatty (change of) liver, not elsewhere classified (principal); E66.9 Obesity, unspecified; K21.9 Gastro-esophageal reflux disease without esophagitis
CPT/HCPCS: 99204; G2211

== ENCOUNTER → 2024-07-22 08:07 | Outpatient (BNVA) | payer SELFPAY | PROVIDERS: PCP Nurse Practitioner Family; Visit Provider Surgery ==

== ENCOUNTER 2024-08-06 09:25 | Outpatient (AMB) | payer OTHER, SELFPAY ==
--- NOTE | 2024-08-06 09:29 | MHC.OFFVIS ---
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 She continues to endorse neck pain with movements and upper mid back pain with radicular symptoms. She experiences atypical chest pains, dizziness and shortness of breaths. Reports having multiple ER visits for this with negative cardiac work up. Patient was seen by GI provider for GERD, obesity, dysphagia and fatty liver. She has Barrium swallow scheduled for next month. Patient is interested to proceed with Pulmonology evaluation as she reports frequent rib pain with breathing. She had multiple chest xrays and ER visits [id number] which were unremarkable. Denies any recent cough, cold, infection, fever or any other significant changes in medical history since last office visit. PRIOR: Patient presents today for follow-up for persistent neck pain and worsening symptoms after completing physical therapy. She reports significant improvement with PT with initial symptoms up until the past few sessions where she tried cervical traction machine which exacerbated her neck pain on the right side. She went to [facility] [place] [facility] for increasing neck pain on 04/10/24 and was prescribed cyclobenzaprine that she has not tried yet. Patient reports significant muscle stiffness and spasm with limited range of motion with lateral rotations and bending on the right. She has full range of motion to the left, extension and flexion. Denies any numbness, tingling, paresthesias, or weakness in the upper or lower extremities. She does reports the neck pain radiates to her mid back and shoulder blades since exacerbation neck pain with cervical traction device. Denies any recent cough, cold, infection, fever or other significant changes in medical history since last office visit. PT Discharge Summary Date of Evaluation: 02/21/24 Date of Discharge: 05/01/24 Treatments to Date: 9 Cancellations to Date: 0 No Shows to Date: 0 Discharge Status: Patient Elected to Stop Recommend MD Follow-up Discharge Summary: 03/28: Patient with continued pains. She does demo normal cervical ROM. Today we talked about DCing due to constant pains still. She is to see pain management again. Overall, we have tried very gentle stretching and strengthening, manual soft tissue work, postural education, relaxation techniques and very gentle cervical traction (manual and mechanical). Plan to DC due to lack of progress being made. She did want to try the traction machine because she said it helped the last time, however did not feel the same the second time. It was noted that the patient has been anxious in regards to her symptoms throughout her physical therapy course/past years of work related trauma and may benefit from a referral to speak with a trained mental health professional about her symptoms. She has an HEP to continue on her own in the mean time. We provided education on the benefits of exercise. [facility] Medical History Vitamin D deficiency Subclinical hypothyroidism Neck muscle spasm Anxiety Migraines Hypothyroidism Hypertension Hypercholesteremia Surgical History No pertinent past surgical history Family History Father Hypertension Mother Hepatitis C Hypothyroidism Hypertension Cirrhosis of liver Murmur, cardiac Social History Housing: Apartment Alcohol intake: never Patient Tobacco Use Status: Never used Tobacco e-Cigarette/Vaping Use: Never Used Second Hand Smoke Exposure: No service: No Current occupational status: unemployed Cognitive needs: No Hearing needs: No Vision needs: No Review of Systems Const All systems reviewed & are unremarkable except as noted in HPI and below Physical Exam Vital Signs: Last Vital Signs Pulse 94 08/06/24 09:34 BP 142/89 H 08/06/24 09:34 BMI result Body Mass Index 39.6 General: Appears afebrile. Alert and oriented. Mood and affect appropriate. Follows and participates in conversation appropriately. Respiratory effort is unlabored. No cough. Able to transition from sit to stand unassisted. Ambulates with bilaterally normal heel strike and toe off. Neck Other: Patient with decreased cervical ROM with right lateral rotation and bending. Cervical extension and does not reproduce pain. 2 + radial pulses. Significant tightness throughout left upper trapezius as well as TTP throughout bilateral upper trapezius muscles. No paravertebral tenderness over facet joints bilaterally. Multiple taut bands palpated throughout bilateral upper trapezius muscles. No midline tenderness to palpation in the cervical, thoracic or lumbar spine. Neck: Yes normal visual inspection, Yes full ROM (limited on the right), Yes no lymphadenopathy, Yes no meningeal signs, Yes supple, No anterior neck swelling, No torticollis, Yes no JVD and Yes prominent dorsocervical fat pad General: Yes no CVA tenderness Back/Spine/Pelvis Back: no CVA tenderness Cervical Spine: loss of normal cervical lordosis, cervical muscular tenderness, pain with cervical ROM, No Cervical spine scars present, cervical spasm, No Cervical spine tenderness and No step off deformity Thoracic/Lumbar Spine: thoracic and lumbar spine normal to inspection, No Thoracic/lumbar spine scar(s), Lasegue's sign negative, straight leg raise negative bilaterally, pain with thoraco-lumbar ROM, paraspinal muscle tenderness, No thoracic spinal tenderness and lumbar spinal tenderness at L4 and at L5 Sacroiliac joints: bilaterally tender to palpation Neuro General: no meningeal signs Psych Appearance: grossly normal Mental Status: mental status grossly normal Speech and movement: Normal speech and movement present Affect: normal affect and Sad affect present Attitude: cooperative Thought process: Normal thought process present Thought content: Normal thought content present, suicidality, no hallucinations and Depressive thoughts present Insight: Good insight present (Psych) Judgement: Good judgement present (Psych) Results Reviewed Results Reviewed: XR CERVICAL SPINE 04/10/24 CLINICAL INFORMATION: Cervicalgia. COMPARISON: Cervical spine radiographs dated 12/15/2023. FINDINGS: Mild straightening of the normal cervical lordosis which may be positional or related to muscular spasm. No acute fracture or subluxation. No loss of vertebral body or intervertebral disc height. Corticated ossification at the distal aspect of the dens, consistent with a persistent ossiculum terminale which is a normal variant. Normal atlantoaxial alignment. No concerning lytic or blastic osseous lesion. No abnormal soft tissue calcification. Unremarkable prevertebral soft tissues. IMPRESSION: 1. Mild straightening of the normal cervical lordosis which may be positional or related to muscular spasm. 2. No acute fracture or subluxation. XR THORACIC SPINE 05/28/24 CLINICAL INFORMATION: Cervicalgia M54.2. Back pain. FINDINGS: There is normal bony mineralization. No fracture, compression deformity, or suspicious focal bony abnormality. No malalignment or subluxation. There is a mild levoconvex scoliosis, apex at T6-7. There is normal kyphosis. There are small Schmorl's nodes in the superior and inferior endplates of T7. Disc spaces appear normal. Normal facet alignment. Imaged soft tissues appear normal. IMPRESSION: 1. No acute findings of the thoracic spine. 2. Mild levoconvex scoliosis. 3. Small Schmorl's nodes in the endplates of T7. Assessment & Plan Assessment & Plan (1) Shortness of breath: Code(s): R06.02 - Shortness of breath Category: Medical (2) Mid back pain: Code(s): M54.9 - Dorsalgia, unspecified Category: Medical (3) Thoracic radiculitis: Code(s): M54.14 - Radiculopathy, thoracic region Category: Medical (4) Schmorl's nodes of thoracic region: Code(s): M51.44 - Schmorl's nodes, thoracic region Category: Medical (5) Cervicalgia: Code(s): M54.2 - Cervicalgia Category: Medical (6) Myofascial neck pain: Code(s): M54.2 - Cervicalgia Category: Medical (7) Chronic pain syndrome: Code(s): G89.4 - Chronic pain syndrome Category: Medical Plan Discussed cervical and thoracic xray results with patient today. Will proceed with thoracic spine MRI to assess for neural integrity and compression and follow up on previous xray findings. Pulmonary referral evaluation for frequent shortness of breaths with rib discomfort and mid back pain. Previously had negative cardiac work up. Discussed importance of regular physical activity, weight loss, adequate hydration, cervical support pillow, and good posture. All questions and concerns have been answered and patient agreed with the treatment plan. Follow-up for MRI results and sooner as needed. Orders: Orders MR thoracic spine wo con Today M51.44 - Schmorl's nodes, thoracic region, M54.14 - Radiculopathy, thoracic region, M54.9 - Dorsalgia, unspecified Referrals Pulmonology Referral M54.9 - Dorsalgia, unspecified, R06.02 - Shortness of breath Coding Level of Care Code Est Pt Level 4 (04657) Complex EM visit Add On G2211 Diagnoses Shortness of breath R06.02 Mid back pain M54.9 Thoracic radiculitis M54.14 Schmorl's nodes of thoracic region M51.44 Cervicalgia M54.2 Myofascial neck pain M54.2 Chronic pain syndrome G89.4
[2024-08-06 09:34] VITALS: BP 142/89; PULSE 94; BMI 39.6
--- OUTSIDE RECORDS SUMMARY | 2024-08-06 09:56 | XMS_ITS | Encounter Summary ---
Author Organization [facility] Address [address] [place] [address] Phone Care Team Providers Care Environmental Protection Inspector Name Role Phone Ashly Ozuna MD Primary Care Provider Encounter Details Date Type Department Care Team (Late st Contact Info) Description 06/19/2014 Documentation [facility] [place] [facility] Medicine [address] [place], [place] [id number] Family Medicine, Physician [address] [place] [address] Social History Tobacco Use Types Packs/Day Years Used Date Smoking Tobacco: Never Assessed Comments Unknown Sex and Gender Information Value Date Recorded Sex Assigned at Female 02/07/2020 9:21 AM EDT Legal Sex Female 5:04 PM EDT Gender Identity Female 02/07/2020 9:21 AM EDT Sexual Orientation Straight 02/07/2020 9: 21 AM EDT documented as of this encounter Plan of Treatment Not on file documented as of this encounter Visit Diagnoses Not on filedocumented in this encounter Care Teams Environmental Protection Inspector Relationship Specialty Start Date End Date Ashly Ozuna MD [address] [place] [address] PCP - General Pediatrics 10/25/18 07/21/22 documented as of this encounter
--- OUTSIDE RECORDS SUMMARY | 2024-08-06 09:56 | XMS_ITS | Clinical Summary ---
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 30 tablet 11 07/30/2021 Active hydrOXYzine 25 MG tabletIndication s:Anxiety Take 1 tablet (25 mg total) by mouth 3 (three) times a day as needed for anxiety. 30 tablet 1 04/26/2022 Active FLUoxetine 20 MG capsuleIndicatio ns:Depression, unspecified depression type TAKE 1 CAPSULE BY MOUTH EVERY DAY 30 capsule 2 05/19/2022 Active Active Problems Patient Care Coordination No te Formatting of this note migh t be different from the original. Working with pt for food insecurities and for housing resources. 02/11/2020 ---- Timothy Catering Cook Problem Noted Date Diagnosed Date Depression 09/16/2021 Scoliosis concern 07/30/2021 Overview (07/30/2021): 07/24- scoliometer up to 12 degrees Assessment & Plan (09/16/2021 3:18 PM EDT): Hadn't had x-ray done yet, but advised to go to [facility] when she gets vitamin D level drawn. Assessment & Plan (07/30/2021 11:13 AM EST): Will do xray to get baseline. Chronic fatigue 07/30/2021 Overview (07/30/2021): No anemia and ferritin okay. TFTs nl on repeat 10/21. Given snoring, PSG ordered 07/24. Also repeat TFTs. Assessment & Plan (07/30/2021 11:48 AM EST): Given snoring, PSG ordered 07/24. Also repeat TFTs. History of COVID-19 06/07/2021 Overview (06/15/2021): 06/07/2021 (age 20yr): Covid 19 with currently mild symptoms but positive AHA screen and obesity. Will refer to monoclonal antibodies and request covid clearance follow up appointment once Andrew is out of isolation and feeling well. Irelisa is out of isolation 06/17/2021, any asymptomatic covid negative unvaccinated household contracts test on Thursday 06/21 and are out of quarantine on 06/24/2021. -Offered monoclonal ab, but by the time she was offered, she was already doing better so didn't do it. Assessment & Plan (06/15/2021 11:31 AM EST): Recovered now, though still with fatigue. Needs post-Covid clearance, so I have sent a message to the front office manager to schedule this and she is aware. Assessment & Plan (06/07/2021 12:24 PM EST): 06/07/2021 (age 20yr): Covid 19 with currently mild symptoms but positive AHA screen and obesity. Will refer to monoclonal antibodies and request covid clearance follow up appointment once Eliudsa is out of isolation and feeling well. Irelisa is out of isolation 06/17/2021, any asymptomatic covid negative unvaccinated household contracts test on Thursday 06/21 and are out of quarantine on 06/24/2021. Counseling and coordination of care 02/11/2020 Overview (02/11/2020): Working with pt for food insecurities and for housing resources. Vitamin D deficiency 02/10/2020 Overview (08/02/2021): OH-Vit D = 12.4 on 02/07/20. Vitamin D 2000IU/day started, but changed to high dose weekly by endocrine (03/26/20 level = 18.9) ~04/21. 10/13/20: OH-Vit D = 16.8. 07/30/21: OH-Vit D = 7.8 --> Vitamin D 2000IU/day started again, also starting a MVI. Order placed to re-check level late August 2021. Assessment & Plan (04/26/2022 12:14 PM EDT): Will check vitamin D level today as she never had it drawn last spring. Assessment & Plan (09/16/2021 3:23 PM EDT): Taking the vitamin D, will go get her lab drawn when she finishes the first bottle. Assessment & Plan (07/30/2021 10:51 AM EST): Hasn't taken vitamin D in a long time but instructed by endo nutrition to start a multivitamin, but hasn't started this yet. MVI Rx done today. Will order vit D level today as well. Assessment & Plan (11/12/2020 6:02 PM EDT): Vitamin D 2000IU/day ordered to re-start today. Will repeat labs at some point in the next few months. Assessment & Plan (05/21/2020 5:24 PM EST): Apparently taking weekly vitamin D, likely 50,000 IU/week, per endo. Assessment & Plan (03/13/2020 4:58 PM EDT): To get labs drawn next month to repeat vitamin D level. Assessment & Plan (02/14/2020 5:03 PM EDT): Discussed with patient today and she should start taking her vitamin D daily today. Will check levels in about 2 months. Elevated TSH 02/10/2020 Overview (07/28/2021): TSH 02/19 was 13. Nl free T4. 10/13/20: TSH 5.65, FT4 0.81 (nl). Referred to endo 02/19, had appt 03/26/[address] [place] [facility] was to f/u in 6 weeks, but no further notes. Had appt with endo nutrition 01/20 and 07/24. Assessment & Plan (07/30/2021 10:51 AM EST): Will check TFTs today. Assessment & Plan (05/06/2021 5:11 PM EDT): Will send TSH and free T4 as it appears she hasn't been seen by endo in over a year (though last levels about 6 months ago were okay). Assessment & Plan (11/12/2020 6:04 PM EDT): Unclear if she's seeing endo anymore or taking levothyroxine. I will try to figure this out. Assessment & Plan (05/21/2020 5:26 PM EST): Per patient, she was started on levothyroxine, but still is feeling sluggish (though maybe a little better). Will f/u with endo. I have requested endo records as well. Assessment & Plan (03/13/2020 4:57 PM EDT): Has endo appt later this month. Assessment & Plan (02/14/2020 5:04 PM EDT): Has appt with endo 03/26/20. Discussed with patient today. Elevated fasting glucose 02/10/2020 Overview (10/19/2020): Fasting glucose = 104 on 02/19. 10/13/20: hemoglobin A1c = 5.4. Assessment & Plan (03/13/2020 4:58 PM EDT): To have labs drawn next month including hgb a1c. Assessment & Plan (02/14/2020 5:04 PM EDT): Has endo appt next month. Will chec hgb a1c at next lab draw in about 2 months. Food insecurity 08/29/2019 Overview (08/29/2019): Lives with mom, but mom and brother do grocery shopping, and mom's money doesn't last them. Assessment & Plan (07/30/2021 11:21 AM EST): I will see if our [facility] can help her more with this (she is independent now, but not working currently). Assessment & Plan (10/16/2020 10:29 AM EDT): Denies current food insecurity yet pt has not has anything to drink in the lat 20 hours; Assessment & Plan (02/07/2020 9:04 AM EDT): Patient now working, able to get food she needs, still living with mom but wants to move out eventually, waiting for more hours at her work, wondering about assistance as she's supporting herself. Aware to contact [facility] if she needs help. Assessment & Plan (08/29/2019 4:07 PM EST): Nikolas helping with resources. Patient now working, so feels she'll be able to buy food she needs/wants. Hyperlipidemia 05/03/2019 Overview (10/19/2020): 2018 TC 189, TG 162, non-HDL 153. 2019 fasting lipids: TC 218, TG 132, LDL 158, non-HDL 184 Referred to endo 02/19. 10/13/20: NFLs: TC 214, HDL 39, non-HDL 182 Assessment & Plan (07/30/2021 10:51 AM EST): I am concerned about her hyperlipidemia, but she's seeing a energy trading analyst through endo already, and this value was <1 year ago, so I do not think we need to check her level again today. She will be transitioning to an adult PCP in the next year. Assessment & Plan (02/14/2020 4:55 PM EDT): Doing really well with diet and exercise. Continue to follow and will plan to re-check labs in two months. Assessment & Plan (02/07/2020 9:10 AM EDT): No more red meat, eating fish. Will check cholesterol today. Assessment & Plan (05/03/2019 3:24 PM EDT): Discussed diet at length. To decrease red meat to no more than once per week. Re-check next year. Class 2 severe obesity due t o excess calories with serious comorbidity and body mass index (BMI) of 37.0 to 37.9 in adult 11/05/2018 Overview (07/28/2021): Last labs 10/21- elevated lipids, nl AST/ALT, but did have u/s with fatty liver. 07/24- last visit [place] [facility] [place] energy trading analyst (last endo visit 03/22, was to f/u in 6 weeks, but no other appts notes from doc) Assessment & Plan (07/30/2021 11:20 AM EST): Overall doing pretty well with healthier choices, which I give her a lot of credit for. I encouraged her to call the energy trading analyst and request more frequent visits as it sounds like this would be helpful for her. Assessment & Plan (03/13/2020 4:57 PM EDT): Doing really well with exercise (going to gym 4x/week, walking 60min esveral days per week) and eating better. Drinking 2% milk instead of whole milk. Recommended [employer] website as she's looking for ideas for cooking. Plan to repeat lipids and hgb a1c next month. Has an appt in 2 months, will f/u then. Assessment & Plan (02/07/2020 11:01 AM EDT): Doing better and interested in trying veggies. Goal: one new veggie per week. Walk 60min/day. Lots of questions about how to prepare/eat veggies. F/u 1 month to check in and do further counseling. Assessment & Plan (05/03/2019 3:36 PM EDT): Now going to the gym 3x/week, which is great! Changing soda to water and juice, but discussed no juice either! Discussed need for more veggies- diet at mom's house is poor due to mom's cooking, so hopefully as she's getting older she can control more of what is prepared in the home. Would consider a nutritional consult soon to help her understand better food choices. Assessment & Plan (11/05/2018 2:15 PM EDT): Discussed NO SODA and increasing activity. Currently only exercise is walking up 4 flights of stairs at high school. Nonintractable headache 11/05/2018 Overview (02/07/2020): MRI 10/02/19- no acute intracranial abnormality to explain migraines. Opacification with mild mucosal enhancement of the right frontal sinus may reflect sinusitis, clinical correlation recommended. Several punctate foci of T2 prolongation in birfontal white matter are nonspecific, with broad differential including sequelae of migraine, prior infection/inflammation, trauma, small vessel disease, etc. Then HAs clearly only with periods. Was to start OCPs, but didn't as of 07/22. Advised to again 07/22. Prescribed MigRelief 05/21, but never got it? Nl neuro exam. Assessment & Plan (07/30/2021 10:58 AM EST): These are better, just with menses now. Stress is much lower now. Assessment & Plan (02/07/2020 9:43 AM EDT): Getting HAs 1x/mo, lasts 4 days on and off. Much better than they used to be. MRI reviewed for this visit. Concerning for possible small vessel disease and given vague complaints often, I do wonder about autoimmune or vasculitis. Depending on w/u results of myalgias, will consider referral to rheum. Assessment & Plan (09/27/2019 3:56 PM EDT): Limited ability to do an exam, but what I could do was reassuring. Patient has chronic HAs, and this one really sounds stress related given it seems to be related to neck tension/stress, but given some visual disturbances and positional, I do think we should get a MRI to r/o pathology. It is reassuring, though, that GLASS is better when she lays down. I wonder about autonomic signs (face flushing?), though this doesn't sound like a cluster GLASS as it lasts much longer than a cluster GLASS typically does. Migraine is still on the ddx, as well as tension GLASS. MRI ordered today, though given she needs open MRI and COVID pandemic, likely won't happen for several weeks. Can use Tylenol in addition to ibuprofen. Will see if Nikolas can see her virtually sooner than her appt in a few weeks (10/14) to help her with relaxation techniques- Junko Tada message sent to Nikolas. She is to call if she worsens at all, would need more urgent imaging if this happens. Assessment & Plan (07/19/2019 5:38 PM EST): Did get a migraine around her last period, but no HAs otherwise. At one point today she told me she wants an MRI because she's worried, but given HAs are regular monthly with period, seems hormonal, and very low risk for intracranial pathology, so I reassured her. No imaging indicated at this time. Never started the OCPs. Advised she should start the OCPs. Assessment & Plan (05/03/2019 3:35 PM EDT): Discussed healthier diet, drink more water. Daily exercise may also help (which she is starting to do more of). Ibuprofen 600mg prescribed for headaches, and should also try Tylenol. Rx for MigRelief (may have to buy OTC though) to help prevent HAs. Patient to keep track of HAs, likely related to menstrual cycle. F/u 2-3 months to f/u how she's doing with her HAs. Will start OCPs as prescribed by Film Projector Operator, so perhaps that will help. Assessment & Plan (04/19/2019 11:38 AM EDT): She does continue to have HAs, though says they are mostly not first thing in the morning. I do not think she needs an MRI at this time given that it has been 5 months since it was ordered and clearly they haven't worsened enough for her to see me, but I would like to follow this more and help her with this. Perhaps if we help her mood it will help her sleep and then HAs. Assessment & Plan (11/12/2018 4:33 PM EDT): Exam is reassuring, but given headaches that she wakes up with, and that headaches are worsening, I will get a brain MRI to r/o intracranial pathology. She should make appt for a week after MRI is done to f/u results and plan next step. Assessment & Plan (11/05/2018 2:46 PM EDT): Migraines? Due to anxiety? Neuro exam normal other than slightly abnormal [id number] on left. Will have her f/u in 1 week to eval this further. Anxiety 08/06/2014 Overview (05/06/2021): Likely also with OCD, but never officially diagnosed. Prozac given in 08/2012 but took for only 1 month. Saw a therapist at [facility]. Then saw Nikolas, our Integrated counselor early 2019 with some improvement. Re-started fluoxetine 11/05/18, stopped 11/15/18 due to thinking it was causing agitation. Trial of sertraline 04/20, stopped after about two weeks due to severe heartburn (also sleep issues). Saw Nikolas several times 2019, transfer to [facility] 04/21? 05/23- worsening anxiety--> hydroxyzine prn prescribed, fluoxetine started, Nikolas re-started treatment. Assessment & Plan (04/26/2022 12:09 PM EDT): Still very significant anxiety, though it does seem like the fluoxetine is helping (and the hydroxyzine prn is also helpful). I recommended holding off on taking the lorazepam as she wouldn't want to take it with the hydroxyzine and she feels the hydroxyzine is helpful. Hydroxyzine Rx done, but fluoxetine Rx not needed today. She has her first appt with her new P[place] [place] on 05/07/22 and they should take over prescribing at that time (she's aware). She really needs to be seeing a therapist - [facility] list given and I encouraged her to call [facility] and get on multiple waiting lists if needed. Assessment & Plan (09/16/2021 3:23 PM EDT): Andrew would like to try increasing the dose of hte fluoxetine, so will increase dose to 30mg to attempt to get more therapeutic effect for her, but she's aware if fatigue increases, she should decrease back down to the 20mg. I would love to see her back in counseling as I think she can really benefit from this, but insurance has been a barrier. Sofi Bradley contacted her today to help her with her insurance issues (needs to add BH coverage, also needs current card!). F/u 2 mo with GAD7 and PHQ9. Assessment & Plan (07/30/2021 11:20 AM EST): Will increase dose of fluoxetine to 20mg to attempt to get to a more therapeutic dose. I would love to see her back in counseling as I think she can really benefit from this, but insurance has been a barrier. I asked Sofi Bradley to help her with her insurance issues (needs to add BH coverage, also needs current card!). F/u 1 mo with GAD7 and PHQ9. Assessment & Plan (06/15/2021 11:35 AM EST): Asking about being scheduled 9 hours at work and worried about the hydroxyzine making her sleepy there- I discussed taking half a tab instead of an entire tab and hopefully it will help and not make her so sleepy. In terms of the fluoxetine, she is on a very low dose (not usually therapeutic, and GAD7 and PHQ9 scores are virtually unchanged), and I am not sure about how she is feeling (is this a side effect or just related to her underlying anxiety and depression?). We discussed stopping the med versus continuing- she is wanting to try one more month (she just picked up a new refill), so will continue at 10mg for one more month and then I will see her on 07/20, at 11am via a VV. I do think if she wants to continue, we should try to optimize dose and increase to 20mg at next visit. If concern for SEs persist, will consider [facility] referral, especially given her concern for OCD. I would also like to help her find helpful counseling. Nikolas would be great, but there are insurance issues. I have sent a message to our front office manager staff as well as Nikolas to see how we can help with this. Assessment & Plan (05/06/2021 5:19 PM EDT): Andrew is having worsening anxiety and looking for help with this. For relief now, I prescribed hydroxyzine prn and described how to use this. We discussed SSRI use (she has used fluoxetine and sertraline both briefly in the past, never for ore than a couple weeks due to possible SEs), and she would prefer to start something she's tried before, and would prefer fluoxetine and she remembers the potential SEs from sertraline as worse. So we will start fluoxetine at a trial dose of 10mg/day and I will have them called by Nikky Frost in 1-2 weeks to see how she is doing. I will do slow on increasing her dose due to h/o possible SEs (and her anxiety with meds). She knows to call immediately for significant side effects, especially significant agitation or any new thoughts about self-harm. F/u with me in 4 weeks (I will repeat the GAD7 and/or PHQ9 at the 4 week visit). She will see Nikolas in the meantime who will let me know how she's doing on the fluoxetine (and hydroxyzine). WHO today with Nikolas as well- for tools as well as diagnostic help for OCD. Assessment & Plan (02/07/2020 9:03 AM EDT): Finding Nikolas very helpful (able to calm herself now), will start at [facility] soon. Denies SI. Assessment & Plan (09/27/2019 3:53 PM EDT): Seeing Nikolas, going well. She's supposed to look for a counselor and does have f/u with Nikolas in October, will see if Nikolas can see her sooner virtually. Assessment & Plan (08/29/2019 4:18 PM EST): Doing better, but still has a GAD7 score of 9. Not interested in another pharmacotherapy trial. Given that her insurance isn't changing until January and she has BCBS PPO, I will discuss with Nikolas finding her a private therapist for now as I do think she's benefit from more long-term psychotherapy. Patient to reschedule the appt she missed with Nikolas yesterday. F/u with me prn. Assessment & Plan (07/19/2019 5:35 PM EST): Clearly very significant anxiety, which she has a h/o of, but is not currently being treated for (I have tried her on two different SSRIs in the last year, both of which she stopped within a month due to perceived SEs). Nikolas, [facility] clinician, saw her today and will see her in f/u (appt scheduled for 07/31/19). She will refer out (likely [facility]) for both counseling and med management, and will help her with coping skills until she is transferred out. I will f/u with her in about a month to see how she's doing. She has Crisis info if she needs it. Assessment & Plan (05/03/2019 3:12 PM EDT): Will stop sertraline and see if things calm down for her. F/u in 2-3 months to check in. If needs further pharmacotherapy, would refer to [facility]. Assessment & Plan (04/19/2019 11:52 AM EDT): She says she is doing better, and her GAD7 score is better but her PHQ9 score is higher. Denies SI, no access to guns. She would like to try meds again, so will trial sertraline. After counseling the her on risks and benefits of SSRIs, we will start sertraline at a trial dose of 12.5mg/day for a week, then I will have them called by Miriam Gracia in a week, and if they are tolerating the test dose well, without any significant side effects, we will double the dose to 25mg/day. She knows to call immediately for significant side effects, especially significant agitation or any new thoughts about self-harm. Will also screen for thyroid issues with TFTs. F/u with me in person in 2 weeks and 4 weeks. Assessment & Plan (11/19/2018 5:08 PM EDT): She feels like her depression is worse. No SI, no self harm. It is difficult to say if this change in mood is due to the fluoxetine, due to withdrawal from the fluoxetine, or unrelated. Since she has already stopped x4 days, will keep her off of it and consider started sertraline in the future. Referred to our co-located therapist for further assessment (she has a therapist at school, but it is not clear to me what work they are doing and if she is able to diagnose her) and to help clarify diagnoses. I discussed mediation/mindfullness with her and encouraged her to start doing this. I also discussed that she needs to get a job (paying or volunteer) this summer to give her purpose. F/u with me in 2 weeks. Assessment & Plan (11/12/2018 4:28 PM EDT): Doing well on fluoxetine except perhaps more drowsy, so advised to take in the evening instead of the morning. Should double dose to 20mg qday. F/u 1 week, will perform GAD7 and PHQ9 at that visit. Assessment & Plan (11/05/2018 2:46 PM EDT): Would like to have medical treatment. Denies SI, cutting. No access to guns. Will start fluoxetine 10mg PO qday, f/u in 1 week. Discussed side effects of fluoxetine, will call immediately if she develops SI or agitation. She is also aware she can see a therapist here at [facility] at any time. Family history of hepatic cirrhosis Overview (11/04/2018): Mat Hx cirrhosis from Hep C Pt & brother tested by [facility] & both Hep C neg. LFTs normal 2014. Resolved Problems Problem Noted Date Diagnosed Date Resolved Date Abnormal uterine bleeding 04/11/2018 Overview (02/07/2020): Very heavy bleeding and significant cramping. Started on OCPs 04/11/18, but stopped within first month due to mood swings. H/H and vWD screen nl 04/19 and 11/18 (though von Willebrand factor activity and antigen were low end of nl). Ordered OCPs 05/21, but never started. Self-resolved by 02/19. Assessment & Plan (02/07/2020 9:24 AM EDT): No more issues with this. Assessment & Plan (11/05/2018 2:45 PM EDT): Will repeat labs today. Will refer to [facility] for further eval/managment as she should likely be on hormonal treatment, but had trouble with OCP a few months ago. Can likely try another, but given likely migraines (though no clear aura), would like a second opinion on this treatment. Immunizations Name Administration Dates Next Due COVID-19 Pfizer, bivalent, 12+ years 04/26/2022 COVID-19 Pfizer, gloria-sucros e, 12+ years 08/24/2021,07/30/2021 DTaP 5 06/18/2004, 2,2000,10/19,2000 HPV, Quadrivalent 06/05/2013,11/23/2011,09/28/19 11 Hep A, ped/adol 02/11/2015,11/23/2011 Hep B, ped/adol 2000,2000,2000 Hib (HbOC) 06/27/2001, 1,2000,08/22 IPV 06/18/2004, 2,2000,08/22 Influenza Split 06/05/2013 Influenza, injectable, quadr ivalent, preservative free 05/06/2021,04/19/2019 Influenza, injectable, trivalent 04/27/2010 MMR 06/18/2004,06/27/2001 Meningococcal B Trumenba 08/29/2019,11/05/2018 Meningococcal Conj (Menactra) MCV4P 11/05/2018 Meningococcal Polysaccharide 11/23/2011 Pneumococcal Conjugate 06/27/2001,2000,2000,08/22 Tdap 04/26/2022,11/23/2011 Varicella 07/05/2007,06/27/2001 Family History Medical History Relation Name Comments Asthma Brother Luis Felipe Moralesp Depression Father Abhijit Luciano Anxiety disorder Mother Eusebia Weinstein Cirrhosis Mother Eusebia Weinstein From Hepatit is C Depression Mother Eusebia Weinstein Fibromyalgia Mother Eusebia Weinstein Thyroid disease Mother Eusebia Weinstein Relation Name Status Comments Brother Luis Felipe Sanchez Alive Brother: Asthma Father Abhijit Luciano Alive Mother Eusebia Weinstein Alive Mother: Thyr oid disease, Hep C, Cirrhosis Other Family history of Hyperlipidemia, Family history of Diabetes mellitus Social History Tobacco Use Types Packs/Day Years Used Date Smoking Tobacco: Never Smokeless Tobacco: Never Tobacco Cessation:Counseling Given: Yes Comments:Never smoker Alcohol Use Standard Drinks/Week Comments Never 0 (1 standard drink = 0.6 oz pur e alcohol) Hunger/Food Answer Date Recorded In the last 12 months, did y ou or your family ever eat less than you felt you should because there wasn't enough money for food? No 07/30/2021 Stable Housing Answer Date Recorded Are you worried that in the next 2 months you may not have stable housing? No 07/30/2021 Transportation Concerns Answer Date Rec orded In the last 12 months, have you or your family ever had to go without healthcare because you didn't have a way to get there? No 07/30/2021 Hazards in Home Answer Date Recorded Think about the place you li ve. Do you have problems with any of the following? Pests (mice or roaches), mold, no/not working smoke detectors, water leaks, no window guards. No 2021 Financing Utilities Answer Date Recorde d In the last 12 months, has t he electric, gas, oil, or water company threatened to shut off your services in your home? No 07/30/2021 Safety at Home Answer Date Recorded Are you or your family worried about feeling saf e in your home? No 07/30/2021 Outside Support Answer Date Recorded Do you feel that you need mo re support from other people or programs to help you care for yourself or your family? No 07/30/2021 Understanding Health Concerns Answer Da te Recorded Do you need help understandi ng your or your child's healthcare needs (diagnosis, medications, plan, etc.)? No 07/30/2021 Financing Health Concerns Answer Date R ecorded In the last 12 months, was t here a time when your child needed to see a doctor or get medications or supplies but could not because of cost? No 07/30/2021 Missing School or Work Answer Date Quique rded Did you or your child miss s chool or work because of a health problem that could have been avoided? No 07/30/2021 Comments No Sex and Gender Information Value Date Recorded Sex Assigned at Female 02/07/2020 9:21 AM EDT Legal Sex Female 5:04 PM EDT Gender Identity Female 02/07/2020 9:21 AM EDT Sexual Orientation Straight 02/07/2020 9: 21 AM EDT Last Filed Vital Signs Vital Sign Reading Time Taken Comments Blood Pressure 120/81 04/26/2022 11:22 AM EDT Pulse 91 04/26/2022 11:22 AM EDT Temperature 36.6 ??C (97.8 ??F) 07/30/2021 10:[address] Respiratory Rate - - Oxygen Saturation - - Inhaled Oxygen Concentration - - Weight 92 kg (202 lb 12.8 oz) 04/26/2022 11:22 A M EDT Height 154.2 cm (5' 0.71 ) 07/30/2021 10:[address] Body Mass Index 38.69 07/30/2021 10:13 AM EST Plan of Treatment Health Maintenance Due Date Last Done Comments Influenza Vaccines (#1) 2024 05/06/20 21, 04/19/2019, 06/05/2013, Additional history exists COVID-19 Vaccine (4 - 2023-2 5 season) 2024 04/26/2022, 08/24/2021, 07/30/2021 DTaP,Tdap,and Td Vaccines (8 - Td or Tdap) 04/26/2032 04/26/2022, 11/23/2011, 06/18/2004, Additional history exists Hepatitis B Vaccines Completed 2000, 2000, 2000 HIB Vaccines Completed 06/27/2001, 12/02, 2000, Additional history exists Pneumococcal Vaccine Completed 06/27/2001, 2000, 2000, Additional history exists IPV Vaccines Completed 06/18/2004, 09/01, 2000, Additional history exists MMR Vaccines Completed 06/18/2004, 06/27/2001 Varicella Vaccines Completed 07/05/2007, 06/27/2001 HPV Vaccines Completed 06/05/2013, 11/01, 09/27/2010 Hepatitis A Vaccines Completed 02/11/2015, 11/23/19 12 Meningococcal Vaccine Completed 11/05/2018 Men B Vaccine Completed 08/29/2019, 11/05/2018 Procedures * Due to [place] crowdSPRING law, this organization might not be sharing sensitive test results. Procedure Name Priority Date/Time Associated Diagnosis Comments CHLAMYDIA AND GONORRHEA, AMPLIFIED Routine 07/30/2021 11:26 AM EST Encounter for screening examination for sexually transmitted disease from Last 3 Months or Most Recently Relevant to Health Maintenance Results * Due to [place] crowdSPRING law, this organization might not be sharing sensitive test results. * Chlamydia and Gonorrhoea, Amplified (07/30/2021 11:26 AM EST) Chlamydia Trachomatis, DNA Probe NEGATIVE (NEG) [facility] Comment: No Chlamydia Trachomatis RNA detected in this patient's sample ? (REFERENCE RANGE/NORMAL VALUE: NOT DETECTED) ? Note: This test uses refrigerator car icer- mediated amplification method to detect rRNA from C. Trachomatis URINE GC AMP PROBE NEGATIVE (NEG) [facility] Comment: No Neisseria Gonorrhoeae RNA detected in this patient's sample ? (REFERENCE RANGE/NORMAL VALUE: NOT DETECTED) ? NOTE: This test uses refrigerator car icer-mediated amplification method to detect rRNA from N.Gonorrhoeae. A negative result does not preclude infection. In the case of a negative urine result, testing of an endocervical(female) or urethral (male) specimen is recommended if there is high clinical suspicion of infection. Due to very high sensitivity of Nucleic Acid Amplification Test, false positive results may occur. Therefore, specimen handling is extremely important. In patients in whom the disease is unlikely, additional sample for testing should be considered after an initial positive result. The performance characteristics of this test have not been evaluated in children. The Aptima Combo2 assay is not intended for the evaluation of suspected sexual abuse or for other medico-legal indications. The ordering provider should assess if the patient had consensual sex without risk of sexual abuse. Consult the [facility] if needed. Contact phone number . Therapeutic failure or success cannot be determined with the Aptima Combo2 assay since nucleic acid may persist following appropriate antimicrobial therapy. The Centers for Disease Control and Prevention (CDC) recommends confirmatory retesting using culture or a different nucleic acid amplification test when positive results occur, if indicated. Testing performed or reported by [facility], a Service of [facility], [address] [place] [address] David Adrian MD, Diecast Machine Operator [facility]# [id number] Urine (Urine) 07/30/2021 11: 26 AM EST 07/30/2021 10:50 PM EST us Ashly Ozuna MD LAB MICROBIOLOGY - GENERAL OR DERABLES Final Result [facility] from Last 3 Months or Most Recently Relevant to Health Maintenance Insurance [facility] NON [facility]
--- OUTSIDE RECORDS SUMMARY | 2024-08-06 09:56 | XMS_ITS | Clinical Summary ---
Author Organization [facility] Address [address] [place] [address] Care Team Providers Care Cylinder Machine Operator Name Role Phone Unavailable Primary Care Provider Unavailabl e Social History Tobacco Use Types Packs/Day Years Used Date Smoking Tobacco: Never Assessed Sex and Gender Information Value Date Recorded Sex Assigned at Not on file Gender Identity Not on file Sexual Orientation Not on file Plan of Treatment Health Maintenance Due Date Last Done Comments Gonorrhea/Chlamydia Screening 2000 HPV Vaccines (1 - 3-dose series) 2015 DTaP,Tdap,and Td Vaccines (1 - Tdap) 2019 Hepatitis B Vaccines (1 of 3 - 19+ 3-dose series) 2019 Cervical Cancer Screening: P ap Smear 2021 Depression Screening 06/04/2022 HIV Screening 06/04/2022 Hepatitis C Screening 06/04/2022 Social Influencers of Health Screening 06/04/2022 COVID-19 Vaccine ( - 2023-2 5 season) 2024 Influenza Vaccine (#1) 2024 HIB Vaccines Aged Out No longer eligi ble based on patient's age to complete this topic Hepatitis A Vaccines Aged Out No long er eligible based on patient's age to complete this topic IPV Vaccines Aged Out No longer eligi ble based on patient's age to complete this topic MMR Vaccines Aged Out No longer eligi ble based on patient's age to complete this topic Meningococcal ACWY Vaccine Aged Out N o longer eligible based on patient's age to complete this topic Pneumococcal Vaccine: Pediat rics (0 to 5 Years) and At-Risk Patients (6 to 64 Years) Aged Out No longer eligible b ased on patient's age to complete this topic RSV Immunization Patients Un astrid 20 months Aged Out No longer eligible b ased on patient's age to complete this topic Varicella Vaccines Aged Out No longer eligible based on patient's age to complete this topic
--- OUTSIDE RECORDS SUMMARY | 2024-08-06 09:56 | XMS_ITS | Encounter Summary ---
Author Organization [facility] Address [address] [place] [address] Phone Care Team Providers Care Admissions Consultant Name Role Phone Ashly Ozuna MD Primary Care Provider [phone] Reason for Visit * Reason Comments Med Refill Encounter Details Date Type Department Care Team (Late st Contact Info) Description 11/14/2021 Refill [facility] [address] [place] [address] Ashly Ozuna MD [address] [place] [address] Vitamin D deficiency; Depression, unspecified depression type Social History Tobacco Use Types Packs/Day Years Used Date Smoking Tobacco: Never Smokeless Tobacco: Never Comments:Never smoker Alcohol Use Standard Drinks/Week Comments [...] AM EDT documented as of this encounter Miscellaneous Notes * Telephone Encounter - Erasmo Comer LPN - 11/16/2021 10:31 AM EDT Left a detailed message on pt's self identified vm with info below. * Telephone Encounter - Ashly Ozuna MD - 11/15/2021 6:03 PM EDT Please call Andrew and ask her to go to a [facility] lab to have her vitamin D level drawn. I will assess need for Rx after level returns. * Telephone Encounter - Nancy Elena LPN - 11/15/2021 3:19 PM EDT Pharm requesting refill vit d and fluoxetine 20mg. EH documented in this encounter Plan of Treatment Not on file documented as of this encounter Visit Diagnoses Diagnosis Vitamin D deficiency Depression, unspecified depression type documented in this encounter Care Teams Admissions Consultant Relationship Specialty Start Date End Date Ashly Ozuna MD [address] [place] [id number] PCP - General Pediatrics 10/25/18 07/21/22 documented as of this encounter
--- OUTSIDE RECORDS SUMMARY | 2024-08-06 09:56 | XMS_ITS | Continuity of Care Document ---
Author Organization [place] - [facility], [facility] Address [address] [place] [address] Care Team Providers Care Sample Coordinator Name Role Phone IRVING OROZCO Primary Care Provider [phone] Assessment Encounter Date Assessment Date Assessment LastModified by Organization Details LastModified Time 08/05/2024 08/05/2024 Patient describe s dysphagia for solid foods with occasional choking and slow passage. She is working with gastroenterology with swallow study scheduled as well as upper GI study pending. Discussed use of omeprazole on empty stomach is most effective. Fiberoptic laryngoscopy today shows a small 1 mm shallow ulceration on the posterior surface of the left arytenoid consistent with reflux. Otherwise no vocal cord paralysis or pooling of secretions. Encouraged her to continue working with gastroenterology Secondary concern of allergic rhinitis, poorly controlled with srmz-ysx-yhxaxwa and prescription medications. Offered allergy skin testing. She also suspect she has some food sensitivities and I recommended avoidance. Tertiary concern of tinnitus and hearing changes. We may consider working this up in the future with hearing testing [email or web address] Not available 08/05/2024 09:54:59 Plan of Treatment Reminders Order Date Submit Date Provider Last Modified By Organization Details Last Modified Time Details Appointments Hearing Test 2024 10:00A M Hearing Test Not available Not available Not available Establish ed 15 2024 10:30A M CED REYES MD Not available Not available Not available Lab None recorded. Referral None recorded. Procedures allergy testing, skin prick (PROC) 2024 025 [email or web address] Not available 08/05/2024 15:22:25 intraderm al allergy skin testing (PROC) 2024 025 [email or web address] Not available 08/05/2024 15:22:25 pulmonary function test procedure (PROC) 2024 025 [email or web address] Not available 08/05/2024 15:22:25 pulse oximetry (PROC) 2024 025 [email or web address] Not available 08/05/2024 15:22:25 Surgeries None recorded. Imaging None recorded. Medication Orders None recorded. Patient TargetsNo targets recorded. Patient InstructionsNo instructions recorded. Reason for Referral None Reported. Problems Name Problem SNOMED Code Status Onset Date Resolution Date Notes Provider Name and Address Organization Details Recorded Time Dysphagia 91965742 Active 2024 CED REYES MD [address] [address], [place], [address], [facility] - [facility] 09:51:12 Allergic rhinitis 00048311 Active 2024 CED REYES MD [address] [place] [address], [place], [address], [facility] 09:51:28 Non-allergi c rhinitis 036058760381 Active 2024 CED ERYES MD [address] [place] [address], [place], [address], [facility] 09:51:28 Seasonal allergic rhinitis 694032477 Active 2024 CED REYES MD [address] [place] [address], [place], [address], [facility] 09:51:28 Problem Notes None recorded. Procedures Surgical History Date Name Laterality Status Provider Name and Address Organization Details Recorded Time 08/05/2024 FOL_DP completed CED REYES MD [address] [place] [address], [phone], [facility] 08/05/2024 09:50:42 Imaging Results None recorded. Procedure Notes None recorded. Medical Equipment None Reported. Medications Name Sig Start Date Stop Date Status Note LastModified by Organization Details LastModified Time atorvastatin 20 mg tablet TAKE 1 TABLET BY MOUTH EVERY DAY AT BEDTIME active Not Available Not Available No t Available tizanidine 4 mg tablet TAKE 1/2 TABLET ORALLY 2 TIMES A DAY NEEDED FOR MUSCLE SPASTICITY FOR 5 DAYS active Not Available Not Available N ot Available meloxicam 7.5 mg tablet TAKE 1 TABLET BY MOUTH EVERY DAY active Not Available Not Available No t Available famotidine 20 mg tablet TAKE 1 TABLET BY MOUTH AT BEDTIME active Not Available Not Available No t Available omeprazole 20 mg capsule,jelly yed release TAKE 1 CAPSULE BY MOUTH DAILY FOR 90 DAYS active Not Available Not Available Not Available hydroxyzine HCl 25 mg tablet TAKE 1 TABLET ORALLY BEDTIME NEEDED FOR ANXIETY OR INSOMNIA active Not Available Not Available No t Available epinephrine 0.3 mg/0.3 mL injection, auto-injecto r INJECT 0.3 MG INTRAMUSCUL HAVEN EVERY 4 HOURS NEEDED FOR ANAPHYLAXIS active Not Available Not Available Not Available Ventolin HFA 90 mcg/actuatio n aerosol inhaler active Not Available Not Available Not Available cyclobenzapr ine 5 mg tablet TAKE 1 TABLET BY MOUTH EVERY 8 HOURS NEEDED FOR MUSCLE SPASMS active Not Available Not Available No t Available riboflavin (vitamin B2) 400 mg tablet TAKE 1 TABLET ORALLY DAILY FOR MIGRAINE HEADACHES FOR 30 DAYS active Not Available Not Available Not Available magnesium 100 mg (as glycinate) capsule TAKE 2 CAPSULES ORALLY DAILY FOR MIGRAINE HEADACHES FOR 30 DAYS active Not Available Not Available Not Available Xdemvy 0.25 % eye drops active Not Available Not Available Not Available Vitals Date Recorded Body weight Body mass index (BMI) Body height Provider Name and Address Organization Details Last Updated DateTime 08/05/2024 49358.25 g 36 kg/m2 160.02 cm CED REYES MD [address] [place] [address], [phone], [place] - [facility] 08/05/2024 09:37:18 Social History None recorded. Functional Status None recorded. Mental Status None recorded. Family History Nothing Reported. Medical History No medical history recorded. Gynecological HistoryNo gynecological history recorded. Obstetrics History GPAL:G 0 P 0 0 0 0 Past Encounters Encounter ID Performer Location Encounter Start Date Encounter Closed Date Diagnosis/Indication Diagnosis SNOMED-CT Code Diagnosis ICD10 Code Diagnosis Note [id number] CED REYES MD [facility] [address] [address] 08/05/2024 09:27:00 08/05/2024 11:31:49 Dysphagia 96620096 R13.10 Allergic rhinitis 533684 04 J30.9 Health Concerns Section Related Observation LastModified by Organization Detai ls LastModified Time None Recorded Concern Status LastModified by Organization Details LastModified Time None Recorded Payers Encounter Date Sequence Insurance Name Policy Number Policy [place] Covered Member ID Hamilton Member ID Guarantor Name 08/05/2024 1 [facility] (MEDICAID REPLACEMENT - HMO) RICHARD Gonzalez [id number] Andrew Gonzalez Notes Date Note Type Note Provider Name and Address Organization Details Recorded Time 08/05/2024 text/html dysphagiaonset 4chokes on solids - gets anxious when feels it is stuck. every mealimproves with sips of waternot associated with any trauma, CVA or concussion+gerd, working with GI. UGI next monthnow on omeprazole which is helpfulawaiting swallow study secondary concern of allergies, not controlled with OTC and rx meds. suspects some food sensitivities as well work stopped due to pinch nerve spinal issue CED REYES MD [address] [place] [address], [address], [place] - [facility] 08/05/2024 09:55:26 OBGyn Episode No OBEpisode recorded.
--- OUTSIDE RECORDS SUMMARY | 2024-08-06 09:56 | XMS_ITS | Data Portability ---
Author Organization [place] - [facility], Allergy Address [address] [place] [address] Care Team Providers Care Patternmaker Pressure Cast Name Role Phone IRVING OROZCO Primary Care Provider Assessment Encounter Date Assessment Date Assessment LastModified [...] concern of allergic rhinitis, poorly controlled with bwdo-iqs-cicggdg and prescription medications. Offered allergy skin testing. [...] and Address Organization Details Recorded Time Dysphagia 21967145 Active 2024 CED REYES MD [address] [facility], [place], [address], [facility] - [facility] 5 09:51:12 Allergic rhinitis 88856467 Active 2024 CED REYES MD [address] [facility], [address] [facility], [place], [address], [facility] - [facility] 5 09:51:28 Non-allergi c rhinitis 596087498127 Active 2024 CED REYES MD [address] [facility], [place], [address], [facility] 5 09:51:28 Seasonal allergic rhinitis 358633953 Active 2024 CED REYES MD [address] [facility], [place], [address], [facility] 5 09:51:28 Problem Notes None recorded. Procedures Surgical History Date Name Laterality Status Provider Name and Address Organization Details Recorded Time 08/05/2024 FOL_DP completed CED REYES MD [address] [facility],[address] [address], [place], [address], [facility] 08/05/2024 09:50:42 Imaging Results None recorded. [...] Address Organization Details Last Updated DateTime 08/05/2024 59185.25 g 36 kg/m2 160.02 cm CED REYES MD [address] [place] [address], [address], [place] - [facility] 08/05/2024 09:37:18 Social History None recorded. Functional Status None recorded. Mental Status None recorded. Family History Nothing Reported. Medical History No medical history recorded. Gynecological HistoryNo gynecological history recorded. Obstetrics History GPAL:G 0 P 0 0 0 0 Past Encounters Encounter ID Performer Location Encounter Start Date Encounter Closed Date Diagnosis/Indication Diagnosis SNOMED-CT Code Diagnosis ICD10 Code Diagnosis Note [id number] CED REYES MD [facility] [address] [address] 08/05/2024 09:27:00 08/05/2024 11:31:49 Dysphagia 67229496 R13.10 Allergic rhinitis 990062 04 J30.9 Health Concerns Section Related Observation LastModified by Organization Detai ls LastModified Time None Recorded Concern Status LastModified by Organization Details LastModified Time None Recorded Advance Directives Directive None Recorded Payers Encounter Date Sequence Insurance Name Policy Number Policy [place] Covered Member ID Hamilton Member ID Guarantor Name 08/05/2024 1 [facility] (MEDICAID REPLACEMENT - HMO) RICHARD Gonzalez [id number] Andrew Gonzalez Notes Date Note Type Note Provider Name and Address Organization Details Recorded Time 08/05/2024 text/html dysphagiaonset hokes on solids - gets anxious when feels [...] pinch nerve spinal issue CED REYES MD [address] [place] [address], [phone], [facility] - [facility] 08/05/2024 09:55:26 OBGyn Episode No OBEpisode recorded.
--- OUTSIDE RECORDS SUMMARY | 2024-08-06 09:56 | XMS_ITS | Encounter Summary ---
Author Organization [facility] Address [address] [place] [address] Phone Care Team Providers Care Side Piece Coverer Name Role Phone Ashly Ozuna MD Primary Care Provider [phone] Reason for Visit * Reason Comments Med Refill Encounter Details Date Type Department Care Team (Late st Contact Info) Description 05/01/2020 Refill [facility] [place] [address] [place] [address] Ashly Ozuna MD [address] [place] [address] Vitamin D deficiency Social History Tobacco Use Types Packs/Day Years Used Date Smoking Tobacco: Never Smokeless Tobacco: Never Comments:Never smoker Alcohol Use Standard Drinks/Week Comments Never 0 (1 standard drink = 0.6 oz pur e alcohol) Hunger/Food Answer Date Recorded In the last 12 months, did y ou or your family ever eat less than you felt you should because there wasn't enough money for food? Yes 02/21/2020 Stable Housing Answer Date Recorded Are you worried that in the next 2 months you may not have stable housing? No 02/21/2020 Transportation Concerns Answer Date Rec orded In the last 12 months, have you or your family ever had to go without healthcare because you didn't have a way to get there? No 02/07/2020 Hazards in Home Answer Date Recorded Think about the place you li ve. Do you have problems with any of the following? Pests (mice or roaches), mold, no/not working smoke detectors, water leaks, no window guards. No 2019 Financing Utilities Answer Date Recorde d In the last 12 months, has t he electric, gas, oil, or water company threatened to shut off your services in your home? No 02/07/2020 Safety at Home Answer Date Recorded Are you or your family worried about feeling saf e in your home? No 02/07/2020 Outside Support Answer Date Recorded Do you feel that you need mo re support from other people or programs to help you care for yourself or your family? Yes 02/21/2020 Understanding Health Concerns Answer Da te Recorded Do you need help understandi ng your or your child's healthcare needs (diagnosis, medications, plan, etc.)? No 02/07/2020 Financing Health Concerns Answer Date R ecorded In the last 12 months, was t here a time when your child needed to see a doctor or get medications or supplies but could not because of cost? No 02/07/2020 Missing School or Work Answer Date Quique rded Did you or your child miss s chool or work because of a health problem that could have been avoided? Yes 02/21/2020 Comments No Sex and Gender Information Value Date Recorded Sex Assigned at Female 02/07/2020 9:21 AM EDT Legal Sex Female 5:04 PM EDT Gender Identity Female 02/07/2020 9:21 AM EDT Sexual Orientation Straight 02/07/2020 9: 21 AM EDT documented as of this encounter Miscellaneous Notes * Telephone Encounter - Ashly Ozuna MD - 05/01/2020 4:46 PM EDT Already has med. * Telephone Encounter - Nancy Elena LPN - 05/01/2020 4:14 PM EDT Pt returning call, she has just picked up a refill vit d, so is all set at this time. Advised she should go for repeat labs. Pt would like to go to [facility] but it was unclear if they had a lab so they were faxed to [phone] and also to [facility] lab. EH * Telephone Encounter - Erasmo Comer LPN - 05/01/2020 1:48 PM EDT Left message on for call back. * Telephone Encounter - Ashly Ozuna MD - 05/01/2020 12:34 PM EDT Patient needs to go get labs drawn. Can you please call to remind her and also ask if she needs more vitamin D? I would ideally like to see lab results before prescribing again, but will prescribe ifshe is totally out in the meantime. Thanks. * Telephone Encounter - Erasmo Comer LPN - 05/01/2020 8:58 AM EDT Pharm is requesting a refill on vit D. Last PE 02/07/2020 documented in this encounter Plan of Treatment Not on file documented as of this encounter Visit Diagnoses Diagnosis Vitamin D deficiency documented in this encounter Care Teams Side Piece Coverer Relationship Specialty Start Date End Date Ashly Ozuna MD [address] [place] [address] PCP - General Pediatrics 10/25/18 07/21/22 documented as of this encounter
--- OUTSIDE RECORDS SUMMARY | 2024-08-06 09:56 | XMS_ITS | Encounter Summary ---
Author Organization [facility] Address [address] [place] [address] Phone Care Team Providers Care Cross Country And Track And Field Coach Name Role Phone Ashly Ozuna MD Primary Care Provider [phone] Reason for Visit * Reason Comments Med Refill Encounter Details Date Type Department Care Team (Late st Contact Info) Description 12/02/2018 Refill [facility] [place] [address] [place] [address] Ashly Ozuna MD [address] [place] [address] Anxiety Social History Tobacco Use Types Packs/Day Years Used Date Smoking Tobacco: Never Smokeless Tobacco: Never Comments:Never smoker Alcohol Use Standard Drinks/Week Comments Never 0 (1 standard drink = 0.6 oz pur e alcohol) Hunger/Food Answer Date Recorded No 11/05/2018 Stable Housing Answer Date Recorded 0 11/05/2018 Transportation Concerns Answer Date Rec orded No 11/05/2018 Hazards in Home Answer Date Recorded No 11/05/2018 Financing Utilities Answer Date Recorde d No 11/05/2018 Safety at Home Answer Date Recorded No 11/05/2018 Outside Support Answer Date Recorded No 11/05/2018 Understanding Health Concerns Answer Da te Recorded No 11/05/2018 Financing Health Concerns Answer Date R ecorded No 11/05/2018 Missing School or Work Answer Date Quique rded No 11/05/2018 Comments No Sex and Gender Information Value Date Recorded Sex Assigned at Female 02/07/2020 9:21 AM EDT Legal Sex Female 5:04 PM EDT Gender Identity Female 02/07/2020 9:21 AM EDT Sexual Orientation Straight 02/07/2020 9: 21 AM EDT documented as of this encounter Miscellaneous Notes * Telephone Encounter - Emi Carmona [place] - 12/03/2018 12:19 PM EDT I called and spoke with pt. She is ok and feeling better since being off the meds. She will keep her apt for December. * Telephone Encounter - Emi Cramona [place] - 12/03/2018 12:17 PM EDT Will do. This came from the pharm so pt may not even be requesting. * Telephone Encounter - Ashly Ozuna MD - 12/03/2018 11:42 AM EDT Med checks not current, and she had actually stopped the fluoxetine, so I am not going to fill it. Please have her seen GLADIS if she'd like to restart this med. * Telephone Encounter - Emi Carmona [place] - 12/03/2018 10:33 AM EDT Med Check pending for 01/18. PE current. Med check apt is also current but was to f/u in two weeks. The pt cancelled the apt and r/s for December. Refill request to [facility] for refill of the Prozac. documented in this encounter Plan of Treatment Not on file documented as of this encounter Visit Diagnoses Diagnosis Anxiety Anxiety state, unspecified documented in this encounter Care Teams Cross Country And Track And Field Coach Relationship Specialty Start Date End Date Ashly Ozuna MD [address] [place] [id number] PCP - General Pediatrics 10/25/18 07/21/22 documented as of this encounter
--- OUTSIDE RECORDS SUMMARY | 2024-08-06 09:56 | XMS_ITS | Encounter Summary ---
Author Organization [facility] Address [address] [place] [id number] Phone Care Team Providers Care Negative Turner Name Role Phone Ashly Ozuna MD Primary Care Provider [phone] Encounter Details Date Type Department Care Team (Late st Contact Info) Description 02/16/2017 Conversion Encounter [facility] [address] [place] [address] Social History Tobacco Use Types Packs/Day Years Used Date Smoking Tobacco: Never Comments:Never smoker Comments Unknown Sex and Gender Information Value [...] on filedocumented in this encounter Care Teams Negative Turner Relationship Specialty Start Date End Date Ashly Ozuna MD [address] [place] [address] PCP - General Pediatrics 10/25/18 07/21/22 documented as of this encounter
== END 2024-08-06 10:13 | disposition home or self-care (01) ==
PROVIDERS: PCP Nurse Practitioner Family; Visit Provider Nurse Practitioner Family
DX: R06.02 Shortness of breath (principal); M54.9 Dorsalgia, unspecified; M54.14 Radiculopathy, thoracic region; M51.44 Schmorl's nodes, thoracic region; M54.2 Cervicalgia; G89.4 Chronic pain syndrome
CPT/HCPCS: 99214; G2211

== ENCOUNTER → 2024-08-06 09:25 | Outpatient (BNVA) | payer OTHER, SELFPAY | PROVIDERS: PCP Nurse Practitioner Family; Visit Provider Nurse Practitioner Family | DX: R06.02 Shortness of breath (principal); M54.14 Radiculopathy, thoracic region; M51.44 Schmorl's nodes, thoracic region; M54.2 Cervicalgia; G89.4 Chronic pain syndrome | CPT/HCPCS: 99212 ==

== ENCOUNTER 2024-08-24 17:37 | Emergency (ER) | payer OTHER, SELFPAY ==
[2024-08-24 18:25] VITALS: BP 149/92; PULSE 108; RESP 18; TEMP 36.8; O2SAT 100; BMI 39.8
--- NOTE | 2024-08-24 18:27 | ED_ITS ---
HPI - General Adult General Chief complaint: General Medical Stated complaint: tonsil stone split bothering her throat now Time Seen by Provider: 08/24/24 20:37 Source: patient Limitations: no limitations History of Present Illness ED Provider: Elmira De Guzman PA-C HPI narrative: 24-year-old female with known tonsillar stones, GERD, migraine, anxiety, depression, presents with sore throat times 2-3 days. Patient states she noted new stones in bilateral tonsils. One of the stones dislodged on the left, she now states it appears the of the tonsil has ?ruptured?. Denies fever, trismus, drooling, swelling inferior to the jawline. Related Data Home Medications ?Medication ?Instructions ?Recorded ?Confirmed acetaminophen 500 mg tablet 1,000 mg PO Q6H PRN 07/27/22 04/17/24 (Tylenol Extra Strength) lotilaner 0.25 % eye drops (Xdemvy) drp ophthalmic (eye) 05/02/24 lotilaner 0.25 % eye drops (Xdemvy) 1 drp ophthalmic (eye) Q12H 08/06/24 Previous Rx's ?Medication ?Instructions ?Recorded meloxicam 7.5 mg tablet 7.5 mg PO DAILY #30 tabs 01/10/24 epinephrine 0.3 mg/0.3 mL 0.3 mg (0.3 mL) IM Q4H PRN 01/24/24 injection, auto-injector anaphylaxis #2 ea hydroxyzine HCl 25 mg tablet 25 mg PO BEDTIME PRN anxiety or 01/24/24 insomnia #30 tabs tizanidine 4 mg tablet (Zanaflex) 2 mg (1/2 x 4 mg) PO BID PRN 01/24/24 muscle spasticity 5 days #5 tabs cyclobenzaprine 5 mg tablet 5 mg PO Q8H PRN Muscle Spasm #10 05/02/24 tabs omeprazole 20 mg capsule,delayed 20 mg PO DAILY 90 days #90 caps 06/19/24 release atorvastatin 20 mg tablet 20 mg PO BEDTIME #90 tabs 06/24/24 albuterol sulfate 90 mcg/actuation 2 puff inhalation Q4-6H PRN 08/03/24 aerosol inhaler (Ventolin HFA) shortness of breath or wheezing #8.5 grams sucralfate 100 mg/mL oral 10 ml PO QID PRN gerd #400 mL 08/24/24 suspension (Carafate) Allergies Allergy/AdvReac Type Severity Reaction Status Date / Time aloe [ALOE] Allergy Unknown RASH Verified 08/24/24 18:29 sertraline [SERTRALINE] Allergy Unknown UNKNOWN Verified 08/24/24 18:29 shellfish derived AdvReac rash Verified 08/24/24 18:29 Review of Systems 2 Review of Systems: Yes all other systems are reviewed and are negative Constitutional: Constitutional: Denies fatigue and Denies fever(s) ENT: Reports sore throat, Denies throat swelling and Denies tongue swelling Respiratory: Respiratory: Denies cough Endocrine: Endocrine: Denies fatigue Allergic/Immunologic: Allergic/Immunologic: Denies throat swelling and Denies tongue swelling PMF Past Medical History Attestation statement: The following information was validated with the patient. Medical History Vitamin D deficiency Subclinical hypothyroidism Neck muscle spasm Anxiety Migraines Hypothyroidism Hypertension Hypercholesteremia Surgical History No pertinent past surgical history Family History Family History Father Hypertension Mother Hepatitis C Hypothyroidism Hypertension Cirrhosis of liver Murmur, cardiac Social History Social History Housing: Apartment Alcohol intake: never Patient Tobacco Use Status: Never used Tobacco e-Cigarette/Vaping Use: Never Used Second Hand Smoke Exposure: No Advance Directives: No Advance Directives Information Provided: Yes Do you have a plan to hurt others: No Plan service: No Current occupational status: unemployed Cognitive needs: No Hearing needs: No Vision needs: No Physical Exam ED Vital Signs: Vital Signs - 24 hr 08/24/24 18:25 Temperature 98.3 F Pulse Rate 108 H Respiratory Rate 18 Blood Pressure 149/92 H Pulse Oximetry 100 Oxygen Delivery Method Room Air BMI result Body Mass Index 39.8 Const Other: Alert Orientation/consciousness: patient oriented x3 HENMT Other: Both tonsils are prominent, I can visualize stones within the right tonsillar crypts. The left tonsil does have the appearance of being ?ruptured?, appears to be a prominent crypt, no stone noted on the left. Uvula midline, no sublingual fluctuance, no trismus no drooling, no swelling inferior to the jawline. Resp Effort & Inspection: normal respiratory effort Cardio Other: Normal peripheral perfusion Skin Other: Warm dry no rash Neuro General: patient oriented x3, gait normal, no focal motor deficits and CN's II- XI intact bilaterally Psych Other: Cooperative Course Course Course Narrative: RME performed by Joanne Ren PA-C. Patient is a 24 year old assigned female at presenting to the emergency department with tonsilar pain. Patient states that she thought she had a tonsilar stone, washed it out, but then her tonsil somewhat collapsed and is now causing pain. Detailed physical exam and review of systems are deferred to the corporate associate attorney. Labs and swabs ordered. Patient placed back in the waiting room pending room availability and results. Medications Administered Discontinued Medications Generic Name Dose Route Start Last Admin Trade Name Freq PRN Reason Stop Dose Admin Dexamethasone 10 mg 08/24/24 21:22 08/24/24 21:54 Dexamethasone 2 Mg Tablet PO 08/24/24 21:23 10 mg ONCE ONE Administration Medical Decision Making Medical Decision Making [facility] Narrative: 24-year-old female with known tonsillar stones, GERD, migraine, anxiety, depression, presents with sore throat times 2-3 days. Patient states she noted new stones in bilateral tonsils. One of the stones dislodged on the left, she now states it appears the of the tonsil has ?ruptured?. Denies fever, trismus, drooling, swelling inferior to the jawline. Problem: Known tonsillar stones History: Per patient I have considered the following differential diagnoses: Strep pharyngitis, mononucleosis, viral syndrome, RPA, SHIELD OPERATOR Plan: On exam, the patient does have stones, of the left tonsil has prominent crypts. There are no exam findings consistent with either RPA or SHIELD OPERATOR. Screening labs including Monospot, strep screen and viral panel were obtained from triage. The patient was not require imaging. We will give a 1 time dose of Decadron. The patient has an ENT to follow up with. I have independently reviewed the following tests: Labs: Slight leukocytosis, not anemic, no electrolyte abnormality, not , viral panel negative, strep screen negative, mono spot negative Lab Data 08/24/24 19:46 08/24/24 19:46 Labs: Lab Results 08/24/24 08/24/24 Range/Units 18:44 19:46 WBC 12.2 H (4.8-10.8) X10*3/uL RBC 4.52 (4.20-5.50) X10*6/uL Hgb 12.4 (12.0-16.0) g/dl Hct 36.2 L (37.0-47.0) % MCV 80.1 (80.0-98.0) fL MCH 27.4 (27.0-33.0) pg MCHC 34.3 (31.0-35.0) g/dl RDW 14.4 (11.0-16.0) % Plt Count 378 (160-400) X10*3/uL MPV 9.0 L (9.4-12.3) fL Immature Gran % (Auto) 0.2 (0.0-0.4) % Neut % (Auto) 67.1 (45-73) % Lymph % (Auto) 24.1 (20-40) % [place] % (Auto) 5.9 (2-11) % Eos % (Auto) 2.3 (0-4) % Baso % (Auto) 0.4 (0-2) % Lymph # (Auto) 3.0 (1.2-4.9) X10*3/uL [place] # (Auto) 0.7 (0.1-1.2) X10*3/uL Eos # (Auto) 0.3 (0.0-0.4) X10*3/uL Baso # (Auto) 0.1 (0.0-0.2) X10*3/uL Abs Immat Gran (auto) 0.02 (0.00-0.03) X10*3/uL Absolute Neuts (auto) 8.2 (2.0-8.3) x10*3/uL Absolute Nucleated RBC 0.000 (0.0-0.012) X10*3/uL Nucleated RBC % (auto) 0.0 (0.0-0.2) /100WBC ESR 25 H (0-20) MM/HR Sodium 139 (135-145) mmol/L Potassium 3.7 (3.3-5.1) mmol/L Chloride 108 (96-108) mmol/L Carbon Dioxide 20 L (22-29) mmol/L Anion Gap 15 (12-20) BUN 9 (9-16) mg/dL Creatinine 0.74 (0.5-1.4) mg/dL Estim Creat Clear Calc 118.9 Estimated GFR > 60 Random Glucose 96 (60-115) mg/dL Calcium 9.7 D (8.4-10.2) mg/dL Magnesium 2.3 (1.6-2.6) mg/dL Total Bilirubin 0.2 (0.0-1.0) mg/dL AST 24 (5-31) U/L ALT 27 (0-31) U/L Alkaline Phosphatase 113 (39-117) U/L C-Reactive Protein 0.35 (< or = 0.50) mg/dL Total Protein 9.0 H (6.5-8.0) g/dL Albumin 4.7 (3.5-5.0) g/dL Beta HCG, Quant < 2 mIU/mL Monoscreen Negative (Negative) Influenza Type A (PCR) NEGATIVE (Negative) Influenza Type B (PCR) NEGATIVE (Negative) RSV RNA Qual (PCR) NEGATIVE (Negative) SARS-CoV-2 RNA (RT-PCR) NEGATIVE (Negative) S. pyogenes GrpA CHANTAL Negative (Negative) Discharge Plan Discharge Clinical Impression: Tonsillitis, Tonsillar calculus Patient Disposition: Home, Self-Care Instructions: Tonsillitis (ED) Additional Instructions: All of your screening labs were normal. You were tested for influenza, RSV and COVID, the viral panel was negative. You were screened for strep throat that was negative. We also tested you for mononucleosis, that was negative.You were given a 1 time dose of steroid to help alleviate the inflammation of the tonsils. Call your ENT provider to make an appointment to discuss the elective removal of your tonsils. Use the Carafate as needed for GERD symptoms. Prescriptions: New sucralfate [Carafate] 100 mg/mL suspension 10 ml PO QID PRN (Reason: gerd) Qty: 400 0RF Rx Instructions: swish in mouth and swallow; use after food/drink No Action atorvastatin 20 mg tablet 20 mg PO BEDTIME Qty: 90 1RF albuterol sulfate [Ventolin HFA] 90 mcg/actuation HFA aerosol inhaler 2 puff inhalation Q4-6H PRN (Reason: shortness of breath or wheezing) Qty: 8.5 2RF Rx Instructions: family hx of asthma and shortness of breath which is most consistent with exercise induced asthma tizanidine [Zanaflex] 4 mg tablet 2 mg PO BID PRN (Reason: muscle spasticity) 5 Days Qty: 5 0RF epinephrine 0.3 mg/0.3 mL auto-injector 0.3 mg IM Q4H PRN (Reason: anaphylaxis) Qty: 2 1RF hydroxyzine HCl 25 mg tablet 25 mg PO BEDTIME PRN (Reason: anxiety or insomnia) Qty: 30 2RF acetaminophen [Tylenol Extra Strength] 500 mg tablet 1,000 mg PO Q6H PRN meloxicam 7.5 mg tablet 7.5 mg PO DAILY Qty: 30 4RF omeprazole 20 mg capsule,delayed release(DR/EC) 20 mg PO DAILY 90 Days Qty: 90 1RF Xdemvy 0.25 % drops 1 drp ophthalmic (eye) Q12H Xdemvy 0.25 % drops ophthalmic (eye) cyclobenzaprine 5 mg tablet 5 mg PO Q8H PRN (Reason: Muscle Spasm) Qty: 10 0RF Print Language: Tamazight
[2024-08-24 19:12] LABS: IDNOW Serial# 58CA691E; Strep A Nucleic Acid Negative (Negative)
[2024-08-24 19:34] LABS: Influenza A PCR NEGATIVE (Negative); Influenza B PCR NEGATIVE (Negative); Resp Syncy Virus RNA Qual PCR NEGATIVE (Negative); SARS COV2 PCR INHOUSE NEGATIVE (Negative)
--- NOTE | 2024-08-24 19:47 | MHC.EDTECH ---
Patient brought into triage area,labs drawn and sent to lab.
[2024-08-24 19:53] LABS: MANUAL DIFF FLAG NO
[2024-08-24 19:55] LABS: Basophils Absolute Auto 0.1 X10*3/uL (0.0-0.2); Basophils Percent Auto 0.4 % (0-2); Eosinophils Absolute Auto 0.3 X10*3/uL (0.0-0.4); Eosinophils Percent Auto 2.3 % (0-4); Hematocrit 36.2 % (37.0-47.0); Hemoglobin 12.4 g/dl (12.0-16.0); Imm Gran Abs Auto 0.02 X10*3/uL (0.00-0.03); Imm Gran Pct Auto 0.2 % (0.0-0.4); Lymphocytes Percent Auto 24.1 % (20-40); Mean Corpuscular HGB Conc 34.3 g/dl (31.0-35.0); Mean Corpuscular Hemoglobin 27.4 pg (27.0-33.0); Mean Corpuscular Volume 80.1 fL (80.0-98.0); Monocytes Absolute Auto 0.7 X10*3/uL (0.1-1.2); Monocytes Percent Auto 5.9 % (2-11); Neutrophils Absolute Auto 8.2 x10*3/uL (2.0-8.3); Neutrophils Percent Auto 67.1 % (45-73); Platelet Count 378 X10*3/uL (160-400); Red Blood Count 4.52 X10*6/uL (4.20-5.50); Red Cell Distribution Width 14.4 % (11.0-16.0); White Blood Count 12.2 X10*3/uL (4.8-10.8)
[2024-08-24 20:10] LABS: Monotest Negative (Negative)
[2024-08-24 20:16] LABS: Alanine Aminotransferase 27 U/L (0-31); Albumin Level 4.7 g/dL (3.5-5.0); Alkaline Phosphatase 113 U/L (39-117); Anion Gap 15 (12-20); Aspartate Amino Transferase 24 U/L (5-31); Bilirubin Total 0.2 mg/dL (0.0-1.0); Blood Urea Nitrogen 9 mg/dL (9-16); C Reactive Protein 0.35 mg/dL (< or = 0.50); Calcium 9.7 mg/dL (8.4-10.2); Carbon Dioxide 20 mmol/L (22-29); Chloride 108 mmol/L (96-108); Creatinine Clr Calc Pharmacy 118.9; Estimated Glomerular Filt Rate > 60; Glucose Random 96 mg/dL (60-115); HCG Quantitative < 2 mIU/mL; Magnesium 2.3 mg/dL (1.6-2.6); Potassium 3.7 mmol/L (3.3-5.1); Sodium 139 mmol/L (135-145)
[2024-08-24 20:56] LABS: Erythrocyte Sedimentation Rate 25 MM/HR (0-20)
[2024-08-24] MEDS: dexAMETHasone 2 MG TABLET 10 MG PO (21:54)
[2024-08-24] MEDS: Sucralfate Oral Suspension 1 GM/10 ML ORAL.SUSP PO (22:06)
[2024-08-25 05:15] VITALS: BP 149/92; PULSE 108; RESP 18; TEMP 36.8; O2SAT 100
== END 2024-08-24 22:15 | disposition home or self-care (01) ==
PROVIDERS: Physician Assistant Medical; Emergency Provider Emergency Medicine; PCP Nurse Practitioner Family
DX: J03.90 Acute tonsillitis, unspecified (principal); J35.8 Other chronic diseases of tonsils and adenoids; J02.9 Acute pharyngitis, unspecified; Z03.818 Encounter for observation for suspected exposure to other biological agents ruled out
CPT/HCPCS: 0241U; 80053; 83735; 84702; 85025; 85652; 86140; 86308; 87651; 99282; 99283; J8540

== ENCOUNTER → 2024-08-30 18:50 | Outpatient (BNV) | payer OTHER, SELFPAY | PROVIDERS: PCP Nurse Practitioner Family; Visit Provider Radiology Vascular & Interventional Radiology | DX: M51.34 Other intervertebral disc degeneration, thoracic region (principal) | CPT/HCPCS: 72146 ==

== ENCOUNTER 2024-08-30 18:51 | Outpatient (REF) | payer OTHER, SELFPAY ==
--- NOTE | ~2024-08-30 | MR_ITS ---
CLINICAL HISTORY: M54.9 - Dorsalgia, unspecified MR thoracic spine without gadolinium Comparison: None Findings: Normal alignment. No acute fracture or pathologic bone lesion. The thoracic spinal cord is normal in caliber and in signal. For age, there are moderate degenerative changes within the midthoracic spine with endplate sclerosis and disc space narrowing, between the T5 and T9 levels. No significant spinal canal or foraminal stenoses. Paraspinous musculature intact. IMPRESSION: No acute findings. There is moderate disc space narrowing and endplate degenerative change between T5 and T9. There is no significant central canal stenosis or neural foraminal narrowing noted. This document has been electronically signed by: Candido Collins MD on 09/02/2024 13:48:28
== END 2024-08-30 18:52 | disposition home or self-care (01) ==
LOC: HO.MRI 18:51
PROVIDERS: PCP Nurse Practitioner Family; Visit Provider Nurse Practitioner Family
DX: M54.9 Dorsalgia, unspecified (principal); M54.14 Radiculopathy, thoracic region; M51.44 Schmorl's nodes, thoracic region
CPT/HCPCS: 72146

== ENCOUNTER 2024-09-03 13:22 | Outpatient (AMB) | payer OTHER, SELFPAY ==
[2024-09-03 13:57] VITALS: PULSE 94; O2SAT 100; BMI 39.1
--- NOTE | 2024-09-03 13:57 | MHC.OFFVIS ---
Vital Signs 09/03/24 13:57 Height 5 ft Weight 200 lb BMI 39.1 Pulse 94 Pulse Source Pulse Oximeter Pulse Oximetry (%) 100 Oxygen Delivery Method Room Air Intake Visit Reasons: Shortness of breath Guitar Maker Hand Required: No Manager Cosmetics: Manager Cosmetics offered & declined Accompanied by: Self / Same As Patient Allergies aloe [ALOE] Allergy (Unknown, Verified 09/03/24 14:01) RASH sertraline [SERTRALINE] Allergy (Unknown, Verified 09/03/24 14:01) UNKNOWN shellfish derived Adverse Reaction (Verified 09/03/24 14:01) rash Medication List - Last Reconciled 09/03/24 by Amber Echavarria LPN acetaminophen (Tylenol Extra Strength) 1,000 mg PO Q6H PRN albuterol sulfate 90 mcg/actuation (Ventolin HFA) 2 puffs inhalation Q4-6H PRN atorvastatin 20 mg PO BEDTIME cyclobenzaprine 5 mg PO Q8H PRN epinephrine 0.3 mg (0.3 mL) IM Q4H PRN hydroxyzine HCl 25 mg PO BEDTIME PRN lotilaner 0.25% (Xdemvy) drps ophthalmic (eye) lotilaner 0.25% (Xdemvy) 1 drp ophthalmic (eye) Q12H meloxicam 7.5 mg PO DAILY omeprazole 20 mg PO DAILY 90 days sucralfate (Carafate) 10 mL PO QID PRN tizanidine (Zanaflex) 2 mg (1/2 x 4 mg) PO BID PRN 5 days HPI HPI Shortness of breath: Details: Andrew is a pleasant 24 year old female, never smoker, with underlying GERD. She was referred by pain management for pulmonary evaluation for ongoing dyspnea. She reports an inability to take deep breaths and notes a feeling of heaviness or pressure on the chest. This has been ongoing without significant progression but impacts her daily activities. She also experiences rib cramping, potentially linked to a spine issue. A comprehensive cardiac evaluation at [facility], including a stress test and EKG, was performed, yielding unremarkable findings. Historical emergency room visits for related symptoms have been frequent, chest x-rays have been conducted multiple times which have been unremarkable. She reports multiple first degree family members with asthma. Along with dyspnea reports sporadic wheezing and minimal dry coughing. She endorses seasonal allergies with upcoming allergy consultation. She intermittently uses albuterol for symptomatic relief, with varying degrees of efficacy, and describes the sensation of air trapping. She also notes reflux, on omeprazole and recently carafate, contributing to symptomatic relief but with residual chest discomfort. The possibility of silent reflux causing respiratory manifestation is considered. Despite planning an endoscopy to assess esophageal issues, nighttime episodes of dyspnea persist, suggesting potential asthma or sleep-related breathing disorders. [facility] Medical History Vitamin D deficiency Subclinical hypothyroidism Neck muscle spasm Anxiety Migraines Hypothyroidism Hypertension Hypercholesteremia Surgical History No pertinent past surgical history Family History Father Hypertension Mother Hepatitis C Hypothyroidism Hypertension Cirrhosis of liver Murmur, cardiac Social History Housing: Apartment Alcohol intake: never Patient Tobacco Use Status: Never used Tobacco e-Cigarette/Vaping Use: Never Used Second Hand Smoke Exposure: No service: No Current occupational status: unemployed Cognitive needs: No Hearing needs: No Vision needs: No Review of Systems Const Denies chills, Denies excessive sweating, Denies fever(s), Denies headache(s) and Denies night sweats Eyes Denies dry eyes, Denies irritation and Denies itchy eyes ENT Reports Normal hearing present and Denies headache(s) Card Denies chest pain, Denies chest pain at rest, Denies chest pain with activity, Denies claudication, Denies leg edema, Denies orthopnea and Denies paroxysmal nocturnal dyspnea Resp Denies chest congestion, Denies excessive phlegm production, Denies pain on inspiration, Denies pain with cough and Denies stridor Musc Denies myalgias Neuro Reports Normal hearing present and Denies headache(s) Endo Denies excessive sweating Mikey/Lymph Denies lymphadenopathy Aller/Immun Denies itchy eyes and Denies seasonal rhinorrhea Physical Exam Vital Signs: Last Vital Signs Pulse 94 09/03/24 13:57 Pulse Ox 100 09/03/24 13:57 Oxygen Delivery Method Room Air 09/03/24 13:57 BMI result Body Mass Index 39.1 Const General: cooperative, healthy appearing, comfortable, no acute distress, well developed and alert Nutritional Appearance: obese Orientation/consciousness: patient oriented x3 Limitations: no limitations HEENT Head: Yes normal to inspection, Yes normocephalic and Yes atraumatic Ears: hearing grossly normal bilaterally and external ears normal Eyes General: appearance normal, both eyes and all related structures Eyelids: Yes eyelids normal Sclerae: sclerae normal EOM: EOMs intact bilaterally Neck Neck: Yes normal visual inspection and Yes no lymphadenopathy Lymphatic: no lymphadenopathy noted Chest Chest palpation & inspection: normal inspection of the chest Resp Effort & Inspection: normal respiratory effort, able to speak in complete sentences, no audible wheezes, no cough, no stridor, not tachypneic, no tripod positioning and no use of accessory muscles Auscultation: clear to auscultation bilaterally Cardio Jugular venous distension: no JVD Rate: regular rate Rhythm: regular rhythm Skin Other: warm, dry General skin exam: no rashes or lesions noted Neuro General: patient oriented x3 Cranial nerves: Yes Normal hearing present Cognition (Neuro): normal cognition Gait exam (Neuro): Normal gait present Extrem General: Yes normal to inspection, Yes capillary refill normal, Yes no clubbing, cyanosis or edema and Yes no pedal edema Psych Appearance: grossly normal and well kempt Speech and movement: Normal speech and movement present and Clear speech present Affect: normal affect Attitude: cooperative Thought process: Normal thought process present Thought content: Normal thought content present Insight: Good insight present (Psych) Judgement: Good judgement present (Psych) Assessment & Plan Assessment & Plan (1) Dyspnea: Code(s): R06.00 - Dyspnea, unspecified Category: Medical (2) Seasonal allergies: Code(s): J30.2 - Other seasonal allergic rhinitis Category: Medical (3) Chronic GERD: Code(s): K21.9 - Gastro-esophageal reflux disease without esophagitis Category: Medical Plan Andrew presents for pulmonary evaluation for dyspnea, chest tightness/heaviness and intermittent wheezing/dry cough. Will order PFT and CXR to evaluate for potential asthma and other respiratory conditions. She has an upcoming endoscopy which will offer further insights into esophageal involvement. The interplay between reflux and respiratory symptoms warrants examination, determining asthma's potential role. Advised to continue to use albuterol and will consider switching daily inhaler after PFT. All questions were answered and patient is in agreement of plan. Will follow up to review results or sooner if needed. Orders: Orders XR chest 2V Today R06.00 - Dyspnea, unspecified PFT pulmonary function test Today R06.00 - Dyspnea, unspecified Coding Level of Care Code New Pt Level 4 (84764) Diagnoses Dyspnea R06.00 Seasonal allergies J30.2 Chronic GERD K21.9
--- OUTSIDE RECORDS SUMMARY | 2024-09-03 16:45 | XMS_ITS | Continuity of Care Document ---
Author Organization [place] - [facility], [facility] Address [address] [place] [address] Care Team Providers Care Wirer Helper Name Role Phone IRVING OROZCO Primary Care [...] concern of allergic rhinitis, poorly controlled with gaol-sxn-pkwores and prescription medications. Offered allergy skin testing. [...] Allergy Test 2024 02:30P M [facility]NT[facility] of [facility] Not available Not available Not available Test Results 15 2024 04:00P M CED REYES MD Not available Not [...] and Address Organization Details Recorded Time Dysphagia 33387353 Active 2024 CED REYES MD 100 [facility],[address], [place], [address], [facility] - [facility] 5 09:51:12 Allergic rhinitis 67458006 Active 2024 CED REYES MD 100 [facility], [address], [place], [address], [facility] - [facility] 5 09:51:28 Non-allergi c rhinitis 864586582463 Active 2024 CED REYES MD 100 [facility], [address], [place], [address], [facility] - [facility] 5 09:51:28 Seasonal allergic rhinitis 643554778 Active 2024 CED REYES MD 100 [facility],[address], [place], [address], [facility] - [facility] [place] 5 09:51:28 Amygdalolit h 4202915 Active 2024 BELLA LIM PA-C [address], [place], [address], [facility] - [facility] [place] 5 14:41:43 Hypertrophy of tonsils 40381931 Active 2024 BELLA LIM PA-C 100 [facility] [address], [place], [address], [facility] - [facility] 14:42:38 Problem Notes None recorded. Procedures Surgical History Date Name Laterality Status Provider Name and Address Organization Details Recorded Time 08/05/2024 FOL_DP completed CED REYES MD 100 [facility], [place], [address], [facility] - [facility] 08/05/2024 09:50:42 Imaging Results None recorded. [...] Address Organization Details Last Updated DateTime 08/05/2024 41996.25 g 36 kg/m2 160.02 cm CED REYES MD [address] [place] [address],[address], [address], [place] - [facility] 08/05/2024 09:37:18 Social History None recorded. Functional Status None recorded. Mental Status None recorded. Family History Nothing Reported. Medical History No medical history recorded. Gynecological HistoryNo gynecological history recorded. Obstetrics History GPAL:G 0 P 0 0 0 0 Past Encounters Encounter ID Performer Location Encounter Start Date Encounter Closed Date Diagnosis/Indication Diagnosis SNOMED-CT Code Diagnosis ICD10 Code Diagnosis Note [id number] CED REYES MD [facility] [address] [address] 08/05/2024 09:27:00 08/05/2024 11:31:49 Dysphagia 41802242 R13.10 Allergic rhinitis 831589 04 J30.9 Health Concerns Section Related Observation LastModified by Organization Detai ls LastModified Time None Recorded Concern Status LastModified by Organization Details LastModified Time None Recorded Payers Encounter Date Sequence Insurance Name Policy Number Policy Hamilton Covered Member ID Hamilton Member ID Guarantor Name 08/05/2024 1 [facility] (MEDICAID REPLACEMENT - HMO) RICHARD Gonzalez [id number] Andrew Gonzalez Notes Date Note Type Note [...] pinch nerve spinal issue CED REYES MD [address] [place] [address],[address], [address], [place] - [facility] 08/05/2024 09:55:26 OBGyn Episode No OBEpisode recorded.
--- OUTSIDE RECORDS SUMMARY | 2024-09-03 16:45 | XMS_ITS | Clinical Summary ---
Author Organization [facility] Address [address] [place] [address] Care Team Providers Care Metal Polisher Name Role Phone Unavailable Primary Care Provider [...]
--- OUTSIDE RECORDS SUMMARY | 2024-09-03 16:45 | XMS_ITS | Encounter Summary ---
Author Organization [facility] Address [address] [place] [address] Phone Care Team Providers Care Occupational Therapy Department Chair Name Role Phone Ashly Ozuna MD Primary Care Provider [phone] Reason for Visit * Reason Comments Med Refill Encounter Details Date Type Department Care Team (Late st Contact Info) Description 12/02/2018 Refill [facility] [place] [address] [place] [address] Ashly Ozuna MD [address] [place] [address] Anxiety Social History Tobacco Use Types Packs/Day [...] for December. * Telephone Encounter - Emi Carmona [place] - 12/03/2018 12:17 PM EDT Will [...] unspecified documented in this encounter Care Teams Occupational Therapy Department Chair Relationship Specialty Start Date End Date Ashly Ozuna MD [address] [place] [address] PCP - General Pediatrics 10/25/18 07/21/22 documented as of this encounter
--- OUTSIDE RECORDS SUMMARY | 2024-09-03 16:45 | XMS_ITS | Continuity of Care Document ---
Author Organization [place] - [facility], [facility] Address [address] [place] [address] Care Team Providers Care Laborer High Density Press Name Role Phone IRVING OROZCO Primary Care [...] Appointments Allergy Test 2024 02:30P M [facility] Not available Not available Not available Test Results 15 2024 04:00P M CED FOSTER MD Not available Not available Not available Hearing Test 05/05/ 2025 10:00A M Hearing Test Not available Not available Not available Establish ed 15 2024 10:30A M CED FOSETR MD Not available Not available Not available Lab None recorded. Referral None recorded. Procedures None recorded. Surgeries None recorded. Imaging None recorded. Medication Orders None recorded. Patient TargetsNo targets recorded. Patient InstructionsNo instructions recorded. Reason for Referral None Reported. Problems Name Problem SNOMED Code Status Onset Date Resolution Date Notes Provider Name and Address Organization Details Recorded Time Dysphagia 02597890 Active 2024 CED FOSTER MD 100 [facility],[address], [place], [address], [place] - [facility] [place] 09:51:12 Allergic rhinitis 99848769 Active 2024 CED FOSTER MD 100 [facility],[address], [place], [address], [place] - [facility] [place] 09:51:28 Non-allergi c rhinitis 241592920965 Active 2024 CED FOSTER MD 100 [facility],[address], [place], [address], [place] - [facility] [place] 09:51:28 Seasonal allergic rhinitis 284857544 Active 2024 CED FOSTER MD 100 [facility],[address], [place], [address], [place] - [facility] [place] 09:51:28 Amygdalolit h 2205527 Active 2024 BELLA LIM PA-C 100 [facility],[address], [place], [address], [place] - [facility] [place] 14:41:43 Hypertrophy of tonsils 48003127 Active 2024 BELLA LIM PA-C 100 [facility],[address], [place], [address], [place] - [facility] [place] 14:42:38 Problem Notes None recorded. Procedures Surgical History Date Name Laterality Status Provider Name and Address Organization Details Recorded Time 08/05/2024 FOL_DP completed CED FOSTER MD [address] [place] [address], [address], [place] - [facility] 08/05/2024 09:50:42 Imaging Results None recorded. [...] Updated DateTime 08/26/2024 152.4 cm 39.6 kg/m2 41022.25 g Patricia Garza [place] - [facility] 08/26/2024 13:17:28 Social History None recorded. Functional Status None recorded. Mental Status None recorded. Family History Nothing Reported. Medical History No medical history recorded. Gynecological HistoryNo gynecological history recorded. Obstetrics History GPAL:G 0 P 0 0 0 0 Past Encounters Encounter ID Performer Location Encounter Start Date Encounter Closed Date Diagnosis/Indication Diagnosis SNOMED-CT Code Diagnosis ICD10 Code Diagnosis Note [id number] CED FOSTER MD [facility] of [address] [place] [address] 08/05/2024 09:27:00 08/05/2024 11:31:49 Dysphagia 78313912 R13.10 Allergic rhinitis 157146 04 J30.9 [id number] CED FOSTER MD [facility] of [address] [place] [address] 08/26/2024 13:05:18 08/27/2024 07:42:41 Amygdalolith 1348157 J35.8 Hypertroph y of tonsils 94387463 J35.1 Health Concerns Section Related Observation LastModified by Organization Detai ls LastModified Time None Recorded Concern Status LastModified by Organization Details LastModified Time None Recorded Payers Encounter Date Sequence Insurance Name Policy Number Policy Hamilton Covered Member ID Hamilton Member ID Guarantor Name 08/26/2024 1 [facility] (MEDICAID REPLACEMENT - HMO) RICHARD Gonzalez [id number] Andrew Gonzalez Notes Date Note Type Note [...] the size and discomfort. CED FOSTER MD [address] [place] [address], [place], [address], [place] - [facility] 08/26/2024 16:54:40 OBGyn Episode No OBEpisode recorded.
--- OUTSIDE RECORDS SUMMARY | 2024-09-03 16:45 | XMS_ITS | Encounter Summary ---
Author Organization [facility] Address [address] [place] [address] Phone Care Team Providers Care Rigging And Controls Aircraft Mechanic Name Role Phone Ashly Ozuna MD Primary Care Provider [phone] Reason for Visit * Reason Comments Med Refill Encounter Details Date Type Department Care Team (Late st Contact Info) Description 11/14/2021 Refill [facility] [place] [address] [place] [address] Ashly Ozuna MD [address] [place] [address] Vitamin D deficiency; Depression, unspecified depression type [...] and ask her to go to a [facility] lab to have her vitamin D level [...] type documented in this encounter Care Teams Rigging And Controls Aircraft Mechanic Relationship Specialty Start Date End Date Ashly Ozuna MD [address] [place] [address] PCP - General Pediatrics 10/25/18 07/21/22 documented as of this encounter
--- OUTSIDE RECORDS SUMMARY | 2024-09-03 16:45 | XMS_ITS | Data Portability ---
Author Organization [place] - [facility], Allergy Address [address] [address] Care Team Providers Care City Treasurer Name Role Phone IRVING OROZCO Primary Care [...] concern of allergic rhinitis, poorly controlled with btcu-dcd-ibiskpz and prescription medications. Offered allergy skin testing. [...] Allergy Test 2024 02:30P M [facility] [place] Not available Not available Not available Test [...] and Address Organization Details Recorded Time Dysphagia 54265996 Active 2024 CED FOSTER MD [address] [place] [address] [place], [address], [facility] - [facility] 09:51:12 Allergic rhinitis 38408626 Active 2024 CED FOSTER MD [address] [place] [address], [place], [address], [facility] - [facility] 5 09:51:28 Non-allergi c rhinitis 441449986212 Active 2024 CED FOSTER MD 100 [facility], [address], [place], [address], [facility] - [facility] 09:51:28 Seasonal allergic rhinitis 903107725 Active 2024 CED FOSTER MD 100 [facility], E [facility] [place], [address], [facility] - [facility] 09:51:28 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 Procedures Surgical History Date Name Laterality Status Provider Name and Address Organization Details Recorded Time 08/05/2024 FOL_DP completed CED FOSTER MD [address], [address], [facility] - [facility] 08/05/2024 09:50:42 Imaging Results None recorded. Procedure [...] Address Organization Details Last Updated DateTime 08/05/2024 38387.25 g 36 kg/m2 160.02 cm CED FOSTER MD [address] [place] [address], [address], [place] - [facility] 08/05/2024 09:37:18 Date Recorded Body height Body mass index (BMI) Body weight Provider Name and Address Organization Details Last Updated DateTime 08/26/2024 152.4 cm 39.6 kg/m2 36319.25 g Patricia Garza [place] - [facility] 08/26/2024 13:17:28 Social History None recorded. Functional Status None recorded. Mental Status None recorded. Family History Nothing Reported. Medical History No medical history recorded. Gynecological HistoryNo gynecological history recorded. Obstetrics History GPAL:G 0 P 0 0 0 0 Past Encounters Encounter ID Performer Location Encounter Start Date Encounter Closed Date Diagnosis/Indication Diagnosis SNOMED-CT Code Diagnosis ICD10 Code Diagnosis Note [id number] CED FOSTER MD [facility] of [address] [address] 08/05/2024 09:27:00 08/05/2024 11:31:49 Dysphagia 46030601 R13.10 Allergic rhinitis 904059 04 J30.9 [id number] CED FOSTER MD [facility] [place] [facility] [place] [place] [address] 08/26/2024 13:05:18 08/27/2024 07:42:41 Amygdalolith 7196825 J35.8 Hypertroph y of tonsils 67785839 J35.1 Health Concerns Section Related Observation LastModified by Organization Detai ls LastModified Time None Recorded Concern Status LastModified by Organization Details LastModified Time None Recorded Advance Directives Directive None Recorded Payers Encounter Date Sequence Insurance Name Policy Number Policy Hamilton Covered Member ID Hamilton Member ID Guarantor Name 08/05/2024 1 [facility] (MEDICAID REPLACEMENT - HMO) RICHARD Gonzalez [id number] Andrew Gonzalez 08/26/2024 1 [facility] (MEDICAID REPLACEMENT - HMO) JAIRO Andrew Gonzalez [id number] Andrew Gonzalez Notes Date Note Type Note [...] nerve spinal issue CED FOSTER MD [address] [place] [address], [place], [address], [place] - [facility] 08/05/2024 09:55:26 08/26/2024 text/html 24 year old [...] the size and discomfort. CED FOSTER MD [address] [place] [address], [place], [address], [place] - [facility] 08/26/2024 16:54:40 OBGyn Episode No OBEpisode recorded.
--- OUTSIDE RECORDS SUMMARY | 2024-09-03 16:45 | XMS_ITS | Encounter Summary ---
Author Organization [facility] Address [address] [place] [address] Phone Care Team Providers Care Prec[employer] Goods Worker Name Role Phone Ashly Ozuna MD Primary Care Provider [phone] Encounter Details Date Type Department Care Team (Late st Contact Info) Description 02/16/2017 Conversion Encounter [facility] [address] [place] [address] Social History Tobacco Use Types Packs/Day Years [...] on filedocumented in this encounter Care Teams [employer] Worker Relationship Specialty Start Date End Date Ashly Ozuna MD [address] [place] [address] PCP - General Pediatrics 10/25/18 07/21/22 documented as of this encounter
--- OUTSIDE RECORDS SUMMARY | 2024-09-03 16:45 | XMS_ITS | Encounter Summary ---
Author Organization [facility] Address [address] [place] [address] Phone Care Team Providers Care Outreach Coordinator Name Role Phone Ashly Ozuna MD Primary Care Provider [phone] Reason for Visit * Reason Comments Med Refill Encounter Details Date Type Department Care Team (Late st Contact Info) Description 05/01/2020 Refill [facility] [place] [address] [place] [address] Ashly Ozuna MD [address] [place] [address] Vitamin D deficiency Social History Tobacco Use [...] labs. Pt would like to go to [facility] but it was unclear if they had a lab so they were faxed to [phone] and also to [facility] lab. EH * Telephone Encounter - Erasmo [...] deficiency documented in this encounter Care Teams Outreach Coordinator Relationship Specialty Start Date End Date Ashly Ozuna MD [address] [place] [address] PCP - General Pediatrics 10/25/18 07/21/22 documented as of this encounter
--- OUTSIDE RECORDS SUMMARY | 2024-09-03 16:45 | XMS_ITS | Encounter Summary ---
Author Organization [facility] Address [address] [place] [address] Phone Care Team Providers Care Dry Cleaning Machine Operator Helper Name Role Phone Ashly Ozuna MD Primary Care Provider [phone] Encounter Details Date Type Department Care Team (Late st Contact Info) Description 06/19/2014 Documentation [facility] Family Medicine [address] [place], [place] [phone] Family Medicine, Physician [address] [place] [address] Social History Tobacco Use Types Packs/Day Years [...] on filedocumented in this encounter Care Teams Dry Cleaning Machine Operator Helper Relationship Specialty Start Date End Date Ashly Ozuna MD [address] [place] [address] PCP - General Pediatrics 10/25/18 07/21/22 documented as of this encounter
--- OUTSIDE RECORDS SUMMARY | 2024-09-03 16:45 | XMS_ITS | Clinical Summary ---
Author Organization [facility] Address [address] [place] [address] Phone Care Team Providers Care Water Project Manager Name Role Phone Unavailable Primary Care Provider [...] and for housing resources. 02/11/2020 ---- Timothy Distribution Dispatcher Problem Noted Date Diagnosed Date Depression 09/16/2021 Scoliosis concern 07/30/2021 Overview (07/30/2021): 07/24- scoliometer up to 12 degrees Assessment & Plan (09/16/2021 3:18 PM EDT): Hadn't had x-ray done yet, but advised to go to [facility] when she gets vitamin D level drawn. [...] have sent a message to the front desk coordinator to schedule this and she is aware. [...] appt 03/26/[address] Amber Agosto @ [facility], was to f/u in 6 weeks, but [...] EST): I will see if our [facility] can help her more with this (she [...] as she's supporting herself. Aware to contact [facility] [place] [place] if she needs help. Assessment & Plan [...] about her hyperlipidemia, but she's seeing a biomass plant manager through endo already, and this value was [...] with fatty liver. 07/24- last visit by [facility] endo biomass plant manager (last endo visit 03/22, was to f/u in 6 weeks, but no other appts notes from doc) Assessment & Plan (07/30/2021 11:20 AM EST): Overall doing pretty well with healthier choices, which I give her a lot of credit for. I encouraged her to call the biomass plant manager and request more frequent visits as it sounds like this would be helpful for her. Assessment & Plan (03/13/2020 4:57 PM EDT): Doing really well with exercise (going to gym 4x/week, walking 60min esveral days per week) and eating better. Drinking 2% milk instead of whole milk. Recommended [employer] website as she's looking for ideas for [...] (10/14) to help her with relaxation techniques- [employer] message sent to Nikolas. She is to [...] HAs. Will start OCPs as prescribed by Wireless Store Manager, so perhaps that will help. Assessment & [...] Neuro exam normal other than slightly abnormal [id number] on left. Will have her f/u in 1 week to eval this further. Anxiety 08/06/2014 Overview (05/06/2021): Likely also with OCD, but never officially diagnosed. Prozac given in 08/2012 but took for only 1 month. Saw a therapist at [facility]. Then saw Nikolas, our Integrated counselor early 2019 with some improvement. Re-started fluoxetine 11/05/18, stopped 11/15/18 due to thinking it was causing agitation. Trial of sertraline 04/20, stopped after about two weeks due to severe heartburn (also sleep issues). Saw Nikolas several times 2019, transfer to [facility] 04/21? 05/23- worsening anxiety--> hydroxyzine prn [...] her first appt with her new PCP ([facility] [place]) on 05/07/22 and they should take over prescribing at that time (she's aware). She really needs to be seeing a therapist - [facility] list given and I encouraged her to call [facility] and get on multiple waiting lists if [...] have sent a message to our front desk coordinator staff as well as Nikolas to see [...] to calm herself now), will start at [facility] soon. Denies SI. Assessment & Plan (09/27/2019 [...] a month due to perceived SEs). Nikolas, [facility] clinician, saw her today and will see her in f/u (appt scheduled for 07/31/19). She will refer out (likely [facility]) for both counseling and med management, [...] see a therapist here at [facility] at any time. Family history of hepatic [...] a second opinion on this treatment. Immunizations Immunization Administration Dates Next Due COVID-19 Pfizer, bivalent, [...] Completed 08/29/2019, 11/05/2018 Procedures * Due to [place] [employer] law, this organization might not be sharing sensitive test results. Procedure Name Priority Date/Time Associated Diagnosis Comments CHLAMYDIA AND GONORRHEA, AMPLIFIED Routine 07/30/2021 11:26 AM EST Encounter for screening examination for sexually transmitted disease from Last 3 Months or Most Recently Relevant to Health Maintenance Results * Due to [place] [employer] law, this organization might not be sharing sensitive test results. * Chlamydia and Gonorrhoea, Amplified (07/30/2021 11:26 AM EST) Chlamydia Trachomatis, DNA Probe NEGATIVE (NEG) [facility] Comment: No Chlamydia Trachomatis RNA detected in this patient's sample ? (REFERENCE RANGE/NORMAL VALUE: NOT DETECTED) ? Note: This test uses children's minister- mediated amplification method to detect rRNA from C. Trachomatis URINE GC AMP PROBE NEGATIVE (NEG) [facility] Comment: No Neisseria Gonorrhoeae RNA detected in this patient's sample ? (REFERENCE RANGE/NORMAL VALUE: NOT DETECTED) ? NOTE: This test uses children's minister-mediated amplification method to detect rRNA from N.Gonorrhoeae. [...] without risk of sexual abuse. Consult the [facility] if needed. Contact phone number . Therapeutic failure or success cannot be determined with the Aptima Combo2 assay since nucleic acid may persist following appropriate antimicrobial therapy. The Centers for Disease Control and Prevention (CDC) recommends confirmatory retesting using culture or a different nucleic acid amplification test when positive results occur, if indicated. Testing performed or reported by [facility], a Service of [facility], [address] [place] [address] David Adrian MD, Scalp Treatment Operator [facility]# [id number] Urine (Urine) 07/30/2021 11: 26 AM EST 07/30/2021 10:50 PM EST us Ashly Ozuna MD LAB MICROBIOLOGY - GENERAL OR DERABLES Final Result [facility] from Last 3 Months or Most Recently Relevant to Health Maintenance Insurance [facility] NON [facility]
== END 2024-09-03 14:36 | disposition home or self-care (01) ==
PROVIDERS: PCP Nurse Practitioner Family; Referring Provider Nurse Practitioner Family; Visit Provider Nurse Practitioner Family
DX: R06.00 Dyspnea, unspecified (principal); J30.2 Other seasonal allergic rhinitis; K21.9 Gastro-esophageal reflux disease without esophagitis
CPT/HCPCS: 99204

== ENCOUNTER → 2024-09-03 13:22 | Outpatient (BNVA) | payer OTHER, SELFPAY | PROVIDERS: PCP Nurse Practitioner Family; Referring Provider Nurse Practitioner Family; Visit Provider Nurse Practitioner Family | DX: R06.00 Dyspnea, unspecified (principal); J30.2 Other seasonal allergic rhinitis; K21.9 Gastro-esophageal reflux disease without esophagitis | CPT/HCPCS: 99202 ==

== ENCOUNTER 2024-09-04 08:35 | Outpatient (AMB) | payer OTHER, SELFPAY ==
--- NOTE | 2024-09-04 08:47 | A.OFFPC_ITS ---
Vital Signs 3 09/04/24 08:52 Height 5 ft Weight 199 lb BMI 38.9 BP 98/68 Blood Pressure Location Lt brachial Position Sitting Respiration 12 Pulse 90 Pulse Source Pulse Oximeter Temp 97.3 F Temp Source Oral Pulse Oximetry (%) 99 Oxygen Delivery Method Room Air Intake Visit Reasons: EDF, went to [facility] Intake Note: edf and went to [facility], patient also complaining of feeling dizzy, not eating and loosing weight to fast Finishing Range Feeder Required: No Allergies aloe [ALOE] Allergy (Unknown, Verified 09/04/24 08:48) RASH sertraline [SERTRALINE] Allergy (Unknown, Verified 09/04/24 08:48) UNKNOWN shellfish derived Adverse Reaction (Verified 09/04/24 08:48) rash Medication List - Last Reconciled 09/04/24 by Gisel Hartman, AUTOMOTIVE GLASS SPECIALIST- acetaminophen (Tylenol Extra Strength) 1,000 mg PO Q6H PRN albuterol sulfate 90 mcg/actuation (Ventolin HFA) 2 puffs inhalation Q4-6H PRN atorvastatin 20 mg PO BEDTIME cyclobenzaprine 5 mg PO Q8H PRN epinephrine 0.3 mg (0.3 mL) IM Q4H PRN hydroxyzine HCl 25 mg PO BEDTIME PRN lotilaner 0.25% (Xdemvy) drps ophthalmic (eye) lotilaner 0.25% (Xdemvy) 1 drp ophthalmic (eye) Q12H meloxicam 7.5 mg PO DAILY sucralfate (Carafate) 10 mL PO QID PRN tizanidine (Zanaflex) 2 mg (1/2 x 4 mg) PO BID PRN 5 days Tobacco use date assessed: 09/04/24 Dental Screening Dental Screen Date: 09/04/24 Did you have a dental visit in the last 12 months?: Yes Did you have a dental problem in the last 6 months where you did not have access to dental care?: No Was dental information given to patient?: Patient has dentist HPI HPI Comments 2 History of Present Illness0 Details 24-year-old female with hyperlipidemia, subclinical hypothyroidism, seasonal allergies, morbid obesity, chronic GERD, generalized anxiety disorder, migraines without aura, hepatic steatosis with elevated LFTs, mild anemia, MDD, AGUSTINA , vit d def, + TPO Ab History of Present Illness - The patient is a 24-year-old female pr esenting for follow-up after hospital discharge concerning tonsil stones and a possible rupture. - Emergency room assessment excluded an abscess and recommended ENT referral; no intervention was carried out, and self-care advice was provided. - Struggles with dysphagia, dependent on liquids and soft foods, leading to weight loss and suspected nutritional imbalance. - GERD is managed with Omeprazole, initi ally improving eating capacity; however, significant dysphagia remains. On carafate from ED. Active w [facility] GI. FU scheduled. - Discovered ulcer during prior ENT exam ; GERD as possible involvement considered. - Saw [facility] pulm for asthma yesterday. Can not do food allergy testing; can do environmental testing; remains interested in food allergy testing. - Need for food allergy testing due to d ifferential allergies presented during dietary trials, potentially affecting current asthmatic and GERD status. - Advised dietary adjustments include gee bstituting water with electrolytic drinks and introducing protein shakes for nutritive gains. - Current GERD management does not fully mitigate symptoms requiring continuous reassessment. - ENT suggested endoscopy to discern if GERD exacerbates swallowing condition separates tonsillectomy as a measure to consider post-assessment. Review of Systems - Respiratory: Reports asthma. - Gastrointestinal: Reports difficulty s wallowing, weight loss, nasal ulcer, and gastroesophageal reflux disease (GERD). - Ears, Nose & Throat: Reports tonsil st ones, possible tonsil rupture, and ulcer in the nasal cavity. Physical Exam General: Well developed, well nourished, in no acute distress. Appears stated age. Head: Normocephalic, atraumatic. Eyes: Pupils are equal, round and reactive to light and accommodation. Conjunctivae are clear. Vision grossly normal. Mild exophthalmos bilat Nose: Patent, without discharge. Mouth: There are no ulcers or lesions noted. No inflammation, no post nasal drip, no plaques nor exudates. See below. + halitosis Discussion Notes During today's visit, I reviewed the patient's recent concerns with tonsil stones and a possible rupture detected at the emergent care visit. I emphasized the necessity of follow-up with an Ear, Nose, and Throat (ENT) specialist to further examine and potentially manage the tonsil condition. We reviewed the lack of abscess identified previously and reiterated the importance of GERD management, which remains a contributing factor to her swallowing discomfort. I outlined the differentiation in excessive recovery periods for adults post- tonsillectomy as a potential consideration. I facilitated referrals to appropriate specialities, suggested an urgent ENT evaluation, and discussed nutritional approaches, namely protein supplementation and electrolyte use, to substitute her current limited intake due to swallowing difficulties. I encouraged contacting [facility] [place] to streamline follow-up and proposed proceeding to food casket upholsterer evaluation for lingering allergy concerns. I concluded by setting expectations regarding endoscopy for GERD's role in her symptoms. Assessment and Plan 1. Tonsil stones and possible tonsil rup ture: An ENT evaluation is recommneded with a focus on assessing the necessity of tonsil removal due to recurring symptomatic presentations. No abscess was noted previously, and further ENT consultation will ascertain surgical needs, particularly in the context of chronic issues and dysphagia. Refer to [place] is insurance allows for sooner availability. Cx [facility] ENT appt if so, keep me posted on portal. 2. Suspected food allergies: Recommended a formal casket upholsterer review to determine food allergies exacerbating the patient's asthma and dietary experience issues, given her incomplete allergy resolution via the current plan. Refer to [facility] today. 3. Dysphagia/Ulcer/GERD: Managed with di peter guidance, urging protein drink use and electrolytic hydration due to solid food intolerance. Address GERD while observing benefits from Omeprazole, discussing further intervention should problems persist. Cont carafate, refill sent and fu w GI at [facility] 4. Asthma: Asthma control is a priority to ensure that any potential allergenic influences do not further compromise respiratory health. FU with [facility] Pulm, request environmental allergy testing to be done. Patient Instructions - Follow up with ENT promptly to discuss findings and potential tonsillectomy. - Maintain high fluid intake with electr olyte solutions and incorporate protein drinks. - Contact an casket upholsterer for potential cammy d allergy testing. - Monitor for severe aggravation of symp toms, and seek medical attention if necessary. - Follow instructions from today?s visit concerning medication and dietary changes to manage GERD symptoms effectively. Update me on portal RTO as scheduled,sooner PRN Consent Patient was informed and verbally consented to the use of an ambient scribe for clinic note documentation during this visit. Total time spent caring for the patient today was 40 minutes. This includes time spent before the visit reviewing the chart, time spent during the visit, and time spent after the visit on documentation, reviewing laboratory results, diagnostic imaging, medications, performing a medically necessary evaluation, counseling on diagnoses, care coordination, ordering appropriate tests, ordering appropriate medications, review of tests performed by other providers, reporting test results with the patient, communication with other healthcare providers. [facility] Medical History Vitamin D deficiency Subclinical hypothyroidism Neck muscle spasm Anxiety Migraines Hypothyroidism Hypertension Hypercholesteremia Surgical History No pertinent past surgical history Family History Father Hypertension Mother Hepatitis C Hypothyroidism Hypertension Cirrhosis of liver Murmur, cardiac Social History Housing: Apartment Alcohol intake: never Patient Tobacco Use Status: Never used Tobacco e-Cigarette/Vaping Use: Never Used Second Hand Smoke Exposure: No service: No Current occupational status: unemployed Cognitive needs: No Hearing needs: No Vision needs: No Questionnaire PHQ-9 Over the last 2 weeks, how often have you been bothered by any of the following problems? 1. Little interest or pleasure in doing things: several days 2. Feeling down, depressed, or hopeless: several days 3. Trouble falling or staying asleep, or sleeping too much: several days 4. Feeling tired or having little energy: more than half the days 5. Poor appetite or overeating: not at all 6. Feeling bad about yourself - or that you are a failure or have let yourself or your family down: not at all 7. Trouble concentrating on things, such as reading the newspaper or watching television: more than half the days 8. Moving or speaking so slowly that other people could have noticed. Or the opposite - being so fidgety or restless that you have been moving around a lot more than usual: not at all 9. Thoughts that you would be better off or of hurting yourself in some way: not at all Total score: 7 22840 - PHQ-9 Billing: Yes Source: Developed by Drs. Ozzie Allison, Denia Benoit, Ministerio Alarcon and colleagues, with an educational jessica from [employer]. Thrive Questionnaire Date Thrive assessed: 09/04/24 I am a: Patient What is your living situation today?: I have a steady place to live Within the past 12 months, did the food you bought not last and you didn't have the money to get more?: Often true Within the past 12 months, did you worry whether your food would run out before you got money to buy more?: Never true Do you have trouble paying for medicines?: No Do you have trouble getting transportation to medical appointments?: No Do you have trouble paying your heating and electricity bill?: No Do you have trouble taking care of your child, family member or friend?: No Do you have trouble with day-to-day activities such as bathing, preparing meals, shopping, managing finances, etc.?: No Are you currently unemployed and looking for a job?: Yes Are you interested in more education?: Yes Please select the resources that you would like help with: Job search/training Currently or been in a relationship where the following occur: No concerns reported THRIVE Score: 1 AUDIT C Alcohol Use Questionnaire (AUDIT-C) 1. How often do you have a drink containing alcohol?: Never Total Score: 0 AGUSTINA-7 AMB Questionnaire AGUSTINA-7 Date AGUSTINA - 7 assessed: 09/04/24 Feeling nervous, anxious, or on edge: 1 = Several days Not being able to stop or control worryin = More than half the days Worrying too much about different things: 2 = More than half the days Trouble relaxin = Several days Being so restless that it is hard to sit still: 0 = Not at all Becoming easily annoyed or irritable: 1 = Several days Feeling afraid as if something awful might happen: 0 = Not at all Total AGUSTINA-7 score (0-4 normal; 5-9 mild; 10-14 moderate; 15-21 severe): 7 Source: Developed by Drs. Ozzie Allison, Denia Benoit, Ministerio Alarcon and colleagues, with an educational jessica from [employer]. AGUSTINA-7 Assessment Billing AGUSTINA-7 Assessment Tool: AGUSTINA-7 Assessment 16767 Physical exam (Primary Care) Vital Signs: Last Vital Signs Temp 97.3 F 09/04/24 08:52 Pulse 90 09/04/24 08:52 Resp 12 09/04/24 08:52 BP 98/68 09/04/24 08:52 Pulse Ox 99 09/04/24 08:52 Oxygen Delivery Method Room Air 09/04/24 08:52 BMI result Body Mass Index 38.9 Tobacco/Smoking Status: Tobacco use Status Tobacco use date assessed 09/04/24 09/04/24 08:50 Patient Tobacco Use Status Never used Tobacco 09/04/24 08:50 e-Cigarette/Vaping Use Never Used 09/04/24 08:50 PHQ-9: PHQ-9 Score PHQ-9: Total score 7 09/04/24 09:06 Thrive Assessment: Date of Thrive Assessment Date Thrive assessed 09/04/24 09/04/24 08:50 Currently or been in a relationship where the following occur: No concerns reported Coding Level of Care Code Est Pt Level 5 (33208) Complex EM visit Add On G2211 Diagnoses Hospital discharge follow-up Z09 Tonsillar calculus J35.8 Tonsillitis J03.90 Allergy, food Z91.018 Dysphagia, unspecified type R13.10 Dysphagia type: unspecified Seasonal allergies J30.2 Chronic GERD K21.9 Additional Codes AGUSTINA-7 Assessment Billing - AGUSTINA-7 Assessment Tool: AGUSTINA-7 Assessment 99308 ([id number]) PHQ-9 - 54331 - PHQ-9 Billing: Yes ([id number]) Assessment & Plan Assessment & Plan (1) Hospital discharge follow-up: Code(s): Z09 - Encounter for follow-up examination after completed treatment for conditions other than malignant neoplasm (2) Tonsillar calculus: Code(s): J35.8 - Other chronic diseases of tonsils and adenoids Category: Medical (3) Tonsillitis: Code(s): J03.90 - Acute tonsillitis, unspecified Category: Medical (4) Allergy, food: Code(s): Z91.018 - Allergy to other foods Category: Medical (5) Dysphagia: Code(s): R13.10 - Dysphagia, unspecified Category: Medical Qualifiers: Dysphagia type: unspecified Qualified Code(s): R13.10 - Dysphagia, unspecified (6) Seasonal allergies: Code(s): J30.2 - Other seasonal allergic rhinitis Category: Medical (7) Chronic GERD: Code(s): K21.9 - Gastro-esophageal reflux disease without esophagitis Category: Medical Plan . Orders: Referrals 2 Ear/Nose/Throat Referral J03.90 - Acute tonsillitis, unspecified, J35.8 - Other chronic diseases of tonsils and adenoids Allergy & Immunology Referral Z91.018 - Allergy to other foods Medications: Refilled 2 sucralfate (Carafate) swish in mouth and swallow; use after food/drink 10 mL PO QID PRN 400 mL 0RF gerd
[2024-09-04 08:52] VITALS: BP 98/68; PULSE 90; RESP 12; TEMP 36.3; O2SAT 99; BMI 38.9
--- OUTSIDE RECORDS SUMMARY | 2024-09-04 09:11 | XMS_ITS | Encounter Summary ---
Author Organization [facility] Address [address] [place] [address] Phone Care Team Providers Care Electronic Intelligence Officer Name Role Phone Ashly Ozuna MD Primary Care Provider [phone] Encounter Details Date Type Department Care Team (Late st Contact Info) Description 06/19/2014 Documentation [facility] [place] [address] [place], [place] [id number] Family Medicine, Physician [address] [place] [address] Social History Tobacco Use Types Packs/Day Years [...] on filedocumented in this encounter Care Teams Electronic Intelligence Officer Relationship Specialty Start Date End Date Ashly Ozuna MD [address] [place] [address] PCP - General Pediatrics 10/25/18 07/21/22 documented as of this encounter
--- OUTSIDE RECORDS SUMMARY | 2024-09-04 09:11 | XMS_ITS | Encounter Summary ---
Author Organization [facility] Address [address] [place] [address] Phone Care Team Providers Care District Plant Superintendent Name Role Phone Ashly Ozuna MD Primary Care Provider [phone] Reason for Visit * Reason Comments Med Refill Encounter Details Date Type Department Care Team (Late st Contact Info) Description 11/14/2021 Refill [facility] [place] [address] [place] [address] Ashly Ozuna MD [address] [place] [address] Vitamin D deficiency; Depression, unspecified depression type [...] and ask her to go to a [facility] lab to have her vitamin D [...] type documented in this encounter Care Teams District Plant Superintendent Relationship Specialty Start Date End Date Ashly Ozuna MD [address] [place] [address] PCP - General Pediatrics 10/25/18 07/21/22 documented as of this encounter
--- OUTSIDE RECORDS SUMMARY | 2024-09-04 09:11 | XMS_ITS | Encounter Summary ---
Author Organization [facility] Address [address] [place] [address] Phone Care Team Providers Care Laborer Pullet Farm Name Role Phone Ashly Ozuna MD Primary Care Provider [phone] Reason for Visit * Reason Comments Med Refill Encounter Details Date Type Department Care Team (Late st Contact Info) Description 05/01/2020 Refill [facility] [place] [address] [place] [address] Ashly Ozuna MD [address] [place] [address] Vitamin D deficiency Social History Tobacco Use [...] labs. Pt would [facility] to go [facility] but it was unclear if they had a lab so they were faxed to [phone] and also to [facility] [place]. EH * Telephone Encounter - Erasmo [...] deficiency documented in this encounter Care Teams Laborer Pullet Farm Relationship Specialty Start Date End Date Ashly Ozuna MD [address] [place] [address] PCP - General Pediatrics 10/25/18 07/21/22 documented as of this encounter
--- OUTSIDE RECORDS SUMMARY | 2024-09-04 09:11 | XMS_ITS | Encounter Summary ---
Author Organization [facility] Address [address] [place] [address] Phone Care Team Providers Care Facilities Project Manager Name Role Phone Ashly Ozuna MD Primary Care Provider [phone] Encounter Details Date Type Department Care Team (Late st Contact Info) Description 02/16/2017 Conversion Encounter [facility] [address] [place] [address] Social History Tobacco Use Types Packs/Day Years [...] on filedocumented in this encounter Care Teams Facilities Project Manager Relationship Specialty Start Date End Date Ashly Ozuna MD [address] [place] [address] PCP - General Pediatrics 10/25/18 07/21/22 documented as of this encounter
--- OUTSIDE RECORDS SUMMARY | 2024-09-04 09:11 | XMS_ITS | Clinical Summary ---
Author Organization [facility] it[facility] Address [address] [place] [address] Care Team Providers Care Health Insurance Sales Agent Name Role Phone Unavailable Primary Care Provider [...]
--- OUTSIDE RECORDS SUMMARY | 2024-09-04 09:11 | XMS_ITS | Encounter Summary ---
Author Organization [facility] Address [address] [place] [address] Phone Care Team Providers Care Stage Technician Name Role Phone Ashly Ozuna MD Primary Care Provider [phone] Reason for Visit * Reason Comments Med Refill Encounter Details Date Type Department Care Team (Late st Contact Info) Description 12/02/2018 Refill [facility] [place] [address] [place] [address] Ashly Ozuna MD [address] [place] [address] Anxiety Social History Tobacco Use Types Packs/Day [...] unspecified documented in this encounter Care Teams Stage Technician Relationship Specialty Start Date End Date Ashly Ozuna MD [address] [place] [address] PCP - General Pediatrics 10/25/18 07/21/22 documented as of this encounter
--- OUTSIDE RECORDS SUMMARY | 2024-09-04 09:11 | XMS_ITS | Clinical Summary ---
Author Organization [facility] Address [address] [place] [address] Phone Care Team Providers Care Information Technology Security Manager Name Role Phone Unavailable Primary Care [...] and for housing resources. 02/11/2020 ---- Timothy Resin Painter Problem Noted Date Diagnosed Date Depression 09/16/2021 Scoliosis concern 07/30/2021 Overview (07/30/2021): 07/24- scoliometer up to 12 degrees Assessment & Plan (09/16/2021 3:18 PM EDT): Hadn't had x-ray done yet, but advised to go to [facility] when she gets vitamin D level [...] I have sent a message to the assistant front desk manager to schedule this and she is [...] appt 03/26/[address] Amber Agosto @ [facility], was to f/u in 6 weeks, but [...] AM EST): I will see if our [facility] can help her more with [...] as she's supporting herself. Aware to contact [facility] if she needs help. Assessment & Plan [...] about her hyperlipidemia, but she's seeing a it support technician through endo already, and this value was [...] with fatty liver. 07/24- last visit by [facility] endo it support technician (last endo visit 03/22, was to f/u in 6 weeks, but no other appts notes from doc) Assessment & Plan (07/30/2021 11:20 AM EST): Overall doing pretty well with healthier choices, which I give her a lot of credit for. I encouraged her to call the it support technician and request more frequent visits as it sounds like this would be helpful for her. Assessment & Plan (03/13/2020 4:57 PM EDT): Doing really well with exercise (going to gym 4x/week, walking 60min esveral days per week) and eating better. Drinking 2% milk instead of whole milk. Recommended [employer] website as she's looking for ideas for [...] (10/14) to help her with relaxation techniques- [employer] message sent to Nikolas. She is to [...] HAs. Will start OCPs as prescribed by Drinking Water Technician, so perhaps that will help. Assessment & [...] Neuro exam normal other than slightly abnormal ixwzbv-jzms-lrcugx on left. Will have her f/u in 1 week to eval this further. Anxiety 08/06/2014 Overview (05/06/2021): Likely also with OCD, but never officially diagnosed. Prozac given in 08/2012 but took for only 1 month. Saw a therapist at [place] [facility] ([facility]). Then saw Nikolas, our Integrated counselor early 2019 with some improvement. Re-started fluoxetine 11/05/18, stopped 11/15/18 due to thinking it was causing agitation. Trial of sertraline 04/20, stopped after about two weeks due to severe heartburn (also sleep issues). Saw Nikolas several times 2019, transfer to [facility] 04/21? 05/23- worsening anxiety--> hydroxyzine prn prescribed, [...] her first appt with her new PCP ([facility] [place]) on 05/07/22 and they should take over prescribing at that time (she's aware). She really needs to be seeing a therapist - [facility] list given and I encouraged her to call [facility] and get on multiple waiting lists if [...] I have sent a message to our assistant front desk manager staff as well as Nikolas to [...] to calm herself now), [place] at [facility] [place]. Denies SI. Assessment & Plan (09/27/2019 [...] a month due to perceived SEs). Nikolas, [facility] clinician, saw her today and will see her in f/u (appt scheduled for 07/31/19). She will refer out (likely [facility]) for both counseling and med management, and [...] she can see a therapist here at [facility] at any time. Family history of hepatic [...] Completed 08/29/2019, 11/05/2018 Procedures * Due to [place] [employer] law, this organization might not be sharing sensitive test results. Procedure Name Priority Date/Time Associated Diagnosis Comments CHLAMYDIA AND GONORRHEA, AMPLIFIED Routine 07/30/2021 11:26 AM EST Encounter for screening examination for sexually transmitted disease from Last 3 Months or Most Recently Relevant to Health Maintenance Results * Due to [place] [employer] law, this organization might not be sharing sensitive test results. * Chlamydia and Gonorrhoea, Amplified (07/30/2021 11:26 AM EST) Chlamydia Trachomatis, DNA Probe NEGATIVE (NEG) [facility] Comment: No Chlamydia Trachomatis RNA detected in this patient's sample ? (REFERENCE RANGE/NORMAL VALUE: NOT DETECTED) ? Note: This test uses sheeter helper- mediated amplification method to detect rRNA from C. Trachomatis URINE GC AMP PROBE NEGATIVE (NEG) [facility] Comment: No Neisseria Gonorrhoeae RNA detected in this patient's sample ? (REFERENCE RANGE/NORMAL VALUE: NOT DETECTED) ? NOTE: This test uses sheeter helper-mediated amplification method to detect rRNA from N.Gonorrhoeae. [...] without risk of sexual abuse. Consult the [facility] if needed. Contact phone number . Therapeutic failure or success cannot be determined with the Aptima Combo2 assay since nucleic acid may persist following appropriate antimicrobial therapy. The Centers for Disease Control and Prevention (CDC) recommends confirmatory retesting using culture or a different nucleic acid amplification test when positive results occur, if indicated. Testing performed or reported by [facility], a Service of [facility], [address] [place] [address] David Adrian MD, Digitizer Operator [facility]# [id number] Urine (Urine) 07/30/2021 11: 26 AM EST 07/30/2021 10:50 PM EST us Ashly Ozuna MD LAB MICROBIOLOGY - GENERAL OR DERABLES Final Result [facility] from Last 3 Months or Most Recently Relevant to Health Maintenance Insurance [facility] NON PCC [place] [facility]
== END 2024-09-04 09:20 | disposition home or self-care (01) ==
PROVIDERS: PCP Nurse Practitioner Family; Visit Provider Nurse Practitioner Family
DX: Z09 Encounter for follow-up examination after completed treatment for conditions other than malignant neoplasm (principal); J35.8 Other chronic diseases of tonsils and adenoids; J03.90 Acute tonsillitis, unspecified; Z91.018 Allergy to other foods; R13.10 Dysphagia, unspecified; J30.2 Other seasonal allergic rhinitis; K21.9 Gastro-esophageal reflux disease without esophagitis

== ENCOUNTER → 2024-09-04 08:35 | Outpatient (BNVA) | payer OTHER, SELFPAY | PROVIDERS: PCP Nurse Practitioner Family; Visit Provider Nurse Practitioner Family | DX: Z09 Encounter for follow-up examination after completed treatment for conditions other than malignant neoplasm (principal); J35.8 Other chronic diseases of tonsils and adenoids; J03.90 Acute tonsillitis, unspecified; R13.10 Dysphagia, unspecified; Z91.018 Allergy to other foods; J30.2 Other seasonal allergic rhinitis; K21.9 Gastro-esophageal reflux disease without esophagitis | CPT/HCPCS: 96127; 99212 ==

== ENCOUNTER 2024-09-10 09:15 | Outpatient (REF) | payer OTHER, SELFPAY ==
--- NOTE | ~2024-09-10 | FL_ITS ---
EXAMINATION: XR BARIUM SWALLOW CLINICAL INFORMATION: Surgical reflux disease without esophagitis. COMPARISON: None available. TECHNIQUE: Routine barium swallow was performed in upright view following oral administration of thick barium and barium coated crackers. Patient was placed prone with oral administration of thin barium. Fluoroscopy images were obtained. FINDINGS: Lateral administration of thick barium there is normal propagation of bolus from the oral cavity through the pharynx, esophagus and the stomach without any obstruction, narrowing or extrinsic compression. On oral administration of barium coated solid food/saltine crackers coated with barium there is delayed oral mastication and delayed swallowing of solid food in small quantities. Patient was given water to swallow remaining solid food. On placing patient prone lying and oral administration of thin barium there is rapid transit of thin barium from the oral cavity through the pharynx, esophagus and stomach without reflux or hiatal hernia. FLUOROSCOPY TIME: 2 minutes 8 seconds DOSE AREA PRODUCT: 1217 uGy-m2 (microgray-meter squared) FL/FL barium swallow IMPRESSION: Initially patient was adamant that patient could not swallow food unless water was administered subsequently. However on oral administration of thick barium in upright and thin barium in prone views there is normal propagation bolus from the oral cavity through the pharynx, esophagus and stomach without obstruction, narrowing or extrinsic compression. On oral administration of solid food coated with barium there is significant delay in the oral mastication and swallowing. This could be secondary to dry mouth or patient's feeling of food getting stuck. No such obstruction was seen. This could be secondary to dryness in the mouth or a personal feeling. Correlate with clinical exam. Electronically signed by: Scar Barillas MD 09/10/2024 01:10 PM EDT
--- NOTE | ~2024-09-10 | XR_ITS ---
EXAMINATION: XR CHEST 2 VIEWS HISTORY: R06.00 - Dyspnea, unspecified COMPARISON: Comparison is made with the prior examination dated 12/18/2022. FINDINGS: PA and lateral views of the chest are submitted. The lungs are expanded and clear. There is no pleural effusion, pneumothorax, or pulmonary vascular congestion. The heart is normal in size. The bones are intact. XR/XR chest 2V IMPRESSION: No acute cardiopulmonary abnormality. Electronically signed by: Ozzie Yan MD 09/10/2024 01:20 PM EDT
--- OUTSIDE RECORDS SUMMARY | 2024-09-10 10:21 | XMS_ITS | Data Portability ---
Author Organization [place] [facility], Allergy Address [address] [address] Care Team Providers Care Back Up Scan Coordinator Name Role Phone IRVING OROZCO Primary [...] concern of allergic rhinitis, poorly controlled with voba-fgy-ekzmvlx and prescription medications. Offered allergy skin testing. [...] Allergy Test 2024 02:30P M [facility] Not available Not available Not available Test [...] and Address Organization Details Recorded Time Dysphagia 07422911 Active 2024 CED FOSTER MD [address] [place] [address] [place], [address], [facility] - [facility] 09:51:12 Allergic rhinitis 54699529 Active 2024 CED FOSTER MD [address] [place] [address], [facility] [place], [address], [facility] - [facility] 5 09:51:28 Non-allergi c rhinitis 966058664448 Active 2024 CED FOSTER MD 100 [facility], [address], [facility] [place], [address], [facility] - [facility] 09:51:28 Seasonal allergic rhinitis 663398112 Active 2024 CED FOSTER MD 100 [facility], E 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, [facility] [place], [address], [facility] - [facility] 14:41:43 Hypertrophy of tonsils 52680560 Active 2024 BELLA LIM PA-C 100 [facility],[place] [address], [place], [address], [facility] - [facility] 14:42:38 Problem Notes None recorded. Procedures Surgical History Date Name Laterality Status Provider Name and Address Organization Details Recorded Time 08/05/2024 FOL_DP completed CED FOSTER MD [address], [address], [facility] - [facility] 08/05/2024 09:50:42 Imaging Results None recorded. [...] Address Organization Details Last Updated DateTime 08/05/2024 41824.25 g 36 kg/m2 160.02 cm CED FOSTER MD [address] [place] [address], [address], [place] [facility] 08/05/2024 09:37:18 Date Recorded Body height Body mass index (BMI) Body weight Provider Name and Address Organization Details Last Updated DateTime 08/26/2024 152.4 cm 39.6 kg/m2 [address]891.[address] [facility] 08/26/2024 13:17:28 Social History None recorded. Functional Status None recorded. Mental Status None recorded. Family History Nothing Reported. Medical History No medical history recorded. Gynecological HistoryNo gynecological history recorded. Obstetrics History GPAL:G 0 P 0 0 0 0 Past Encounters Encounter ID Performer Location Encounter Start Date Encounter Closed Date Diagnosis/Indication Diagnosis SNOMED-CT Code Diagnosis ICD10 Code Diagnosis Note [id number] CED FOSTER MD [facility] [address] [address] 08/05/2024 09:27:00 08/05/2024 11:31:49 Dysphagia 14862789 R13.10 Allergic rhinitis 489582 04 J30.9 [id number] CED FOSTER MD [facility] [address] [facility] [place] [address] 08/26/2024 13:05:18 08/27/2024 07:42:41 Amygdalolith 2513438 J35.8 Hypertroph y of tonsils 52279020 J35.1 Health Concerns Section Related Observation LastModified by Organization Detai ls LastModified Time None Recorded Concern Status LastModified by Organization Details LastModified Time None Recorded Advance Directives Directive None Recorded Payers Encounter Date Sequence Insurance Name Policy Number Policy [place] Covered Member ID Hamilton Member ID Guarantor Name 08/05/2024 1 [facility] (MEDICAID REPLACEMENT - HMO) RICHARD Gonzalez [id number] Andrew Gonzalez 08/26/2024 1 [facility] (MEDICAID REPLACEMENT - HMO) JAIRO Andrew Gonzalez [id number] Andrew Gonzalez Notes Date Note Type Note [...] nerve spinal issue CED FOSTER MD [address] [place] [address], [place], [address], [place] [facility] 08/05/2024 09:55:26 08/26/2024 text/html 24 year old [...] the size and discomfort. CED FOSTER MD [address] [place] [address], [place], [address], [place] [facility] 08/26/2024 16:54:40 OBGyn Episode No OBEpisode recorded.
--- OUTSIDE RECORDS SUMMARY | 2024-09-10 10:21 | XMS_ITS | Encounter Summary ---
Author Organization [facility] Address [address] [place] [address] Phone Care Team Providers Care Botany Laboratory Assistant Name Role Phone Ashly Ozuna MD Primary Care Provider [phone] Reason for Visit * Reason Comments Med Refill Encounter Details Date Type Department Care Team (Late st Contact Info) Description 11/14/2021 Refill [facility] [address] [place] [address] Ashly Ozuna MD [address] [place] [address] Vitamin D deficiency; Depression, unspecified depression type [...] and ask her to go to a [facility] lab to have her vitamin D [...] type documented in this encounter Care Teams Botany Laboratory Assistant Relationship Specialty Start Date End Date Ashly Ozuna MD [address] [place] [address] PCP - General Pediatrics 10/25/18 07/21/22 documented as of this encounter
--- OUTSIDE RECORDS SUMMARY | 2024-09-10 10:21 | XMS_ITS | Encounter Summary ---
Author Organization [facility] Address [address] [place] [address] Phone Care Team Providers Care Speech Correction Consultant Name Role Phone Ashly Ozuna MD Primary Care Provider [phone] Encounter Details Date Type Department Care Team (Late st Contact Info) Description 06/19/2014 Documentation [facility] Family Medicine [address] [place], [place] [id number] Family Medicine, Physician [address] [place] [address] Social History Tobacco Use Types Packs/Day Years [...] on filedocumented in this encounter Care Teams Speech Correction Consultant Relationship Specialty Start Date End Date Ashly Ozuna MD [address] [place] [address] PCP - General Pediatrics 10/25/18 07/21/22 documented as of this encounter
--- OUTSIDE RECORDS SUMMARY | 2024-09-10 10:21 | XMS_ITS | Encounter Summary ---
Author Organization [facility] Address [address] [place] [address] Phone Care Team Providers Care Blow Molding Machine Tender Name Role Phone Ashly Ozuna MD Primary Care Provider [phone] Encounter Details Date Type Department Care Team (Late st Contact Info) Description 02/16/2017 Conversion Encounter [facility] [address] [place] [address] Social History Tobacco Use Types Packs/Day Years [...] on filedocumented in this encounter Care Teams Blow Molding Machine Tender Relationship Specialty Start Date End Date Ashly Ozuna MD [address] [place] [address] PCP - General Pediatrics 10/25/18 07/21/22 documented as of this encounter
--- OUTSIDE RECORDS SUMMARY | 2024-09-10 10:21 | XMS_ITS | Clinical Summary ---
Author Organization [facility] Address [address] [place] [address] Phone Care Team Providers Care Print Cutter Name Role Phone Unavailable Primary Care Provider [...] and for housing resources. 02/11/2020 ---- Timothy Turfgrass Technician Problem Noted Date Diagnosed Date Depression 09/16/2021 Scoliosis concern 07/30/2021 Overview (07/30/2021): 07/24- scoliometer up to 12 degrees Assessment & Plan (09/16/2021 3:18 PM EDT): Hadn't had x-ray done yet, but advised to go to [facility] when she gets vitamin D level [...] have sent a message to the front elevator operator to schedule this and she is aware. [...] appt 03/26/[address] Amber Agosto [place] [facility], was to f/u in 6 weeks, [...] AM EST): I will see if our [facility] can help her more with this [...] as she's supporting herself. Aware to contact [facility] if she needs help. Assessment & Plan [...] about her hyperlipidemia, but she's seeing a warehouse shift supervisor through endo already, and this value was [...] with fatty liver. 07/24- last visit by [facility] endo warehouse shift supervisor (last endo visit 03/22, was to f/u in 6 weeks, but no other appts notes from doc) Assessment & Plan (07/30/2021 11:20 AM EST): Overall doing pretty well with healthier choices, which I give her a lot of credit for. I encouraged her to call the warehouse shift supervisor and request more frequent visits as it sounds like this would be helpful for her. Assessment & Plan (03/13/2020 4:57 PM EDT): Doing really well with exercise (going to gym 4x/week, walking 60min esveral days per week) and eating better. Drinking 2% milk instead of whole milk. Recommended [employer] website as she's looking for ideas for [...] (10/14) to help her with relaxation techniques- [employer] message sent to Nikolas. She is to [...] HAs. Will start OCPs as prescribed by Outpatient Physical Therapist Assistant, so perhaps that will help. Assessment & [...] Neuro exam normal other than slightly abnormal tphusj-faod-nsyqqz on left. Will have her f/u in 1 week to eval this further. Anxiety 08/06/2014 Overview (05/06/2021): Likely also with OCD, but never officially diagnosed. Prozac given in 08/2012 but took for only 1 month. Saw a therapist at [place]. Then saw Nikolas, our Integrated counselor early [...] her first appt with her new PCP ([facility] [place]) on 05/07/22 and they should take over prescribing at that time (she's aware). She really needs to be seeing a therapist - [facility] list given and I encouraged her to call [facility] and get on multiple waiting lists if needed. Assessment & Plan (09/16/2021 3:23 PM EDT): Anderw would like to try increasing the dose [...] have sent a message to our front elevator operator staff as well as Nikolas to see [...] to calm herself now), will start at [facility] soon. Denies SI. Assessment [...] a month due to perceived SEs). Nikolas, [facility] clinician, saw her today and will [...] she can see a therapist here at [facility] at any time. Family history of [...] Completed 08/29/2019, 11/05/2018 Procedures * Due to [place] [employer] law, this organization might not be sharing sensitive test results. Procedure Name Priority Date/Time Associated Diagnosis Comments CHLAMYDIA AND GONORRHEA, AMPLIFIED Routine 07/30/2021 11:26 AM EST Encounter for screening examination for sexually transmitted disease from Last 3 Months or Most Recently Relevant to Health Maintenance Results * Due to [place] [employer] law, this organization might not be sharing sensitive test results. * Chlamydia and Gonorrhoea, Amplified (07/30/2021 11:26 AM EST) Chlamydia Trachomatis, DNA Probe NEGATIVE (NEG) [facility] Comment: No Chlamydia Trachomatis RNA detected in this patient's sample ? (REFERENCE RANGE/NORMAL VALUE: NOT DETECTED) ? Note: This test uses sleep tech- mediated amplification method to detect rRNA from C. Trachomatis URINE GC AMP PROBE NEGATIVE (NEG) [facility] Comment: No Neisseria Gonorrhoeae RNA detected in this patient's sample ? (REFERENCE RANGE/NORMAL VALUE: NOT DETECTED) ? NOTE: This test uses sleep tech-mediated amplification method to detect rRNA from N.Gonorrhoeae. [...] without risk of sexual abuse. Consult the [facility] if needed. Contact phone number . Therapeutic failure or success cannot be determined with the Aptima Combo2 assay since nucleic acid may persist following appropriate antimicrobial therapy. The Centers for Disease Control and Prevention (CDC) recommends confirmatory retesting using culture or a different nucleic acid amplification test when positive results occur, if indicated. Testing performed or reported by [facility], a Service of [facility], [address] [place] [address] David Adrian MD, Transfusion Nurse [facility]# [id number] Urine (Urine) 07/30/2021 11: 26 AM EST 07/30/2021 10:50 PM EST us Ashly Ozuna MD LAB MICROBIOLOGY - GENERAL OR DERABLES Final Result [facility] from Last 3 Months or Most Recently Relevant to Health Maintenance Insurance [facility] NON PCC [place] [facility]
--- OUTSIDE RECORDS SUMMARY | 2024-09-10 10:21 | XMS_ITS | Encounter Summary ---
Author Organization [facility] Address [address] [place] [address] Phone Care Team Providers Care Heater Helper Name Role Phone Ashly Ozuna MD Primary Care Provider [phone] Reason for Visit * Reason Comments Med Refill Encounter Details Date Type Department Care Team (Late st Contact Info) Description 12/02/2018 Refill [facility] [place] [address] [place] [address] Ashly Ozuna MD [address] [place] [address] Anxiety Social History Tobacco Use Types Packs/Day [...] unspecified documented in this encounter Care Teams Heater Helper Relationship Specialty Start Date End Date Ashly Ozuna MD [address] [place] [address] PCP - General Pediatrics 10/25/18 07/21/22 documented as of this encounter
--- OUTSIDE RECORDS SUMMARY | 2024-09-10 10:21 | XMS_ITS | Clinical Summary ---
Author Organization [facility] ity Address [address] [place] [address] Care Team Providers Care Clinic Assistant Name Role Phone Unavailable Primary Care Provider [...]
--- OUTSIDE RECORDS SUMMARY | 2024-09-10 10:21 | XMS_ITS | Encounter Summary ---
Author Organization [facility] Address [address] [place] [address] Phone Care Team Providers Care Controlled Atmospheric Furnace Brazer Name Role Phone Ashly Ozuna MD Primary Care Provider [phone] Reason for Visit * Reason Comments Med Refill Encounter Details Date Type Department Care Team (Late st Contact Info) Description 05/01/2020 Refill [facility] [place] [address] [place] [address] Ashly Ozuna MD [address] [place] [address] Vitamin D deficiency Social History Tobacco Use [...] labs. Pt would like to go to [facility] but it was unclear if they had a lab so they were faxed to [phone] and also to [facility] lab. EH * Telephone Encounter - Erasmo [...] deficiency documented in this encounter Care Teams Controlled Atmospheric Furnace Brazer Relationship Specialty Start Date End Date Ashly Ozuna MD [address] [place] [address] PCP - General Pediatrics 10/25/18 07/21/22 documented as of this encounter
== END 2024-09-10 09:16 | disposition home or self-care (01) ==
LOC: HO.XRAY 09:15
PROVIDERS: PCP Nurse Practitioner Family; Visit Provider Internal Medicine
DX: K21.9 Gastro-esophageal reflux disease without esophagitis (principal); R06.00 Dyspnea, unspecified
CPT/HCPCS: 71046; 74220

== ENCOUNTER → 2024-09-10 09:18 | Outpatient (BNV) | payer OTHER, SELFPAY | PROVIDERS: PCP Nurse Practitioner Family; Visit Provider Radiology Diagnostic Radiology | DX: K21.9 Gastro-esophageal reflux disease without esophagitis (principal); R06.00 Dyspnea, unspecified | CPT/HCPCS: 71046; 74221 ==

== ENCOUNTER 2024-09-27 09:42 | Outpatient (AMB) | payer OTHER, SELFPAY ==
--- NOTE | 2024-09-27 10:11 | MHC.OFFVIS ---
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 She reports an increase in pain localized to the left ribs and sharp pains radiating to arms and feet, alongside chronic and progressive mid-back pain, particularly between shoulder blades. The pain has become more constant, impacting her ability to maintain regular work, necessitating frequent breaks. Thoracic MRI showed moderate disc space narrowing and endplate degenerative change between T5 and T9 which correlates with her increased pain with bending or twisting or trying to sit upright. There is no significant central canal stenosis or neural foraminal narrowing noted. Previously diagnosed neck pain worsened after physical therapy and the use of a cervical traction machine aggravated her condition, adding to mid-back pain. Notably, the patient observed a frequent cracking sensation in her shoulder blade area, which she suspects as contributing to current discomfort. Furthermore, the patient has experienced atypical chest pain with dizziness and dyspnea, acknowledged to be non-cardiac in origin following thorough investigations. There are concurrent gastrointestinal issues such as GERD and dysphasia, for which she has been under regular GI evaluation. She also reports challenges with swallowing and has undergone a recent barium swallow to further evaluate this symptom. Patient is also scheduled for upper endoscopy on 10/10/24 to further evaluate epigastric pain. - Onset and Timing: Chronic, constant mid-back pain; recent escalation in intensity; origin in past fall (years ago) - Quality and Character: Sharp pains in arms and feet; cracking in shoulder blade; constant pressure in mid-back; increased pain frequency - Primary Location: Mid thoracic spine; left ribs - Radiation: Pain radiating to arms and feet - Exacerbating Factors: Physical therapy; cervical traction - Relieving Factors: Frequent breaks; crouching instead of bending - Interference: Unable to work regularly; requires frequent rest breaks PRIOR: Patient presents today for follow up to review recent thoracic and cervical spine xray results. She continues to endorse neck pain with movements and upper mid back pain with radicular symptoms. She experiences atypical chest pains, dizziness and shortness of breaths. Reports having multiple ER visits for this with negative cardiac work up. Patient was seen by GI provider for GERD, obesity, dysphagia and fatty liver. She has Barrium swallow scheduled for next month. Patient is interested to proceed with Pulmonology evaluation as she reports frequent rib pain with breathing. She had multiple chest xrays and ER visits [id number] which were unremarkable. Denies any recent cough, cold, infection, fever or any other significant changes in medical history since last office visit. PRIOR: Patient presents today for follow-up for persistent neck pain and worsening symptoms after completing physical therapy. She reports significant improvement with PT with initial symptoms up until the past few sessions where she tried cervical traction machine which exacerbated her neck pain on the right side. She went to [facility] for increasing neck pain on 04/10/24 and was prescribed cyclobenzaprine that she has not tried yet. Patient reports significant muscle stiffness and spasm with limited range of motion with lateral rotations and bending on the right. She has full range of motion to the left, extension and flexion. Denies any numbness, tingling, paresthesias, or weakness in the upper or lower extremities. She does reports the neck pain radiates to her mid back and shoulder blades since exacerbation neck pain with cervical traction device. Denies any recent cough, cold, infection, fever or other significant changes in medical history since last office visit. PT Discharge Summary Date of Evaluation: 02/21/24 Date of Discharge: 05/01/24 Treatments to Date: 9 Cancellations to Date: 0 No Shows to Date: 0 Discharge Status: Patient Elected to Stop Recommend MD Follow-up Discharge Summary: 03/28: Patient with continued pains. She does demo normal cervical ROM. Today we talked about DCing due to constant pains still. She is to see pain management again. Overall, we have tried very gentle stretching and strengthening, manual soft tissue work, postural education, relaxation techniques and very gentle cervical traction (manual and mechanical). Plan to DC due to lack of progress being made. She did want to try the traction machine because she said it helped the last time, however did not feel the same the second time. It was noted that the patient has been anxious in regards to her symptoms throughout her physical therapy course/past years of work related trauma and may benefit from a referral to speak with a trained mental health professional about her symptoms. She has an HEP to continue on her own in the mean time. We provided education on the benefits of exercise. [facility] Medical History Vitamin D deficiency Subclinical hypothyroidism Neck muscle spasm Anxiety Migraines Hypothyroidism Hypertension Hypercholesteremia Surgical History No pertinent past surgical history Family History Father Hypertension Mother Hepatitis C Hypothyroidism Hypertension Cirrhosis of liver Murmur, cardiac Social History Housing: Apartment Alcohol intake: never Patient Tobacco Use Status: Never used Tobacco e-Cigarette/Vaping Use: Never Used Second Hand Smoke Exposure: No service: No Current occupational status: unemployed Cognitive needs: No Hearing needs: No Vision needs: No Review of Systems Const All systems reviewed & are unremarkable except as noted in HPI and below Physical Exam Vital Signs: Last Vital Signs Pulse 90 09/27/24 10:15 BP 178/85 H 09/27/24 10:15 Pulse Ox 99 09/27/24 10:15 Oxygen Delivery Method Room Air 09/27/24 10:15 BMI result Body Mass Index 38.7 General: Appears afebrile. Alert and oriented. Mood and affect appropriate. Follows and participates in conversation appropriately. Respiratory effort is unlabored. No cough. Able to transition from sit to stand unassisted. Ambulates with bilaterally normal heel strike and toe off. Neck Other: Patient with decreased cervical ROM with lateral rotation and bending. Cervical extension and does not reproduce pain. 2 + radial pulses. Significant tightness throughout left upper trapezius as well as TTP throughout bilateral upper trapezius muscles. No paravertebral tenderness over facet joints bilaterally. Multiple taut bands palpated throughout bilateral upper trapezius muscles. Neck: Yes normal visual inspection, Yes full ROM (limited on the right), Yes no lymphadenopathy, Yes no meningeal signs, Yes supple, No anterior neck swelling, No torticollis, Yes no JVD and Yes prominent dorsocervical fat pad General: Yes no CVA tenderness Back/Spine/Pelvis Back: no CVA tenderness Cervical Spine: loss of normal cervical lordosis, cervical muscular tenderness, pain with cervical ROM, No Cervical spine scars present, cervical spasm, No Cervical spine tenderness and No step off deformity Thoracic/Lumbar Spine: thoracic and lumbar spine normal to inspection, No Thoracic/lumbar spine scar(s), Lasegue's sign negative, straight leg raise negative bilaterally, pain with thoraco-lumbar ROM, paraspinal muscle tenderness, thoraco-lumbar ROM limited, thoracic spinal tenderness (mid to lower thoracic, left>right) and lumbar spinal tenderness at L4 and at L5 Sacroiliac joints: bilaterally tender to palpation Neuro General: no meningeal signs Psych Appearance: grossly normal Mental Status: mental status grossly normal Speech and movement: Normal speech and movement present Affect: normal affect and Sad affect present Attitude: cooperative Thought process: Normal thought process present Thought content: Normal thought content present, suicidality, no hallucinations and Depressive thoughts present Insight: Good insight present (Psych) Judgement: Good judgement present (Psych) Results Reviewed Results Reviewed: XR CERVICAL SPINE 04/10/24 CLINICAL INFORMATION: Cervicalgia. COMPARISON: Cervical spine radiographs dated 12/15/2023. FINDINGS: Mild straightening of the normal cervical lordosis which may be positional or related to muscular spasm. No acute fracture or subluxation. No loss of vertebral body or intervertebral disc height. Corticated ossification at the distal aspect of the dens, consistent with a persistent ossiculum terminale which is a normal variant. Normal atlantoaxial alignment. No concerning lytic or blastic osseous lesion. No abnormal soft tissue calcification. Unremarkable prevertebral soft tissues. IMPRESSION: 1. Mild straightening of the normal cervical lordosis which may be positional or related to muscular spasm. 2. No acute fracture or subluxation. XR THORACIC SPINE 05/28/24 CLINICAL INFORMATION: Cervicalgia M54.2. Back pain. FINDINGS: There is normal bony mineralization. No fracture, compression deformity, or suspicious focal bony abnormality. No malalignment or subluxation. There is a mild levoconvex scoliosis, apex at T6-7. There is normal kyphosis. There are small Schmorl's nodes in the superior and inferior endplates of T7. Disc spaces appear normal. Normal facet alignment. Imaged soft tissues appear normal. IMPRESSION: 1. No acute findings of the thoracic spine. 2. Mild levoconvex scoliosis. 3. Small Schmorl's nodes in the endplates of T7. MR thoracic spine wo con 08/30/24 CLINICAL HISTORY: M54.9 - Dorsalgia, unspecified MR thoracic spine without gadolinium Comparison: None Findings: Normal alignment. No acute fracture or pathologic bone lesion. The thoracic spinal cord is normal in caliber and in signal. For age, there are moderate degenerative changes within the midthoracic spine with endplate sclerosis and disc space narrowing, between the T5 and T9 levels. No significant spinal canal or foraminal stenoses. Paraspinous musculature intact. IMPRESSION: No acute findings. There is moderate disc space narrowing and endplate degenerative change between T5 and T9. There is no significant central canal stenosis or neural foraminal narrowing noted. Assessment & Plan Assessment & Plan (1) Degenerative joint disease of thoracic spine: Code(s): M47.814 - Spondylosis without myelopathy or radiculopathy, thoracic region Category: Medical (2) Mid back pain: Code(s): M54.9 - Dorsalgia, unspecified Category: Medical (3) Schmorl's nodes of thoracic region: Code(s): M51.44 - Schmorl's nodes, thoracic region Category: Medical (4) Chronic pain syndrome: Code(s): G89.4 - Chronic pain syndrome Category: Medical Plan To manage the patient's degenerative thoracic spine condition, I emphasized lifestyle modifications including addressing obesity, maintaining proper posture, ensuring adequate hydration and avoiding daily soda/cola intake. The patient's MRI findings indicated notable degeneration at the T5-T9 levels without significant stenosis, directing our focus to potentially managing the associated pain through diagnostic bilateral T7-T9 medial branch blocks. Should significant pain relief be noted, consideration of spinal nerve stimulation with Sprint device will ensue, although radiofrequency ablation might be considered as well. Importance of her continuing GI evaluation was stressed considering her ongoing GERD and dysphagia issues. Schedule diagnostic bilateral T7-T8-T9 MBB with local anesthesia, oral Ativan and fluoroscopy. Expectations, risks and benefits were reviewed. Patient is aware she will be contacted to schedule this procedure. All questions were answered and the patient is in agreement of plan. Follow-up after injections and sooner as needed. Patient was informed and verbally consented to the use of an ambient scribe for clinic note documentation during this visit. Patient Instructions: I discussed the thoracic MRI results with the patient, explaining the findings of degenerative changes predominantly at T5-T9 levels. I detailed the options for managing her mid-back pain, including diagnostic medial branch blocks and potential spinal nerve stimulation and RFA contingent on initial responses. We explored the potential factors contributing to her pain, including posture and activity habits, offering guidance on lifestyle modification for mitigation. For her gastrointestinal concerns, particularly GERD and dysphagia, I recommended continued follow-up with her GI specialist and possibly further rheumatologic assessments considering her elevated ESR. Potential risks and benefits of a proposed intervention were explained, and informational brochures were provided. Consented understanding was established for proposed pain interventions. A follow-up was planned to assess her response to treatment for accurate future management planning. - Follow up with your GI specialist to review recent barium swallow study results. Patient is also scheduled for upper endoscopy on 10/10/24. - Maintain good posture and stay hydrated to help manage back pain. Avoid consumption of soda. - Avoid exacerbating pain by uneven carrying, improper lifting or cracking shoulder blades. - Return for follow-up after receiving medial branch block treatment for further pain management evaluation. - Monitor any new or worsening symptoms and report them promptly. - Continue prescribed medication use and inform us of any side effects or changes in pain. Coding Level of Care Code Est Pt Level 4 (25722) Complex EM visit Add On G2211 Diagnoses Degenerative joint disease of thoracic spine M47.814 Mid back pain M54.9 Schmorl's nodes of thoracic region M51.44 Chronic pain syndrome G89.4
[2024-09-27 10:15] VITALS: BP 178/85; PULSE 90; O2SAT 99; BMI 38.7
== END 2024-09-27 10:39 | disposition home or self-care (01) ==
LOC: HO.PMC 09:43
PROVIDERS: PCP Nurse Practitioner Family; Visit Provider Nurse Practitioner Family
DX: M47.814 Spondylosis without myelopathy or radiculopathy, thoracic region (principal); M54.9 Dorsalgia, unspecified; M51.44 Schmorl's nodes, thoracic region; G89.4 Chronic pain syndrome
CPT/HCPCS: 99214; G2211

== ENCOUNTER 2024-09-27 09:42 | Outpatient (REF) | payer OTHER, SELFPAY ==
[2024-09-27 12:51] LABS: Erythrocyte Sedimentation Rate 25 MM/HR (0-20)
[2024-09-30 21:23] LABS: Anti DNA DS Antibody 1 IU/mL
[2024-09-30 21:42] LABS: Lyme Abs Screen <0.90 index
== END 2024-09-27 09:43 | disposition home or self-care (01) ==
LOC: HO.LAB 09:42
PROVIDERS: Psychiatry & Neurology Neurology; PCP Nurse Practitioner Family; Visit Provider Nurse Practitioner Family
DX: M35.3 Polymyalgia rheumatica (principal); M47.814 Spondylosis without myelopathy or radiculopathy, thoracic region; M54.9 Dorsalgia, unspecified; M51.44 Schmorl's nodes, thoracic region; G89.4 Chronic pain syndrome
CPT/HCPCS: 36415; 82550; 85652; 86225; 86617; 86618; 99212

== ENCOUNTER 2024-10-10 07:59 | Day surgery (SDC) | payer OTHER, SELFPAY ==
--- OUTSIDE RECORDS SUMMARY | 2024-08-28 07:56 | XMS_ITS | Continuity of Care Document ---
Author Organization [place] - [facility], [facility] Address [address] [place] [address] Care Team Providers Care It Application Support Analyst Name Role Phone IRVING OROZCO Primary Care Provider Assessment Encounter Date Assessment Date Assessment LastModified by Organization Details LastModified Time 08/26/2024 08/26/2024 Patient has history and exam findings consistent with cryptic, hypertrophic tonsils with tonsilloliths. Discussed exam is not consistent with infection and no antibiotics are needed. Recommend symptomatic management. Consideration of saltwater gargles after meals and before bed as well as trial of a WaterPik may be helpful to remove debris. Please avoid rigid instruments to dig into the tonsil surface as that may result in bleeding or scarring. Avoidance of alcohol based mouthwashes and smoking is encouraged. Recommend NOW oral probiotic lozenges. Patient is interested in tonsillectomy. Given the significant quality of life impact of the chronic tonsillitis, the patient may be a candidate for tonsillectomy should the above interventions fail to resolve her issues. Risks, benefits and alternatives to tonsillectomy were reviewed, specifically, the risk of postoperative hemorrhage with return to the operating room, dehydration and risk of hospital readmission, throat pain, voice change and or swallowing problems were discussed. The patient will attempt the above interventions and return for surgical consult if there is no improvement. [email or web address] Not available 08/26/2024 14:42:03 Plan of Treatment Reminders Order Date Submit Date Provider Last Modified By Organization Details Last Modified Time Details Appointments Allergy Test 2024 02:30P M [facility] Not available Not available Not available Test Results 15 2024 04:00P M CED FOSTER MD Not available Not available Not available Hearing Test 05/05/ 2025 10:00A M Hearing Test Not available Not available Not available Establish ed 15 2024 10:30A M CED FOSTER MD Not available Not available Not available Lab None recorded. Referral None recorded. Procedures None recorded. Surgeries None recorded. Imaging None recorded. Medication Orders None recorded. Patient TargetsNo targets recorded. Patient InstructionsNo instructions recorded. Reason for Referral None Reported. Problems Name Problem SNOMED Code Status Onset Date Resolution Date Notes Provider Name and Address Organization Details Recorded Time Dysphagia 83150935 Active 2024 CED FOSTER MD [address] [facility], [place], [address], [place] - [facility] [place] 09:51:12 Allergic rhinitis 82624215 Active 2024 CED FOSTER MD [address] [facility], [place], [address], [place] - [facility] [place] 09:51:28 Non-allergi c rhinitis 733632205484 Active 2024 CED FOSTER MD [address] [facility], [place], [address], [place] - [facility] [place] 09:51:28 Seasonal allergic rhinitis 351598367 Active 2024 CED FOSTER MD [address] [facility], [place], [address], [place] - [facility] [place] 09:51:28 Amygdalolit h 1186739 Active 2024 BELLA LIM PA-C [address] [facility], [place], [address], [place] - [facility] [place] 14:41:43 Hypertrophy of tonsils 89237389 Active 2024 BELLA LIM PA-C [address] [facility], [place], [address], [place] - [facility] 14:42:38 Problem Notes None recorded. Procedures Surgical History Date Name Laterality Status Provider Name and Address Organization Details Recorded Time 08/05/2024 FOL_DP completed CED FOSTER MD [address] [place] [address], [address], [place] - [facility] 08/05/2024 09:50:42 Imaging Results None recorded. Procedure [...] Not Available Not Available N ot Available sucralfate 100 mg/mL oral suspension active Not Available Not Available N ot [...] injection, auto-injecto r INJECT 0.3 MG INTRAMUSCUL HAVNE EVERY 4 HOURS NEEDED FOR ANAPHYLAXIS active [...] Available Not Available Vitals Date Recorded Body height Body mass index (BMI) Body weight Provider Name and Address Organization Details Last Updated DateTime 08/26/2024 152.4 cm 39.6 kg/m2 88909.25 g Patricia Garza [place] - [facility] 08/26/2024 13:17:28 Social History None recorded. Functional Status None recorded. Mental Status None recorded. Family History Nothing Reported. Medical History No medical history recorded. Gynecological HistoryNo gynecological history recorded. Obstetrics History GPAL:G 0 P 0 0 0 0 Past Encounters Encounter ID Performer Location Encounter Start Date Encounter Closed Date Diagnosis/Indication Diagnosis SNOMED-CT Code Diagnosis ICD10 Code Diagnosis Note [id number] CED FOSTER MD [facility] of [address] [place] [address] 08/05/2024 09:27:00 08/05/2024 11:31:49 Dysphagia 04508568 R13.10 Allergic rhinitis 938863 04 J30.9 [id number] CED FOSTER MD [facility] of [address] [place] [address] 08/26/2024 13:05:18 08/27/2024 07:42:41 Amygdalolith 6961470 J35.8 Hypertroph y of tonsils 07603273 J35.1 Health Concerns Section Related Observation LastModified by Organization Detai ls LastModified Time None Recorded Concern Status LastModified by Organization Details LastModified Time None Recorded Payers Encounter Date Sequence Insurance Name Policy Number Policy Hamilton Covered Member ID Hamilton Member ID Guarantor Name 08/26/2024 1 [facility] [employer] (MEDICAID REPLACEMENT - HMO) RICHARD Gonzalez [id number] Andrew Gonzalez Notes Date Note Type Note Provider Name and Address Organization Details Recorded Time 08/26/2024 text/html 24 year old merrick stern presents for re-evlauation of throat. Three weeks ago she saw Dr. Foster and fiberoptic laryngoscopy showed a small 1 mm shallow ulceration on the posterior surface of the left arytenoid consistent with reflux. Patient reports she now takes her omeprazole an hour before her first real meal. Still takes it with a small amount of yogurt, as she found that taking it with just a sip of water caused upset stomach. Four days ago she noticed white spots above and under the left palatine tonsil. It was laying across and touching my uvula. Thought it was a tonsil stone. Rinsed with mouthwash and it went away but it took a piece of my tonsil with it. Two days ago she went to the emergency department and was given steroids for this. That reduced the size and discomfort. CED FOSTER MD [address] [place] [address], [place], [address], [place] [facility] 08/26/2024 16:54:40 OBGyn Episode No OBEpisode recorded.
--- OUTSIDE RECORDS SUMMARY | 2024-08-28 07:56 | XMS_ITS | Clinical Summary ---
Author Organization [facility] ity Address [address] [place] [address] Care Team Providers Care Tele Grout Sewer Line Repairer Name Role Phone Unavailable Primary Care Provider Unavailabl e Social History Tobacco Use Types Packs/Day Years Used Date Smoking Tobacco: Never Assessed Comments Unknown Sex and Gender Information Value Date Recorded Sex Assigned at Not on file Legal Sex Female 6:17 PM EST Gender Identity Not on file Sexual Orientation [...] patient's age to complete this topic Meningococcal B Vacine Aged Out No lo nger eligible based on patient's age to complete [...]
--- OUTSIDE RECORDS SUMMARY | 2024-08-28 07:56 | XMS_ITS | Data Portability ---
Author Organization [place] - [facility], Allergy Address [address] [address] Care Team Providers Care Display Department Manager Name Role Phone IRVING OROZCO Primary Care [...] concern of allergic rhinitis, poorly controlled with tyvc-lor-vvgrhih and prescription medications. Offered allergy skin testing. She also suspect she has some food sensitivities and I recommended avoidance. Tertiary concern of tinnitus and hearing changes. We may consider working this up in the future with hearing testing [email or web address] Not available 08/05/2024 09:54:59 08/26/2024 08/26/2024 Patient has history and exam [...] Appointments Allergy Test 2024 02:30P M [facility] Not available Not available Not available Test Results 15 2024 04:00P M CED FOSTER MD Not available Not available Not available Hearing Test 2024 10:00A M Hearing Test [...] and Address Organization Details Recorded Time Dysphagia 75729949 Active 2024 CED FOSTER MD [address] [place] [address] [place], [address], [facility] - [facility] 09:51:12 Allergic rhinitis 55126260 Active 2024 CED FOSTER MD [address] [place] [address], [place], [address], [facility] - [facility] 5 09:51:28 Non-allergi c rhinitis 455376508928 Active 2024 CED FOSTER MD [address] [facility], [place], [address], [facility] - [facility] 09:51:28 Seasonal allergic rhinitis 244818787 Active 2024 CED FOSTER MD [address] [facility], E [facility], [place], [address], [facility] - [facility] 09:51:28 Amygdalolit h 1472018 Active 2024 LEMUEL TAMEZAngelantoni [address] [facility], E [facility], [place], [address], [facility] - [facility] 14:41:43 Hypertrophy of tonsils 17750153 Active 2024 BELLA LIM PA-C [address] [facility],[place] [address], [place], [address], [facility] - [facility] 14:42:38 Problem Notes None recorded. Procedures Surgical History Date Name Laterality Status Provider Name and Address Organization Details Recorded Time 08/05/2024 FOL_DP completed CED FOSTER MD [address], [address], [facility] - [facility] 08/05/2024 09:50:42 Imaging Results None recorded. Procedure [...] Address Organization Details Last Updated DateTime 08/05/2024 93891.25 g 36 kg/m2 160.02 cm CED FOSTER MD [address] [place] [address], [address], [place] - [facility] 08/05/2024 09:37:18 Date Recorded Body height Body mass index (BMI) Body weight Provider Name and Address Organization Details Last Updated DateTime 08/26/2024 152.4 cm 39.6 kg/m2 38159.25 g Patricia Garza [place] - [facility] 08/26/2024 13:17:28 Social History None recorded. Functional Status None recorded. Mental Status None recorded. Family History Nothing Reported. Medical History No medical history recorded. Gynecological HistoryNo gynecological history recorded. Obstetrics History GPAL:G 0 P 0 0 0 0 Past Encounters Encounter ID Performer Location Encounter Start Date Encounter Closed Date Diagnosis/Indication Diagnosis SNOMED-CT Code Diagnosis ICD10 Code Diagnosis Note [id number] CED FOSTER MD [facility] of [address] [address] 08/05/2024 09:27:00 08/05/2024 11:31:49 Dysphagia 01996557 R13.10 Allergic rhinitis 856677 04 J30.9 [id number] CED FOSTER MD [facility] [address] [facility] [place] [address] 08/26/2024 13:05:18 08/27/2024 07:42:41 Amygdalolith 9017401 J35.8 Hypertroph y of tonsils 83781062 J35.1 Health Concerns Section Related Observation LastModified by Organization Detai ls LastModified Time None Recorded Concern Status LastModified by Organization Details LastModified Time None Recorded Advance Directives Directive None Recorded Payers Encounter Date Sequence Insurance Name Policy Number Policy Hamilton Covered Member ID Hamilton Member ID Guarantor Name 08/05/2024 1 [facility] [employer] (MEDICAID REPLACEMENT - HMO) RICHARD Gonzalez [id number] Andrew Gonzalez 08/26/2024 1 [facility] [employer] (MEDICAID REPLACEMENT - HMO) JAIRO Andrew Gonzalez [id number] Andrew Gonzalez Notes Date Note Type Note [...] due to pinch nerve spinal issue CED FOSTER MD [address] [place] [address], [place], [address], [place] - [facility] 08/05/2024 09:55:26 08/26/2024 text/html 24 year old merrick stern [...] the size and discomfort. CED FOSTER MD [address] [place] [address], [place], [address], [place] [facility] 08/26/2024 16:54:40 OBGyn Episode No OBEpisode recorded.
[2024-10-08 09:58] VITALS: BMI 39.4
--- NOTE | 2024-10-09 09:35 | P.CONAN_ITS ---
Documented by User: Abi Mcdermott NP 10/09/24 09:35 HPI - Anesthesia Eval Consult details Narrative: 24yo F for Upper Endoscopy PMFSH Active Problems Active Problems: All Active Problems Degenerative joint disease of thoracic spine (Acute) Allergy, food (Acute) Dyspnea (Acute) Schmorl's nodes of thoracic region (Acute) Thoracic radiculitis (Acute) Obesity (Acute) Chronic pain syndrome (Acute) Mid back pain (Acute) Dysphagia (Acute) Tremor (Acute) Subjective memory complaints (Acute) Paresthesia of upper extremity (Acute) Vitamin D deficiency (Acute) Subclinical hypothyroidism (Acute) Thyroid nodule (Acute) Myofascial neck pain (Acute) Cervicalgia (Acute) Encounter for general adult medical examination with abnormal findings (Acute) Parathyroid abnormality (Acute) Glaucoma suspect (Acute) Shellfish allergy (Acute) Cervical cancer screening (Acute) Severe obesity (BMI 35.0-39.9) with comorbidity (Acute) Mild anemia (Acute) Elevated LFTs (Acute) Migraine without aura (Acute) AGUSTINA (generalized anxiety disorder) (Acute) Hepatic steatosis (Acute) MDD (major depressive disorder), recurrent episode (Acute) Encounter for general adult medical examination without abnormal findings (Acute) Hyperlipidemia (Acute) Seasonal allergies (Acute) Chronic GERD (Acute) Past Medical History Medical History Vitamin D deficiency Subclinical hypothyroidism Neck muscle spasm Anxiety Migraines Hypothyroidism Hypertension Hypercholesteremia Family History Family History Father Hypertension Mother Hepatitis C Hypothyroidism Hypertension Cirrhosis of liver Murmur, cardiac Surgical History Surgical History No pertinent past surgical history Social History Social History Housing: Apartment Alcohol intake: never Patient Tobacco Use Status: Never used Tobacco e-Cigarette/Vaping Use: Never Used Second Hand Smoke Exposure: No Advance Directives: No Advance Directives Information Provided: Yes service: No Current occupational status: unemployed Cognitive needs: No Hearing needs: No Vision needs: No Meds Allergies Allergy/AdvReac Type Severity Reaction Status Date / Time aloe [ALOE] Allergy Unknown RASH Verified 10/10/24 08:08 sertraline [SERTRALINE] Allergy Unknown UNKNOWN Verified 10/10/24 08:08 banana Allergy Itching Verified 10/10/24 08:09 pineapple Allergy Itching Verified 10/10/24 08:09 Peppers, Jalapeno AdvReac Itchy Eyes Verified 10/10/24 08:09 shellfish derived AdvReac rash Verified 10/10/24 08:08 Home Medications ?Medication ?Instructions ?Recorded ?Confirmed ?Last Taken ?Type acetaminophen 500 mg tablet 1,000 mg PO Q6H PRN Pain, Mild 07/27/22 09/04/24 Unknown History (Tylenol Extra Strength) lotilaner 0.25 % eye drops (Xdemvy) drp ophthalmic (eye) 05/02/24 09/04/24 Unknown History lotilaner 0.25 % eye drops (Xdemvy) 1 drp ophthalmic (eye) Q12H 08/06/24 09/04/24 Unknown History Exam Height,Weight and Vital Signs: Height 5 ft Weight 91.626 kg Assessment and Plan Assessment Anesthesia Assessment: Chart Reviewed Documented by User: Val Zuleta MD 10/10/24 08:17 [facility] Past Medical History Medical History Vitamin D deficiency Subclinical hypothyroidism Neck muscle spasm Anxiety Migraines Hypothyroidism Hypertension Hypercholesteremia Family History Family History Father Hypertension Mother Hepatitis C Hypothyroidism Hypertension Cirrhosis of liver Murmur, cardiac Family history of problems with anesthesia: No Surgical History Surgical History No pertinent past surgical history History of Problems with Anesthesia: No Social History Social History Housing: Apartment Alcohol intake: never Patient Tobacco Use Status: Never used Tobacco e-Cigarette/Vaping Use: Never Used Second Hand Smoke Exposure: No Advance Directives: No Advance Directives Information Provided: Yes service: No Current occupational status: unemployed Cognitive needs: No Hearing needs: No Vision needs: No Meds Allergies Allergy/AdvReac Type Severity Reaction Status Date / Time aloe [ALOE] Allergy Unknown RASH Verified 10/10/24 08:08 sertraline [SERTRALINE] Allergy Unknown UNKNOWN Verified 10/10/24 08:08 banana Allergy Itching Verified 10/10/24 08:09 pineapple Allergy Itching Verified 10/10/24 08:09 Peppers, Jalapeno AdvReac Itchy Eyes Verified 10/10/24 08:09 shellfish derived AdvReac rash Verified 10/10/24 08:08 Home Medications ?Medication ?Instructions ?Recorded ?Confirmed ?Last Taken ?Type acetaminophen 500 mg tablet 1,000 mg PO Q6H PRN Pain, Mild 07/27/22 09/04/24 Unknown History (Tylenol Extra Strength) lotilaner 0.25 % eye drops (Xdemvy) drp ophthalmic (eye) 05/02/24 09/04/24 Unknown History lotilaner 0.25 % eye drops (Xdemvy) 1 drp ophthalmic (eye) Q12H 08/06/2411/24 Unknown History Exam Airway Mallampati Class: III TM Dist: >3cm Neck ROM: Full Assessment and Plan Assessment Anesthesia Assessment: Anesthesia Plan Discussed Final Anesthetic Review Family History of Problems with Anesthesia: No History of Problems with Anesthesia: No NPO: Yes ASA Class: III Final Preanesthetic Review: No Changes in Pt Med Stat, Meds/Allgs Chart Reviewed, Consent Obtained/Reviewed and Anes Risks/Benef Reviewed Patient Risk: Intermediate Procedure Risk: Low Anesthetic Plan Anesthetic Plan: TIVA Disposition: Standard PACU
--- NOTE | 2024-10-10 08:15 | MHC.SHP ---
Pre-Procedural Eval Section A - 24 Hr Update-Section A only Date of Service: 10/10/24 Section B - Complete if H&P > 30 days Chief Complaint: Epigastric pain Details of Present Illness: Vitamin D deficiency Subclinical hypothyroidism Neck muscle spasm Anxiety Migraines Hypothyroidism Hypertension Hypercholesteremia Surgical History No pertinent past surgical history Present Medications: see Short Stay Collaborative assessment Allergies: Allergies Allergy/AdvReac Type Severity Reaction Status Date / Time aloe [ALOE] Allergy Unknown RASH Verified 10/10/24 08:08 sertraline [SERTRALINE] Allergy Unknown UNKNOWN Verified 10/10/24 08:08 banana Allergy Itching Verified 10/10/24 08:09 pineapple Allergy Itching Verified 10/10/24 08:09 Peppers, Jalapeno AdvReac Itchy Eyes Verified 10/10/24 08:09 shellfish derived AdvReac rash Verified 10/10/24 08:08 Review of Systems Review of Systems Comment: 10 point ROS negative Exam Exam Comment: Gen appear: No acute distress HEENT: no icterus Chest: No overt resp distress Abd: soft, nontender, nondistended Psych: Stable affect, answering questions appropriately Neuro: A/Ox3 noted to move all extremities spontaneously Ext: no peripheral edema Plan Diagnosis/Plan: Unchanged I have reviewed the history and physical and performed a pertinent physical examination on my patient. No changes have occurred unless specified. Time Spent With Patient Time: Total time managing care of this patient today ____ minutes.
[2024-10-10 08:20] VITALS: BP 142/89; PULSE 103; RESP 18; TEMP 37.2; O2SAT 98; BMI 38.9
[2024-10-10 08:33] LABS: UPreg QC Valid YES; Urine Pregnancy NEGATIVE (NEGATIVE)
[2024-10-10] MEDS: Lactated Ringers 1,000 ML 100 ML IVCONT (08:42)
--- NOTE | 2024-10-10 09:02 | P.OP_ITS ---
Operative Note Operative Note Date of Service: 10/10/24 Narrative: Procedure: Esophagogastroduodenoscopy Endoscopist: Carmen Dennis MD Indication: Abd pain, dysphagia Anesthesia Provider: Arthur Walker CRNA Anesthesia Type: MAC EGD Procedure:?? The procedure, indications, preparation and potential complications were reviewed with the patient, who indicated understanding and gave written informed consent to proceed. A physical exam was performed. The endoscope was introduced through the mouth, and advanced to the second part of duodenum. The mucosa was carefully examined on slow withdrawal of the endoscope. The patient tolerated the procedure well. There were no immediate complications.? ? EGD Findings:? * Esophagus:? Whitish exudates noted throughout the esophagus suspicious for bridgette esophagitis. The Z line was at 32 cm displaced upwards by a hiatal hernia with the diaphragmatic pinch at 35 cm. Cold forceps esophagus biopsies were obtained for histology. * Stomach:? Normal mucosa was noted in the stomach. Retroflexion was performed in the cardia. Random gastric biopsies were taken to rule out H Pylori in fection. * Duodenum:? Fissuring and erosions noted in the duodenum.Cold forceps biopsies were taken from duodenal bulb and second portion of the duodenum to rule out celiac sprue. ? EGD Impressions:? * Bridgette Esophagitis (biopsy) * Normal stomach (biopsy) * Duodenitis (biopsy) ?? Recommendations:?? * Follow biopsy results. Our office will call or send a letter with results within 7-10 days. * Start fluconazole 400 mg once daily x 14 days * Pt aware to HOLD her PRN hydroxyzine with this * If H pylori +, patient will be prescribed eradication therapy followed by test of cure. * Avoid NSAIDs. Above has been reviewed with the patient.
[2024-10-10 09:09] VITALS: BP 114/66; PULSE 115; RESP 16; TEMP 37.3; O2SAT 97
[2024-10-10 09:24] VITALS: BP 120/68; PULSE 105; RESP 16; TEMP 36.9; O2SAT 95
== END 2024-10-10 09:42 | disposition home or self-care (01) ==
PROVIDERS: Nurse Practitioner; PCP Nurse Practitioner Family; Visit Provider Internal Medicine
PROC: 0DJ08ZZ Inspection of Upper Intestinal Tract, Via Natural or Artificial Opening Endoscopic (ICD-10-PCS; CPT 43235; principal; 2024-10-10 10:00)
DX: R10.13 Epigastric pain (principal); K20.80 Other esophagitis without bleeding; B37.81 Candidal esophagitis; K29.80 Duodenitis without bleeding; K44.9 Diaphragmatic hernia without obstruction or gangrene; K76.0 Fatty (change of) liver, not elsewhere classified; I10 Essential (primary) hypertension; E78.00 Pure hypercholesterolemia, unspecified; E55.9 Vitamin D deficiency, unspecified; E03.8 Other specified hypothyroidism; F41.9 Anxiety disorder, unspecified; G43.909 Migraine, unspecified, not intractable, without status migrainosus; E66.9 Obesity, unspecified; Z68.39 Body mass index [BMI] 39.0-39.9, adult; Z88.8 Allergy status to other drugs, medicaments and biological substances; Z56.0 Unemployment, unspecified
CPT/HCPCS: 43239; 81025; 88305; 88313; 88342; J2003; J2704

== ENCOUNTER → 2024-10-10 07:59 | Outpatient (BNV) | payer OTHER, SELFPAY | PROVIDERS: PCP Nurse Practitioner Family; Visit Provider Internal Medicine | DX: K20.0 Eosinophilic esophagitis (principal); K29.80 Duodenitis without bleeding; R13.10 Dysphagia, unspecified | CPT/HCPCS: 43239 ==

== ENCOUNTER 2024-10-25 11:48 | Emergency (ER) | payer OTHER, SELFPAY ==
--- NOTE | ~2024-10-25 | XR_ITS ---
EXAMINATION: XR CHEST 2 VIEWS HISTORY: short of breath COMPARISON: Comparison is made with the prior examination dated 09/10/2024. FINDINGS: PA and lateral views of the chest are submitted. The lungs are expanded and clear. There is no pleural effusion, pneumothorax, or pulmonary vascular congestion. The heart is normal in size. The bones are intact. XR/XR chest 2V IMPRESSION: No acute cardiopulmonary abnormality. Electronically signed by: Ozzie Yan MD 10/25/2024 12:18 PM EDT
[2024-10-25 11:56] VITALS: BP 154/94; PULSE 109; RESP 20; TEMP 37.6; O2SAT 99; BMI 34.1
--- NOTE | 2024-10-25 11:57 | ECG_ITS ---
Test Reason : TACHYCARDIC/SOB Blood Pressure : */* mmHG Vent. Rate : 92 BPM Atrial Rate : 92 BPM P-R Int : 138 ms QRS Dur : 70 ms QT Int : 356 ms P-R-T Axes : 37 37 7 degrees QTcB Int : 440 ms Normal sinus rhythm Cannot rule out Anterior infarct , age undetermined Abnormal ECG When compared with ECG of 23-Dec-2022 13:02, No significant change was found Referred By: Rosario Landaverde Electronically Signed By: YVONNE ARMANDO
--- NOTE | 2024-10-25 11:57 | ED.GENADULT ---
HPI - General Adult General Chief complaint: General Medical Stated complaint: New Medication-Trouble Breathing, IncreasedHeart R Time Seen by Provider: 10/25/24 14:14 Source: patient, family and old records reviewed Mode of arrival: ambulatory Limitations: no limitations History of Present Illness ED Provider: SOURAV FIGUEREDO narrative: 24 yo female with PMH of food allergies, dysphagia, hypothyroidism, anxiety, depression, HLD who has been on fluconazole recently for melinda esophagitis seen by Dr. Dennis s/p EGD she notes when she takes the fluconazole she feels worse with heart racing and dyspnea. She denies CP. She is not taking any other new medications. No cough, fevers, n/v/d. No rash. She has never had any angioedema in the past MD complaint: med reaction Onset (ago): day(s) (5) Location: chest Radiation: non-radiation Severity: mild Relieving factors: none Exacerbating factors: other (taking fluconazole ) Associated symptoms: other (rapid heart rate dyspnea) Treatments prior to arrival: none Related Data Home Medications ?Medication ?Instructions ?Recorded ?Confirmed acetaminophen 500 mg tablet 1,000 mg PO Q6H PRN Pain, Mild 07/27/22 09/04/24 (Tylenol Extra Strength) lotilaner 0.25 % eye drops (Xdemvy) drp ophthalmic (eye) 05/02/24 09/04/24 lotilaner 0.25 % eye drops (Xdemvy) 1 drp ophthalmic (eye) Q12H 08/06/24 09/04/24 Previous Rx's ?Medication ?Instructions ?Recorded meloxicam 7.5 mg tablet 7.5 mg PO DAILY #30 tabs 01/10/24 epinephrine 0.3 mg/0.3 mL 0.3 mg (0.3 mL) IM Q4H PRN 01/24/24 injection, auto-injector anaphylaxis #2 ea hydroxyzine HCl 25 mg tablet 25 mg PO BEDTIME PRN anxiety or 01/24/24 insomnia #30 tabs tizanidine 4 mg tablet (Zanaflex) 2 mg (1/2 x 4 mg) PO BID PRN 01/24/24 muscle spasticity 5 days #5 tabs cyclobenzaprine 5 mg tablet 5 mg PO Q8H PRN Muscle Spasm #10 05/02/24 tabs atorvastatin 20 mg tablet 20 mg PO BEDTIME #90 tabs 06/24/24 albuterol sulfate 90 mcg/actuation 2 puff inhalation Q4-6H PRN 08/03/24 aerosol inhaler (Ventolin HFA) shortness of breath or wheezing #8.5 grams sucralfate 100 mg/mL oral 10 ml PO QID PRN gerd #400 mL 09/04/24 suspension (Carafate) fluconazole 200 mg tablet 400 mg (2 x 200 mg) PO DAILY 14 10/10/24 days #28 tabs cetirizine 10 mg tablet 10 mg PO DAILY PRN allergy 10/25/24 symptoms #30 tabs Allergies Allergy/AdvReac Type Severity Reaction Status Date / Time aloe [ALOE] Allergy Unknown RASH Verified 10/25/24 11:59 sertraline [SERTRALINE] Allergy Unknown UNKNOWN Verified 10/25/24 11:59 banana Allergy Itching Verified 10/25/24 11:59 pineapple Allergy Itching Verified 10/25/24 11:59 Peppers, Jalapeno AdvReac Itchy Eyes Verified 10/25/24 11:59 shellfish derived AdvReac rash Verified 10/25/24 11:59 Review of Systems Review of Systems: Constitutional : No Fever, No Chills ENT/Mouth : No sore throat, No Rhinorrhea, No Swallowing Difficulty Eyes: No Eye Pain, No Swelling, No Redness Cardiovascular : No Chest Pain, positive SOB, No Orthopnea, no Edema, pos palpitations Respiratory : No Cough, No Sputum, No Wheezing, positive dyspnea Gastrointestinal : No Nausea, No Vomiting, No Diarrhea, No abdominal Pain, No Hematochezia, No Melena Genitourinary : No Dysuria, No Urinary Frequency, No Hematuria Musculoskeletal : No joint pain, No Myalgias Skin : No Skin Lesions, No rash Neuro : No Weakness, No Numbness, No Dizziness, No Headache Psych : pos Anxiety/Panic, No Depression All other systems reviewed and are negative [facility] Past Medical History Attestation statement: The following information was validated with the patient. Source: old records reviewed Medical History Vitamin D deficiency Subclinical hypothyroidism Neck muscle spasm Anxiety Migraines Hypothyroidism Hypertension Hypercholesteremia Surgical History No pertinent past surgical history Family History Family History Father Hypertension Mother Hepatitis C Hypothyroidism Hypertension Cirrhosis of liver Murmur, cardiac Social History Social History Housing: Apartment Are you a primary home care companion to a significant other at home: No Do you presently have visiting nurse or other home services: No Alcohol intake: never Patient Tobacco Use Status: Never used Tobacco e-Cigarette/Vaping Use: Never Used Second Hand Smoke Exposure: No Advance Directives: No Advance Directives Information Provided: Yes service: No Current occupational status: unemployed Cognitive needs: No Hearing needs: No Vision needs: No Physical Exam ED Vital Signs: Vital Signs - 24 hr 10/25/24 11:56 Temperature 99.7 F Pulse Rate 109 H Respiratory Rate 20 Blood Pressure 154/94 H Pulse Oximetry 99 Oxygen Delivery Method Room Air BMI result Body Mass Index 34.1 Appearance: Alert. Oriented X3. No acute distress. Eyes: Pupils equal, round and reactive to light. ENT: Pharynx normal. Neck: Normal inspection. Neck supple. CVS: Normal heart rate and rhythm. Pulses normal. Respiratory: No respiratory distress. Breath sounds normal. Abdomen: Soft and nontender. Skin: Skin warm and dry. Normal skin color. Normal skin turgor. Extremities: No lower extremity edema. No calf ttp Neuro: Oriented X 3. No motor deficit. No sensory deficit. CN2-12 intact Course Course Course Narrative: This is a Rapid Medical Examination (RME) performed by Rachelle Landaverde PA-C in triage. Full HPI, ROS, assessment and treatment plan per primary provider in the Main ED. 10/25/24 1201 [address] [place] Hx: 24 yo female here for eval of SOB, palpitations x5 days. Symptoms began 4-5 hours after taking fluconazole is simply prescribed by GI doctor for esophagus at you. Reports upper endoscopy approximately 2 weeks ago. States she feels like her heart is pounding. Has not checked her pulse. Took APAP this morning around 1030 for migraine. PE/vitals: tachycardic Plan: Labs, EKG, chest x-ray Medical Decision Making Medical Decision Making MDM Narrative: 24 yo female with PMH of food allergies, dysphagia, hypothyroidism, anxiety, depression, HLD here with c/o rapid heart race and palpitations after taking fluconazole - there is no rash, oral swelling, n/v I do not suspect allergic reaction will obtain basic labs, trop, ddimer, EKG and xray, if negative will DC home with zyrtec and benadryl prior to dose. Differential Diagnosis Differential Diagnoses: The differential diagnosis associated with the presentation includes med reaction, seems atypical for allergic reaction, somatization Admission/Observation Consideration of admission/observation: Escalation of care including admission/observation considered work up reassuring stable for DCwill place on zyrtec and take bendaryl 25mg dose 20 min prior to the fluconazole Lab Data MDM Lab Attestation statement: I reviewed the patient's lab results. 10/25/24 12:11 10/25/24 12:11 Labs: Lab Results 10/25/24 10/25/24 Range/Units 12:11 15:41 WBC 8.4 (4.8-10.8) X10*3/uL RBC 4.45 (4.20-5.50) X10*6/uL Hgb 12.1 (12.0-16.0) g/dl Hct 35.4 L (37.0-47.0) % MCV 79.6 L (80.0-98.0) fL MCH 27.2 (27.0-33.0) pg MCHC 34.2 (31.0-35.0) g/dl RDW 14.4 (11.0-16.0) % Plt Count 369 (160-400) X10*3/uL MPV 9.1 L (9.4-12.3) fL Immature Gran % (Auto) 0.1 (0.0-0.4) % Neut % (Auto) 46.4 (45-73) % Lymph % (Auto) 39.0 (20-40) % [place] % (Auto) 8.3 (2-11) % Eos % (Auto) 5.7 H (0-4) % Baso % (Auto) 0.5 (0-2) % Lymph # (Auto) 3.3 (1.2-4.9) X10*3/uL [place] # (Auto) 0.7 (0.1-1.2) X10*3/uL Eos # (Auto) 0.5 H (0.0-0.4) X10*3/uL Baso # (Auto) 0.0 (0.0-0.2) X10*3/uL Abs Immat Gran (auto) 0.01 (0.00-0.03) X10*3/uL Absolute Neuts (auto) 3.9 (2.0-8.3) x10*3/uL Absolute Nucleated RBC 0.000 (0.0-0.012) X10*3/uL Nucleated RBC % (auto) 0.0 (0.0-0.2) /100WBC D-Dimer High Sensitivty < 150 NG/ML Sodium 140 (135-145) mmol/L Potassium 3.7 (3.3-5.1) mmol/L Chloride 106 (96-108) mmol/L Carbon Dioxide 29 (22-29) mmol/L Anion Gap 9 L (12-20) BUN 9 (9-16) mg/dL Creatinine 0.68 (0.5-1.4) mg/dL Estim Creat Clear Calc 138.6 Estimated GFR > 60 Random Glucose 109 (60-115) mg/dL Calcium 9.7 (8.4-10.2) mg/dL Magnesium 2.0 (1.6-2.6) mg/dL Total Bilirubin 0.2 (0.0-1.0) mg/dL AST 18 (5-31) U/L ALT 23 (0-31) U/L Alkaline Phosphatase 103 (39-117) U/L Troponin I High Sens < 2.7 (<3.5-17.0) ng/L Total Protein 8.2 H (6.5-8.0) g/dL Albumin 4.7 (3.5-5.0) g/dL TSH 6.60 H (0.32-4.0) uIU/mL Free T4 0.86 (0.71-1.85) ng/dL Beta HCG, Quant < 2 mIU/mL Influenza Type A (PCR) NEGATIVE (Negative) Influenza Type B (PCR) NEGATIVE (Negative) RSV RNA Qual (PCR) NEGATIVE (Negative) SARS-CoV-2 RNA (RT-PCR) NEGATIVE (Negative) Independent Interpretation I performed an independent interpretation of an: EKG and Plain X-Ray (normal ) Interpretation: Rate: 92 Rhythm: NSR [place]: normal Normal P waves. Normal FARTUN. Normal QRS complex. ST T wave : inverted t waves V1 and V3, no JR qTC: 440 prior studies: similar to prior The study has been interpreted contemporaneously by me. . Radiology Impression Discussion of test interpretation with radiology: I have reviewed the radiologist's reading. Independent Historian Clinical information obtained from an independent historian. History obtained from or confirmed by: Spouse External Record Review External record reviewed: Outpatient record Prescription Management I considered prescription management with: Other Discharge Plan Discharge Clinical Impression: Heart palpitations Patient Disposition: Home, Self-Care Instructions: Heart Palpitations (ED) Additional Instructions: labs and EKG reassuring ddimer blood clot test negative at this time start on zyrtec and take 25mg benadryl 20 min prior to your fluconazole dose return for any worsening symptoms or concerns. Prescriptions: New cetirizine 10 mg tablet 10 mg PO DAILY PRN (Reason: allergy symptoms) Qty: 30 0RF No Action atorvastatin 20 mg tablet 20 mg PO BEDTIME Qty: 90 1RF albuterol sulfate [Ventolin HFA] 90 mcg/actuation HFA aerosol inhaler 2 puff inhalation Q4-6H PRN (Reason: shortness of breath or wheezing) Qty: 8.5 2RF Rx Instructions: family hx of asthma and shortness of breath which is most consistent with exercise induced asthma fluconazole 200 mg tablet 400 mg PO DAILY 14 Days Qty: 28 0RF Rx Instructions: HOLD hydroxyzine while taking this tizanidine [Zanaflex] 4 mg tablet 2 mg PO BID PRN (Reason: muscle spasticity) 5 Days Qty: 5 0RF epinephrine 0.3 mg/0.3 mL auto-injector 0.3 mg IM Q4H PRN (Reason: anaphylaxis) Qty: 2 1RF hydroxyzine HCl 25 mg tablet 25 mg PO BEDTIME PRN (Reason: anxiety or insomnia) Qty: 30 2RF acetaminophen [Tylenol Extra Strength] 500 mg tablet 1,000 mg PO Q6H PRN (Reason: Pain, Mild) meloxicam 7.5 mg tablet 7.5 mg PO DAILY Qty: 30 4RF Xdemvy 0.25 % drops 1 drp ophthalmic (eye) Q12H Xdemvy 0.25 % drops ophthalmic (eye) cyclobenzaprine 5 mg tablet 5 mg PO Q8H PRN (Reason: Muscle Spasm) Qty: 10 0RF sucralfate [Carafate] 100 mg/mL suspension 10 ml PO QID PRN (Reason: gerd) Qty: 400 0RF Rx Instructions: swish in mouth and swallow; use after food/drink Print Language: German
[2024-10-25 12:19] LABS: MANUAL DIFF FLAG NO
[2024-10-25 12:21] LABS: Basophils Percent Auto 0.5 % (0-2); Eosinophils Absolute Auto 0.5 X10*3/uL (0.0-0.4); Eosinophils Percent Auto 5.7 % (0-4); Hematocrit 35.4 % (37.0-47.0); Hemoglobin 12.1 g/dl (12.0-16.0); Imm Gran Abs Auto 0.01 X10*3/uL (0.00-0.03); Imm Gran Pct Auto 0.1 % (0.0-0.4); Lymphocytes Absolute Auto 3.3 X10*3/uL (1.2-4.9); Mean Corpuscular HGB Conc 34.2 g/dl (31.0-35.0); Mean Corpuscular Hemoglobin 27.2 pg (27.0-33.0); Mean Corpuscular Volume 79.6 fL (80.0-98.0); Mean Platelet Volume 9.1 fL (9.4-12.3); Monocytes Absolute Auto 0.7 X10*3/uL (0.1-1.2); Monocytes Percent Auto 8.3 % (2-11); Neutrophils Absolute Auto 3.9 x10*3/uL (2.0-8.3); Neutrophils Percent Auto 46.4 % (45-73); Platelet Count 369 X10*3/uL (160-400); Red Blood Count 4.45 X10*6/uL (4.20-5.50); Red Cell Distribution Width 14.4 % (11.0-16.0); White Blood Count 8.4 X10*3/uL (4.8-10.8)
[2024-10-25 12:40] LABS: Alanine Aminotransferase 23 U/L (0-31); Albumin Level 4.7 g/dL (3.5-5.0); Alkaline Phosphatase 103 U/L (39-117); Anion Gap 9 (12-20); Aspartate Amino Transferase 18 U/L (5-31); Bilirubin Total 0.2 mg/dL (0.0-1.0); Blood Urea Nitrogen 9 mg/dL (9-16); Calcium 9.7 mg/dL (8.4-10.2); Carbon Dioxide 29 mmol/L (22-29); Chloride 106 mmol/L (96-108); Creatinine Clr Calc Pharmacy 138.6; Estimated Glomerular Filt Rate > 60; Glucose Random 109 mg/dL (60-115); Potassium 3.7 mmol/L (3.3-5.1); Sodium 140 mmol/L (135-145); Total Protein 8.2 g/dL (6.5-8.0)
[2024-10-25 12:41] LABS: HCG Quantitative < 2 mIU/mL; Troponin-I High Sensitivity < 2.7 ng/L (<3.5-17.0)
[2024-10-25 13:02] LABS: Influenza A PCR NEGATIVE (Negative); Influenza B PCR NEGATIVE (Negative); Resp Syncy Virus RNA Qual PCR NEGATIVE (Negative); SARS COV2 PCR INHOUSE NEGATIVE (Negative)
[2024-10-25 13:27] LABS: Free T4 (Free Thyroxine) 0.86 ng/dL (0.71-1.85)
--- OUTSIDE RECORDS SUMMARY | 2024-10-25 15:02 | XMS_ITS | Encounter Summary ---
Author Organization [facility] Address [address] [place] [address] Phone Care Team Providers Care Aluminum Boats Assembler Name Role Phone Ashly Ozuna MD Primary Care Provider [phone] Reason for Visit * Reason Comments Med Refill Encounter Details Date Type Department Care Team (Late st Contact Info) Description 12/02/2018 Refill [facility] [place] [address] [place] [address] Ashly Ozuna MD [address] [place] [address] Anxiety Social History Tobacco Use Types Packs/Day [...] unspecified documented in this encounter Care Teams Aluminum Boats Assembler Relationship Specialty Start Date End Date Ashly Ozuna MD [address] [place] [id number] PCP - General Pediatrics 10/25/18 07/21/22 documented as of this encounter
--- OUTSIDE RECORDS SUMMARY | 2024-10-25 15:02 | XMS_ITS | Clinical Summary ---
Author Organization [facility] it[facility] Address [address] [place] [address] Care Team Providers Care Proofsheet Corrector Name Role Phone Unavailable Primary Care Provider [...] Influencers of Health Screening 06/04/2022 COVID-19 Vaccine (2023-2 5 season) 2024 Influenza Vaccine (Season Ended) 2025 HIB Vaccines Aged Out No longer eligi [...] age to complete this topic Meningococcal B Vaccine Aged Out No l onger eligible based on patient's age to complete [...]
--- OUTSIDE RECORDS SUMMARY | 2024-10-25 15:02 | XMS_ITS | Encounter Summary ---
Author Organization [facility] Address [address] [place] [address] Phone Care Team Providers Care Medical Record Consultant Name Role Phone Ashly Ozuna MD Primary Care Provider [phone] Reason for Visit * Reason Comments Med Refill Encounter Details Date Type Department Care Team (Late st Contact Info) Description 05/01/2020 Refill [facility] [place] [address] [place] [address] Ashly Ozuna MD [address] [place] [address] Vitamin D deficiency Social History Tobacco Use [...] labs. Pt would like to go to [facility] but it was unclear if they had a lab so they were faxed to [phone] and also to [facility] lab. EH * Telephone Encounter - Erasmo [...] deficiency documented in this encounter Care Teams Medical Record Consultant Relationship Specialty Start Date End Date Ashly Ozuna MD [address] [place] [address] PCP - General Pediatrics 10/25/18 07/21/22 documented as of this encounter
--- OUTSIDE RECORDS SUMMARY | 2024-10-25 15:02 | XMS_ITS | Clinical Summary ---
Author Organization [facility] Address [address] [place] [address] Phone Care Team Providers Care Bakery Machine Mechanic Name Role Phone Unavailable Primary Care Provider [...] and for housing resources. 02/11/2020 ---- Timothy Mutuel Department Manager Problem Noted Date Diagnosed Date Depression 09/16/2021 Scoliosis concern 07/30/2021 Overview (07/30/2021): 07/24- scoliometer up to 12 degrees Assessment & Plan (09/16/2021 3:18 PM EDT): Hadn't had x-ray done yet, but advised to go to [facility] when she gets vitamin D level drawn. [...] sent a message to the front desk officer to schedule this and she is aware. [...] appt 03/26/[address] Amber Agosto @ [facility], was to f/u in [...] AM EST): I will see if our [facility] can help her more with this (she [...] as she's supporting herself. Aware to contact [facility] if she needs help. Assessment & Plan [...] about her hyperlipidemia, but she's seeing a entry level manufacturing engineer through endo already, and this value was [...] with fatty liver. 07/24- last visit by [facility] endo entry level manufacturing engineer (last endo visit 03/22, was to f/u in 6 weeks, but no other appts notes from doc) Assessment & Plan (07/30/2021 11:20 AM EST): Overall doing pretty well with healthier choices, which I give her a lot of credit for. I encouraged her to call the entry level manufacturing engineer and request more frequent visits as it sounds like this would be helpful for her. Assessment & Plan (03/13/2020 4:57 PM EDT): Doing really well with exercise (going to gym 4x/week, walking 60min esveral days per week) and eating better. Drinking 2% milk instead of whole milk. Recommended [employer] website as she's looking for ideas for [...] (10/14) to help her with relaxation techniques- [employer] message sent to Nikolas. She is to [...] HAs. Will start OCPs as prescribed by Curve Saw Operator, so perhaps that will help. Assessment [...] Neuro exam normal other than slightly abnormal [id number] on left. Will have her f/u in 1 week to eval this further. Anxiety 08/06/2014 Overview (05/06/2021): Likely also with OCD, but never officially diagnosed. Prozac given in 08/2012 but took for only 1 month. Saw a therapist at [facility]. Then saw Nikolas, our Integrated counselor early 2019 with some improvement. Re-started fluoxetine 11/05/18, stopped 11/15/18 due to thinking it was causing agitation. Trial of sertraline 04/20, stopped after about two weeks due to severe heartburn (also sleep issues). Saw Nikolas several times 2019, transfer to [facility] 04/21? 05/23- worsening anxiety--> hydroxyzine [...] her first appt with her new PCP ([facility] In [place]) on 05/07/22 and they should take over prescribing at that time (she's aware). She really needs to be seeing a therapist - [facility] list given and I encouraged her to call [facility] and get on multiple waiting lists [...] sent a message to our front desk officer staff as well as Nikolas to see [...] to calm herself now), will start at [facility] soon. Denies SI. Assessment [...] a month due to perceived SEs). Nikolas, [facility] clinician, saw her today and will see her in f/u (appt scheduled for 07/31/19). She will refer out (likely [facility]) for both counseling and med [...] she can see a therapist here at [facility] at any time. Family history of [...] Father Abhijit Luciano Anxiety disorder Mother Eusebia Gonzalez Cirrhosis Mother Eusebia Gonzalez From Hepatit is C Depression Mother Eusebia Gonzalez Fibromyalgia Mother Eusebia Gonzalez Thyroid disease Mother Eusebia Gonzalez Relation Name Status Comments Brother Luis Felipe Sanchez Alive Brother: Asthma Father Abhijit Luciano Alive Mother Eusebia Gonzalez Alive Mother: Thyr oid disease, Hep C, [...] Completed 08/29/2019, 11/05/2018 Procedures * Due to [place] [employer] law, this organization might not be sharing sensitive test results. Procedure Name Priority Date/Time Associated Diagnosis Comments CHLAMYDIA AND GONORRHEA, AMPLIFIED Routine 07/30/2021 11:26 AM EST Encounter for screening examination for sexually transmitted disease from Last 3 Months or Most Recently Relevant to Health Maintenance Results * Due to [place] [employer] law, this organization might not be sharing sensitive test results. * Chlamydia and Gonorrhoea, Amplified (07/30/2021 11:26 AM EST) Chlamydia Trachomatis, DNA Probe NEGATIVE (NEG) [facility] Comment: No Chlamydia Trachomatis RNA detected in this patient's sample ? (REFERENCE RANGE/NORMAL VALUE: NOT DETECTED) ? Note: This test uses solar installer technician- mediated amplification method to detect rRNA from C. Trachomatis URINE GC AMP PROBE NEGATIVE (NEG) [facility] Comment: No Neisseria Gonorrhoeae RNA detected in this patient's sample ? (REFERENCE RANGE/NORMAL VALUE: NOT DETECTED) ? NOTE: This test uses solar installer technician-mediated amplification method to detect rRNA from N.Gonorrhoeae. [...] without risk of sexual abuse. Consult the [facility] if needed. Contact phone number . Therapeutic failure or success cannot be determined with the Aptima Combo2 assay since nucleic acid may persist following appropriate antimicrobial therapy. The Centers for Disease Control and Prevention (CDC) recommends confirmatory retesting using culture or a different nucleic acid amplification test when positive results occur, if indicated. Testing performed or reported by [facility], a Service of [facility], [address] [place] [address] [place] [address] David Adrian MD, Director Financial Services [facility]# [id number] Urine (Urine) 07/30/2021 11: 26 AM EST 07/30/2021 10:50 PM EST us Ashly Ozuna MD LAB MICROBIOLOGY - GENERAL OR DERABLES Final Result [facility] from Last 3 Months or Most Recently Relevant to Health Maintenance
--- OUTSIDE RECORDS SUMMARY | 2024-10-25 15:02 | XMS_ITS | Encounter Summary ---
Author Organization [facility] Address [address] [place] [phone] Phone Care Team Providers Care Diplomatic Interpreter/Translator Name Role Phone Ashly Ozuna MD Primary Care Provider [phone] Encounter Details Date Type Department Care Team (Late st Contact Info) Description 02/16/2017 Conversion Encounter [facility] [place] [address] [place] [address] Social History Tobacco Use Types Packs/Day Years [...] on filedocumented in this encounter Care Teams Diplomatic Interpreter/Translator Relationship Specialty Start Date End Date Ashly Ozuna MD [address] [place] [address] PCP - General Pediatrics 10/25/18 07/21/22 documented as of this encounter
--- OUTSIDE RECORDS SUMMARY | 2024-10-25 15:02 | XMS_ITS | Encounter Summary ---
Author Organization [facility] Address [address] [place] [address] Phone Care Team Providers Care Admission Specialist Name Role Phone Ashly Ozuna MD Primary Care Provider [phone] Reason for Visit * Reason Comments Med Refill Encounter Details Date Type Department Care Team (Late st Contact Info) Description 11/14/2021 Refill [facility] [place] [address] [place] [address] Ashly Ozuna MD [address] [place] [address] Vitamin D deficiency; Depression, unspecified depression type [...] and ask her to go to a [facility] lab to have her vitamin D [...] type documented in this encounter Care Teams Admission Specialist Relationship Specialty Start Date End Date Ashly Ozuna MD [address] [place] [id number] PCP - General Pediatrics 10/25/18 07/21/22 documented as of this encounter
--- OUTSIDE RECORDS SUMMARY | 2024-10-25 15:02 | XMS_ITS | Encounter Summary ---
Author Organization [facility] Address [address] [place] [address] Phone Care Team Providers Care Senior Stock Plan Administrator Name Role Phone Ashly Ozuna MD Primary Care Provider [phone] Encounter Details Date Type Department Care Team (Late st Contact Info) Description 06/19/[address] [facility] Family Medicine [address] [place], [place] [id number] Family Medicine, Physician [address] [place] [address] Social History Tobacco Use Types Packs/Day Years [...] on filedocumented in this encounter Care Teams Senior Stock Plan Administrator Relationship Specialty Start Date End Date Ashly Ozuna MD [address] [place] [address] PCP - General Pediatrics 10/25/18 07/21/22 documented as of this encounter
[2024-10-25 15:57] LABS: D Dimer High Sensitivity < 150 NG/ML
[2024-10-25 16:10] VITALS: BP 128/89; PULSE 81; RESP 20; TEMP 37.1; O2SAT 100
== END 2024-10-25 16:23 | disposition home or self-care (01) ==
PROVIDERS: Physician Assistant Medical; Emergency Provider Emergency Medicine; PCP Nurse Practitioner Family
DX: R00.2 Palpitations (principal); R06.00 Dyspnea, unspecified; Z03.818 Encounter for observation for suspected exposure to other biological agents ruled out; I10 Essential (primary) hypertension; E78.5 Hyperlipidemia, unspecified; E03.9 Hypothyroidism, unspecified; Z79.02 Long term (current) use of antithrombotics/antiplatelets; Z79.899 Other long term (current) drug therapy
CPT/HCPCS: 0241U; 36415; 71046; 80053; 83735; 84439; 84443; 84484; 84702; 85025; 85379; 93005; 99283

== ENCOUNTER → 2024-10-25 11:57 | Outpatient (BNV) | payer OTHER, SELFPAY | PROVIDERS: Emergency Provider Emergency Medicine; PCP Nurse Practitioner Family; Visit Provider Internal Medicine | DX: R94.31 Abnormal electrocardiogram [ECG] [EKG] (principal); R00.0 Tachycardia, unspecified; R06.02 Shortness of breath | CPT/HCPCS: 93010 ==

== ENCOUNTER → 2024-10-25 11:57 | Outpatient (BNV) | payer OTHER, SELFPAY | PROVIDERS: PCP Nurse Practitioner Family; Visit Provider Radiology Diagnostic Radiology | DX: R06.02 Shortness of breath (principal) | CPT/HCPCS: 71046 ==

== ENCOUNTER 2024-11-29 08:48 | Outpatient (REF) | payer OTHER, SELFPAY ==
--- OUTSIDE RECORDS SUMMARY | 2024-11-29 08:52 | XMS_ITS | Encounter Summary ---
Author Organization [facility] Address [address] [place] [address] Phone Care Team Providers Care Car Sander Name Role Phone Ashly Ozuna MD Primary Care Provider [phone] Reason for Visit * Reason Comments Med Refill Encounter Details Date Type Department Care Team (Late st Contact Info) Description 05/01/2020 Refill [facility] [place] [address] [place] [address] Ashly Ozuna MD [address] [place] [address] Vitamin D deficiency Social History Tobacco Use [...] labs. Pt would like to go to [facility] but it was unclear if they had a lab so they were faxed to [phone] and also to [facility] [place] lab. EH * Telephone Encounter - Erasmo [...] deficiency documented in this encounter Care Teams Car Sander Relationship Specialty Start Date End Date Ashly Ozuna MD [address] [place] [address] PCP - General Pediatrics 10/25/18 07/21/22 documented as of this encounter
[2024-11-29 11:07] LABS: Free T4 (Free Thyroxine) 0.86 ng/dL (0.71-1.85); Thyroid Stimulating Hormone 5.72 uIU/mL (0.32-4.0); Vitamin D 25-OH Total 17.6 ng/mL (>30)
== END 2024-11-29 08:49 | disposition home or self-care (01) ==
LOC: HO.HMGCLDS 08:48
PROVIDERS: PCP Nurse Practitioner Family; Visit Provider Student in an Organized Health Care Education/Training Program
DX: E03.8 Other specified hypothyroidism (principal); E55.9 Vitamin D deficiency, unspecified
CPT/HCPCS: 36415; 82306; 84439; 84443

== ENCOUNTER 2024-12-02 09:08 | Outpatient (AMB) | payer OTHER, SELFPAY ==
[2024-12-02 09:39] VITALS: BP 130/90; PULSE 77; O2SAT 94; BMI 34.7
--- NOTE | 2024-12-02 09:39 | A.OFFVIS_ITS ---
Vital Signs 12/02/24 09:39 Height 5 ft 4 in Weight 201 lb 15.095 oz BMI 34.7 BP 130/90 H Blood Pressure Location Rt brachial Position Sitting Pulse 77 Pulse Source Pulse Oximeter Pulse Oximetry (%) 94 Oxygen Delivery Method Room Air Intake Visit Reasons: Nontoxic single thyroid nodule Intake Note: Patient present today for Nontoxic single thyroid nodule. Earthmoving Plant Operator Required: No Allergies aloe [ALOE] Allergy (Unknown, Verified 12/02/24 09:45) RASH sertraline [SERTRALINE] Allergy (Unknown, Verified 12/02/24 09:45) UNKNOWN banana Allergy (Verified 12/02/24 09:45) Itching pineapple Allergy (Verified 12/02/24 09:45) Itching Peppers, Jalapeno Adverse Reaction (Verified 12/02/24 09:45) Itchy Eyes shellfish derived Adverse Reaction (Verified 12/02/24 09:45) rash HPI Comments Details: 23-year-old female coming in today for fup of subclinical hypothyroidism, thyroid nodule. HPI Labs from December 2022 showed TSH of 7.93 with free T4 of 0.90. Most recent thyroid ultrasound from February 2024 showed right inferior lobe exophytic thyroid nodule, I reviewed the images myself. This is stable in size when compared to ultrasound from 2020. Reports palpitations for years but has diagnosis of anxiety. Reports dry skin and hair thinning. Periods regular, LMP 03/11/24. No . Heterosexual, Uses condoms. Reports fatigue. No proximal muscle weakness, feels like its hard to loose weight. Denies easy bruising. Patient currently denies heat or cold intolerance, diarrhea or constipation, weight changes, changes in appearance of eyes or vision changes,has some blurriness pending eye appointment, reports tremors. ? Reports some trouble swallowing with solids, for the past few months. Feels voice is more hoarse, but not sure. Patient reports pain on swallowing or voice changes or difficulty breathing. She is pending to see GI , on famotadine for GERD. Patient denies any history of childhood neck radiation. Denies having ever used lithium, amiodarone or biotin supplements. Patient denies any family history of thyroid cancer. 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 Does report some intermittent palpitations. Bowel movements are regular. Physical exam General: sitting comfortably in no acute distress HEENT: normocephalic/atraumatic, , moist oral mucosa Neck: supple, symmetrical, no thyromegaly Cardiac: normal heart sounds Pulm: normal breath sounds B/L, no added breath sounds Abd: not distended, no tenderness, no abdominal striae Extremities: no edema, no signs of myxedema, no proximal muscle weakness, does have fine tremors Laboratory Tests 03/26/20 09/22/22 12/23/22 11:59 10:56 14:04 Calcium 9.8 Magnesium 1.9 Albumin 4.6 Free T4 0.82 0.87 0.90 TSH 4.99 H 7.93 H Thyroglobulin Antibody <1 Thyroid Peroxidase Ab 7 Laboratory Tests 03/26/20 09/22/22 12/23/22 11:59 10:56 14:04 Sodium Potassium Creatinine Estimated GFR Calcium 9.8 Magnesium 1.9 Albumin 4.6 25-OH Vitamin D Total Free T4 0.82 0.87 0.90 TSH 4.99 H 7.93 H PTH Intact Thyroglobulin Antibody <1 Thyroid Peroxidase Ab 7 03/26/24 10/25/24 11/29/24 16:39 12:11 09:00 Sodium 140 Potassium 3.7 Creatinine 0.68 Estimated GFR > 60 Calcium 9.7 Magnesium Albumin 25-OH Vitamin D Total 17.6 L Free T4 0.86 0.86 TSH 6.60 H 5.72 H PTH Intact 73.4 Thyroglobulin Antibody Thyroid Peroxidase Ab 19 H US THYROID 02/23 I reviewed the images myself, which showed homogeneous thyroid gland with the right inferior lobe exophytic structure. This does not appear cystic like a parathyroid adenoma nodules it look like a lymph node. Could possibly be an exophytic hard of her thyroid gland, I do not see any calcifications, the border is not irregular, it does not taller than wide. Solid isoechoic. Low suspicion thyroid nodule possibly per ERIK with 5-10% chance malignancy. At this time does not meet criteria for FNA, we will plan to repeat thyroid ultrasound in 1 year. CLINICAL INFORMATION: Disorder of parathyroid gland, unspecified. 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 COMPARISON: Thyroid ultrasound 04/14/2020. TECHNIQUE: Linear transducer grayscale and color Doppler examination with attention to the region of the thyroid. FINDINGS: SIZE: Measurements of the thyroid lobes and nodules are given in sagittal, anteroposterior and transverse dimensions respectively. Right Thyroid Lobe: 4.4 x 1.2 x 1.3 cm, volume 3.6 mL. Previously 4.0 x 1.3 x 1.5 cm, volume 4.1 mL. Parenchyma: The gland echotexture is homogeneous. Thyroid vascularity is normal. Left Thyroid Lobe: 4.0 x 1.2 x 1.3 cm, volume 3.2 mL. Previously 3.7 x 1.0 x 1.4 cm, volume 2.7 mL. Parenchyma: The gland echotexture is homogeneous. Thyroid vascularity is normal. Isthmus: 0.27 cm in maximum AP dimension. Previously 0.30 cm. No focal thyroid nodule is seen. NODES: No lymphadenopathy is seen in the tissue surrounding the thyroid gland. ADDITIONAL FINDINGS: A 1.2 x 0.5 x 1.1 cm hypoechoic nodule along the posterior inferior aspect of the right thyroid lobe previously measured 1.2 x 0.5 x 0.8 cm on 04/14/2020. Differential considerations include a parathyroid/adenoma, atypical lymph node or exophytic thyroid nodule. US/US thyroid IMPRESSION: A 1.2 x 0.5 x 1.1 cm hypoechoic nodule along the posterior inferior aspect of the right thyroid lobe previously measured 1.2 x 0.5 x 0.8 cm on 04/14/2020. Differential considerations include a parathyroid/adenoma, atypical lymph node or exophytic thyroid nodule. US THYROID 04/21 CLINICAL INFORMATION: Hypothyroidism. COMPARISON: None TECHNIQUE: Linear transducer lance-scale and color Doppler examination with attention to the region of the thyroid. FINDINGS: SIZE: Measurements of the thyroid lobes and nodules are given in sagittal, anteroposterior and transverse dimensions respectively. Right Thyroid Lobe: 4.0 x 1.3 x 1.5 cm, volume 4.1 mL. Parenchyma: The gland echotexture is homogeneous. Thyroid vascularity is normal. Left Thyroid Lobe: 3.7 x 1.0 x 1.4 cm, volume 2.7 mL. Parenchyma: The gland echotexture is homogeneous. Thyroid vascularity is normal. Isthmus: 0.3 cm in maximum AP dimension. RIGHT THYROID LOBE: No nodules. ISTHMUS: No nodules. LEFT THYROID LOBE: No nodules. NODES: No lymphadenopathy is seen in the tissue surrounding the thyroid gland. ADDITIONAL FINDINGS: There is a 1.2 x 0.5 to 0.8 cm oval hypoechoic nodule adjacent to the dorsal aspect of the inferior pole of the right thyroid gland. IMPRESSION: * Unremarkable sonographic appearance of the thyroid gland. * Incidental 1.2 x 0.5 x 0.8 cm soft tissue nodule along the dorsal aspect of the inferior right thyroid. This could be compatible with a parathyroid adenoma (a normal parathyroid gland measures 3-5 mm). [facility] Medical History Vitamin D deficiency Subclinical hypothyroidism Neck muscle spasm Anxiety Migraines Hypothyroidism Hypertension Hypercholesteremia Surgical History No pertinent past surgical history Family History Father Hypertension Mother Hepatitis C Hypothyroidism Hypertension Cirrhosis of liver Murmur, cardiac Social History Housing: Apartment Are you a primary elderly caregiver to a significant other at home: No Do you presently have visiting nurse or other home services: No Alcohol intake: never Patient Tobacco Use Status: Never used Tobacco e-Cigarette/Vaping Use: Never Used Second Hand Smoke Exposure: No service: No Current occupational status: unemployed Cognitive needs: No Hearing needs: No Vision needs: No Physical Exam Vital Signs: Last Vital Signs Pulse 77 12/02/24 09:39 BP 130/90 H 12/02/24 09:39 Pulse Ox 94 12/02/24 09:39 Oxygen Delivery Method Room Air 12/02/24 09:39 BMI result Body Mass Index 34.7 Assessment & Plan Assessment & Plan (1) Subclinical hypothyroidism: Code(s): E03.8 - Other specified hypothyroidism Category: Medical Plan: Patient with a history of subclinical hypothyroidism with most recent labs from October 2024 shows improvement in her TSH to 5.72, normal free T4 of 0.86. She does have symptoms tiredness, difficulty losing weight, hair loss. Possibly these could be related to her thyroid. Treatment criteria for subclinical hyperthyroidism is TSH greater than 10 are between 6-9 with significant symptoms. She is somewhat symptomatic and we could possibly consider treating her with low-dose levothyroxine. Or we can monitor it conservatively. At this time patient is okay with conservative management with monitoring. She does have some ongoing stressors due to work and personal life that might be responsible for some of her symptoms. She is sexually active but using barrier contraception and not looking to get . I did middle school counselor her that women with subclinical hypothyroidism who have TPO antibodies, need to go on levothyroxine during . She might also require levothyroxine if she has trouble getting . Patient verbalized understanding. Plan: -ordered TSH, free T4, to be done prior to follow up in 4 months (2) Thyroid nodule: Code(s): E04.1 - Nontoxic single thyroid nodule Category: Medical Plan: Patient had thyroid ultrasound in February of 2024 which showed 1.2 cm right inferior lobe nodule. This is exophytic nodule, does not look like a parathyroid gland. It does not look like a lymph node. Possibly she has some trabeculation in her thyroid which makes this look like an exophytic nodule. It is well-defined, solid, isoechoic, no calcifications seen. At this time per ERIK this would be a low suspicion nodule with a 5-10% chance of malignancy, and does not meet criteria for FNA. If this grows greater than 1.5 cm, would consider FNA. At this time I would like to repeat her thyroid ultrasound in 1 year from the last 1 which would be in January 2025. While I do not think this is a parathyroid adenoma, she has normal calcium levels. Her vitamin-D level is low from October 2024 at 17. Plan: -initiate vitamin-D 1000 units daily, - ordered thyroid ultrasound to be done in 3 months prior to follow up in 4 months -follow up in 4 months to discuss ultrasound results Plan see above Orders: Orders US thyroid 3 Months E04.1 - Nontoxic single thyroid nodule Thyroid Stimulating Hormone 4 Months E03.8 - Other specified hypothyroidism Free T4 (Free Thyroxine) 4 Months E03.8 - Other specified hypothyroidism Patient Instructions: Start taking vitamin D 1000 IU (units) daily , you can buy any over the counter brand Do US of the thyroid in 3 months and fup in 4 months to discuss results Coding Level of Care Code Est Pt Level 3 (47807) Diagnoses Subclinical hypothyroidism E03.8 Thyroid nodule E04.1
--- OUTSIDE RECORDS SUMMARY | 2024-12-02 09:43 | XMS_ITS | Encounter Summary ---
Author Organization [facility] Address [address] [place] [address] Phone Care Team Providers Care Emblem Cutter Name Role Phone Ashly Ozuna MD Primary Care Provider [phone] Reason for Visit * Reason Comments Med Refill Encounter Details Date Type Department Care Team (Late st Contact Info) Description 05/01/2020 Refill [facility] [place] [address] [place] [address] Ashly Ozuna MD [address] [place] [address] Vitamin D deficiency Social History Tobacco Use [...] labs. Pt would like to go to [facility] but it was unclear if they had a lab so they were faxed to [phone] and also to [facility] [place]. EH * Telephone Encounter - Erasmo [...] deficiency documented in this encounter Care Teams Emblem Cutter Relationship Specialty Start Date End Date Ashly Ozuna MD [address] [place] [address] PCP - General Pediatrics 10/25/18 07/21/22 documented as of this encounter
== END 2024-12-02 10:25 | disposition home or self-care (01) ==
LOC: HO.ENCR 09:09
PROVIDERS: PCP Nurse Practitioner Family; Visit Provider Student in an Organized Health Care Education/Training Program
DX: E03.8 Other specified hypothyroidism (principal); E04.1 Nontoxic single thyroid nodule
CPT/HCPCS: 99213

== ENCOUNTER → 2024-12-02 09:08 | Outpatient (BNVA) | payer OTHER, SELFPAY | PROVIDERS: PCP Nurse Practitioner Family; Visit Provider Student in an Organized Health Care Education/Training Program | DX: E03.8 Other specified hypothyroidism (principal); E04.1 Nontoxic single thyroid nodule | CPT/HCPCS: 99212 ==

== ENCOUNTER 2024-12-17 15:22 | Outpatient (AMB) | payer OTHER, SELFPAY ==
--- NOTE | 2024-12-17 17:17 | A.OFFPC_ITS ---
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 Allergies fluconazole Allergy (Mild, Verified 12/17/24 17:22) palpitations, felt like could not breath aloe [ALOE] Allergy (Unknown, Verified 12/17/24 17:16) RASH sertraline [SERTRALINE] Allergy (Unknown, Verified 12/17/24 17:16) UNKNOWN banana Allergy (Verified 12/17/24 17:16) Itching pineapple Allergy (Verified 12/17/24 17:16) Itching Peppers, Jalapeno Adverse Reaction (Verified 12/17/24 17:16) Itchy Eyes shellfish derived Adverse Reaction (Verified 12/17/24 17:16) rash Medication List - Last Reconciled 12/17/24 by Gisel Hartman, PHYSICIAN INDUSTRIAL- acetaminophen (Tylenol Extra Strength) 1,000 mg PO Q6H PRN albuterol sulfate 90 mcg/actuation (Ventolin HFA) 2 puffs inhalation Q4-6H PRN atorvastatin 20 mg PO BEDTIME cetirizine 10 mg PO DAILY PRN cyclobenzaprine 5 mg PO Q8H PRN epinephrine 0.3 mg (0.3 mL) IM Q4H PRN fluconazole 400 mg (2 x 200 mg) PO DAILY 14 days hydroxyzine HCl 25 mg PO BEDTIME PRN lorazepam (Ativan) 1 mg PO ONCE lotilaner 0.25% (Xdemvy) drps ophthalmic (eye) lotilaner 0.25% (Xdemvy) 1 drp ophthalmic (eye) Q12H meloxicam 7.5 mg PO DAILY omeprazole 20 mg PO DAILY sucralfate (Carafate) 10 mL PO QID PRN tizanidine (Zanaflex) 2 mg (1/2 x 4 mg) PO BID PRN 5 days Tobacco use date assessed: 09/04/24 Dental Screening Dental Screen Date: 09/04/24 HPI HPI Comments History of Present Illness Details 24-year-old female with hyperlipidemia, subclinical hypothyroidism, seasonal allergies, morbid obesity, chronic GERD, generalized anxiety disorder, migraines without aura, hepatic steatosis with elevated LFTs, mild anemia, MDD, AGUSTINA , vit d def, + TPO Ab FHX: Mom stroke age 26, then stroke x 2 in 40's. History of Present Illness - The patient is a 24-year-old female pr esenting with dietary counseling and management of multiple health concerns. - Previously diagnosed with Eosinophilic Esophagitis; had allergic reaction to fluconazole. - Elevated liver enzymes and hypercholes terolemia are present; dietary modification advised yet unmet due to referral issues. - Referral in place was for Wt Mgmt Surg thomas, she does not want surgery or meds; wants diet help. - Reports history of hypertension; famil y history significant for mother's early stroke, high cholesterol, and hypertension. - Reports palpitations occasionally at r est; no Holter monitoring performed. Mentioned to endo who told her hypothyroid would not cause this. - Thyroid disorder noted, with vitamin D management and follow-up imaging recommended by core measures abstractor. - Was referred to [facility] for food allergy testing but they do not do that; needs new referral Review of Systems - Cardiovascular: Reports palpitations, elevated blood pressure. - Gastrointestinal: Reports past Eosinop hilic Esophagitis and elevated liver enzymes. - Endocrine: Noted thyroid disorder. - Medication Allergies: Reports allergic reaction to fluconazole characterized by palpitations and breathing difficulty. Results - Tests and Diagnostics: - Previous endo scopy with findings of eosinophilic esophagitis - Allergy reaction documented with fluco nazole intake Assessment and Plan 1. Eosinophilic Esophagitis - Scheduled repeat endoscopy. FU with GI 2. Hypercholesterolemia and Elevated Serene er Enzymes - Dietary referral placed [facility] Nutrition If any issues w/ this referral asked she reach out to me 3. Palpitations - Holter monitoring ordered. 4. Food allergies, new referral placed t o [facility]. 5. Thyroid and Parathyroid Disorder - Vitamin D initiated; follow-up ultraso und. [place] with [facility] [place] 6. Allergic Reaction to Fluconazole - Confirmed; added to allergy list. Telehealth Attestation Documentation of this visit was completed via a secure telehealth platform, ensuring accuracy to the best of my ability. The patient has been explained that this is an interactive (audio/video) telehealth encounter and what that consists of. The patient understands and wishes to proceed. [employer] platform was used. Total time spent caring for the patient today was 31 minutes. This includes time spent before the visit reviewing the chart, time spent during the visit, and time spent after the visit on documentation, reviewing laboratory results, diagnostic imaging, medications, performing a medically necessary evaluation, counseling on diagnoses, care coordination, ordering appropriate tests, ordering appropriate medications, review of tests performed by other providers, reporting test results with the patient, communication with other healthcare providers. [facility] Medical History Vitamin D deficiency Subclinical hypothyroidism Neck muscle spasm Anxiety Migraines Hypothyroidism Hypertension Hypercholesteremia Surgical History No pertinent past surgical history Family History Father Hypertension Mother Hepatitis C Hypothyroidism Hypertension Cirrhosis of liver Murmur, cardiac Social History Housing: Apartment Are you a primary lawn care worker to a significant other at home: No Do you presently have visiting nurse or other home services: No Alcohol intake: never Patient Tobacco Use Status: Never used Tobacco e-Cigarette/Vaping Use: Never Used Second Hand Smoke Exposure: No service: No Current occupational status: unemployed Cognitive needs: No Hearing needs: No Vision needs: No Questionnaire Thrive Questionnaire Date Thrive assessed: 09/04/24 AGUSTINA-7 AMB Questionnaire AGUSTINA-7 Date AGUSTINA - 7 assessed: 09/04/24 Source: Developed by Drs. Ozzie Allison, Denia Benoit, Ministerio Alarcon and colleagues, with an educational jessica from [employer]. Physical exam (Primary Care) Tobacco/Smoking Status: Tobacco use Status Tobacco use date assessed 09/04/24 10/09/24 10:07 Patient Tobacco Use Status Never used Tobacco 10/25/24 12:30 e-Cigarette/Vaping Use Never Used 10/09/24 10:07 Thrive Assessment: Date of Thrive Assessment Date Thrive assessed 09/04/24 10/09/24 10:07 Telehealth Telehealth Telehealth Platform: [facility] Location of provider rendering services: practice address Location of patient: address on file Patient Identification confirmed using: Name, : Yes Telehealth method: voice only Patient verbally consented to treatment: Yes Patient verbally consented to billing insurance company: Yes Patient informed of any privacy concerns related to visit: Yes Minutes spent on Phone/Video with Pt.: 17 Coding Level of Care Code Tele Est Pt Level 4 (69423) Complex EM visit Add On G2211 Diagnoses Mixed hyperlipidemia E78.2 Hyperlipidemia type: mixed hyperlipidemia Hepatic steatosis K76.0 Elevated LFTs R79.89 Severe obesity (BMI 35.0-39.9) with comorbidity E66.01 Heart palpitations R00.2 Family history of cerebrovascular accident (CVA) in mother Z82.3 Shellfish allergy Z91.013 Allergy, food Z91.018 Assessment & Plan Assessment & Plan (1) Hyperlipidemia: Code(s): E78.5 - Hyperlipidemia, unspecified Category: Medical Qualifiers: Hyperlipidemia type: mixed hyperlipidemia Qualified Code(s): E78.2 - Mixed hyperlipidemia (2) Hepatic steatosis: Code(s): K76.0 - Fatty (change of) liver, not elsewhere classified Category: Medical (3) Elevated LFTs: Code(s): R79.89 - Other specified abnormal findings of blood chemistry Category: Medical (4) Severe obesity (BMI 35.0-39.9) with comorbidity: Code(s): E66.01 - Morbid (severe) obesity due to excess calories Category: Medical (5) Heart palpitations: Code(s): R00.2 - Palpitations Category: Medical (6) Family history of cerebrovascular accident (CVA) in mother: Code(s): Z82.3 - Family history of stroke Category: Medical (7) Shellfish allergy: Code(s): Z91.013 - Allergy to seafood Category: Medical (8) Allergy, food: Code(s): Z91.018 - Allergy to other foods Category: Medical Plan . Orders: Orders ECG holter monitor 48 hour Today R00.2 - Palpitations Referrals Child Welfare Worker Nutrition Referral E66.01 - Morbid (severe) obesity due to excess calories, E78.2 - Mixed hyperlipidemia, K76.0 - Fatty (change of) liver, not elsewhere classified, R79.89 - Other specified abnormal findings of blood chemistry Allergy & Immunology Referral Z91.013 - Allergy to seafood, Z91.018 - Allergy to other foods Medications: Discontinued fluconazole HOLD hydroxyzine while taking this Discontinued Reason: Patient no longer taking 400 mg (2 x 200 mg) PO DAILY 14 days 28 tabs 0RF B37.81 - Candidal esophagitis
--- OUTSIDE RECORDS SUMMARY | 2024-12-17 17:52 | XMS_ITS | Encounter Summary ---
Author Organization [facility] Address [address] [place] [address] Phone Care Team Providers Care Machine Pecan Gatherer Name Role Phone Ashly Ozuna MD Primary Care Provider [phone] Reason for Visit * Reason Comments Med Refill Encounter Details Date Type Department Care Team (Late st Contact Info) Description 05/01/2020 Refill [facility] [place] [address] [place] [address] Ashly Ozuna MD [address] [place] [address] Vitamin D deficiency Social History Tobacco Use [...] labs. Pt would like to go to [facility] but it was unclear if they had a lab so they were faxed to [phone] and also to [facility]. EH * Telephone Encounter - Erasmo [...] deficiency documented in this encounter Care Teams Machine Pecan Gatherer Relationship Specialty Start Date End Date Ashly Ozuna MD [address] [place] [address] PCP - General Pediatrics 10/25/18 07/21/22 documented as of this encounter
== END 2024-12-17 17:33 | disposition home or self-care (01) ==
LOC: HO.HMCFM 15:22
PROVIDERS: PCP Nurse Practitioner Family; Visit Provider Nurse Practitioner Family
DX: E78.2 Mixed hyperlipidemia (principal); K76.0 Fatty (change of) liver, not elsewhere classified; R79.89 Other specified abnormal findings of blood chemistry; E66.01 Morbid (severe) obesity due to excess calories; R00.2 Palpitations; Z82.3 Family history of stroke; Z91.013 Allergy to seafood; Z91.018 Allergy to other foods

== ENCOUNTER → 2024-12-17 15:22 | Outpatient (BNVA) | payer OTHER, SELFPAY | PROVIDERS: PCP Nurse Practitioner Family; Visit Provider Nurse Practitioner Family | DX: Z13.89 Encounter for screening for other disorder (principal) ==

== ENCOUNTER → 2024-12-24 09:13 | Outpatient (REF) | payer OTHER, SELFPAY ==
--- OUTSIDE RECORDS SUMMARY | 2024-12-24 09:50 | XMS_ITS | Encounter Summary ---
Author Organization [facility] Address [address] [place] [address] Phone Care Team Providers Care High [address] Justice Name Role Phone Ashly Ozuna MD Primary Care Provider [phone] Reason for Visit * Reason Comments Med Refill Encounter Details Date Type Department Care Team (Late st Contact Info) Description 05/01/2020 Refill [facility] [place] [address] [place] [address] Ashly Ozuna MD [address] [place] [address] Vitamin D deficiency Social History Tobacco Use [...] labs. Pt would [facility] to go to [facility] but it was unclear if they had a lab so they were faxed to [phone] and also to [facility] lab. EH * Telephone Encounter - Erasmo [...] deficiency documented in this encounter Care Teams High [address] Justice Relationship Specialty Start Date End Date Ashly Ozuna MD [address] [place] [address] PCP - General Pediatrics 10/25/18 07/21/22 documented as of this encounter
== END ==
LOC: HO.CARD 09:13
PROVIDERS: Visit Provider Nurse Practitioner Family
DX: R00.2 Palpitations (principal)
CPT/HCPCS: 93225

== ENCOUNTER → 2024-12-24 09:23 | Outpatient (BNV) | payer OTHER, SELFPAY | PROVIDERS: Visit Provider Internal Medicine | DX: I47.10 Supraventricular tachycardia, unspecified (principal) | CPT/HCPCS: 93227 ==

== ENCOUNTER 2025-01-27 08:56 | Outpatient (REF) | payer OTHER, SELFPAY ==
--- NOTE | ~2025-01-27 | US_ITS ---
CLINICAL HISTORY: K76.0 - Fatty (change of) liver, not elsewhere classified US abdomen complete with color Doppler Comparison: None Findings: The visualized pancreas, aorta, and inferior vena cava are unremarkable. Liver is borderline enlargedand mildly echogenic throughout. Right lobe 18.4 cm length. No focal hepatic masses. Common duct 3.8 mm diameter. Physiologic distention of the gallbladder. No gallstones or sludge. No gallbladder wall thickening. No pericholecystic fluid. No sonographic Brasher sign. Main portal vein antegrade. Right kidney normal size, 11.0 cm in length. Normal cortical width and echotexture. No solid or cystic renal masses. No nephrolithiasis. No hydronephrosis. Left kidney normal, 11.0 cm in length. Normal cortical width and echotexture. No solid or cystic renal masses. No nephrolithiasis. No hydronephrosis. Spleen measures 9.7 cm. No splenic masses. No ascites. No lymphadenopathy. Impression: 1. Hepatomegaly with increased hepatic echotexture reflecting mild diffuse hepatic steatosis or diffuse hepatocellular disease. This document has been electronically signed by: Steven Jewell MD on 01/27/2025 13:03:08
--- OUTSIDE RECORDS SUMMARY | 2025-01-27 09:29 | XMS_ITS | Clinical Summary ---
Author Organization [facility] Address [address] [place] [address] Phone Care Team Providers Care Bricklayer Name Role Phone Gisel Hartman Primary Care Provider Allergies Active Allergy Reactions Criticality Noted Date Comments Aloe Vera Itching 11/08/2024 Fluconazole Palpitations 11/08/2024 Sertraline 11/08/2024 Shellfish Derived 11/08/2024 Encounters Date Type Department Care Team Description 11/08/2024 9:09 PM EDT - 11/09/2024 4:01 AM EDT Emergency [facility] Emergency [address] [place] [address] Pelvic inflammatory disease (Primary Dx) Discharge Disposition: Home or Self Care from Last 3 Months Medical History Medical History Date Comments Hypercholesteremia Fatty liver Esophageal stenosis Social History Tobacco Use Types Packs/Day Years Used Date Smoking Tobacco: Never Smokeless Tobacco: Never Tobacco Cessation:Counseling Given: Not Answered Alcohol Use Standard Drinks/Week Comments Never 0 (1 standard drink = 0.6 oz pur e alcohol) Comments Unknown Sex and Gender Information Value Date Recorded Sex Assigned at Not on file Legal Sex Female 6:17 PM EST Gender Identity Not on file Sexual Orientation Not on file Obstetrics History Last Filed Vital Signs Vital Sign Reading Time Taken Comments Blood Pressure 127/91 11/09/2024 12:01 AM EDT Pulse 109 11/09/2024 12:01 AM EDT Temperature 37.2 C (99 F) 11/09/2024 12:01 AM EDT Respiratory Rate 18 11/09/2024 12:01 AM EDT Oxygen Saturation 100% 11/09/2024 12:01 AM EDT Inhaled Oxygen Concentration - - Weight 88.5 kg (195 lb) 11/08/2024 5:09 PM EDT Height 152.4 cm (5') 11/08/2024 5:09 PM EDT Body Mass Index 38.08 11/08/2024 5:09 PM EDT Plan of Treatment Health Maintenance Due Date Last Done Comments Cervical Cancer Screening: Pap Smear 2021 Cholesterol Screening (Lipid Panel) 06/04/2022 HIV Screening 06/04/2022 Hepatitis C Screening 06/04/2022 Social Influencers of Health Screening 06/04/2022 COVID-19 Vaccine ( season) 2024 04/26/2022, 08/24/2021, 07/30/2021 Depression Screening 07/03/2024 Influenza Vaccine (#1) 2025 , 04/19/2019, 06/05/2013, Additional history exists Gonorrhea/Chlamydia Screening 11/08/2025 11/08/2024 DTaP,Tdap,and Td Vaccines (8 - Td or Tdap) 04/26/2032 04/26/2022, 11/23/2011, 06/18/2004, Additional history exists Hepatitis B Vaccines Completed 2000, 2000, 2000 HIB Vaccines Completed 06/27/2001, 12/02, 2000, Additional history exists Pneumococcal Vaccine: Pediatrics (0 to 5 Years) and At-Risk Patients (6 to 49 Years) Completed 06/27/2001, 2000, 2000, Additional history exists IPV Vaccines Completed 06/18/2004, 09/01, 2000, Additional history exists MMR Vaccines Completed 06/18/2004, 06/27/2001 Varicella Vaccines Completed 07/05/2007, 06/27/2001 HPV Vaccines Completed 06/05/2013, 11/01, 09/27/2010 Hepatitis A Vaccines Completed 02/11/2015, 11/23/19 Meningococcal ACWY Vaccine Completed 11/05/2018, Meningococcal B Vaccine Completed 08/29/2019, 11/05 RSV Immunization Patients Under 20 months Aged Out No longer eligible based on patient's age to complete this topic Procedures Procedure Name Priority Date/Time Associated Diagnosis Comments US PELVIS NON OB COMPLETE W TRANSVAGINAL STAT 11/09/2024 1:20 AM EDT POC , URINE DIAGNOSTIC STAT 11/08/2024 6:35 PM EDT SO URINE CULTURE TUBE STAT 11/08/2024 6:26 PM EDT URINALYSIS WITH REFLEX MICROSCOPIC AND CULTURE STAT 11/08/2024 6:26 PM EDT URINALYSIS WITH REFLEX MICROSCOPIC AND CULTURE STAT 11/08/2024 6:26 PM EDT CHLAMYDIA TRACHOMATIS AND NEISSERIA GONORRHOEAE PCR STAT 11/08/2024 6:26 PM EDT TREPONEMA PALLIDUM ANTIBODY WITH REFLEX TO RPR AND PARTICLE AGGLUTINATION Add-On 11/08/2024 5:32 PM EDT CBC WITH AUTO DIFFERENTIAL STAT 11/08/2024 5:32 PM EDT BASIC METABOLIC PANEL STAT 11/08/2024 5:32 PM EDT CBC AND DIFFERENTIAL STAT 11/08/2024 5:32 PM EDT from Last 3 Months Results * US Pelvis Non OB Complete w Transvaginal (11/09/2024 1:20 AM EDT) Anatomical Region Laterality Modality Body, Pelvis Ultrasound 11/09/2024 2:38 AM EDT Impressions 11/09/2024 2:38 AM EDT No evidence of left ovarian torsion. Nonvisualization of the right ovary. Trace free fluid, may be physiologic. This document has been electronically signed by: Alberto Yap MD on 11/09/2024 02:38:51 Narrative 11/09/2024 2:38 AM EDT INDICATION: pelvic pain US pelvis transabdominal and transvaginal with Doppler Comparison: None Findings: Transabdominal scanning performed for overall anatomy. Transvaginal scanning performed for additional detail. Anteverted uterus is 7.6 cm length. Normal myometrium. Endometrium 11 mm thickness. Right ovary not visualized secondary to overlying bowel gas. Left ovary 4.5 x 2.1 x 2.6 cm. Normal color Doppler with arterial/venous spectral tracing of the left ovary. Trace free fluid, may be physiologic. Procedure Note Alberto Yap MD - 11/09/2024 INDICATION: pelvic pain US pelvis transabdominal and transvaginal with Doppler Comparison: None Findings: Transabdominal scanning performed for overall anatomy. Transvaginal scanning performed for additional detail. Anteverted uterus is 7.6 cm length. Normal myometrium. Endometrium 11 mm thickness. Right ovary not visualized secondary to overlying bowel gas. Left ovary 4.5 x 2.1 x 2.6 cm. Normal color Doppler with arterial/venous spectral tracing of the left ovary. Trace free fluid, may be physiologic. IMPRESSION: No evidence of left ovarian torsion. Nonvisualization of the right ovary. Trace free fluid, may be physiologic. This document has been electronically signed by: Alberto Yap MD on 11/09/2024 02:38:51 Ozzie HANKINS IMG US PROCEDURES Final R esult * POC , urine manually resulted (11/08/2024 6:35 PM EDT) Pathologist [facility] HCG, Ur POC Negative Negative POC hCG Int QC Pass? Yes Yes Urine Urine specimen obtained by clean catch procedure / Unknown 11/08/2024 6:35 PM EDT Real Coyle MD POINT OF CARE TEST ENTER/EDIT ORDERABLES Final Result * Urinalysis with reflex microscopic and culture (11/08/2024 6:26 PM EDT) Pathologist [facility] Specific [place] Urine 1.015 1.003 - 1.030 LAB URINALYSIS - AUTOMATED METHOD 11/08/2024 6:46 PM EDT [facility] pH, Urine 5.5 5.0 - 8.0 pH LAB URINALYSIS - AUTOMATED METHOD 11/08/2024 6:46 PM EDT [facility] Leukocytes, Urine Negative Negative LAB URINALYSIS - AUTOMATED METHOD 11/08/2024 6:46 PM T [facility] Nitrite, Urine Negative Negative LAB URINALYSIS - AUTOMATED METHOD 11/08/2024 6:46 PM EDT [facility] Protein, Urine Negative <=Trace mg/dL LAB URINALYSIS - AUTOMATED METHOD 11/08/2024 6:46 PM [facility] Glucose, Urine Negative Negative mg/dL LAB URINALYSIS - AUTOMATED METHOD 11/08/2024 6:46 PM [facility] Ketones, Urine Negative Negative mg/dL LAB URINALYSIS - AUTOMATED METHOD 11/08/2024 6:46 PM EDT [facility] Urobilinogen, Urine 0.2 0.2 - 1.0 mg/dL LAB URINALYSIS - AUTOMATED METHOD 11/08/2024 6:46 PM [facility] Bilirubin, Urine Negative Negative LAB URINALYSIS - AUTOMATED METHOD 11/08/2024 6:46 PM [facility] Blood, Urine Negative Negative LAB URINALYSIS - AUTOMATED METHOD 11/08/2024 6:46 PM T [facility] Urine Urine specimen obtained by clean catch procedure / Unknown Non-blood Collection / Unknown 11/08/2024 6:26 PM EDT 11/08/2024 6:34 PM EDT Real Coyle MD LAB URINE ORDERABLES Final Res ult [facility] [address] [place] [address], * So urine culture tube (11/08/2024 6:26 PM EDT) [facility] Extra Tube Hold for add-ons. 11/08/2024 8:01 PM EDT [facility] Comment:Auto resulted. Urine Urine specimen obtained by clean catch procedure / Unknown Non-blood Collection / Unknown 11/08/2024 6:26 PM EDT 11/08/2024 6:34 PM EDT us Real Coyle MD LAB URINE ORDERABLES Final Res ult Performing Organization Address City/[facility]/ZIP Co de Phone Number [facility] [address] [place] [address], [place] [phone] * Chlamydia trachomatis and Neisseria gonorrhoeae molecular study (11/08/2024 6:26 PM EDT) [facility] Neisseria gonorrhoeae PCR Negative Negative LAB MOLECULAR DIAGNOSTICS METHOD 11/09/2024 9:22 AM EDT [facility] Chlamydia trachomatis PCR Negative Negative LAB MOLECULAR DIAGNOSTICS METHOD 11/09/2024 9:22 AM EDT [facility] Urine Urine specimen from urethra / Unknown Non-blood Collection / Unknown 11/08/2024 6:26 PM EDT 11/08/2024 6:34 PM EDT us Real Coyle MD LAB MICROBIOLOGY - GENERAL ORD ERABLES Final Result Performing Organization Address [facility]/ZIP Co de Phone Number [facility] [address] [place] [address], [place] [phone] * Treponema pallidum antibody with reflex to RPR and particle agglutination (11/08/2024 5:32 PM EDT) [facility] T. Pallidum Antibodies Negative Negative LAB CHEMISTRY METHOD 11/08/2024 9:56 PM EDT [facility] Blood Venous blood specimen / Unknown Venipuncture / Unknown 11/08/2024 5:32 PM EDT 11/08/2024 6:10 PM EDT us Ozzie HANKINS LAB BLOOD ORDERABLES Ashley l Result [facility] [address] [place] [address], [place] [phone] * (ABNORMAL) CBC auto differential (11/08/2024 5:32 PM EDT) WBC 13.2(H) 4.8 - 10.8 K/mcL LAB HEMETOLOGY METHOD 11/08/2024 6:21 PM EDT [facility] RBC 4.60 3.80 - 4.80 M/mcL LAB HEMETOLOGY METHOD 11/08/2024 6:21 PM EDT [facility] Hemoglobin 12.3 11.5 - 16.0 g/dL LAB HEMETOLOGY METHOD 11/08/2024 6:21 PM EDT [facility] Hematocrit 38.1 35.0 - 47.0 % LAB HEMETOLOGY METHOD 11/08/2024 6:21 PM EDT [facility] MCV 82.6 79.0 - 98.0 FL LAB HEMETOLOGY METHOD 11/08/2024 6:21 PM EDT [facility] MCH 26.7(L) 27.0 - 32.0 pcg LAB HEMETOLOGY METHOD 11/08/2024 6:21 PM EDT [facility] MCHC 32.3 32.0 - 37.0 g/dL LAB HEMETOLOGY METHOD 11/08/2024 6:21 PM EDT [facility] RDW 14.7 11.0 - 15.0 % LAB HEMETOLOGY METHOD 11/08/2024 6:21 PM EDT [facility] Platelets 420(H) 130 - 400 K/mcL LAB HEMETOLOGY METHOD 11/08/2024 6:21 PM EDT [facility] MPV 9.7 7.0 - 11.0 FL LAB HEMETOLOGY METHOD 11/08/2024 6:21 PM [facility] NRBC 0.0 <1.0 % LAB HEMETOLOGY METHOD 11/08/2024 6:21 PM [facility] NRBC Absolute 0.00 <0.10 K/mcL LAB HEMETOLOGY METHOD 11/08/2024 6:21 PM [facility] Neutrophils Relative 69.6 % LAB HEMETOLOGY METHOD 11/08/2024 6:21 PM [facility] Lymphocytes Relative 20.4 % LAB HEMETOLOGY METHOD 11/08/2024 6:21 PM [facility] Monocytes Relative 5.4 % LAB HEMETOLOGY METHOD 11/08/2024 6:21 PM [facility] Eosinophils Relative 3.9 % LAB HEMETOLOGY METHOD 11/08/2024 6:21 PM [facility] Basophils Relative 0.3 % LAB HEMETOLOGY METHOD 11/08/2024 6:21 PM [facility] Immature Granulocytes Relative 0.4 % LAB HEMETOLOGY METHOD 11/08/2024 6:21 PM [facility] Neutrophils Absolute 9.16(H) 1.50 - 7.00 K/mcL LAB HEMETOLOGY METHOD 11/08/2024 6:21 PM [facility] Lymphocytes Absolute 2.68 1.00 - 5.00 K/mcL LAB HEMETOLOGY METHOD 11/08/2024 6:21 PM [facility] Monocytes Absolute 0.71 0.20 - 1.00 K/mcL LAB HEMETOLOGY METHOD 11/08/2024 6:21 PM [facility] Eosinophils Absolute 0.51(H) 0.00 - 0.50 K/mcL LAB HEMETOLOGY METHOD 11/08/2024 6:21 PM EDT [facility] Basophils Absolute 0.04 0.00 - 0.20 K/mcL LAB HEMETOLOGY METHOD 11/08/2024 6:21 PM EDT [facility] Immature Granulocytes Absolute 0.05(H) 0.00 - 0.03 K/mcL LAB HEMETOLOGY METHOD 11/08/2024 6:21 PM EDT [facility] Blood Venous blood specimen / Unknown Venipuncture / Unknown 11/08/2024 5:32 PM EDT 11/08/2024 6:10 PM EDT Real Coyle MD LAB BLOOD ORDERABLES Final Res ult [facility] [address] [place] [address], * Basic metabolic panel (11/08/2024 5:32 PM EDT) Sodium 133 133 - 145 mmol/L LAB CHEMISTRY METHOD 11/08/2024 6:38 PM [facility] Potassium 4.0 3.5 - 5.5 mmol/L LAB CHEMISTRY METHOD 11/08/2024 6:38 PM [facility] Chloride 102 96 - 110 mmol/L LAB CHEMISTRY METHOD 11/08/2024 6:38 PM [facility] CO2 23 21 - 32 mmol/L LAB CHEMISTRY METHOD 11/08/2024 6:38 PM [facility] Anion Gap 8 3 - 11 LAB CHEMISTRY METHOD 11/08/2024 6:38 PM [facility] Glucose 88 70 - 100 mg/dL LAB CHEMISTRY METHOD 11/08/2024 6:38 PM [facility] BUN 11 5 - 25 mg/dL LAB CHEMISTRY METHOD 11/08/2024 6:38 PM [facility] Creatinine 0.74 0.50 - 1.10 mg/dL LAB CHEMISTRY METHOD 11/08/2024 6:38 PM EDT [facility] eGFR 116 >=60 mL/min/1. 73m2 LAB CHEMISTRY METHOD 11/08/2024 6:38 PM EDT [facility] Comment:Calculation based on the Chronic Kidney Disease Epidemiology Collaboration (CKD-EPI) equation refit without adjustment for race. BUN/Creatinine Ratio 14.9 LAB CHEMISTRY METHOD 11/08/2024 6:38 PM EDT [facility] Calcium 10.2 8.5 - 10.5 mg/dL LAB CHEMISTRY METHOD 11/08/2024 6:38 PM EDT [facility] Blood Venous blood specimen / Unknown Venipuncture / Unknown 11/08/2024 5:32 PM EDT 11/08/2024 6:10 PM EDT us Real Coyle MD LAB BLOOD ORDERABLES Final Res ult [facility] [address] [place] [address], [place] [phone] from Last 3 Months Insurance [facility] [employer] Care Teams Bricklayer Relationship Specialty Start Date End Date Gisel Hartman FNP [address] [place] [address] [place] [address] PCP - General Nurse Practitioner 11/08/24
--- OUTSIDE RECORDS SUMMARY | 2025-01-27 09:29 | XMS_ITS | Data Portability ---
Author Organization [place] - [facility], Allergy Address [address] [address] Care Team Providers Care Fractionation Plant Supervisor Name Role Phone IRVING OROZCO Primary Care [...] concern of allergic rhinitis, poorly controlled with [id number] and prescription medications. Offered allergy skin testing. [...] no improvement. [email or web address] Not available 08/26/2024 14:42:03 11/04/2024 11/04/2024 Today we discuss ed the pathophysiology of tinnitus and the absence of consistently successful pharmacologic treatments for tinnitus. We discussed masking strategies to decrease awareness of the tinnitus, including using a white noise machine, music, or television.We discussed how exposure to loud noise can worsen tinnitus so I recommended hearing protection. We also discussed other ways to potentially help reduce awareness of tinnitus including avoidance of caffeine, salty meals and NSAIDs. [email or web address] Not available 11/04/2024 10:55:38 Plan of Treatment Reminders Order Date Submit Date Provider Last Modified By Organization Details Last Modified Time Details Appointments None recorded. Lab None recorded. Referral None recorded. Procedures allergen immunothera py; multiple injections (PROC) 2024 025 [email or web address] Not available 5 13:00:01 allergy testing, skin prick (PROC) 2024 025 [email or web address] Not available 5 17:16:00 intradermal allergy skin testing (PROC) 2024 025 [email or web address] Not available 5 17:16:05 pulmonary function test procedure (PROC) 2024 025 [email or web address] Not available 5 17:16:10 pulse oximetry (PROC) 2024 025 [email or web address] Not available 5 17:16:17 Surgeries None recorded. Imaging None recorded. Medication Orders None recorded. Patient TargetsNo targets recorded. Patient Instructions Encounter Date Encounter Id Patient Instructions Last Modified By Organization Details Last Modified Time 09/18/2024 [id number] Nursing Documentation for Allergy Testing: Ordering Provider Dr. Foster Weight:lbs: kg: PFT Yes With Bronchodilator no approval needed to proceed with allergy testing? No ok'd testing History of Asthma:Yes Asthma Meds: Last used: 2 weeks ago Asthma exacerbated by: doesn't know yet Chance that : No Fear of needles: Yes Regular medications reviewed in Computer: Yes Medication allergies: Reviewed Antihistamine use: No Medications used: Food Allergies: shellfish Any foods make your mouth feeling itchy: Yes If yes: bannana , pineapple History of severe reaction where had to go to ER? No If yes details: Type of heat in home: Forced Air Pets: Yes If yes: 2 dogs Smoker: Never If former smoker-how much / day for how long When quit years ago Smoking now-how much /day for how long Occupation/Social History: unemployed, injured her spine Symptoms having: Headache If other: pressure on the head Frequency Year Round Spirometry Contraindications: Heart attack in the last 3 months: No Major surgery in last 3 months: No Detached retina(serious eye issues) in last 2 months: No Hospitilization in last month: No Proceed with PFT Yes approval needed: No Nursing Notes: Pt tolerated test well Yes Benadryl cream to test sites Yes Patient became syncopal-placed in supine position No Large reactions to MQT, reschedule IDT for a different date Yes Other: Written by: Jia Comer [email or web address] Not available 09/18/2024 15:00:05 Reason for Referral None Reported. Results Created Date Observation Date Name Description Value Unit Range Abnormal Flag Note LastModifiedBy Organization Detail LastModifiedTime 09/19/19 25 neyda metry testi ng* No observ ation record ed. [email or web address] Not Available 2024 15:15:50 11/06/19 25 audio gram No observ ation record ed. [email or web address] Not Available 2024 09:26:58 Result Notes None recorded. Problems Name Problem SNOMED Code Status Onset Date Resolution Date Notes Provider Name and Address Organization Details Recorded Time Dysphagia 19218966 Active 2024 CED FOSTER MD [address] [place] [address] YARELIS mattson, [address] [place] [address] - [facility] 09:51:12 Allergic rhinitis 80537353 Active 2024 CED FOSTER MD 100 [facility], [place], [address], [facility] - [facility] 09:51:28 Non-allergi c rhinitis 308242747827 Active 2024 CED FOSTER MD 100 [facility], [place], [address], [facility] - [facility] 09:51:28 Seasonal allergic rhinitis 162648084 Active 2024 CED FOSTER MD 100 [facility], [place], [address], [place] - [facility] 09:51:28 Amygdalolit h 6862559 Active 2024 BELLA LIM PA-C 100 [facility], [place], [address], [facility] - [facility] 14:41:43 Hypertrophy of tonsils 61832478 Active 2024 BELLA LIM PA-C 100 [facility], [place], [address], [facility] - [facility] 14:42:38 Perennial allergic rhinitis 704433570 Active 2024 DOUGLAS NEWTON 100 [facility], [place], [address], [facility] - [facility] 09:11:19 Abnormal auditory perception 40573123 Active 2024 PROMISE RAMOS AUD 100 [facility], [place], [address], [facility] - [facility] 10:23:53 Problem Notes None recorded. Procedures Surgical History Date Name Laterality Status Provider Name and Address Organization Details Recorded Time 11/05/19 25 Air & Speech Audio with Tymps - 84882, 28973 & 31867 completed PROMISE RAMOS AUD 100 [facility] [place] [address], [place], [address], [facility] - [facility] 11/04/2024 10:20:53 10/03/19 25 Allergy Testing-Full completed DOUGLAS NEWTON 100 [facility],[address], [address], [facility] 10/02/2024 09:47:27 09/19/19 25 Allergy Testing Modified- Quantitative Testing (MQT) Only completed DOUGLAS NEWTON 100 [facility],[address], [address], [facility] - [facility] 09/18/2024 14:59:58 08/05/19 25 FOL_DP completed CED FOSTER MD [address] [place] [address],[address], [address], [facility] 08/05/2024 09:50:42 Imaging Results None recorded. Procedure Notes None recorded. Medical Equipment None Reported. Allergies Allergen ID Allergen Name Allergen Category Reaction Reaction Severity Criticality Documentation Date Start Date Code Code System Note Provider Name and Address Organization Details Recorded Time 589967 sertralin e medicatio n chest pain mild Not available 09/18/2024 11899 RxNorm DOUGLAS NEWTON [address] [address], [place], [address], [facility] 5 14:12:54 792308 Aloe vera preparati on food,medi cation swelling moderate Not available 11/03/2024 19242 0 RxNorm CED FOSTER MD [address], [address], [facility] - [facility] 5 09:45:11 459556 pineapple extract food itching mild Not available 11/03/2024 74253 74 RxNorm CED FOSTER MD [address] [address], [place], [address], [facility] - [facility] 5 09:45:11 755515 banana extract food,medi cation other mild Not available 11/03/2024 25378 9 RxNosp FOSTER MD 100 [facility] [address], [place], [address], [place] - [facility] 5 09:45:11 281472 shellfish derived food,medi cation swelling severe Not available 11/03/2024 [id number] UNK CED FOSTER MD 100 [facility] 100, [facility] [place] [place], [address], [facility] - [facility] 5 09:45:11 Medications Name Sig Start Date Stop Date Status Note LastModified by Organization Details LastModified Time atorvastati n 20 mg tablet TAKE 1 TABLET BY MOUTH EVERY DAY AT BEDTIME 09/18 completed Not Available Not Available Not Available cetirizine 10 mg tablet TAKE 1 TABLET ORALLY DAILY NEEDED FOR ALLERGY SYMPTOMS active Not Available Not Available No t Available tizanidine 4 mg tablet TAKE 1/2 TABLET ORALLY 2 TIMES A DAY NEEDED FOR MUSCLE SPASTICIT Y FOR 5 DAYS 09/18 completed Not Available Not Available Not Available sucralfate 100 mg/mL oral suspension 10 ML ORALLY 4 TIMES A DAY NEEDED FOR GERD SWISH IN MOUTH AND SWALLOW USE AFTER FOOD/DRIN K active Not Available Not Available No t Available fluconazole 200 mg tablet TAKE 2 TABLETS BY MOUTH ONCE DAILY FOR 14 DAYS..HOL D HYDROXYZI NE WHILE ON THIS active Not Available Not Available No t Available meloxicam 7.5 mg tablet TAKE 1 TABLET BY MOUTH EVERY DAY 09/18 completed Not Available Not Available Not Available famotidine 20 mg tablet TAKE 1 TABLET BY MOUTH AT BEDTIME 09/18 completed Not Available Not Available Not Available omeprazole 20 mg capsule,del ayed release TAKE 1 CAPSULE BY MOUTH DAILY FOR 90 DAYS 09/18 completed Not Available Not Available Not Available hydroxyzine HCl 25 mg tablet TAKE 1 TABLET ORALLY BEDTIME NEEDED FOR ANXIETY OR INSOMNIA 09/18 completed Not Available Not Available Not Available epinephrine 0.3 mg/0.3 mL injection, auto-inject or INJECT 0.3 MG INTRAMUSC ULARLY EVERY 4 HOURS NEEDED FOR ANAPHYLAX IS active Not Available Not Available No t Available Ventolin HFA 90 mcg/actuati on aerosol inhaler active Not Available Not Available Not Available cyclobenzap rine 5 mg tablet TAKE 1 TABLET BY MOUTH EVERY 8 HOURS NEEDED FOR MUSCLE SPASMS 09/18 completed Not Available Not Available Not Available riboflavin (vitamin B2) 400 mg tablet TAKE 1 TABLET ORALLY DAILY FOR MIGRAINE HEADACHES FOR 30 DAYS 09/18 completed Not Available Not Available Not Available magnesium 100 mg (as glycinate) capsule TAKE 2 CAPSULES ORALLY DAILY FOR MIGRAINE HEADACHES FOR 30 DAYS 09/18 completed Not Available Not Available Not Available Xdemvy 0.25 % eye drops active Not Available Not Available Not Available Vitals Date Recorded Body weight Body mass index (BMI) Body height Provider Name and Address Organization Details Last Updated DateTime 08/05/2024 11454.25 g 36 kg/m2 160.02 cm CED FOSTER MD [address], [address], [place] - [facility] 08/05/2024 09:37:18 Date Recorded Body height Body mass index (BMI) Body weight Provider Name and Address Organization Details Last Updated DateTime 08/26/2024 152.4 cm 39.6 kg/m2 90463.25 g Patricia Garza [place] - [facility] 08/26/2024 13:17:28 Date Recorded Body height Body mass index (BMI) Body weight Oxygen saturation Oxygen saturation in Arterial blood by Pulse oximetry Heart rate Systolic And Diastolic Provider Name and Address Organization Details Last Updated DateTime 152.4 cm 38.7 kg/m2 72241.2 9 g 100 % 100 % 94 /min 128/85 mm[Hg] JIA COMER Becky [address], [address], [place] - [facility] 14:21:21 Date Recorded Body height Provider Name an d Address Organization Details Last Updated DateTime 11/04/2024 152.4 cm ISAAC GUEVARA [place] [facility] 11/04/2024 10:27:07 Social History None recorded. Functional Status None recorded. Mental Status None recorded. Family History Nothing Reported. Medical History Condition Response Nasal or Sinus Problems N Rhinitis N Food Allergy Y Tonsil Infections Y High Cholesterol Y Liver Disease Y Eczema N Other Skin Condition N COPD N Nasal polyps N Gynecological HistoryNo gynecological history recorded. Obstetrics History GPAL:G 0 P 0 0 0 0 Past Encounters Encounter ID Performer Location Encounter Start Date Encounter Closed Date Diagnosis/Indication Diagnosis SNOMED-CT Code Diagnosis ICD10 Code Diagnosis Note [id number] CED FOSTER MD [facility] [address] [place] [address] 08/05/2024 09:27:00 08/05/2024 11:31:49 Dysphagia 20752386 R13.10 Allergic rhinitis 679066 04 J30.9 [id number] BELLA LIM PA-C [facility] [address] [address] 08/26/2024 13:05:18 08/27/2024 07:42:41 Amygdalolith 0629878 J35.8 Hypertroph y of tonsils 96149290 J35.1 [id number] JIA COMER [facility] [address] [place] [address] 09/18/2024 13:54:37 09/18/2024 15:00:36 Allergic rhinitis 57323195 J30.9 [id number] JIA COMER [facility] [address] [place] [address], [place] [address] 10/02/2024 09:06:07 10/02/2024 09:48:16 Perennial allergic rhinitis 097387056 J30.89 [id number] CED FOSTER MD [facility] [address] [address] 11/04/2024 10:10:28 11/04/2024 11:03:25 Abnormal auditory perception 26942333 H93.293 Audiologic al evaluation results: Right ear: Normal auditory thresholds with excellent speech discrimina tion. Left ear: Normal auditory thresholds with excellent speech discrimina tion. Tympanomet ry: Right Ear:Type A Left Ear:Type A Perennial allergic rhinitis 866504303 J30.89 The patient has significan t allergies. We discussed lifestyle modificati ons, medical therapy versus immunother apy. The patient is an excellent candidate for immunother apy with either SCIT vs SLIT. This is at least a 3-5 year commitment and symptoms are not expected to improve quickly. Partial treatment will not result in success of therapy. They will need to followup with me every 6 months to determine their compliance and success. They are interested in proceeding with immunother apy and will contact our office to schedule. I have prescribed an epi pen and instructed them to bring it with them the first day of their therapy to be certain that they are comfortabl e with its use. While they are in therapy they may continue to use antihistam ine allergy medication s as well as topical nasal sprays to help manage their symptoms. Allergic rhinitis 192949 04 J30.9 Patient has an epinephrin e pen from her history of shellfish allergy Health Concerns Section Related Observation LastModified by Organization Detai ls LastModified Time None Recorded Concern Status LastModified by Organization Details LastModified Time None Recorded Advance Directives Directive None Recorded Payers Insurance Date Sequence Insurance Name Policy Number Policy [place] Covered Member ID Hamilton Member ID Guarantor Name 11/04/2024 1 [facility] (MEDICAID REPLACEMENT - HMO) RICHARD Gonzalez [id number] Andrew Gonzalez OBGyn Episode No OBEpisode recorded.
--- OUTSIDE RECORDS SUMMARY | 2025-01-27 09:29 | XMS_ITS | Encounter Summary ---
Author Organization [facility] Address [address] [place] [address] Phone Care Team Providers Care Manager Performance Name Role Phone Ashly Ozuna MD Primary Care Provider [phone] Reason for Visit * Reason Comments Med Refill Encounter Details Date Type Department Care Team (Late st Contact Info) Description 05/01/2020 Refill [facility] [address] [place] [address] Ashly Ozuna MD [address] [place] [address] Vitamin D deficiency Social History Tobacco Use [...] labs. Pt would like to go to [facility] but it was unclear if they had a lab so they were faxed to [phone] and also to [facility] lab. EH * Telephone Encounter - [...] deficiency documented in this encounter Care Teams Manager Performance Relationship Specialty Start Date End Date Ashly Ozuna MD [address] [place] [address] PCP - General Pediatrics 10/25/18 07/21/22 documented as of this encounter
== END 2025-01-27 08:57 | disposition home or self-care (01) ==
LOC: HO.HMGCX 08:56
PROVIDERS: PCP Nurse Practitioner Family; Visit Provider Internal Medicine
DX: K76.0 Fatty (change of) liver, not elsewhere classified (principal)
CPT/HCPCS: 76700

== ENCOUNTER → 2025-01-27 09:03 | Outpatient (BNV) | payer OTHER, SELFPAY | PROVIDERS: PCP Nurse Practitioner Family; Visit Provider Radiology Diagnostic Radiology | DX: K76.0 Fatty (change of) liver, not elsewhere classified (principal) | CPT/HCPCS: 76700 ==

== ENCOUNTER 2025-02-20 15:46 | Outpatient (REF) | payer OTHER, SELFPAY ==
--- OUTSIDE RECORDS SUMMARY | 2025-02-20 15:50 | XMS_ITS | Encounter Summary ---
Author Organization [facility] Address [address] [place] [address] Phone Care Team Providers Care [employer] Launch Commander Name Role Phone Ashly Ozuna MD Primary Care Provider [phone] Reason for Visit * Reason Comments Med Refill Encounter Details Date Type Department Care Team (Late st Contact Info) Description 05/01/2020 Refill [facility] [place] [address] [place] [address] Ashly Ozuna MD [address] [place] [address] Vitamin D deficiency Social History Tobacco Use [...] labs. Pt would like to go to [facility] but it was unclear if they had a lab so they were faxed to [phone] and also to [facility] lab. EH * Telephone [...] deficiency documented in this encounter Care Teams [employer] Launch Commander Relationship Specialty Start Date End Date Ashly Ozuna MD [address] [place] [address] PCP - General Pediatrics 10/25/18 07/21/22 documented as of this encounter
--- OUTSIDE RECORDS SUMMARY | 2025-02-20 15:50 | XMS_ITS | Clinical Summary ---
Author Organization [facility] Address [address] [place] [address] Phone Care Team Providers Care Chute Greaser Name Role Phone Gisel Hartman Primary Care Provider [phone] Allergies Active Allergy Reactions Criticality Noted Date Comments Aloe Vera Itching 11/08/2024 Fluconazole Palpitations 11/08/2024 Sertraline 11/08/2024 Shellfish Derived 11/08/2024 Medical History Medical History Date Comments Hypercholesteremia [...] A Vaccines Completed 02/11/2015, 11/23/19 12 Meningococcal ACWY Vaccine Completed 11/05/2018, Meningococcal B Vaccine Completed 08/29/2019, 11/05 RSV Immunization Patients Under 20 months Aged Out No longer eligible based on patient's age to complete this topic Procedures Procedure Name Priority Date/Time Associated Diagnosis Comments CHLAMYDIA TRACHOMATIS AND NEISSERIA GONORRHOEAE PCR STAT 11/08/2024 6:26 PM EDT from Last 3 Months or Most Recently Relevant to Health Maintenance Results * Chlamydia trachomatis and Neisseria gonorrhoeae molecular study (11/08/2024 6:26 PM EDT) Neisseria gonorrhoeae PCR Negative Negative LAB MOLECULAR DIAGNOSTICS METHOD 11/09/2024 9:22 AM EDT [facility] Chlamydia trachomatis PCR Negative Negative LAB MOLECULAR DIAGNOSTICS METHOD 11/09/2024 9:22 AM EDT [facility] Urine Urine specimen from urethra / Unknown Non-blood Collection / Unknown 11/08/2024 6:26 PM EDT 11/08/2024 6:34 PM EDT us Real Coyle MD LAB MICROBIOLOGY - GENERAL ORD ERABLES Final Result [facility] [address] [place] [address], from Last 3 Months or Most Recently Relevant to Health Maintenance Insurance [facility] [employer] Care Teams Chute Greaser Relationship Specialty Start Date End Date Gisel Hartman FNP [address] [place] [address] [place] [address] PCP - General Nurse Practitioner 11/08/24
--- NOTE | 2025-02-20 16:22 | PFT_ITS ---
Indication: Dyspnea Spirometry FEV1 to FVC 95%; FEV1 3.02 L; FVC 3.18 L. No significant response to bronchodilators noted. Lung Volumes Total lung capacity 81% predicted; residual volume 83% predicted; expiratory reserve volume 44% predicted Diffusion Capacity DLCO 103% predicted Comparisons none Interpretation No obstructive nor restrictive ventilatory defects identified. No significant response to bronchodilators noted. Low normal lung volumes likely secondary to an elevated BMI although parenchymal lung conditions can not be ruled out. Diffusing capacity is within normal limits. If asthma is new differential methacholine challenge may be helpful in assessing for hyperreactive airways. Clinical correlation warranted. MTDD
[2025-02-20 16:24] VITALS: PULSE 90; O2SAT 98
== END 2025-02-20 15:47 | disposition home or self-care (01) ==
LOC: HO.RESP 15:46
PROVIDERS: PCP Nurse Practitioner Family; Visit Provider Nurse Practitioner Family
DX: R06.00 Dyspnea, unspecified (principal)
CPT/HCPCS: 94010; 94640; 94727; 94729

== ENCOUNTER → 2025-02-20 16:22 | Outpatient (BNV) | payer OTHER, SELFPAY | PROVIDERS: PCP Nurse Practitioner Family; Visit Provider Hospitalist | DX: R06.00 Dyspnea, unspecified (principal) | CPT/HCPCS: 94060; 94727; 94729 ==

== ENCOUNTER 2025-02-25 08:18 | Outpatient (REF) | payer OTHER, SELFPAY ==
--- NOTE | ~2025-02-25 | US_ITS ---
EXAMINATION: US THYROID HISTORY: E04.1 - Nontoxic single thyroid nodule TECHNIQUE: Real-time grayscale ultrasound imaging was performed and images were reviewed. COMPARISON: Comparison is made with the prior examination dated 02/07/2024. FINDINGS: SIZE: The right thyroid lobe measures 4.6 x 1.2 x 1.2 cm. The left thyroid lobe measures 3.7 x 1.0 x 1.5 cm. The isthmus measures 3 mm. FLOW: Flow to the gland is normal. ECHOGENICITY: The echotexture of the gland is homogeneous. NODULES: Again seen is an ovoid hypoechoic nodule posterior to the lower pole of the right thyroid lobe measuring 1.5 x 0.5 x 1.1 cm. Previously this measured 1.2 x 0.5 x 1.1 cm US/US thyroid IMPRESSION: Ovoid 1.5 x 0.5 x 1.1 cm nodule posterior to the lower pole of the right thyroid lobe which is slightly larger than on the prior study. This may represent an exophytic thyroid nodule, a parathyroid adenoma, or a lymph node. ACR TI-RADS Guidelines TR1 (0 points): Benign. No follow-up or biopsy required TR2 (2 points): Not Suspicious. No biopsy or follow up indicated TR3 (3 points): Mildly Suspicious. FNA if >= 2.5 cm, Follow if >= 1.5 cm TR4 (4-6 points): Moderately Suspicious. FNA if >= 1.5 cm, Follow if >= 1.0 cm TR5 (>=7 points): Highly Suspicious. FNA if >= 1.0 cm, Follow if >= 0.5 cm Electronically signed by: Ozzie Yan MD 02/25/2025 09:11 AM EDT
--- OUTSIDE RECORDS SUMMARY | 2025-02-25 08:26 | XMS_ITS | Encounter Summary ---
Author Organization [facility] Address [address] [place] [address] Phone Care Team Providers Care Fuse Spooler Name Role Phone sAhly Ozuna MD Primary Care Provider [phone] Encounter Details Date Type Department Care Team (Late st Contact Info) Description 06/19/2014 Documentation [facility] [address] [place], [place] [id number] Family Medicine, Physician [address] [place] [address] Social History Tobacco Use Types Packs/Day Years [...] on filedocumented in this encounter Care Teams Fuse Spooler Relationship Specialty Start Date End Date Ashly Ozuna MD [address] [place] [address] PCP - General Pediatrics 10/25/18 07/21/22 documented as of this encounter
--- OUTSIDE RECORDS SUMMARY | 2025-02-25 08:26 | XMS_ITS | Encounter Summary ---
Author Organization [facility] Address [address] [place] [address] Phone Care Team Providers Care Housing Relocation Name Role Phone Ashly Ozuna MD Primary Care Provider [phone] Encounter Details Date Type Department Care Team (Late st Contact Info) Description 02/16/2017 Conversion Encounter [facility] [address] [place] [address] Social History Tobacco Use Types Packs/Day Years [...] on filedocumented in this encounter Care Teams Housing Relocation Relationship Specialty Start Date End Date Ashly Ozuna MD [address] [place] [address] PCP - General Pediatrics 10/25/18 07/21/22 documented as of this encounter
--- OUTSIDE RECORDS SUMMARY | 2025-02-25 08:26 | XMS_ITS | Clinical Summary ---
Author Organization [facility] Address [address] [place] [address] Phone Care Team Providers Care Transportation Coordinator Name Role Phone Unavailable Primary Care Provider [...] and for housing resources. 02/11/2020 ---- Timothy [employer] Problem Noted Date Diagnosed Date Depression 09/16/2021 Scoliosis concern 07/30/2021 Overview (07/30/2021): 07/24- scoliometer up to 12 degrees Assessment & Plan (09/16/2021 3:18 PM EDT): Hadn't had x-ray done yet, but advised to go to [facility] when she gets vitamin D level drawn. [...] I have sent a message to the patient coordinator front desk to schedule this and she is aware. [...] appt 03/26/[address] Amber Agosto @ [facility], was to f/u in 6 weeks, but [...] AM EST): I will see if our [facility] can help her more with [...] as she's supporting herself. Aware to contact [facility] if she needs help. Assessment & Plan [...] about her hyperlipidemia, but she's seeing a police captain through endo already, and this value was [...] with fatty liver. 07/24- last visit by [facility] endo police captain (last endo visit 03/22, was to f/u in 6 weeks, but no other appts notes from doc) Assessment & Plan (07/30/2021 11:20 AM EST): Overall doing pretty well with healthier choices, which I give her a lot of credit for. I encouraged her to call the police captain and request more frequent visits as it sounds like this would be helpful for her. Assessment & Plan (03/13/2020 4:57 PM EDT): Doing really well with exercise (going to gym 4x/week, walking 60min esveral days per week) and eating better. Drinking 2% milk instead of whole milk. Recommended [employer] website as she's looking for ideas for [...] (10/14) to help her with relaxation techniques- [employer] message sent to Nikolas. She is to [...] HAs. Will start OCPs as prescribed by Parachute/Combatant Diver Officer, so perhaps that will help. Assessment & [...] Neuro exam normal other than slightly abnormal ocloab-slxk-perofs on left. Will have her f/u in 1 week to eval this further. Anxiety 08/06/2014 Overview (05/06/2021): Likely also with OCD, but never officially diagnosed. Prozac given in 08/2012 but took for only 1 month. Saw a therapist at [facility]. Then saw Nikolas, our Integrated counselor early 2019 with some improvement. Re-started fluoxetine 11/05/18, stopped 11/15/18 due to thinking it was causing agitation. Trial of sertraline 04/20, stopped after about two weeks due to severe heartburn (also sleep issues). Saw Nikolas several times 2019, transfer to [facility] 04/21? 05/23- worsening anxiety--> hydroxyzine prn prescribed, [...] her first appt with her new PCP ([facility] [place]) on 05/07/22 and they should take over prescribing at that time (she's aware). She really needs to be seeing a therapist - [facility] list given and I encouraged her to call [facility] and get on multiple waiting lists if [...] I have sent a message to our patient coordinator front desk staff as well as Nikolas to see [...] to calm herself now), will start at [facility] soon. Denies SI. Assessment & Plan (09/27/2019 [...] a month due to perceived SEs). Nikolas, [facility] clinician, saw her today and will see her in f/u (appt scheduled for 07/31/19). She will refer out (likely [facility]) for both counseling and med management, and [...] she can see a therapist here at [facility] at any time. Family history of [...] 91 04/26/2022 11:22 AM EDT Temperature 36.6 C (97.8 F) 07/30/2021 10:13 AM EST Respiratory Rate - - Oxygen Saturation - - Inhaled Oxygen Concentration - - Weight 92 kg (202 lb 12.8 oz) 04/26/2022 11:22 A M EDT Height 154.2 cm (5' 0.71 ) 07/30/2021 10:[address] Body Mass Index 38.69 07/30/2021 10:13 AM EST Plan of Treatment Health Maintenance Due Date Last Done Comments COVID-19 Vaccine (2023- 5 season) 2024 04/26/2022, 08/24/2021, 07/30/2021 Influenza Vaccines (#1) 2025 05/06/20, 04/19/2019, 06/05/2013, Additional history exists DTaP,Tdap,and Td Vaccines (8 - Td or [...] Completed 08/29/2019, 11/05/2018 Procedures * Due to [place] law, this organization might not be sharing sensitive test results. Procedure Name Priority Date/Time Associated Diagnosis Comments CHLAMYDIA AND GONORRHEA, AMPLIFIED Routine 07/30/2021 11:26 AM EST Encounter for screening examination for sexually transmitted disease from Last 3 Months or Most Recently Relevant to Health Maintenance Results * Due to [place] law, this organization might not be sharing sensitive test results. * Chlamydia and Gonorrhoea, Amplified (07/30/2021 11:26 AM EST) Chlamydia Trachomatis, DNA Probe NEGATIVE (NEG) [facility] Comment: No Chlamydia Trachomatis RNA detected in this patient's sample (REFERENCE RANGE/NORMAL VALUE: NOT DETECTED) Note: This test uses car dumper operator- mediated amplification method to detect rRNA from C. Trachomatis URINE GC AMP PROBE NEGATIVE (NEG) [facility] Comment: No Neisseria Gonorrhoeae RNA detected in this patient's sample (REFERENCE RANGE/NORMAL VALUE: NOT DETECTED) NOTE: This test uses car dumper operator-mediated amplification method to detect rRNA from N.Gonorrhoeae. [...] risk of sexual abuse. Consult the [facility] if needed. Contact phone number . Therapeutic failure or success cannot be determined with the Aptima Combo2 assay since nucleic acid may persist following appropriate antimicrobial therapy. The Centers for Disease Control and Prevention (CDC) recommends confirmatory retesting using culture or a different nucleic acid amplification test when positive results occur, if indicated. Testing performed or reported by [facility], a Service of [facility], [facility] [place] [address] David Adrian MD, Leak Gang Supervisor [facility]# [id number] Urine (Urine) 07/30/2021 11: 26 AM EST 07/30/2021 10:50 PM EST us Ashly Ozuna MD LAB MICROBIOLOGY - GENERAL OR DERABLES Final Result [facility] from Last 3 Months or Most Recently Relevant to Health Maintenance
--- OUTSIDE RECORDS SUMMARY | 2025-02-25 08:26 | XMS_ITS | Encounter Summary ---
Author Organization [facility] Address [address] [place] [address] Phone Care Team Providers Care Circulation Supervisor Name Role Phone Ashly Ozuna MD Primary Care Provider [phone] Reason for Visit * Reason Comments Med Refill Encounter Details Date Type Department Care Team (Late st Contact Info) Description 05/01/2020 Refill [facility] [address] [place] [address] Ashly Ozuna MD [address] [place] [address] Vitamin D deficiency Social History Tobacco Use [...] labs. Pt would like to go to [facility] but it was unclear if they had a lab so they were faxed to [phone] and also to [facility] [place]. EH * Telephone Encounter - [...] deficiency documented in this encounter Care Teams Circulation Supervisor Relationship Specialty Start Date End Date Ashly Ozuna MD [address] [place] [address] PCP - General Pediatrics 10/25/18 07/21/22 documented as of this encounter
--- OUTSIDE RECORDS SUMMARY | 2025-02-25 08:26 | XMS_ITS | Encounter Summary ---
Author Hub Preferred Language [place] Marital Status Unknown Advent Affiliation Unknown Race Unknown Ethnic Group Unknown Author Organization [facility] Address [address] [place] [address] Phone Care Team Providers Care Strip Machine Tender Name Role Phone Ashly Ozuna MD Primary Care Provider [phone] Reason for Visit * Reason Comments Med Refill Encounter Details Date Type Department Care Team (Late st Contact Info) Description 12/02/2018 Refill [facility] [place] [address] [place] [address] Ashly Ozuna MD [address] [place] [address] Anxiety Social History Tobacco Use Types Packs/Day [...] unspecified documented in this encounter Care Teams Strip Machine Tender Relationship Specialty Start Date End Date Ashly Ozuna MD [address] [place] [address] PCP - General Pediatrics 10/25/18 07/21/22 documented as of this encounter
--- OUTSIDE RECORDS SUMMARY | 2025-02-25 08:26 | XMS_ITS | Encounter Summary ---
Author Organization [facility] Address [address] [place] [address] Phone Care Team Providers Care Cns Name Role Phone Ashly Ozuna MD Primary Care Provider [phone] Reason for Visit * Reason Comments Med Refill Encounter Details Date Type Department Care Team (Late st Contact Info) Description 11/14/2021 Refill [facility] [place] [address] [place] [address] Ashly Ozuna MD [address] [place] [address] Vitamin D deficiency; Depression, unspecified depression type [...] and ask her to go to a [facility] lab to have her vitamin D [...] type documented in this encounter Care Teams Cns Relationship Specialty Start Date End Date Ashly Ozuna MD [address] [place] [id number] PCP - General Pediatrics 10/25/18 07/21/22 documented as of this encounter
--- OUTSIDE RECORDS SUMMARY | 2025-02-25 08:26 | XMS_ITS | Clinical Summary ---
Author Organization [facility] Address [address] [place] [address] Phone Care Team Providers Care Combo Welder Name Role Phone Gisel Hartman Primary Care Provider [phone] Allergies Active Allergy Reactions Criticality Noted Date [...] MOLECULAR DIAGNOSTICS METHOD 11/09/2024 9:22 AM EDT [facility] Chlamydia trachomatis PCR Negative Negative LAB MOLECULAR DIAGNOSTICS METHOD 11/09/2024 9:22 AM EDT [facility] Urine Urine specimen from urethra / Unknown Non-blood Collection / Unknown 11/08/2024 6:26 PM EDT 11/08/2024 6:34 PM EDT us Real Coyle MD LAB MICROBIOLOGY - GENERAL ORD ERABLES Final Result [facility] [address] [place] [address], from Last 3 Months or Most Recently Relevant to Health Maintenance Insurance [facility] [facility] Care Teams Combo Welder Relationship Specialty Start Date End Date Gisel Hartman FNP [address] [place] [address] [place] [address] PCP - General Nurse Practitioner 11/08/24
== END 2025-02-25 08:19 | disposition home or self-care (01) ==
LOC: HO.HMGCX 08:18
PROVIDERS: PCP Nurse Practitioner Family; Visit Provider Student in an Organized Health Care Education/Training Program
DX: E04.1 Nontoxic single thyroid nodule (principal)
CPT/HCPCS: 76536

== ENCOUNTER → 2025-02-25 08:20 | Outpatient (BNV) | payer OTHER, SELFPAY | PROVIDERS: PCP Nurse Practitioner Family; Visit Provider Radiology Diagnostic Radiology | DX: E04.1 Nontoxic single thyroid nodule (principal) | CPT/HCPCS: 76536 ==

== ENCOUNTER 2025-03-04 15:11 | Emergency (ER) | payer OTHER, SELFPAY ==
--- NOTE | ~2025-03-04 | XR_ITS ---
EXAMINATION: XR CHEST CLINICAL INFORMATION: cp and shortness of breath COMPARISON: October 25, 2024. TECHNIQUE: 2 views of the chest were obtained. FINDINGS: No consolidation, pleural effusion or pneumothorax. Cardiomediastinal silhouette size is normal. S-shaped curvature of the thoracic spine. Patient's large body habitus/obesity. XR/XR chest 2V IMPRESSION: No acute airspace disease. Stable chest. Electronically signed by: Ferny Eagle MD 03/04/2025 03:40 PM EDT
--- NOTE | 2025-03-04 15:13 | ECG_ITS ---
Test Reason : CP Blood Pressure : */* mmHG Vent. Rate : 79 BPM Atrial Rate : 79 BPM P-R Int : 144 ms QRS Dur : 68 ms QT Int : 392 ms P-R-T Axes : 20 32 15 degrees QTcB Int : 449 ms Normal sinus rhythm Normal ECG When compared with ECG of 25-Oct-2024 12:14, No significant change was found Referred By: Rosario Landaverde Electronically Signed By: Saurav Chappell
[2025-03-04 15:15] VITALS: BP 139/88; PULSE 85; RESP 18; TEMP 37.2; O2SAT 100; BMI 38.7
--- NOTE | 2025-03-04 15:19 | ED_ITS ---
HPI - Chest Pain General Chief Complaint: Chest Pain Stated Complaint: chest pain Time Seen by Provider: 03/04/25 15:57 Source: patient Mode of arrival: ambulatory Limitations: no limitations History of Present Illness ED Provider: Sharla Ulrich PA-C HPI narrative: 24-year-old female presenting to emergency department today for evaluation of chest and throat discomfort. Two days ago patient states that she was blowing up balloons 6 smaller ones which were proximally Kenalog upsized as well as 3 larger ones which she uses her hands demonstrate with the diameter of at least what looks like to feet. She did this on her own. She tried to do it as quickly as she said shortly after this both her throat and her chest felt uncomfortable. She feels like she has postnasal drip. She also feels like her throat is raspy. She tried both Tums inhaler with no change. She is not feeling short of breath. When she pushes on her chest she states that it hurts. She denies any fevers or chills and has no sweats no abdominal pain no nausea or vomiting no diarrhea. No shortness of breath with exertion. No headache or dizziness. MD complaint: chest discomfort Related Data Home Medications ?Medication ?Instructions ?Recorded ?Confirmed acetaminophen 500 mg tablet 1,000 mg PO Q6H PRN Pain, Mild 07/27/22 12/17/24 (Tylenol Extra Strength) lotilaner 0.25 % eye drops (Xdemvy) drp ophthalmic (ey e) 05/02/24 12/17/24 lotilaner 0.25 % eye drops (Xdemvy) 1 drp ophthalmic ( eye) Q12H 08/06/24 12/17/24 Previous Rx's ?Medication ?Instructions ?Recorded epinephrine 0.3 mg/0.3 mL 0.3 mg (0.3 mL) IM Q4H PRN 0 01/24/24 injection, auto-injector anaphylaxis #2 ea tizanidine 4 mg tablet (Zanaflex) 2 mg (1/2 x 4 mg) PO BID PRN 01/24/24 muscle spasticity 5 days #5 tabs cyclobenzaprine 5 mg tablet 5 mg PO Q8H PRN Muscle Spa sm #10 05/02/24 tabs atorvastatin 20 mg tablet 20 mg PO BEDTIME #90 tabs albuterol sulfate 90 mcg/actuation 2 puff inhalation Q 4-6H PRN 08/03/24 aerosol inhaler (Ventolin HFA) shortness of breath or wheezing #8.5 grams sucralfate 100 mg/mL oral 10 ml PO QID PRN gerd #400 m L 09/04/24 suspension (Carafate) cetirizine 10 mg tablet 10 mg PO DAILY PRN allergy 0 10/25/24 symptoms #30 tabs lorazepam 1 mg tablet (Ativan) 1 mg PO ONCE anxiety #1 tab 11/14/24 meloxicam 7.5 mg tablet 7.5 mg PO DAILY #30 tabs 04/26 omeprazole 20 mg capsule,delayed 20 mg PO DAILY #90 ca ps 01/28/25 release hydroxyzine HCl 25 mg tablet 25 mg PO BEDTIME PRN anxi ety or 02/06/25 insomnia #30 tabs Allergies Allergy/AdvReac Type Severity Reaction Status Date / Time fluconazole Allergy Mild palpitations, Verified 03/04/25 15:21 felt like could not breath aloe (ALOE) Allergy Unknown RASH Verified 03/04/25 15:21 sertraline (SERTRALINE) Allergy Unknown UNKNOWN Verified 03/04/25 15:21 banana Allergy Itching Verified 03/04/25 15:21 pineapple Allergy Itching Verified 03/04/25 15:21 Peppers, Jalapeno AdvReac Itchy Eyes Verified 03/04/25 15:21 shellfish derived AdvReac rash Verified 03/04/25 15:21 Review of Systems 2 Review of Systems: Yes all other systems are reviewed and are negative PMFSH Past Medical History Attestation statement: The following information was validated with the patient. Source: old records reviewed and nursing notes reviewed Medical History Vitamin D deficiency Subclinical hypothyroidism Neck muscle spasm Anxiety Migraines Hypothyroidism Hypertension Hypercholesteremia Surgical History No pertinent past surgical history Family History Family History Father Hypertension Mother Hepatitis C Hypothyroidism Hypertension Cirrhosis of liver Murmur, cardiac Social History Social History Housing: Apartment Are you a primary client care manager to a significant other at home: No Do you presently have visiting nurse or other home services: No Alcohol intake: never Patient Tobacco Use Status: Never used Tobacco e-Cigarette/Vaping Use: Never Used Second Hand Smoke Exposure: No Advance Directives: No Advance Directives Information Provided: No service: No Current occupational status: unemployed Cognitive needs: No Hearing needs: No Vision needs: No Physical Exam 2 Exam: Exam: General: Appears in no acute distress, appears well nourished body habitus is obese, appears stated age. No septic or ill-appearing. Vitals reviewed normal, PMH/Social and Surgical hx reviewed including allergies and current medications. - reviewed for prior visits here Head: Normocephalic, no obvious trauma or skin lesions noted. Eyes: EOMI ENMT: moist oral mucosa, uvula is midline no trismus tonsils present, TMs clear and patent no lymphadenopathy Neck: trachea midline, no use of accessory muscles Cardiovascular: peripheral perfusion normal, Regular heart rate, regular rhythm Respiratory: no respiratory distress, lungs clear to auscultation bilaterally no stridor, voice is normal not a raspy, anterior chest wall bilaterally is tender but no crepitus or ecchymosis noted Abdomen: nondistended, obese Extremities: warm and moving without difficulty Psych: Cooperative, depressed affect Neuro: Alert and oriented. Vital Signs: Vital Signs: Last Vital Signs Temp 98.9 F 03/04/25 15:15 Pulse 85 03/04/25 15:15 Resp 18 03/04/25 15:15 BP 139/88 03/04/25 15:15 Pulse Ox 100 03/04/25 15:15 O2 Del Method Room Air 03/04/25 15:15 BMI result Body Mass Index 38.7 Course Course Course Narrative: This is a Rapid Medical Examination (RME) performed by Rachelle Landaverde PA-C in triage. Full HPI, ROS, assessment and treatment plan per primary provider in the Main ED. Hx: 24 yo F here for eval of chest pain radiating to neck x2 days. reports her neck/chest feel sore. assoc raspy voice and shortness of breath. symptoms began after blowing up balloons Monday. PE/vitals: lungs clear Plan: labs, ekg, cxr Medical Decision Making Medical Decision Making [facility] Narrative: Well-appearing 24-year-old female with history of Bridgette esophagitis, chronic pain syndrome, mild anemia, MDD, eugene, GERD and hyperlipidemia presenting with chest and throat discomfort status post blowing up several balloons day and a half ago. Upon arrival to ED she is afebrile appearing in no acute distress well-appearing. Patient received a rapid medical exam for which chest x-ray EKG and basic labs were ordered. PERC score for PE is 0 can be ruled out clinically. Her pulses are equal and symmetric and she is normotensive less likely aortic dissection chest x-ray without any widened mediastinum or evidence for pneumothorax or infectious etiology. Other differentials include: musculoskeletal strain, foreign body, costochondritis. EKG showing normal sinus rhythm with 80 beats per minute. Labs show microcytic anemia which is already known to patient she does not meet transfusion criteria. Patient presentation overall is felt to be musculoskeletal strain due hyperventilation from blowing balloons the other day. No life-threatening etiology was found today. We will advise on OTC measures which strict ED precautions. I do not feel any further workup is indicated for today. Plan as below patient agreed she was discharged home stable Differential Diagnosis Differential Diagnoses: The differential diagnosis associated with the presentation includes See [facility] Admission/Observation Consideration of admission/observation: Escalation of care including admission/observation considered Patient would have been admitted to the hospital had her work up had any findings where hospital admission was appropriate and her clinical presentation warranted hospital admission. Lab Data [facility] Lab Attestation statement: I reviewed the patient's lab results. 03/04/25 15:29 03/04/25 15:29 Labs: Lab Results 03/04/25 Range/Units 15:29 WBC 7.6 (4.8-10.8) X10*3/uL RBC 4.30 (4.20-5.50) X10*6/uL Hgb 11.5 L (12.0-16.0) g/dl Hct 33.5 L (37.0-47.0) % MCV 77.9 L (80.0-98.0) fL MCH 26.7 L (27.0-33.0) pg MCHC 34.3 (31.0-35.0) g/dl RDW 14.9 (11.0-16.0) % Plt Count 372 (160-400) X10*3/uL MPV 8.8 L (9.4-12.3) fL Immature Gran % (Auto) 0.1 (0.0-0.4) % Neut % (Auto) 56.5 (45-73) % Lymph % (Auto) 33.1 (20-40) % Ashley % (Auto) 5.6 (2-11) % Eos % (Auto) 4.2 H (0-4) % Baso % (Auto) 0.5 (0-2) % Lymph # (Auto) 2.5 (1.2-4.9) X10*3/uL Ashley # (Auto) 0.4 (0.1-1.2) X10*3/uL Eos # (Auto) 0.3 (0.0-0.4) X10*3/uL Baso # (Auto) 0.0 (0.0-0.2) X10*3/uL Abs Immat Gran (auto) 0.01 (0.00-0.03) X10*3/uL Absolute Neuts (auto) 4.3 (2.0-8.3) x10*3/uL Absolute Nucleated RBC 0.000 (0.0-0.012) X10*3/uL Nucleated RBC % (auto) 0.0 (0.0-0.2) /100WBC Sodium 139 (135-145) mmol/L Potassium 3.7 (3.3-5.1) mmol/L Chloride 106 (96-108) mmol/L Carbon Dioxide 23 (22-29) mmol/L Anion Gap 14 (12-20) BUN 7 L (9-16) mg/dL Creatinine 0.69 (0.5-1.4) mg/dL Estim Creat Clear Calc 125.6 Estimated GFR > 60 Random Glucose 92 (60-115) mg/dL Calcium 9.0 D (8.4-10.2) mg/dL Magnesium 1.9 (1.6-2.6) mg/dL Total Bilirubin 0.5 (0.0-1.0) mg/dL AST 22 (5-31) U/L ALT 23 (0-31) U/L Alkaline Phosphatase 101 (39-117) U/L Troponin I High Sens < 2.7 (<3.5-17.0) ng/L Total Protein 8.1 H (6.5-8.0) g/dL Albumin 5.0 (3.5-5.0) g/dL Lipase 20 (8-78) U/L Beta HCG, Quant < 2 mIU/mL S. pyogenes GrpA CHANTAL Negative (Negative) Independent Interpretation I performed an independent interpretation of an: EKG and Plain X-Ray Interpretation: No overt evidence of STEMI. No evidence of Brugada's sign, delta wave, epsilon wave, significantly prolonged QTc, or malignant arrhythmia. No pneumothorax no malignancy no hyperventilation. Radiology Impression Discussion of test interpretation with radiology: I have reviewed the radiologist's reading. Radiologist Impression: No acute cardiopulmonary process Tests considered The following testing was considered but not selected: Would have considered CTA head patient's PERC score or her presentation been more suggestive of a PE Prescription Management I considered prescription management with: Pain Medication Chronic Conditions Patient?s care impacted by: Other (obesity and chronic pain syndrome) Social Determinants Patient?s care significantly limited by Social Determinants of Health including: Other Social Determinant of Health Discharge Plan Discharge Clinical Impression: Chest wall muscle strain Qualifiers: Encounter type: initial encounter Qualified Code(s): S29.011A - Strain of muscle and tendon of front wall of thorax, initial encounter Acute pharyngitis Qualifiers: Pharyngitis/tonsillitis etiology: unspecified etiology Qualified Code(s): J02.9 - Acute pharyngitis, unspecified Patient Disposition: Home, Self-Care Instructions: Muscle Strain (DC) Additional Instructions: You were seen in the emergency department for 1st sore throat and chest discomfort. You had a thorough workup that shows no evidence of life- threatening etiology today. Is most likely due to muscle while stranding of both the throat and the chest wall switch to your level of activity on Monday. Is recommended to do voice rest. Limit your level of physical activity over the next few days so you can recover. You can do heat compresses such as in the shower or with a heating pad. Return for any worsening concerns. Hope you feel better soon. Prescriptions: No Action atorvastatin 20 mg tablet 20 mg PO BEDTIME Qty: 90 1RF albuterol sulfate [Ventolin HFA] 90 mcg/actuation HFA aerosol inhaler 2 puff inhalation Q4-6H PRN (Reason: shortness of breath or wheezing) Qty: 8.5 2RF Rx Instructions: family hx of asthma and shortness of breath which is most consistent with exercise induced asthma lorazepam [Ativan] 1 mg tablet 1 mg PO ONCE Qty: 1 0RF Rx Instructions: Take 30 minutes prior to arrival to procedure meloxicam 7.5 mg tablet 7.5 mg PO DAILY Qty: 30 4RF omeprazole 20 mg capsule,delayed release(DR/EC) 20 mg PO DAILY Qty: 90 1RF hydroxyzine HCl 25 mg tablet 25 mg PO BEDTIME PRN (Reason: anxiety or insomnia) Qty: 30 2RF cetirizine 10 mg tablet 10 mg PO DAILY PRN (Reason: allergy symptoms) Qty: 30 0RF tizanidine [Zanaflex] 4 mg tablet 2 mg PO BID PRN (Reason: muscle spasticity) 5 Days Qty: 5 0RF epinephrine 0.3 mg/0.3 mL auto-injector 0.3 mg IM Q4H PRN (Reason: anaphylaxis) Qty: 2 1RF acetaminophen [Tylenol Extra Strength] 500 mg tablet 1,000 mg PO Q6H PRN (Reason: Pain, Mild) Xdemvy 0.25 % drops 1 drp ophthalmic (eye) Q12H Xdemvy 0.25 % drops ophthalmic (eye) cyclobenzaprine 5 mg tablet 5 mg PO Q8H PRN (Reason: Muscle Spasm) Qty: 10 0RF sucralfate [Carafate] 100 mg/mL suspension 10 ml PO QID PRN (Reason: gerd) Qty: 400 0RF Rx Instructions: swish in mouth and swallow; use after food/drink Referrals: Gisel Hartman, [facility] [Primary Care Provider, Internal Medicine] Referral Note: ED follow up Stand Alone Forms: Work/School Release Print Language: Tristanian
--- NOTE | 2025-03-04 15:20 | MHC.EDTECH ---
Patient brought into triage area,EKG taken per order and signed by provider
[2025-03-04 15:34] LABS: MANUAL DIFF FLAG NO
[2025-03-04 15:35] LABS: Hematocrit 33.5 % (37.0-47.0); Hemoglobin 11.5 g/dl (12.0-16.0); Imm Gran Abs Auto 0.01 X10*3/uL (0.00-0.03); Imm Gran Pct Auto 0.1 % (0.0-0.4); Lymphocytes Absolute Auto 2.5 X10*3/uL (1.2-4.9); Mean Corpuscular HGB Conc 34.3 g/dl (31.0-35.0); Mean Corpuscular Hemoglobin 26.7 pg (27.0-33.0); Mean Corpuscular Volume 77.9 fL (80.0-98.0); NRBC Abs Auto 0.000 X10*3/uL (0.0-0.012); NRBC Pct Auto 0.0 /100WBC (0.0-0.2); Platelet Count 372 X10*3/uL (160-400); Red Blood Count 4.30 X10*6/uL (4.20-5.50); White Blood Count 7.6 X10*3/uL (4.8-10.8)
[2025-03-04 15:43] LABS: IDNOW Serial# 58CA691E; Strep A Nucleic Acid Negative (Negative)
[2025-03-04 15:55] LABS: Alanine Aminotransferase 23 U/L (0-31); Albumin Level 5.0 g/dL (3.5-5.0); Alkaline Phosphatase 101 U/L (39-117); Anion Gap 14 (12-20); Aspartate Amino Transferase 22 U/L (5-31); Blood Urea Nitrogen 7 mg/dL (9-16); Calcium 9.0 mg/dL (8.4-10.2); Carbon Dioxide 23 mmol/L (22-29); Chloride 106 mmol/L (96-108); Creatinine Clr Calc Pharmacy 125.6; Estimated Glomerular Filt Rate > 60; Lipase 20 U/L (8-78); Magnesium 1.9 mg/dL (1.6-2.6); Potassium 3.7 mmol/L (3.3-5.1); Sodium 139 mmol/L (135-145); Total Protein 8.1 g/dL (6.5-8.0)
[2025-03-04 16:00] LABS: Troponin-I High Sensitivity < 2.7 ng/L (<3.5-17.0)
--- OUTSIDE RECORDS SUMMARY | 2025-03-04 16:33 | XMS_ITS | Encounter Summary ---
Author Organization [facility] Address [address] [place] [address] Phone Care Team Providers Care Rn Interventional Name Role Phone Ashly Ozuna MD Primary Care Provider [phone] Encounter Details Date Type Department Care Team (Late st Contact Info) Description 06/19/2014 Documentation [facility] Family Medicine [address] [place], [place] [id number] Family Medicine, Physician [address] [place] [address] Social History Tobacco Use Types Packs/Day Years [...] on filedocumented in this encounter Care Teams Rn Interventional Relationship Specialty Start Date End Date Ashly Ozuna MD [address] [place] [address] PCP - General Pediatrics 10/25/18 07/21/22 documented as of this encounter
--- OUTSIDE RECORDS SUMMARY | 2025-03-04 16:33 | XMS_ITS | Clinical Summary ---
Author Organization [facility] Address [address] [place] [address] Phone Care Team Providers Care Elevator Examiner And Adjuster Name Role Phone Unavailable Primary Care Provider [...] and for housing resources. 02/11/2020 ---- Timothy Supply Chain Systems Manager Problem Noted Date Diagnosed Date Depression 09/16/2021 Scoliosis concern 07/30/2021 Overview (07/30/2021): 07/24- scoliometer up to 12 degrees Assessment & Plan (09/16/2021 3:18 PM EDT): Hadn't had x-ray done yet, but advised to go to [facility] when she gets vitamin D [...] I have sent a message to the help desk support specialist to schedule this and she is aware. [...] appt 03/26/[address] Amber Agosto @ [facility], was to f/u in [...] AM EST): I will see if our [facility] can help her more with this (she [...] as she's supporting herself. Aware to contact [facility] if she needs help. Assessment & Plan [...] about her hyperlipidemia, but she's seeing a assistant football coach through endo already, and this value was [...] with fatty liver. 07/24- last visit by [facility] endo assistant football coach (last endo visit 03/22, was to f/u in 6 weeks, but no other appts notes from doc) Assessment & Plan (07/30/2021 11:20 AM EST): Overall doing pretty well with healthier choices, which I give her a lot of credit for. I encouraged her to call the assistant football coach and request more frequent visits as it sounds like this would be helpful for her. Assessment & Plan (03/13/2020 4:57 PM EDT): Doing really well with exercise (going to gym 4x/week, walking 60min esveral days per week) and eating better. Drinking 2% milk instead of whole milk. Recommended [employer] website as she's looking for ideas for [...] (10/14) to help her with relaxation techniques- [employer] message sent to Nikolas. She is to [...] HAs. Will start OCPs as prescribed by [employer], so perhaps that will help. Assessment & [...] Neuro exam normal other than slightly abnormal [id number] on left. Will have her f/u in 1 week to eval this further. Anxiety 08/06/2014 Overview (05/06/2021): Likely also with OCD, but never officially diagnosed. Prozac given in 08/2012 but took for only 1 month. Saw a therapist at [facility]. Then saw Nikolas, our Integrated counselor early 2019 with some improvement. Re-started fluoxetine 11/05/18, stopped 11/15/18 due to thinking it was causing agitation. Trial of sertraline 04/20, stopped after about two weeks due to severe heartburn (also sleep issues). Saw Nikolas several times 2019, transfer to [facility] 04/21? 05/23- worsening anxiety--> hydroxyzine prn prescribed, [...] her first appt with her new PCP ([facility] [place]) on 05/07/22 and they should take over prescribing at that time (she's aware). She really needs to be seeing a therapist - [facility] list given and I encouraged her to call [facility] and get on multiple waiting lists if [...] I have sent a message to our help desk support specialist staff as well as Nikolas to see [...] calm herself now), will start at [facility] soon. Denies SI. Assessment & Plan (09/27/2019 [...] a month due to perceived SEs). Nikolas, [facility] clinician, saw her today and will see her in f/u (appt scheduled for 07/31/19). She will refer out (likely [facility]) for both counseling and med management, and [...] she can see a therapist here at [facility] at any time. Family history of [...] Date Last Done Comments Influenza Vaccines (#1) 2025 05/06/20, 04/19/2019, 06/05/2013, Additional history exists COVID-19 Vaccine (4 - 2024-2 6 season) 2025 04/26/2022, 08/24/2021, 07/30/2021 DTaP,Tdap,and Td Vaccines (8 [...] Completed 08/29/2019, 11/05/2018 Procedures * Due to [place] [employer] law, this organization might not be sharing sensitive test results. Procedure Name Priority Date/Time Associated Diagnosis Comments CHLAMYDIA AND GONORRHEA, AMPLIFIED Routine 07/30/2021 11:26 AM EST Encounter for screening examination for sexually transmitted disease from Last 3 Months or Most Recently Relevant to Health Maintenance Results * Due to [place] law, this organization might not be sharing sensitive test results. * Chlamydia and Gonorrhoea, Amplified (07/30/2021 11:26 AM EST) Chlamydia Trachomatis, DNA Probe NEGATIVE (NEG) [facility] Comment: No Chlamydia Trachomatis RNA detected in this patient's sample (REFERENCE RANGE/NORMAL VALUE: NOT DETECTED) Note: This test uses paint mixer hand- mediated amplification method to detect rRNA from C. Trachomatis URINE GC AMP PROBE NEGATIVE (NEG) [facility] Comment: No Neisseria Gonorrhoeae RNA detected in this patient's sample (REFERENCE RANGE/NORMAL VALUE: NOT DETECTED) NOTE: This test uses paint mixer hand-mediated amplification method to detect rRNA from N.Gonorrhoeae. [...] if indicated. Testing performed or reported by [facility], a Service of [facility], [facility] Leslye Rodriguez[facility] [place] [address] David Adrian MD, Kelp Gatherer [facility]# [id number] Urine (Urine) 07/30/2021 11: 26 AM EST 07/30/2021 10:50 PM EST us Ashly Ozuna MD LAB MICROBIOLOGY - GENERAL OR DERABLES Final Result [facility] from Last 3 Months or Most Recently Relevant to Health Maintenance
--- OUTSIDE RECORDS SUMMARY | 2025-03-04 16:33 | XMS_ITS | Encounter Summary ---
Author Organization [facility] Address [address] [place] [address] Phone Care Team Providers Care Senior Communications Engineer Name Role Phone Ashly Ozuna MD Primary Care Provider [phone] Reason for Visit * Reason Comments Med Refill Encounter Details Date Type Department Care Team (Late st Contact Info) Description 12/02/2018 Refill [facility] [address] [place] [address] Ashly Ozuna MD [address] [place] [address] Anxiety Social History Tobacco Use Types Packs/Day [...] unspecified documented in this encounter Care Teams Senior Communications Engineer Relationship Specialty Start Date End Date Ashly Ozuna MD [address] [place] [id number] PCP - General Pediatrics 10/25/18 07/21/22 documented as of this encounter
--- OUTSIDE RECORDS SUMMARY | 2025-03-04 16:33 | XMS_ITS | Encounter Summary ---
Author Organization [facility] Address [address] [place] [phone] Phone Care Team Providers Care Processing Rep Name Role Phone Ashly Ozuna MD Primary Care Provider [phone] Encounter Details Date Type Department Care Team (Late st Contact Info) Description 02/16/2017 Conversion Encounter [facility] [address] [place] [address] Social History Tobacco Use Types Packs/Day Years [...] on filedocumented in this encounter Care Teams Processing Rep Relationship Specialty Start Date End Date Ashly Ozuna MD [address] [place] [address] PCP - General Pediatrics 10/25/18 07/21/22 documented as of this encounter
--- OUTSIDE RECORDS SUMMARY | 2025-03-04 16:33 | XMS_ITS | Encounter Summary ---
Author Organization [facility] Address [address] [place] [address] Phone Care Team Providers Care Councillor [employer] Name Role Phone Ashly Ozuna MD Primary Care Provider [phone] Reason for Visit * Reason Comments Med Refill Encounter Details Date Type Department Care Team (Late st Contact Info) Description 05/01/2020 Refill [facility] [address] [place] [address] Ashly Ozuna MD [address] [place] [address] Vitamin D deficiency Social History Tobacco Use [...] labs. Pt would like to go to [facility] but it was unclear if they had a lab so they were faxed to [phone] and also to [facility] lab. EH * Telephone [...] deficiency documented in this encounter Care Teams Councillor [employer] Relationship Specialty Start Date End Date Ashly Ozuna MD [address] [place] [address] PCP - General Pediatrics 10/25/18 07/21/22 documented as of this encounter
--- OUTSIDE RECORDS SUMMARY | 2025-03-04 16:33 | XMS_ITS | Clinical Summary ---
Author Organization [facility] Address [address] [place] [address] Phone Care Team Providers Care Silver Solution Mixer Name Role Phone Gisel Hartman Primary Care Provider [phone] Allergies Active Allergy Reactions Criticality Noted Date [...] DIAGNOSTICS METHOD 11/09/2024 9:22 AM EDT [facility] Chlamydia trachomatis PCR Negative Negative LAB MOLECULAR DIAGNOSTICS METHOD 11/09/2024 9:22 AM EDT [facility] Urine Urine specimen from urethra / Unknown Non-blood Collection / Unknown 11/08/2024 6:26 PM EDT 11/08/2024 6:34 PM EDT us Real Coyle MD LAB MICROBIOLOGY - GENERAL ORD ERABLES Final Result [facility] [address] [place] [address], from Last 3 Months or Most Recently Relevant to Health Maintenance Insurance [facility] [place] [address] Care Teams Silver Solution Mixer Relationship Specialty Start Date End Date Gisel Hartman FNP [address] [place] [address] [place] [id number] PCP - General Nurse Practitioner 11/08/24
--- OUTSIDE RECORDS SUMMARY | 2025-03-04 16:33 | XMS_ITS | Encounter Summary ---
Author Organization [facility] Address [address] [place] [address] Phone Care Team Providers Care Refrigerating Oiler Name Role Phone Ashly Ozuna MD Primary Care Provider [phone] Reason for Visit * Reason Comments Med Refill Encounter Details Date Type Department Care Team (Late st Contact Info) Description 11/14/2021 Refill [facility] [place] [address] [place] [address] Ashly Ozuna MD [address] [place] [address] Vitamin D deficiency; Depression, unspecified depression type [...] and ask her to go to a [facility] lab to have her vitamin D level [...] type documented in this encounter Care Teams Refrigerating Oiler Relationship Specialty Start Date End Date Ashly Ozuna MD [address] [place] [id number] PCP - General Pediatrics 10/25/18 07/21/22 documented as of this encounter
[2025-03-04 16:57] VITALS: BP 139/88; PULSE 85; RESP 18; TEMP 37.2; O2SAT 100
== END 2025-03-04 16:59 | disposition home or self-care (01) ==
PROVIDERS: Physician Assistant Medical; Emergency Provider Emergency Medicine; PCP Nurse Practitioner Family
DX: S29.011A Strain of muscle and tendon of front wall of thorax, initial encounter (principal); X58.XXXA Exposure to other specified factors, initial encounter; Y93.89 Activity, other specified; Y92.9 Unspecified place or not applicable; Y99.9 Unspecified external cause status; J02.9 Acute pharyngitis, unspecified; R06.02 Shortness of breath; R05.9 Cough, unspecified; I10 Essential (primary) hypertension; E78.00 Pure hypercholesterolemia, unspecified
CPT/HCPCS: 36415; 71046; 80053; 83690; 83735; 84484; 84702; 85025; 87651; 93005; 99283; 99285

== ENCOUNTER → 2025-03-04 15:13 | Outpatient (BNV) | payer OTHER, SELFPAY | PROVIDERS: Emergency Provider Emergency Medicine; PCP Nurse Practitioner Family; Visit Provider Internal Medicine Cardiovascular Disease | DX: R07.9 Chest pain, unspecified (principal) | CPT/HCPCS: 93010 ==

== ENCOUNTER → 2025-03-04 15:20 | Outpatient (BNV) | payer OTHER, SELFPAY | PROVIDERS: PCP Nurse Practitioner Family; Visit Provider Radiology Diagnostic Radiology | DX: R07.9 Chest pain, unspecified (principal) | CPT/HCPCS: 71046 ==

== ENCOUNTER 2025-03-24 13:57 | Outpatient (REF) | payer OTHER, SELFPAY ==
[2025-03-24 15:55] LABS: Free T4 (Free Thyroxine) 0.81 ng/dL (0.71-1.85); Thyroid Stimulating Hormone 5.47 uIU/mL (0.32-4.0)
--- OUTSIDE RECORDS SUMMARY | 2025-03-24 16:25 | XMS_ITS | Encounter Summary ---
Demographics Address [address] [place] [address] Home Phone
== END 2025-03-24 13:58 | disposition home or self-care (01) ==
LOC: HO.LAB 13:57
PROVIDERS: Visit Provider Student in an Organized Health Care Education/Training Program
DX: E03.8 Other specified hypothyroidism (principal)
CPT/HCPCS: 36415; 84439; 84443; 99212

== ENCOUNTER 2025-03-24 14:35 | Outpatient (AMB) | payer OTHER, SELFPAY ==
--- NOTE | 2025-03-24 14:42 | MHC.OFFVIS ---
Vital Signs 03/24/25 14:47 Height 5 ft Weight 191 lb 12.835 oz BMI 37.5 BP 127/80 Blood Pressure Location Lt brachial Position Sitting Pulse 101 H Intake Visit Reasons: S/P EGD Intake Note: Andrew presents in the office as a follow up for EGD results. CC: states that she is supposed to be due for a repeat EGD - it was supposed to be after December. She has to get spine injections and she is concerned because they are also going to use anesthesia so she is not sure if that is a good idea or not. States because she lost her voice recently she was give nprednisone and had a reaction so she does not want to keep taking without consulting with a Dr. Allergies fluconazole Allergy (Mild, Verified 03/24/25 14:48) palpitations, felt like could not breath aloe (ALOE) Allergy (Unknown, Verified 03/24/25 14:48) RASH sertraline (SERTRALINE) Allergy (Unknown, Verified 03/24/25 14:48) UNKNOWN banana Allergy (Verified 03/24/25 14:48) Itching pineapple Allergy (Verified 03/24/25 14:48) Itching Peppers, Jalapeno Adverse Reaction (Verified 03/24/25 14:48) Itchy Eyes shellfish derived Adverse Reaction (Verified 03/24/25 14:48) rash HPI Comments Details: 24 y.o F with PMH of morbid obesity, hypothyroidism who is here for chest pain/epigastric pain, dysphagia, and fatty liver. 1. Has had a few visits to ER chest pain which she describes as an ache behind her sternum that radiates down to her abd triggered by certain foods. Assoc with shortness of breat, nausea and vomiting. For the past few months has noticed increased intensity and frequency of the symptoms. Now occurs almost 2-3 times a month. The pain gets better with vomiting/regurgitating. Was prescribed famotidine 20 OD in summer but has sx break through within 4-6 hours. 2. Also reports difficulty swallowing since December which started with pain in throat almost a stabbing sensation and has progressed to choking on solid foods such as bread, crackers, pasta, pills. Has environmental allergies. No eczema. ?? asthma as is on inhaler for occ shortness of breath. 3. In terms of fatty liver, had an ultrasound in 2020 during an ER visit for R sided abd pain that showed hepatomegaly and steatosis. Apart from December 2022 LFts have remained normal since 2019. Has obesity with BMI of almost 40. Also reports extensive family history of high cholesterol. Patient herself has severe dyslipidemia. Reports anti-hyperlipid treatments have been deferred so far due to her age. 10/10/24: Bridgette Esophagitis (biopsy) Normal stomach (biopsy) Duodenitis (biopsy) Path: A. Duodenum, biopsy: Duodenal mucosa within normal limits. B. Stomach, random, biopsy: Antral-type and oxyntic mucosa with moderate chronic active inflammation; no Helicobacter organisms seen. C. Esophagus, random, biopsy: Severely active esophagitis with eosinophils; no atypia or fungi seen. In part C, the eosinophils number over 40 per high powered field and form microabscesses; in some areas they are so dense accurate enumeration is not possible Comment: The differential for part C includes severe reflux and eosinophilic esophagitis 03/24/25: Pt returns for follow up. Missed a follow up and then couldnt connect for a televisit. Reports improvemnet in sx while she was on omeprazole. Completed 3 months tx and then wasnt sure if should still have continued it. Was also recently found to have shell fish allergy. Also seeing ENT for hoarse voice. US Abd Impression: 1. Hepatomegaly with increased hepatic echotexture reflecting mild diffuse hepatic steatosis or diffuse hepatocellular disease. [facility] Medical History Vitamin D deficiency Subclinical hypothyroidism Neck muscle spasm Anxiety Migraines Hypothyroidism Hypertension Hypercholesteremia Surgical History No pertinent past surgical history Family History Father Hypertension Mother Hepatitis C Hypothyroidism Hypertension Cirrhosis of liver Murmur, cardiac Social History Housing: Apartment Are you a primary career technical counselor to a significant other at home: No Do you presently have visiting nurse or other home services: No Alcohol intake: never Patient Tobacco Use Status: Never used Tobacco e-Cigarette/Vaping Use: Never Used Second Hand Smoke Exposure: No service: No Current occupational status: unemployed Cognitive needs: No Hearing needs: No Vision needs: No Review of Systems Const All systems reviewed & are unremarkable except as noted in HPI and below Physical Exam Exam Exam: No apparent distress Nonicteric Abdomen soft, nondistended Alert and oriented x3, normal gait Vital Signs: Last Vital Signs Pulse 101 H 03/24/25 14:47 BP 127/80 03/24/25 14:47 BMI result Body Mass Index 37.5 Assessment & Plan Assessment & Plan (1) Eosinophilic esophagitis: Code(s): K20.0 - Eosinophilic esophagitis Category: Medical (2) Hepatic steatosis: Code(s): K76.0 - Fatty (change of) liver, not elsewhere classified Category: Medical (3) Obesity: Code(s): E66.9 - Obesity, unspecified Category: Medical Plan 1.EoE 2. Dysphagia Bx proven EoE. Pt was briefly on omeprazole which helped. Most of the visit was spent going over etiology, pathophysiology and mgmt. Reviewed that would favor multi-pronged approach with elimination diet, PPI and topical steroid. Plan: -Restart omeprazole 20 BID -Topical budesonide 0.5 mg BID -Discuss 2 FED, dairy and gluten. Pt allergic to shellfish. -[employer] referral placed -Repeat EGD to be booked in 8-12 weeks Follow up after EGD Orders: Referrals Allergy & Immunology Referral K20.0 - Eosinophilic esophagitis GI Procedure Notification K20.0 - Eosinophilic esophagitis Medications: New omeprazole 20 mg PO BID 180 caps 0RF 90 days budesonide MIX IN APPLESAUCE/PUDDING/HONEY and SWALLOW 0.5 mg (2 mL) inhalation BID 360 mL 0RF eosinophilic esophagitis 90 days K20.0 - Eosinophilic esophagitis Patient Instructions: - You were noted to have EOSINOPHILIC ESOPHAGITIS. Allergic condition of the esophagus. - We reocmmend you take omeprazole twice a day every day. - We are also starting you on a topical steroid BUDESONIDE for the esophagus. Please mix in as a slurry and take twice a day daily. Instructions as provided. - We will schedule you for a repeat endoscopy in a few months for relook and reassessment. - A referral to [facility] [employer] [facility] has also been requested. Coding Level of Care Code Est Pt Level 4 (66886) Complex EM visit Add On G2211 Diagnoses Eosinophilic esophagitis K20.0 Hepatic steatosis K76.0 Obesity E66.9
[2025-03-24 14:47] VITALS: BP 127/80; PULSE 101; BMI 37.5
== END 2025-03-24 15:30 | disposition home or self-care (01) ==
LOC: HO.HGI 14:36
PROVIDERS: PCP Nurse Practitioner Family; Visit Provider Internal Medicine
DX: K20.0 Eosinophilic esophagitis (principal); K76.0 Fatty (change of) liver, not elsewhere classified; E66.9 Obesity, unspecified
CPT/HCPCS: 99214

== ENCOUNTER 2025-04-07 08:08 | Outpatient (AMB) | payer OTHER, SELFPAY ==
--- NOTE | 2025-04-07 08:10 | A.OFFPC_ITS ---
Vital Signs 04/07/25 08:14 Height 5 ft Weight 195 lb 2 oz BMI 38.1 BP 118/68 Blood Pressure Location Lt brachial Position Sitting Respiration 12 Pulse 75 Pulse Source Pulse Oximeter Temp 97.2 F Temp Source Oral Pulse Oximetry (%) 99 Oxygen Delivery Method Room Air Intake Visit Reasons: Annual Physical Intake Note: CPE. Patient requesting immunization that are due for school. Assistant Research Scientist Required: No Allergies fluconazole Allergy (Mild, Verified 04/07/25 08:20) palpitations, felt like could not breath aloe (ALOE) Allergy (Unknown, Verified 04/07/25 08:20) RASH sertraline (SERTRALINE) Allergy (Unknown, Verified 04/07/25 08:20) UNKNOWN banana Allergy (Verified 04/07/25 08:20) Itching pineapple Allergy (Verified 04/07/25 08:20) Itching Peppers, Jalapeno Adverse Reaction (Verified 04/07/25 08:20) Itchy Eyes shellfish derived Adverse Reaction (Verified 04/07/25 08:20) rash Medication List - Last Reconciled 04/07/25 by CIARAN Sepulveda- acetaminophen (Tylenol Extra Strength) 1,000 mg PO Q6H PRN albuterol sulfate 90 mcg/actuation (Ventolin HFA) 2 puffs inhalation Q4-6H PRN atorvastatin 20 mg PO BEDTIME budesonide 0.5 mg (2 mL) inhalation BID 90 days cetirizine 10 mg PO DAILY PRN cyclobenzaprine 5 mg PO Q8H PRN epinephrine 0.3 mg (0.3 mL) IM Q4H PRN hydroxyzine HCl 25 mg PO BEDTIME PRN lorazepam (Ativan) 1 mg PO ONCE meloxicam 7.5 mg PO DAILY omeprazole 20 mg PO BID 90 days Tobacco use date assessed: 04/07/25 Dental Screening Dental Screen Date: 04/07/25 Did you have a dental visit in the last 12 months?: Yes Did you have a dental problem in the last 6 months where you did not have access to dental care?: No Was dental information given to patient?: Patient has dentist HPI HPI Comments History of Present Illness Details 24-year-old female with hyperlipidemia, subclinical hypothyroidism, seasonal allergies, morbid obesity, chronic GERD, generalized anxiety disorder, migraines without aura, hepatic steatosis with elevated LFTs, mild anemia, MDD, AGUSTINA , vit d def, + TPO Ab, Eosinophilic Esophagitis, HLD FHX: Mom stroke age 26, then stroke x 2 in 40's. Health Maintenance: ? PAP has never had one, referral placed ? Tdap 04/2022 - Flu 04/07/25 Specialists: Cardiology stress test negative, cleared from future f/u Nutrition pain management GI Endo annual thyroid US Diet/Nutrition Allergy/Immune [facility] History of Present Illness The patient is a 24-year-old female presenting for a complete physical examination. Hyperlipidemia: - History of hyperlipidemia. - Managed with diet, not atorvastatin. - Successful nutritional counseling. Obesity: - BMI of 38. - Engaged in dietary counseling. Subclinical hyperthyroidism: - Managed by endocrinology. - Stable TSH levels. Allergies: - Managed by an shoemaking finisher. - Food allergy testing performed. Hepatic steatosis: - Related to gastrointestinal issues. Eosinophilic esophagitis: - Managed by gastroenterology. - Symptoms include mild anemia. Generalized anxiety disorder: - Managed with hydroxyzine and lorazepam . - Counseling ongoing. Major depressive disorder: - Managed as above. - Counseling supportive. Palpitations: - Symptoms of intermittent palpitations. - Holter monitor previous ineffective. - Cardiology referral planned. Neuro - not happy w/ inital consult; would like to see female provider going fwd Pulm- active. appt today. ENT active. vocal cord issue. Social History - Engaged in nutritional counseling for weight management. - Changed academic major from [employer] to biology. - Reports satisfaction with current educ [facility]. Health Maintenance - Discussed vitamin D deficiency managem ent. - Flu vaccination offered. Review of Systems - Cardiovascular: Reports palpitations. - Respiratory: Denies specific symptoms. - Gastrointestinal: Reports mild anemia, history of GERD. - Endocrine: Reports stabilized subclini evelin hyperthyroidism. - Psychiatric: Reports anxiety and depre ssion managed with therapy. Physical Exam General: Well developed, well nourished, in no acute distress. Appears stated age. Head: Normocephalic, atraumatic. Eyes: Pupils are equal, round and reactive to light and accommodation. Conjunctivae are clear. Scleras nonicteric bilat. Vision grossly normal. Ears: TMs clear AU, EACS WNL Nose: Patent, without discharge. Neck: No carotid bruit bilat. Supple, no adenopathy. Nodular thyroid, nontender Breast: Edu on SBE Lungs: Clear to auscultation bilaterally. No rales, rhonchi or wheeze noted. Good air flow in all cisneros. Heart: Regular rate and rhythm. No murmurs, click, rubs or gallops are noted. Abdomen: Bowel sounds present in all quadrants. The abdomen is soft, mild tenderness generally speaking w/o rebound, with no masses or organomegaly noted. No hernias are noted : Deferred. Reviewed recommendations for routine CIRCUS LABORER Pulses: Peripheral pulses are equal and palpable bilaterally. Extremities: No clubbing, cyanosis nor edema is noted. Neurologic: Gait and station normal. Cranial Nerves 2-12 intact. Motor strength grossly symmetrical and intact. No sensory loss. Balance normal. Skin: No rashes, ulcers, or lesions noted. Turgor is good. Skin color is good. Hair and nails are without abnormalities. Psych: Normal eye contact, affect and mood appropriate, and normal interactions. Patient is alert and appropriate to context. Results - Labs: Previous TSH stable, vitamin D l evel at 17, anemia noted. - Diagnostic Tests: Previous Holter sang tor results incomplete. Was only able to wear for 6 hours d/t allergy from adhesive Discussion Notes I engaged in a discussion with the patient to address her comprehensive care needs. We reviewed each problem area, including her hyperlipidemia managed through nutritional counseling, and the ongoing management of her eosinophilic esophagitis, anxiety, and depression. The palpitations were significant due to her family history, necessitating a cardiology referral. We reviewed her vitamin D deficiency and suggested exploring chewable supplements due to swallowing difficulties. All decisions were made collaboratively, with an emphasis on the patient?s preferences and co-management with specialists for different conditions. Follow-up care and referrals were clarified with the patient for cardiology, NUMERICAL CONTROL MACHINE TOOL OPERATOR, and shoemaking finisher appointments, as appropriate. We also discussed the importance of annual check-ups and returning for acute issues as needed. Patient was given time to ask questions. All questions were answered to their satisfaction. Assessment and Plan 1. Hyperlipidemia - Diet under membership solicitor management. 2. Obesity - Dietary management continued. 3. Subclinical hyperthyroidism - Endocrinology control maintained. 4. Allergies - Follow shoemaking finisher consultation. - See if AAINE can manage you VS going t o [place] allergy, too. 5. Hepatic steatosis - GI team monitoring. 6. Eosinophilic esophagitis/Anemia - Plate Corrector follow-up advised. 7. Anxiety and Depression - Hydroxyzine and lorazepam PRN; teacher counselor ing ongoing. 8. Palpitations - Cardiology referral arranged. 9. Vitamin D Deficiency - Use chewables/gummies recommended. 10. Flu admin today; titers ordered for school. 11. Call Neuro and ask for female provid er. cont care w/ all other team members. Schedule CIRCUS LABORER appt. [facility]. Patient Instructions - Continue with membership solicitor dietary amarilis n. - Follow up with referred specialists. - Take vitamin D supplements in chewable or gummy form. - Monitor for palpitations and report ch anges. - Attend and adhere to all counseling se ssions. - RTO 1 year CPE sooner as needed. Consent Patient was informed and verbally consented to the use of an ambient scribe for clinic note documentation during this visit. An additional 30 minutes was spent addressing the problem(s) noted at todays visit. This includes time spent before the visit reviewing the chart, time spent during the visit, and time spent after the visit on documentation reviewing laboratory results, diagnostic imaging, medications, performing a medically necessary evaluation, counseling on diagnoses, care coordination, ordering appropriate tests, ordering appropriate medications, review of tests performed by other providers, reporting test results with the patient, communication with other healthcare providers. [facility] Medical History Vitamin D deficiency Subclinical hypothyroidism Neck muscle spasm Anxiety Migraines Hypothyroidism Hypertension Hypercholesteremia Surgical History No pertinent past surgical history Family History Father Hypertension Mother Hepatitis C Hypothyroidism Hypertension Cirrhosis of liver Murmur, cardiac Social History Housing: Apartment Are you a primary personal caregiver to a significant other at home: No Do you presently have visiting nurse or other home services: No Alcohol intake: never Patient Tobacco Use Status: Never used Tobacco e-Cigarette/Vaping Use: Never Used Second Hand Smoke Exposure: No service: No Current occupational status: unemployed Cognitive needs: No Hearing needs: No Vision needs: No Questionnaire PHQ-9 Over the last 2 weeks, how often have you been bothered by any of the following problems? 1. Little interest or pleasure in doing things: not at all 2. Feeling down, depressed, or hopeless: not at all 3. Trouble falling or staying asleep, or sleeping too much: not at all 4. Feeling tired or having little energy: not at all 5. Poor appetite or overeating: not at all 6. Feeling bad about yourself - or that you are a failure or have let yourself or your family down: not at all 7. Trouble concentrating on things, such as reading the newspaper or watching television: not at all 8. Moving or speaking so slowly that other people could have noticed. Or the opposite - being so fidgety or restless that you have been moving around a lot more than usual: not at all 9. Thoughts that you would be better off or of hurting yourself in some way: not at all Total score: 0 Depression Screening Interpretation: Negative Depression Screening Done: Yes 74347 - PHQ-9 Billing: Yes Source: Developed by Drs. Ozzie Allison, Denia Benoit, Ministerio Alarcon and colleagues, with an educational jessica from [employer]. Thrive Questionnaire Date Thrive assessed: 04/07/25 I am a: Patient What is your living situation today?: I have a steady place to live Within the past 12 months, did the food you bought not last and you didn't have the money to get more?: Never true Within the past 12 months, did you worry whether your food would run out before you got money to buy more?: Never true Do you have trouble paying for medicines?: No Do you have trouble getting transportation to medical appointments?: No Do you have trouble paying your heating and electricity bill?: No Do you have trouble taking care of your child, family member or friend?: No Do you have trouble with day-to-day activities such as bathing, preparing meals, shopping, managing finances, etc.?: No Are you currently unemployed and looking for a job?: No Are you interested in more education?: No Please select the resources that you would like help with: None Currently or been in a relationship where the following occur: No concerns reported THRIVE Score: 0 AUDIT C Alcohol Use Questionnaire (AUDIT-C) 1. How often do you have a drink containing alcohol?: Never 3. How often do you have six or more drinks on one occasion?: Never Total Score: 0 Score Reviewed/Action Taken: Yes AGUSTINA-7 AMB Questionnaire AGUSTINA-7 Date AGUSTINA - 7 assessed: 04/07/25 Feeling nervous, anxious, or on edge: 0 = Not at all Not being able to stop or control worryin = Not at all Worrying too much about different things: 0 = Not at all Trouble relaxin = Not at all Being so restless that it is hard to sit still: 0 = Not at all Becoming easily annoyed or irritable: 0 = Not at all Feeling afraid as if something awful might happen: 0 = Not at all Total AGUSTINA-7 score (0-4 normal; 5-9 mild; 10-14 moderate; 15-21 severe): 0 Source: Developed by Drs. Ozzie Allison, Denia Benoit, Ministerio Alarcon and colleagues, with an educational jessica from [employer]. AGUSTINA-7 Assessment Billing AGUSTINA-7 Assessment Tool: AGUSTINA-7 Assessment 99867 Physical exam (Primary Care) Vital Signs: Last Vital Signs Temp 97.2 F 04/07/25 08:14 Pulse 75 04/07/25 08:14 Resp 12 04/07/25 08:14 BP 118/68 04/07/25 08:14 Pulse Ox 99 04/07/25 08:14 Oxygen Delivery Method Room Air 04/07/25 08:14 BMI result Body Mass Index 38.1 BMI Assessment/Plan discussion: High BMI High, discussed plan: lifestyle Tobacco/Smoking Status: Tobacco use Status Tobacco use date assessed 04/07/25 04/07/25 08:13 Patient Tobacco Use Status Never used Tobacco 04/07/25 08:13 e-Cigarette/Vaping Use Never Used 04/07/25 08:13 PHQ-9: PHQ-9 Score PHQ-9: Total score 0 04/07/25 08:20 Depression Screening Interpretation: Negative Thrive Assessment: Date of Thrive Assessment Date Thrive assessed 04/07/25 04/07/25 08:13 Currently or been in a relationship where the following occur: No concerns reported Office Procedures Flu Questionnaire Does the patient have a severe egg allergy?: No Does the patient have severe life threatening allergies?: No Does the patient have a fever or illness today?: No Has the patient ever had Guillain-[place] Syndrome?: No Has the patient ever had any past reaction to a flu shot?: No Immunizations Fluarix [id number] (PF) 45 mcg (15 mcg x 3)/0.5 mL IM syringe Performing Provider: FREDY Sepulveda Performing Location: [facility] Family Medicine Administered by: Homero Dunn MA on 04/07/25 08:54 Dose Route Admin Location Dispensed Lot Number Expiration Date NDC Chief Optometry Service 0.5 mL IM Right Deltoid 0.5 mL [id number] 12/30/25 [id number] [employer] VIS Given Date VIS Provided VIS Publication Date 04/07/25 Single Vaccine 24 Eligibility Eligibility Date Funding Source Not [facility] Eligible 04/07/25 Private Results Reviewed Results Reviewed: 01/19/25 holter * Total monitoring time 2 days. * Underlying rhythm is sinus with an average rate of 77/Min. * Very rare supraventricular ectopy. * No significant pauses or high-grade AV blocks. * No patient markers or diary events. Coding Level of Care Code Est Pt Level 4 (28785) Est Pt Prev Care 18-39y(32503) Diagnoses Encounter for general adult medical examination without abnormal findings Z00.00 Moderate episode of recurrent major depressive disorder F33.1 Major depression episode severity: moderate AGUSTINA (generalized anxiety disorder) F41.1 Mixed hyperlipidemia E78.2 Hyperlipidemia type: mixed hyperlipidemia Thyroid nodule E04.1 Subclinical hypothyroidism E03.8 Severe obesity (BMI 35.0-39.9) with comorbidity E66.01 Vitamin D deficiency E55.9 Eosinophilic esophagitis K20.0 Hepatic steatosis K76.0 Influenza vaccination administered at current visit Z23 Heart palpitations R00.2 Chest pain R07.9 Laboratory exam ordered as part of routine general medical examination Z00.00 Glaucoma suspect of both eyes H40.003 Laterality: bilateral Dysphagia, unspecified type R13.10 Dysphagia type: unspecified Pelvic pain R10.20 Migraine without aura and without status migrainosus, not intractable G43.009 Intractability: not intractable Status migrainosus presence: without status migrainosus Additional Codes AGUSTINA-7 Assessment Billing - AGUSTINA-7 Assessment Tool: AGUSTINA-7 Assessment 01551 ([id number]) PHQ-9 - 30455 - PHQ-9 Billing: Yes ([id number]) Assessment & Plan Assessment & Plan (1) Encounter for general adult medical examination without abnormal findings: Onset Date: ~04/07/25 Code(s): Z00.00 - Encounter for general adult medical examination without abnormal findings Category: Medical (2) MDD (major depressive disorder), recurrent episode: Code(s): F33.9 - Major depressive disorder, recurrent, unspecified Category: Medical Qualifiers: Major depression episode severity: moderate Qualified Code(s): F33.1 - Major depressive disorder, recurrent, moderate (3) AGUSTINA (generalized anxiety disorder): Code(s): F41.1 - Generalized anxiety disorder Category: Medical (4) Hyperlipidemia: Code(s): E78.5 - Hyperlipidemia, unspecified Category: Medical Qualifiers: Hyperlipidemia type: mixed hyperlipidemia Qualified Code(s): E78.2 - Mixed hyperlipidemia (5) Thyroid nodule: Code(s): E04.1 - Nontoxic single thyroid nodule Category: Medical (6) Subclinical hypothyroidism: Code(s): E03.8 - Other specified hypothyroidism Category: Medical (7) Severe obesity (BMI 35.0-39.9) with comorbidity: Code(s): E66.01 - Morbid (severe) obesity due to excess calories Category: Medical (8) Vitamin D deficiency: Code(s): E55.9 - Vitamin D deficiency, unspecified Category: Medical (9) Eosinophilic esophagitis: Code(s): K20.0 - Eosinophilic esophagitis Category: Medical (10) Hepatic steatosis: Code(s): K76.0 - Fatty (change of) liver, not elsewhere classified Category: Medical (11) Influenza vaccination administered at current visit: Code(s): Z23 - Encounter for immunization Category: Medical (12) Heart palpitations: Code(s): R00.2 - Palpitations Category: Medical (13) Chest pain: Code(s): R07.9 - Chest pain, unspecified Category: Medical (14) Laboratory exam ordered as part of routine general medical examination: Code(s): Z00.00 - Encounter for general adult medical examination without abnormal findings Category: Medical (15) Glaucoma suspect: Code(s): H40.009 - Preglaucoma, unspecified, unspecified eye Category: Medical Qualifiers: Laterality: bilateral Qualified Code(s): H40.003 - Preglaucoma, unspecified, bilateral (16) Dysphagia: Code(s): R13.10 - Dysphagia, unspecified Category: Medical Qualifiers: Dysphagia type: unspecified Qualified Code(s): R13.10 - Dysphagia, unspecified (17) Pelvic pain: Code(s): R10.20 - Pelvic and perineal pain unspecified side Category: Medical (18) Migraine without aura: Code(s): G43.009 - Migraine without aura, not intractable, without status migrainosus Category: Medical Qualifiers: Intractability: not intractable Status migrainosus presence: without status migrainosus Qualified Code(s): G43.009 - Migraine without aura, not intractable, without status migrainosus Plan . Orders: Orders Lipid Panel Today E78.2 - Mixed hyperlipidemia Hepatitis B Surface Antibody Today Z00.00 - Encounter for general adult medical examination without abnormal findings MMR IgG Measles Mumps Rubella Today Z00.00 - Encounter for general adult medical examination without abnormal findings Varicella IgG Antibody Today Z00.00 - Encounter for general adult medical examination without abnormal findings Influenza [id number] Immunization Today Z23 - Encounter for immunization Referrals Cardiology Referral E78.2 - Mixed hyperlipidemia, R00.2 - Palpitations, R07.9 - Chest pain, unspecified NUMERICAL CONTROL MACHINE TOOL OPERATOR Referral R10.20 - Pelvic and perineal pain unspecified side, Z12.4 - Encounter for screening for malignant neoplasm of cervix Medications: Discontinued atorvastatin Discontinued Reason: Patient Refused 20 mg PO BEDTIME 90 tabs 1RF lorazepam (Ativan) Take 30 minutes prior to arrival to procedure Discontinued Reason: Patient Completed Course 1 mg PO ONCE 1 tab 0RF anxiety cyclobenzaprine Discontinued Reason: Patient Completed Course 5 mg PO Q8H PRN 10 tabs 0RF Muscle Spasm M54.2 - Cervicalgia Patient Instructions: Health screenings for women You should visit your health care provider from time to time, even if you are healthy. The purpose of these visits is to: Screen for medical issues Assess your risk for future medical problems Encourage a healthy lifestyle Update vaccinations and other preventive care services Help you get to know your provider in case of an illness Information Even if you feel fine, you should still see your provider for regular checkups. These visits can help you avoid problems in the future. For example, the only way to find out if you have high blood pressure is to have it checked regularly. High blood sugar and high cholesterol levels also may not have any symptoms in the early stages. A simple blood test can check for these conditions. There are specific times when you should see your provider or receive specific health screenings. The [place] Preventive Services Task Force publishes a list of recommended screenings. Below are screening guidelines for women ages 18 to 39. BLOOD PRESSURE SCREENING Your blood pressure should be checked at least once every 3 to 5 years if: Your blood pressure is in the normal range (top number less than 120 mm Hg and bottom number less than 80 mm Hg) You don't have risk factors for high blood pressure Ask your provider if you need your blood pressure checked more often if: The top number is 120 to 129 mm Hg or the bottom number is 70 to 79 mm Hg You have diabetes, heart disease, kidney problems, are overweight, or have certain other health conditions You have a first-degree relative with high blood pressure You are Black You had high blood pressure during a If the top number is 130 mm Hg or greater or the bottom number is 80 mm Hg or greater, this is considered stage 1 hypertension. Schedule an appointment with your provider to learn how you can reduce your blood pressure. Watch for blood pressure screenings in your area. Ask your provider if you can stop in to have your blood pressure checked. BREAST CANCER SCREENING Experts do not agree about the benefits of breast self-exams in finding breast cancer or saving lives. Talk to your provider about what is best for you. A screening mammogram is not recommended for most women under age 40. Your provider may discuss and recommend mammograms, MRI scans, or ultrasounds if you have an increased risk for breast cancer, such as: A mother or sister who had breast cancer at a young age (most often starting screening earlier than the age the close relative was diagnosed) You carry a high-risk genetic marker CERVICAL CANCER SCREENING Cervical cancer screening should start at age 21 years unless your provider advises otherwise. After the first test: Women ages 21 through 29 should have a Pap test every 3 years. Exoprts do not agree on whether HPV testing is recommended for this age group. Women ages 30 through 65 should be screened with either a Pap test every 3 years or the HPV test every 5 years or both tests every 5 years (called cotesting ). Women who have been treated for precancer (cervical dysplasia) should continue to have Pap tests for 20 years after treatment or until age 65, whichever is longer. If you have had your uterus and cervix removed (total hysterectomy), and you have not been diagnosed with cervical cancer or precancer (high grade cervical neoplasia), you do not need cervical cancer screening. CHOLESTEROL SCREENING Cholesterol screening should begin at: Age 45 for women with no known risk factors for coronary heart disease Age 20 for women with known risk factors for coronary heart disease Repeat cholesterol screening should take place: Every 5 years for women with normal cholesterol levels More often if changes occur in lifestyle (including weight gain and diet) More often if you have diabetes, heart disease, kidney problems, or certain other conditions DIABETES SCREENING You should be screened for diabetes starting at age 35 and then repeated every 3 years if you have no risk factors for diabetes. Screening may need to start earlier and be repeated more often if you have other risk factors for diabetes, such as: You have a first degree relative with diabetes. You are overweight or have obesity. You have high blood pressure, prediabetes, or a history of heart disease. Screening for diabetes should be done if you are planning to become and you are overweight and have other risk factors such as high blood pressure. DENTAL EXAM Go to the dentist once or twice every year for an exam and cleaning. Your dentist will evaluate if you need more frequent visits. EYE EXAM Have an eye exam every 5 to 10 years before age 40. If you have vision problems, have an eye exam every 2 years or more often if recommended by your provider. You should have an eye exam that includes an examination of your retina (back of your eye) at least every year if you have diabetes. IMMUNIZATIONS Commonly needed vaccines include: Flu shot: get one every year. COVID-19 vaccine: ask your provider what is best for you. Tetanus-diphtheria and acellular pertussis (Tdap) vaccine: have one at or after age 19 as one of your tetanus-diphtheria vaccines if you did not receive it as an adolescent. Tetanus-diphtheria: have a booster (or Tdap) every 10 years. Varicella vaccine: receive 2 doses if you never had chickenpox or the varicella vaccine. Hepatitis B vaccine: receive 2, 3, or 4 doses, depending on your exact circumstances. Measles, mumps, and rubella (MMR) vaccine: receive 1 to 2 doses if you are not already immune to MMR. Your provider can tell you if you are immune. Ask your provider about the human papillomavirus (HPV) vaccine if: You have not received the HPV vaccine in the past You have not completed the full vaccine series (you should catch up on this shot) Ask your provider if you should receive other immunizations if you have certain health problems that increase your risk for some diseases such as pneumonia. INFECTIOUS DISEASE SCREENING Women who are sexually active should be screened for chlamydia and gonorrhea up until age 25. Women 25 years and older should be screened for chlamydia and gonorrhea if at high risk. Screening for hepatitis C: All adults ages 18 to 79 should get a one-time test for hepatitis C. people should be screened at every . Screening for human immunodeficiency virus (HIV): All people ages 15 to 65 should get a one-time test for HIV. Depending on your lifestyle and medical history, you may also need to be screened for infections such as syphilis and HIV, as well as other infections. PHYSICAL EXAM All adults should visit their provider from time to time, even if they are healthy. The purpose of these visits is to: Screen for disease Assess your risk of future medical problems Encourage a healthy lifestyle Update your vaccinations and other preventive care services Maintain a relationship with a provider in case of an illness Your height, weight, and BMI should be checked at every exam. During your exam, your provider may ask you about: Depression and anxiety Diet and exercise Alcohol and tobacco use Safety issues, such as using seat belts, smoke detectors, and intimate partner violence Your medicines and risk for interactions SKIN SELF-EXAM Your provider may check your skin for signs of skin cancer, especially if you're at high risk, such as if you: Have had skin cancer before Have close relatives with skin cancer Have a weakened immune system OTHER SCREENING Talk with your provider about colon cancer screening if you have a strong family history of colon cancer or polyps, or if you have had inflammatory bowel disease or polyps yourself. Routine bone density screening of women under 40 is not recommended.
[2025-04-07 08:14] VITALS: BP 118/68; PULSE 75; RESP 12; TEMP 36.2; O2SAT 99; BMI 38.1
== END 2025-04-07 08:57 | disposition home or self-care (01) ==
PROVIDERS: PCP Nurse Practitioner Family; Visit Provider Nurse Practitioner Family
DX: Z00.00 Encounter for general adult medical examination without abnormal findings (principal); R07.9 Chest pain, unspecified; F33.1 Major depressive disorder, recurrent, moderate; E66.01 Morbid (severe) obesity due to excess calories; Z68.38 Body mass index [BMI] 38.0-38.9, adult; R00.2 Palpitations; E78.2 Mixed hyperlipidemia; F41.1 Generalized anxiety disorder; E04.1 Nontoxic single thyroid nodule; E03.8 Other specified hypothyroidism; E55.9 Vitamin D deficiency, unspecified; Z23 Encounter for immunization

== ENCOUNTER 2025-04-07 08:08 | Outpatient (REF) | payer OTHER, SELFPAY ==
--- OUTSIDE RECORDS SUMMARY | 2025-04-07 10:04 | XMS_ITS | Encounter Summary ---
Author Organization [facility] Address [address] [place] [address] Phone Care Team Providers Care Cost Estimating Manager Name Role Phone Ashly Ozuna MD Primary Care Provider [phone] Reason for Visit * Reason Comments Med Refill Encounter Details Date Type Department Care Team (Late st Contact Info) Description 12/02/2018 Refill [facility] [place] [address] [place] [address] Ashly Ozuna MD [address] [place] [address] Anxiety Social History Tobacco Use Types Packs/Day [...] unspecified documented in this encounter Care Teams Cost Estimating Manager Relationship Specialty Start Date End Date Ashly Ozuna MD [address] [place] [address] PCP - General Pediatrics 10/25/18 07/21/22 documented as of this encounter
--- OUTSIDE RECORDS SUMMARY | 2025-04-07 10:04 | XMS_ITS | Encounter Summary ---
Author Organization [facility] Address [address] [place] [address] Phone Care Team Providers Care Supervisor Machining Name Role Phone Ashly Ozuna MD Primary Care Provider [phone] Encounter Details Date Type Department Care Team (Late st Contact Info) Description 02/16/2017 Conversion Encounter [facility] [place] [address] [place] [address] Social History Tobacco Use Types Packs/Day Years [...] on filedocumented in this encounter Care Teams Supervisor Machining Relationship Specialty Start Date End Date Ashly Ozuna MD [address] [place] [address] PCP - General Pediatrics 10/25/18 07/21/22 documented as of this encounter
--- OUTSIDE RECORDS SUMMARY | 2025-04-07 10:04 | XMS_ITS | Data Portability ---
Author Organization [place] [facility] Address [address] [address] Care Team Providers Care Actuarial Science Teacher Name Role Phone IRVING OROZCO Primary Care [...] and NSAIDs. [email or web address] Not available 11/04/2024 10:55:38 03/28/2025 03/28/2025 Vocal cord tension, likely related to muscle strain from blowing up balloons and improper voice use. Esophagitis, with ongoing stomach acid reflux. I recommend referral to a speech pathologist for voice therapy to address muscle tension and improve vocal cord function. Exercises will be provided to relax the muscles and enhance control of the voice. I suspect that stomach acid reflux is contributing to irritation of the vocal cords, and the patient should continue her current medications for esophagitis, including omeprazole and the dissolvable esophageal medication. If symptoms persist after voice therapy, I advised the patient to consult her primary care doctor for a referral to a molding utility worker to evaluate potential breathing issues. My office will initiate the referral to voice therapy. Follow-up will be based on the patient's progress and any additional concerns. [email or web address] Not available 03/28/2025 13:57:27 Plan of Treatment Reminders Order Date Submit Date Provider Last Modified By Organization Details Last Modified Time Details Appointments None recorded. Lab None recorded. Referral speech therapy referral 2024 025 ATHENAFAX Dottie Devlin, [address] [place] [address], [place], [address], 14:25:03 Procedures allergen immunother apy; multiple injections (PROC) 2024 025 [email or web address] Not available 13:00:01 Surgeries None recorded. Imaging None recorded. Medication Orders None recorded. Patient TargetsNo targets recorded. Patient Instructions Encounter Date Encounter Id Patient Instructions Last Modified By Organization Details Last Modified Time 09/18/2024 [id number] Nursing Documentation for Allergy Testing: Ordering Provider [...] date Yes Other: Written by: Jia Comer [email or web address] Not available 09/18/2024 15:00:05 03/28/2025 [id number] Follow up with a speech pathologist for voice therapy. Continue current medications for esophagitis. Consult primary care doctor for pulmonology referral if breathing issues persist. [email or web address] Not available 03/28/2025 13:56:54 Please note: Par ts of this encounter note have been generated by AI based on audio conversation. Patient consent was required prior to utilizing this technology. Content review was required prior to finalizing the note. [email or web address] Not available 03/28/2025 13:56:54 Reason for Referral Referring Physician: Randy Foster, Otolaryngology, Encounter Date: 03/28/2025 Results Created Date Observation Date Name Description [...] and Address Organization Details Recorded Time Dysphagia 22899956 Active 2024 RANDY FOSTER MD [address] [facility], [place], [address], [place] - [facility] 5 09:51:12 Allergic rhinitis 02828752 Active 2024 RANDY FOSTER MD 100 [facility] [place],[address], [place], [address], [place] - [facility] 5 09:51:28 Non-allergi c rhinitis 205703194664 Active 2024 RANDY FOSTER MD 100 [facility],[address], [place], [address], [place] - [facility] 5 09:51:28 Seasonal allergic rhinitis 629264371 Active 2024 RANDY FOSTER MD 100 [facility],[address], [place], [address], [place] - [facility] 09:51:28 Amygdalolit h 4176568 Active 2024 Tenisha owens, [place] - [facility] 5 14:41:43 Hypertrophy of tonsils 42973769 Active 2024 Tenisha Lim null, [place] - [facility] 5 14:42:38 Perennial allergic rhinitis 991401313 Active 2024 DOUGLAS NEWTON 100 [facility],[address], [place], [address], [facility] - [facility] 5 09:11:19 Abnormal auditory perception 77992575 Active 2024 BISMARK MACDONALD 100 [facility] [place],[address], [place], [address], [place] - [facility] 5 10:23:53 Hoarse 30568049 Active 2024 RANDY FOSTER MD [address] [facility] [address], [place], [address], [place] - [facility] 5 13:55:21 Gastric reflux 111237402 Active 2024 RANDY FOSTER MD [address] [address], [place], [address], [facility] - [facility] 13:55:35 Dysphonia 01197427 Active 2024 RANDY FOSTER MD [address], [address], [facility] 13:55:50 Problem Notes None recorded. Procedures Surgical History Date Name Laterality Status Provider Name and Address Organization Details Recorded Time 03/28/20 25 FOL_DP completed RANDY FOSTER MD [address] [place] [address], [phone], [facility] 03/28/2025 13:55:10 11/05/19 25 Air & Speech Audio with Tymps - 65730, 55670 & 33312 completed BISMARK MACDONALD [address] [place] [address], [address], [facility] 11/04/2024 10:20:53 10/03/19 25 Allergy Testing-Full completed DOUGLAS NEWTON [address] [place] [address], [phone], [facility] 10/02/2024 09:47:27 09/19/19 25 Allergy Testing Modified- Quantitative Testing (MQT) Only completed DOUGLAS NEWTON [address] [place] [address], [address], [facility] 09/18/2024 14:59:58 08/05/19 25 FOL_DP completed RANDY FOSTER MD [address], [address], [facility] 08/05/2024 09:50:42 Imaging Results None recorded. Procedure Notes None recorded. Medical Equipment None Reported. Allergies Allergen ID Allergen Name Allergen Category Reaction Reaction Severity Criticality Documentation Date Start Date Code Code System Note Provider Name and Address Organization Details Recorded Time 141762 sertralin e medicatio n chest pain mild Not available 09/18/2024 27322 RxNorm JIA COMER, RMA [address] [place],[address], [place], [address], [facility] - [facility] 5 14:12:54 247829 Aloe vera preparati on food,medi cation swelling moderate Not available 11/03/2024 55278 0 RxNorm RANDY FOSTER MD 100 [facility],[address], [place], [address], [facility] - [facility] 5 09:45:11 818177 pineapple extract food itching mild Not available 11/03/2024 98654 74 RxNorm RANDY FOSTER MD 100 [facility] [place],[address], [place], [address], [facility] - [facility] 5 09:45:11 358120 banana extract food,medi cation other mild Not available 11/03/2024 68944 9 RxNorm RANDY FOSTER MD [address] [facility] [place],[address], [place], [address], [facility] - [facility] 5 09:45:11 852232 shellfish derived food,medi cation swelling severe Not available 11/03/2024 RANDY FOSTER MD 100 [facility] [place],[address], [place], [address], [facility] - [facility] 5 09:45:11 Medications Name Sig Start [...] MOUTH AND SWALLOW USE AFTER FOOD/DRIN K 03/28 completed Not Available Not Available Not Available fluconazole 200 mg tablet TAKE 2 TABLETS BY MOUTH ONCE DAILY FOR 14 DAYS..HOL D HYDROXYZI NE WHILE ON THIS active Not Available Not Available No t Available prednisone 20 mg tablet TAKE 1 TABLET BY MOUTH EVERY DAY FOR 4 DAYS active Not Available Not Available No t Available sumatriptan 50 mg tablet TAKE 1 TABLET BY MOUTH EVERY DAY NEEDED FOR 30 DAYS active Not Available Not Available No t Available meloxicam 7.5 mg tablet TAKE 1 TABLET BY MOUTH EVERY DAY active Not Available Not Available No t Available famotidine 20 mg tablet TAKE 1 TABLET BY MOUTH AT BEDTIME 09/18 completed Not Available Not Available Not Available doxycycline monohydrate 100 mg capsule PLEASE SEE ATTACHED FOR DETAILED DIRECTION S 03/26 completed Not Available Not Available Not Available omeprazole 20 mg capsule,del ayed release TAKE 1 CAPSULE BY MOUTH EVERY DAY active Not Available Not Available No t Available hydroxyzine HCl 25 mg tablet TAKE 1 TABLET BY MOUTH AT BEDTIME NEEDED FOR ANXIETY OR INSOMNIA active Not Available Not Available No t Available epinephrine 0.3 mg/0.3 mL injection, auto-inject or INJECT 0.3 MG INTRAMUSC ULARLY EVERY 4 HOURS NEEDED FOR ANAPHYLAX IS active Not Available Not Available No t Available ibuprofen 100 mg/5 mL oral suspension TAKE 20MLS BY MOUTH EVERY 6 HOURS NEEDED FOR PAIN FOR 7 DAYS 03/28 completed Not Available Not Available Not Available Ventolin HFA 90 mcg/actuati on aerosol [...] Updated DateTime 08/26/2024 152.4 cm 39.6 kg/m2 31441.25 g Patricia Garza [place] - [facility] 08/26/2024 13:17:28 Date Recorded Body height Body mass index (BMI) Body weight Oxygen saturation Oxygen saturation in Arterial blood by Pulse oximetry Heart rate Systolic And Diastolic Provider Name and Address Organization Details Last Updated DateTime 152.4 cm 38.7 kg/m2 25415.2 9 g 100 % 100 % 94 /min 128/85 mm[Hg] JIA COMER, [address], [address] [place], [place] - [facility] 14:21:21 Date Recorded Body height Provider Name an d Address Organization Details Last Updated DateTime 11/04/2024 152.4 cm [facility] - [facility] 11/04/2024 10:27:07 Date Recorded Body height Provider Name an d Address Organization Details Last Updated DateTime 03/28/2025 152.4 cm [facility] - [facility] 03/28/2025 13:33:27 Social History None recorded. Functional Status None recorded. Mental Status None recorded. Family History Nothing Reported. Medical History Condition Response Tonsil Infections Y COPD N Nasal or Sinus Problems N Other Skin Condition N Rhinitis N Food Allergy Y Eczema N Nasal polyps N High Cholesterol Y Liver Disease Y Gynecological HistoryNo gynecological history recorded. Obstetrics History GPAL:G 0 P 0 0 0 0 Past Encounters Encounter ID Performer Location Encounter Start Date Encounter Closed Date Diagnosis/Indication Diagnosis SNOMED-CT Code Diagnosis ICD10 Code Diagnosis IMO Codes Diagnosis Note [id number] RANDY FOSTER MD [facility] [address] [address] 08/05/2024 09:27:00 08/05/2024 11:31:49 Dysphagia 60588472 R13.10 Allergic rhinitis 564803 04 J30.9 [id number] TENISHA LIM PA-C [facility] [address] [address] 08/26/2024 13:05:18 08/27/2024 07:42:41 Amygdalolith 1812397 J35.8 Hypertroph y of tonsils 72098230 J35.1 [id number] JIA COMER A Allergy 100 [facility],[address] [place] [address] 09/18/2024 13:54:37 09/18/2024 15:00:36 Allergic rhinitis 42803411 J30.9 [id number] JIA COMER A Allergy 100 [facility],[address] [place] [address] 10/02/2024 09:06:07 10/02/2024 09:48:16 Perennial allergic rhinitis 458170262 J30.89 [id number] RANDY FOSTER MD [facility] 100 [place] [address] 11/04/2024 10:10:28 11/04/2024 11:03:25 Abnormal auditory perception 13561421 H93.293 [id number] Audiologic al evaluation results: Right ear: Normal auditory thresholds with excellent speech discrimina tion. Left ear: Normal auditory thresholds with excellent speech discrimina tion. Tympanomet ry: Right Ear:Type A Left Ear:Type A Perennial allergic rhinitis 312776228 J30.89 The patient has significan t allergies. [...] to help manage their symptoms. Allergic rhinitis 606274 04 J30.9 Patient has an epinephrin e pen from her history of shellfish allergy [id number] RANDY FOSTER MD [facility] 100 [place] [address] 03/28/2025 12:48:31 03/28/2025 13:58:53 Hoarse 97583040 R49.0 211264 Gastric reflux 462117182 K21.9 249738 Dysphonia 31825489 R49.0 [id number] Health Concerns Section Related Observation LastModified by Organization Detai ls LastModified Time None Recorded Concern Status LastModified by Organization Details LastModified Time None Recorded Advance Directives Directive None Recorded Payers Insurance Date Sequence Insurance Name Policy Number Policy [place] Covered Member ID Hamilton Member ID Guarantor Name 03/28/2025 1 [employer] (MEDICAID REPLACEMENT - HMO) GERALDGENEJacob Andrew Gonzalez [id number] Andrew Gonzalez Notes Date Note Type Note Provider Name and Address Organization Details Recorded Time 08/26/2024 text/html ROS as noted in the HPI 24 year old female presents for re-evlauation of throat. Three weeks [...] this. That reduced the size and discomfort. RANDY FOSTER MD [address] [place] [address], [phone], [facility] - [facility] 08/26/2024 16:54:40 11/04/2024 text/html ROS as noted in the HPI tinnitusL>R for past few yearsmild static sound is present when listen to loud musichigh pitch ring when in quiet environmentsleep - 7 hour, variable when mind is activecaffeine - 3 cupsstress - high due to work injury and unemployent 10/02/24 allergy skin test+Trees, weeds, grass, CASTRO, DUST, molds, CAT, dog PV 08/05/24 Cristian - dysphagia, advised GI f/u for reflux. requested allergy testing and future audioPV 08/26/24 Tenisha - cryptic tonsils - conservative management RANDY FOSTER MD 100 [facility],[place] [address], [place], [address], [facility] - [facility] 11/04/2024 10:56:14 03/28/2025 text/html laryngitis 10/02/24 allergy skin test +Trees, weeds, grass, CASTRO, DUST, molds, CAT, dog PV 11/04/24 Cristian reviewed allergy test results. offered immunotherapy. pt elected not to move forward with treatment PV 08/05/24 Cristian FOL - 1mm ulcer left arytenoid, attributed to reflux. on omeprazole, working with JIMENA Gonzalez is a 24-year-old female who presents for evaluation of vocal cord function. Approximately one month ago, she experienced a loss of voice after blowing up balloons for a democrat. This progressed to difficulty speaking, with exhaustion upon attempting to speak. She has seen three doctors, one of whom suspected a viral etiology, but the most recent doctor referred her for further evaluation, suspecting a vocal cord issue due to the prolonged duration of symptoms. She has a history of esophagitis diagnosed via endoscopy, with frequent stomach acid reflux. She was prescribed omeprazole and another medication that dissolves in the esophagus. She also attempted a short course of steroids prescribed by a previous doctor to improve her voice but discontinued after one dose due to a reaction. She reports singing frequently and notes potential improper technique as a contributing factor. She also mentions ongoing issues with her tonsils requiring a separate appointment. RANDY FOSTER MD 100 [facility],[place] [address], [place], [address], [facility] - [facility] 03/28/2025 13:57:36 OBGyn Episode No OBEpisode recorded.
--- OUTSIDE RECORDS SUMMARY | 2025-04-07 10:04 | XMS_ITS | Encounter Summary ---
Author Organization [facility] Address [address] [place] [address] Phone Care Team Providers Care Envelope Addresser Name Role Phone Ashly Ozuna MD Primary Care Provider [phone] Reason for Visit * Reason Comments Med Refill Encounter Details Date Type Department Care Team (Late st Contact Info) Description 11/14/2021 Refill [facility] [address] [place] [address] Ashly Ozuna MD [address] [place] [address] Vitamin D deficiency; Depression, unspecified depression type [...] and ask her to go to a [facility] lab to have her vitamin D level [...] type documented in this encounter Care Teams Envelope Addresser Relationship Specialty Start Date End Date Ashly Ozuna MD [address] [place] [address] PCP - General Pediatrics 10/25/18 07/21/22 documented as of this encounter
--- OUTSIDE RECORDS SUMMARY | 2025-04-07 10:04 | XMS_ITS | Clinical Summary ---
Author Organization [facility] Address [address] [place] [address] Phone Care Team Providers Care Can Pusher Name Role Phone Unavailable Primary Care Provider [...] and for housing resources. 02/11/2020 ---- Timothy Operator Receptionist Problem Noted Date Diagnosed Date Depression 09/16/2021 Scoliosis concern 07/30/2021 Overview (07/30/2021): 07/24- scoliometer up to 12 degrees Assessment & Plan (09/16/2021 3:18 PM EDT): Hadn't had x-ray done yet, but advised to go to [facility] when she gets vitamin D level [...] sent a message to the front office specialist to schedule this and she is [...] appt 03/26/[address] Amber Agosto @ [facility], was to f/u in [...] AM EST): I will see if our [facility] can help her more with [...] as she's supporting herself. Aware to contact [facility] if she needs help. [...] about her hyperlipidemia, but she's seeing a director of convention services through endo already, and this value was [...] with fatty liver. 07/24- last visit by [facility] endo director of convention services (last endo visit 03/22, was to f/u in 6 weeks, but no other appts notes from doc) Assessment & Plan (07/30/2021 11:20 AM EST): Overall doing pretty well with healthier choices, which I give her a lot of credit for. I encouraged her to call the director of convention services and request more frequent visits as it sounds like this would be helpful for her. Assessment & Plan (03/13/2020 4:57 PM EDT): Doing really well with exercise (going to gym 4x/week, walking 60min esveral days per week) and eating better. Drinking 2% milk instead of whole milk. Recommended [employer] website as she's looking for ideas for [...] (10/14) to help her with relaxation techniques- [employer] message sent to Nikolas. She is to [...] HAs. Will start OCPs as prescribed by [employer], so perhaps that will help. Assessment & [...] Neuro exam normal other than slightly abnormal esxfpi-rnys-cnvodh on left. Will have her f/u in 1 week to eval this further. Anxiety 08/06/2014 Overview (05/06/2021): Likely also with OCD, but never officially diagnosed. Prozac given in 08/2012 but took for only 1 month. Saw a therapist at [facility]. Then saw Nikolas, our Integrated counselor early [...] her first appt with her new PCP ([facility] [place]) on 05/07/22 and they should take over prescribing at that time (she's aware). She really needs to be seeing a therapist - [facility] list given and I encouraged her to call [facility] and get on multiple waiting lists if [...] has been a barrier. I asked Sofi Brdaley to help her with her insurance issues [...] sent a message to our front office specialist staff as well as Nikolas to [...] to calm herself now), will start at [facility] soon. Denies SI. Assessment & Plan (09/27/2019 [...] a month due to perceived SEs). Nikolas, [facility] clinician, saw her today and [...] she can see a therapist here at [facility] at any time. Family history of hepatic [...] Completed 08/29/2019, 11/05/2018 Procedures * Due to [place] [employer] law, this organization might not be sharing sensitive test results. Procedure Name Priority Date/Time Associated Diagnosis Comments CHLAMYDIA AND GONORRHEA, AMPLIFIED Routine 07/30/2021 11:26 AM EST Encounter for screening examination for sexually transmitted disease from Last 3 Months or Most Recently Relevant to Health Maintenance Results * Due to [place] [employer] law, this organization might not be sharing sensitive test results. * Chlamydia and Gonorrhoea, Amplified (07/30/2021 11:26 AM EST) Chlamydia Trachomatis, DNA Probe NEGATIVE (NEG) [facility] Comment: No Chlamydia Trachomatis RNA detected in this patient's sample (REFERENCE RANGE/NORMAL VALUE: NOT DETECTED) Note: This test uses manufacturing engineer automotive- mediated amplification method to detect rRNA from C. Trachomatis URINE GC AMP PROBE NEGATIVE (NEG) [facility] Comment: No Neisseria Gonorrhoeae RNA detected in this patient's sample (REFERENCE RANGE/NORMAL VALUE: NOT DETECTED) NOTE: This test uses manufacturing engineer automotive-mediated amplification method to detect rRNA from N.Gonorrhoeae. [...] without risk of sexual abuse. Consult the [facility] if needed. Contact phone number . Therapeutic failure or success cannot be determined with the Aptima Combo2 assay since nucleic acid may persist following appropriate antimicrobial therapy. The Centers for Disease Control and Prevention (CDC) recommends confirmatory retesting using culture or a different nucleic acid amplification test when positive results occur, if indicated. Testing performed or reported by [facility], a Service of [facility], [facility] [place]lye [place] [address] David Adrian MD, Office Technician [facility]# [id number] Urine (Urine) 07/30/2021 11: 26 AM EST 07/30/2021 10:50 PM EST us Ashly Ozuna MD LAB MICROBIOLOGY - GENERAL OR DERABLES Final Result [facility] from Last 3 Months or Most Recently Relevant to Health Maintenance
--- OUTSIDE RECORDS SUMMARY | 2025-04-07 10:04 | XMS_ITS | Clinical Summary ---
Author Organization [facility] Address [address] [place] [address] Phone Care Team Providers Care Snow Maker Name Role Phone Gisel Hartman Primary Care Provider [phone] Allergies Active Allergy Reactions Criticality Noted Date [...] 06/04/2022 Social Influencers of Health Screening 06/04/2022 Depression Screening 07/03/2024 COVID-19 Vaccine ( season) 2025 04/26/2022, 08/24/2021, 07/30/2021 Influenza Vaccine (#1) 2025 , 04/19/2019, 06/05/2013, Additional history exists Gonorrhea/Chlamydia Screening 11/08/2025 11/08/2024 DTaP,Tdap,and Td Vaccines (8 - Td or Tdap) 04/26/2032 04/26/2022, 11/23/2011, 06/18/2004, Additional history exists RSV Immunization Adult Patients (1 - 1-dose 75+ series) 2075 Hepatitis B Vaccines Completed 2000, 2000, 2000 [...] MOLECULAR DIAGNOSTICS METHOD 11/09/2024 9:22 AM EDT [facility] Chlamydia trachomatis PCR Negative Negative LAB MOLECULAR DIAGNOSTICS METHOD 11/09/2024 9:22 AM EDT [facility] Urine Urine specimen from urethra / Unknown Non-blood Collection / Unknown 11/08/2024 6:26 PM EDT 11/08/2024 6:34 PM EDT Real Coyle MD LAB MICROBIOLOGY - GENERAL ORD ERABLES Final Result [facility] [address] [place] [address], from Last 3 Months or Most Recently Relevant to Health Maintenance Insurance [facility] [facility] Care Teams Snow Maker Relationship Specialty Start Date End Date Gisel Hartman FNP [address] [place] [address] [place] [phone] PCP - General Nurse Practitioner 11/08/24
--- OUTSIDE RECORDS SUMMARY | 2025-04-07 10:04 | XMS_ITS | Encounter Summary ---
Author Organization [facility] Address [address] [place] [address] Phone Care Team Providers Care Bioinformatician Name Role Phone Ashly Ozuna MD Primary Care Provider [phone] Reason for Visit * Reason Comments Med Refill Encounter Details Date Type Department Care Team (Late st Contact Info) Description 05/01/2020 Refill [facility] [address] [place] [address] Ashly Ozuna MD [address] [place] [address] Vitamin D deficiency Social History Tobacco Use [...] labs. Pt would like to go to [facility] but it was unclear if they had a lab so they were faxed to [phone] and also to [facility] [...] deficiency documented in this encounter Care Teams Bioinformatician Relationship Specialty Start Date End Date Ashly Ozuna MD [address] [place] [address] PCP - General Pediatrics 10/25/18 07/21/22 documented as of this encounter
--- OUTSIDE RECORDS SUMMARY | 2025-04-07 10:04 | XMS_ITS | Encounter Summary ---
Author Organization [facility] Address [address] [place] [address] Phone Care Team Providers Care Medical Anthropology Director Name Role Phone Ashly Ozuna MD Primary Care Provider Encounter Details Date Type Department Care Team (Late st Contact Info) Description 06/19/2014 Documentation [facility] Family Medicine [address] [place], [place] [phone] Family Medicine, Physician [address] [place] [address] Social History Tobacco Use Types Packs/Day Years [...] on filedocumented in this encounter Care Teams Medical Anthropology Director Relationship Specialty Start Date End Date Ashly Ozuna MD [address] [place] [address] PCP - General Pediatrics 10/25/18 07/21/22 documented as of this encounter
[2025-04-07 12:02] LABS: Cholesterol 216 mg/dL (<200); HDL Cholesterol 30 mg/dL (>40); Triglycerides 148 mg/dL (<150)
[2025-04-07 12:12] LABS: HBS Num1 0.12 mIU/mL (0-7.99); ~Hepatitis B Surface Antibody NONREACTIVE (Nonreactive)
[2025-04-08 09:37] LABS: Rubeola IgG (Measles) <13.50 AU/mL
== END 2025-04-07 08:09 | disposition home or self-care (01) ==
LOC: HO.WFDLDS 08:08
PROVIDERS: PCP Nurse Practitioner Family; Visit Provider Nurse Practitioner Family
DX: Z00.00 Encounter for general adult medical examination without abnormal findings (principal); Z23 Encounter for immunization; E78.2 Mixed hyperlipidemia; J45.909 Unspecified asthma, uncomplicated; Z91.09 Other allergy status, other than to drugs and biological substances; R40.0 Somnolence; F33.1 Major depressive disorder, recurrent, moderate; F41.1 Generalized anxiety disorder; E04.1 Nontoxic single thyroid nodule; E03.8 Other specified hypothyroidism; E66.01 Morbid (severe) obesity due to excess calories; E55.9 Vitamin D deficiency, unspecified; K20.0 Eosinophilic esophagitis; K76.0 Fatty (change of) liver, not elsewhere classified; Z79.899 Other long term (current) drug therapy; Z68.38 Body mass index [BMI] 38.0-38.9, adult
CPT/HCPCS: 36415; 80061; 86706; 86735; 86762; 86765; 86787; 90471; 90656; 96127; 99212; 99395

== ENCOUNTER 2025-04-07 14:43 | Outpatient (AMB) | payer OTHER, SELFPAY ==
--- NOTE | 2025-04-07 15:20 | MHC.OFFVIS ---
Vital Signs 04/07/25 15:22 Height 5 ft Weight 194 lb 0.108 oz BMI 37.9 BP 106/70 Blood Pressure Location Rt brachial Position Sitting Pulse 75 Pulse Source Pulse Oximeter Pulse Oximetry (%) 100 Oxygen Delivery Method Room Air Intake Visit Reasons: Test Results Allergies fluconazole Allergy (Mild, Verified 04/07/25 15:) palpitations, felt like could not breath aloe (ALOE) Allergy (Unknown, Verified 04/07/25 15:25) RASH sertraline (SERTRALINE) Allergy (Unknown, Verified 04/07/25 15:25) UNKNOWN banana Allergy (Verified 04/07/25:25) Itching pineapple Allergy (Verified 04/07/25:) Itching Peppers, Jalapeno Adverse Reaction (Verified 04/07/25:) Itchy Eyes shellfish derived Adverse Reaction (Verified 04/07/25:) rash HPI HPI Test Results: Details: Andrew is a pleasant 24 year old female, never smoker, with underlying GERD and EOE. She was initially referred by pain management for pulmonary evaluation for ongoing dyspnea, inability to take deep breaths and notes a feeling of heaviness or pressure on the chest impacting her daily activities. A comprehensive cardiac evaluation at [facility], including a stress test and EKG, was performed, yielding unremarkable findings. Along with dyspnea reports sporadic wheezing and dry cough. She intermittently uses albuterol for symptomatic relief, with varying degrees of efficacy, and describes the sensation of air trapping. Since the last visit patient diagnosed with EOE via biopsy and has been started on budesonide. Today she presents to review PFT and CXR. Of note, during endoscopy patient was advised to discuss possible LARRY given apneic events as well as daytime fatigue, nocturnal dyspnea and morning headaches. [facility] Medical History Vitamin D deficiency Subclinical hypothyroidism Neck muscle spasm Anxiety Migraines Hypothyroidism Hypertension Hypercholesteremia Surgical History No pertinent past surgical history Family History Father Hypertension Mother Hepatitis C Hypothyroidism Hypertension Cirrhosis of liver Murmur, cardiac Social History (Reviewed 04/07/25 @ 15:24 by FRANCIS Partida Housing: Apartment Are you a primary acute care physical therapist to a significant other at home: No Do you presently have visiting nurse or other home services: No Alcohol intake: never Patient Tobacco Use Status: Never used Tobacco e-Cigarette/Vaping Use: Never Used Second Hand Smoke Exposure: No service: No Current occupational status: unemployed Cognitive needs: No Hearing needs: No Vision needs: No Review of Systems Const Denies chills, Denies excessive sweating, Denies fever(s), Denies headache(s) and Denies night sweats Eyes Denies dry eyes, Denies irritation and Denies itchy eyes ENT Reports Normal hearing present and Denies headache(s) Card Denies chest pain, Denies chest pain at rest, Denies chest pain with activity, Denies claudication, Denies leg edema, Reports dyspnea on exertion, Denies orthopnea and Denies paroxysmal nocturnal dyspnea Resp Denies change in phlegm color, Denies chest congestion, Reports cough, Denies hemoptysis, Denies excessive phlegm production, Denies pain on inspiration, Denies pain with cough, Reports dyspnea on exertion, Denies stridor and Reports wheezing Musc Denies myalgias Neuro Reports Normal hearing present and Denies headache(s) Endo Denies excessive sweating Mikey/Lymph Denies lymphadenopathy Aller/Immun Denies itchy eyes, Denies seasonal rhinorrhea and Reports wheezing Physical Exam Vital Signs: Last Vital Signs Pulse 75 04/07/25 15:22 BP 106/70 04/07/25 15:22 Pulse Ox 100 04/07/25 15:22 Oxygen Delivery Method Room Air 04/07/25 15:22 BMI result Body Mass Index 37.9 Const General: cooperative, healthy appearing, comfortable, no acute distress, well developed and alert Nutritional Appearance: obese Orientation/consciousness: patient oriented x3 Limitations: no limitations HEENT Head: Yes normal to inspection, Yes normocephalic and Yes atraumatic Ears: hearing grossly normal bilaterally and external ears normal Eyes General: appearance normal, both eyes and all related structures Eyelids: Yes eyelids normal Sclerae: sclerae normal EOM: EOMs intact bilaterally Neck Neck: Yes normal visual inspection and Yes no lymphadenopathy Lymphatic: no lymphadenopathy noted Chest Chest palpation & inspection: normal inspection of the chest Resp Effort & Inspection: normal respiratory effort, able to speak in complete sentences, no audible wheezes, no cough, no stridor, not tachypneic, no tripod positioning and no use of accessory muscles Auscultation: clear to auscultation bilaterally Cardio Jugular venous distension: no JVD Rate: regular rate Rhythm: regular rhythm Skin Other: warm, dry General skin exam: no rashes or lesions noted Neuro General: patient oriented x3 Cranial nerves: Yes Normal hearing present Cognition (Neuro): normal cognition Gait exam (Neuro): Normal gait present Extrem General: Yes normal to inspection, Yes capillary refill normal, Yes no clubbing, cyanosis or edema and Yes no pedal edema Psych Appearance: grossly normal and well kempt Speech and movement: Normal speech and movement present and Clear speech present Affect: normal affect Attitude: cooperative Thought process: Normal thought process present Thought content: Normal thought content present Insight: Good insight present (Psych) Judgement: Good judgement present (Psych) Results Reviewed Results Reviewed: [address] [address] XRay Report Signed Patient: Andrew Gonzalez MR#: [id number] : 2000 Acct:[id number] Age/Sex: 24 / F ADM Date: 03/04/25 Loc: HO.ED Attending Dr: Ordering Physician: Rosario Landaverde Date of Service: 03/04/25 Procedure(s): XR chest 2V Accession Number(s): [id number] cc: Gisel Hartman NURSES DIRECTOR-; Rosario Landaverde~ Reason for Exam: cp and shortness of breath EXAMINATION: XR CHEST CLINICAL INFORMATION: cp and shortness of breath COMPARISON: October 25, 2024. TECHNIQUE: 2 views of the chest were obtained. FINDINGS: No consolidation, pleural effusion or pneumothorax. Cardiomediastinal silhouette size is normal. S-shaped curvature of the thoracic spine. Patient's large body habitus/obesity. XR/XR chest 2V IMPRESSION: No acute airspace disease. Stable chest. Electronically signed by: Ferny Eagle MD 03/04/2025 03:40 PM EDT RP Dictated By: Ferny Woods MD Signed By: <Electronically signed by Ferny Comer MD in OV> 03/04/25 1540 DD/ 1438 TD/TT: 03/04/25 1536 Leadership Program Intern: Assessment & Plan Assessment & Plan (1) Asthma: Code(s): J45.909 - Unspecified asthma, uncomplicated Category: Medical (2) Environmental allergies: Code(s): Z91.09 - Other allergy status, other than to drugs and biological substances Category: Medical (3) Daytime somnolence: Code(s): R40.0 - Somnolence Category: Medical Plan Reviewed PFT which revealed no obstructive nor restrictive ventilatory defects identified. No significant response to bronchodilators noted. Low normal lung volumes likely secondary to an elevated BMI although parenchymal lung conditions can not be ruled out. Diffusing capacity is slighty elevated which can be seen in asthma. Persistent CXR unremarkable. Given clinical symptoms suggestive of asthma in addition to other atopic conditions, will trial Arnuity in addition to albuterol PRN. Discussed importance of good oral hygiene to prevent thrush. Will also send for RAST given allergic symptoms. Patient also reports symptoms suggestive of LARRY, will send for home sleep study. All questions were answered and patient is in agreement of plan. Will follow up in 6-8 weeks or sooner if needed. Orders: Orders Immunoglobulin E 04/07/25 Z91.09 - Other allergy status, other than to drugs and biological substances RT home sleep study Today R40.0 - Somnolence Resp Allergy Profile Region I 04/07/25 Z91.09 - Other allergy status, other than to drugs and biological substances Medications: New fluticasone furoate 50 mcg/actuation (Arnuity Ellipta) 1 inh inhalation Q24H 30 ea 3RF Coding Level of Care Code Est Pt Level 4 (56869) Diagnoses Asthma J45.909 Environmental allergies Z91.09 Daytime somnolence R40.0
[2025-04-07 15:22] VITALS: BP 106/70; PULSE 75; O2SAT 100; BMI 37.9
== END 2025-04-07 15:51 | disposition home or self-care (01) ==
LOC: HO.HPS 14:44
PROVIDERS: PCP Nurse Practitioner Family; Visit Provider Nurse Practitioner Family
DX: J45.909 Unspecified asthma, uncomplicated (principal); Z91.09 Other allergy status, other than to drugs and biological substances; R40.0 Somnolence
CPT/HCPCS: 99214

== ENCOUNTER 2025-05-10 13:57 | Emergency (ER) | payer OTHER, SELFPAY ==
--- NOTE | ~2025-05-10 | XR_ITS ---
CLINICAL HISTORY: low back pain 3 views lumbar spine Comparison: None Findings: No fractures or dislocations. Normal vertebral body alignment. No significant arthritic change. Sacroiliac joints unremarkable. Impression: 1. Unremarkable lumbar spine This document has been electronically signed by: Clifford Watt MD on 05/10/2025 15:11:50
--- NOTE | ~2025-05-10 | XR_ITS ---
CLINICAL HISTORY: chest pain 2 view chest x-ray. Comparison: CR/SR - XR CHEST 2 VIEWS - 03/04/2025 03:38 PM EDT Findings: No consolidation or effusion. Cardiac and mediastinal contours are stable. Bones unremarkable. Impression: 1. No acute pulmonary disease. This document has been electronically signed by: Clifford Watt MD on 05/10/2025 15:23:27
[2025-05-10 14:05] VITALS: BP 157/71; PULSE 100; RESP 14; TEMP 37.3; O2SAT 100; BMI 38.1
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
--- OUTSIDE RECORDS SUMMARY | 2025-05-10 14:19 | XMS_ITS | Encounter Summary ---
Author Organization [facility] Address [address] [place] [address] Phone Care Team Providers Care Team Leader Name Role Phone Ashly Ozuna MD Primary Care Provider [phone] Encounter Details Date Type Department Care Team (Late st Contact Info) Description 06/19/2014 Documentation [facility] Family Medicine [address] [place], [place] [id number] Family Medicine, Physician [address] [place] [address] Social History Tobacco Use Types Packs/Day Years [...] on filedocumented in this encounter Care Teams Team Leader Relationship Specialty Start Date End Date Ashly Ozuna MD [address] [place] [address] PCP - General Pediatrics 10/25/18 07/21/22 documented as of this encounter
--- OUTSIDE RECORDS SUMMARY | 2025-05-10 14:19 | XMS_ITS | Clinical Summary ---
Author Organization [facility] Address [address] [place] [address] Phone Care Team Providers Care Pension Adviser Name Role Phone Unavailable Primary Care Provider [...] and for housing resources. 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 Amber Agosto @ [facility], was to f/u in 6 weeks, but [...] AM EST): I will see if our [facility] can help her more with this [...] as she's supporting herself. Aware to contact [facility] if she needs help. Assessment & Plan [...] about her hyperlipidemia, but she's seeing a sewage plant supervisor through endo already, and this value [...] with fatty liver. 07/24- last visit by [facility] endo sewage plant supervisor (last endo visit 03/22, was to f/u in 6 weeks, but no other appts notes from doc) Assessment & Plan (07/30/2021 11:20 AM EST): Overall doing pretty well with healthier choices, which I give her a lot of credit for. I encouraged her to call the sewage plant supervisor and request more frequent visits as it sounds like this would be helpful for her. Assessment & Plan (03/13/2020 4:57 PM EDT): Doing really well with exercise (going to gym 4x/week, walking 60min esveral days per week) and eating better. Drinking 2% milk instead of whole milk. Recommended [employer] website as she's looking for ideas for [...] (10/14) to help her with relaxation techniques- [employer] message sent to Nikolas. She is to [...] HAs. Will start OCPs as prescribed by [employer] Service Team Member, so perhaps that will help. Assessment & [...] Neuro exam normal other than slightly abnormal [id number] on left. Will have her f/u in 1 week to eval this further. Anxiety 08/06/2014 Overview (05/06/2021): Likely also with OCD, but never officially diagnosed. Prozac given in 08/2012 but took for only 1 month. Saw a therapist at [facility]. Then saw Nikolas, our Integrated counselor early 2019 with some improvement. Re-started fluoxetine 11/05/18, stopped 11/15/18 due to thinking it was causing agitation. Trial of sertraline 04/20, stopped after about two weeks due to severe heartburn (also sleep issues). Saw Nikolas several times 2019, transfer to [facility] 04/21? 05/23- worsening anxiety--> hydroxyzine [...] her first appt with her new PCP ([facility] [place]) on 05/07/22 and they should take over prescribing at that time (she's aware). She really needs to be seeing a therapist - [facility] list given and I encouraged her to call [facility] and get on multiple waiting [...] to calm herself now), will start at [facility] soon. Denies SI. Assessment & Plan (09/27/2019 [...] a month due to perceived SEs). Nikolas, [facility] clinician, saw her today and will see her in f/u (appt scheduled for 07/31/19). She will refer out (likely [facility]) for both counseling and med [...] she can see a therapist here at [facility] at any time. Family history of [...] 08/29/2019, 11/05/2018 Procedures * Due to [place] [employer] law, this organization might not be sharing sensitive test results. Procedure Name Priority Date/Time Associated Diagnosis Comments CHLAMYDIA AND GONORRHEA, AMPLIFIED Routine 07/30/2021 11:26 AM EST Encounter for screening examination for sexually transmitted disease from Last 3 Months or Most Recently Relevant to Health Maintenance Results * Due to [place] [employer] law, this organization might not be sharing sensitive test results. * Chlamydia and Gonorrhoea, Amplified (07/30/2021 11:26 AM EST) Chlamydia Trachomatis, DNA Probe NEGATIVE (NEG) [facility] Comment: No Chlamydia Trachomatis RNA detected in this patient's sample (REFERENCE RANGE/NORMAL VALUE: NOT DETECTED) Note: This test uses port cdl a driver- mediated amplification method to detect rRNA from C. Trachomatis URINE GC AMP PROBE NEGATIVE (NEG) [facility] Comment: No Neisseria Gonorrhoeae RNA detected in this patient's sample (REFERENCE RANGE/NORMAL VALUE: NOT DETECTED) NOTE: This test uses port cdl a driver-mediated amplification method to detect rRNA from N.Gonorrhoeae. [...] risk of sexual abuse. Consult the [facility] if needed. Contact phone number . Therapeutic failure or success cannot be determined with the Aptima Combo2 assay since nucleic acid may persist following appropriate antimicrobial therapy. The Centers for Disease Control and Prevention (CDC) recommends confirmatory retesting using culture or a different nucleic acid amplification test when positive results occur, if indicated. Testing performed or reported by [facility], a Service of [facility], [facility] [place] [address] David Adrian MD, [employer] [facility]# [id number] Urine (Urine) 07/30/2021 11: 26 AM EST 07/30/2021 10:50 PM EST us Ashly Ozuna MD LAB MICROBIOLOGY - GENERAL OR DERABLES Final Result [facility] from Last 3 Months or Most Recently Relevant to Health Maintenance
--- OUTSIDE RECORDS SUMMARY | 2025-05-10 14:19 | XMS_ITS | Data Portability ---
Author Organization [place] - [facility], Allergy Address [address] [address] Care Team Providers Care Fisher Hand Line Name Role Phone IRVING OROZCO Primary Care Provider [phone] Assessment Encounter Date Assessment Date Assessment LastModified [...] care doctor for a referral to a machine riveter to evaluate potential breathing issues. My office [...] therapy referral 2024 025 ATHENAFAX Dottie Devlin, [address] [place] [address], [place], [address], 14:25:03 Procedures allergen immunother apy; multiple injections (PROC) 2024 025 [email or web address] Not available 13:00:01 Surgeries None recorded. Imaging None recorded. Medication Orders None recorded. Patient TargetsNo targets recorded. Patient Instructions Encounter Date Encounter Id Patient Instructions Last Modified By Organization Details Last Modified Time 09/18/2024 [id number] Nursing Documentation for Allergy Testing: Ordering Provider [...] date Yes Other: Written by: Jia Comer [email or web address] Not available 09/18/2024 15:00:05 03/28/2025 [id number] Follow up with a speech pathologist for [...] and Address Organization Details Recorded Time Dysphagia 38773019 Active 2024 RANDY FOSTER MD [address] [facility], [place], [address], [place] - [facility] [place] 5 09:51:12 Allergic rhinitis 10851963 Active 2024 RANDY FOSTER MD [address] [facility], [place], [address], [place] - [facility] [place] 5 09:51:28 Non-allergi c rhinitis 035541445913 Active 2024 RANDY FOSTER MD 100 [facility],[address], [place], [address], [place] - [facility] [place] 5 09:51:28 Seasonal allergic rhinitis 655819144 Active 2024 RANDY FOSTER MD 100 [facility], [place], [address], [place] - [facility] [place] 09:51:28 Amygdalolit h 1917870 Active 2024 Tenisha owens, [place] - [facility] [place] 5 14:41:43 Hypertrophy of tonsils 73603509 Active 2024 Tenisha Lim null, [place] - [facility] [place] 5 14:42:38 Perennial allergic rhinitis 295614443 Active 2024 DOUGLAS NEWTON 100 [facility], [place], [address], [facility] - [facility] [place] 5 09:11:19 Abnormal auditory perception 18843952 Active 2024 BISMARK MACDONALD [address] [facility], [place], [address], [place] - [facility] [place] 5 10:23:53 Hoarse 95542653 Active 2024 RANDY FOSTER MD [address], [place], [address], [place] - [facility] [place] 5 13:55:21 Gastric reflux 604012544 Active 2024 RANDY FOSTER MD [address] [address], [place], [address], [facility] - [facility] 13:55:35 Dysphonia 88948522 Active 2024 RANDY FOSTER MD [address], [address], [facility] 13:55:50 Problem Notes None recorded. Procedures Surgical History Date Name Laterality Status Provider Name and Address Organization Details Recorded Time 03/28/20 25 FOL_DP completed RANDY FOSTER MD [address] [place] [address], [address], [facility] 03/28/2025 13:55:10 11/05/19 25 Air & Speech Audio with Tymps - 24140, 66937 & 64779 completed BISMARK MACDONALD [address] [place] [address], [address], [facility] 11/04/2024 10:20:53 10/03/19 25 Allergy Testing-Full completed DOUGLAS NEWTON [address] [place] [address], [address], [facility] 10/02/2024 09:47:27 09/19/19 25 Allergy Testing Modified- Quantitative Testing (MQT) Only completed DOUGLAS NEWTON [address] [place] [address], [address], [facility] 09/18/2024 14:59:58 08/05/19 25 FOL_DP completed RANDY FOSTER MD [address], [address], [facility] 08/05/2024 09:50:42 Imaging Results None recorded. Procedure Notes None recorded. Medical Equipment None Reported. Allergies Allergen ID Allergen Name Allergen Category Reaction Reaction Severity Criticality Documentation Date Start Date Code Code System Note Provider Name and Address Organization Details Recorded Time 185282 sertralin e medicatio n chest pain mild Not available 09/18/2024 93941 RxNorm JIA COMER, RMA [address], [place], [address], [facility] - [facility] 5 14:12:54 760455 Aloe vera preparati on food,medi cation swelling moderate Not available 11/03/2024 51080 0 RxNorm RANDY FOSTER MD 100 [facility], [place], [address], [facility] - [facility] 5 09:45:11 649015 pineapple extract food itching mild Not available 11/03/2024 54491 74 RxNorm RANDY FOSTER MD [address] [facility], [place], [address], [facility] - [facility] 5 09:45:11 776800 banana extract food,medi cation other mild Not available 11/03/2024 15228 9 RxNorm RANDY FOSTER MD [address] [facility], [place], [address], [facility] - [facility] 5 09:45:11 541241 shellfish derived food,medi cation swelling severe Not available 11/03/2024 RANDY FOSTER MD [address] [facility], [place], [address], [facility] - [facility] 5 09:45:11 Medications Name Sig Start [...] Updated DateTime 08/26/2024 152.4 cm 39.6 kg/m2 96850.25 g Patricia Garza [place] - [facility] 08/26/2024 13:17:28 Date Recorded Body height Body mass index (BMI) Body weight Oxygen saturation Oxygen saturation in Arterial blood by Pulse oximetry Heart rate Systolic And Diastolic Provider Name and Address Organization Details Last Updated DateTime 152.4 cm 38.7 kg/m2 26389.2 9 g 100 % 100 % 94 /min 128/85 mm[Hg] JIA COMER, [address], [address] [place], [place] - [facility] 14:21:21 Date Recorded Body height Provider Name an d Address Organization Details Last Updated DateTime 11/04/2024 152.4 cm [facility] - [facility] 11/04/2024 10:27:07 Date Recorded Body height Provider Name an d Address Organization Details Last Updated DateTime 03/28/2025 152.4 cm [facility] - [facility] 03/28/2025 13:33:27 Social History None recorded. Functional Status None recorded. Mental Status None recorded. Family History Nothing Reported. Medical History Condition Response Nasal or Sinus Problems N Rhinitis N Food Allergy Y Tonsil Infections Y High Cholesterol Y Liver Disease Y Eczema N Other Skin Condition N Nasal polyps N COPD N Gynecological HistoryNo gynecological history recorded. Obstetrics History GPAL:G 0 P 0 0 0 0 Past Encounters Encounter ID Performer Location Encounter Start Date Encounter Closed Date Diagnosis/Indication Diagnosis SNOMED-CT Code Diagnosis ICD10 Code Diagnosis IMO Codes Diagnosis Note [id number] RANDY FOSTER MD [facility] [address] [address] 08/05/2024 09:27:00 08/05/2024 11:31:49 Dysphagia 04104958 R13.10 Allergic rhinitis 886536 04 J30.9 [id number] TENISHA LIM PA-C [facility] [address] [address] 08/26/2024 13:05:18 08/27/2024 07:42:41 Amygdalolith 7072077 J35.8 Hypertroph y of tonsils 72698601 J35.1 [id number] JIA COMER A Allergy 100 [facility] [place] [address] 09/18/2024 13:54:37 09/18/2024 15:00:36 Allergic rhinitis 18521188 J30.9 [id number] JIA COMER A Allergy 100 [facility] [place] [address] 10/02/2024 09:06:07 10/02/2024 09:48:16 Perennial allergic rhinitis 729942107 J30.89 [id number] RANDY FOSTER MD [facility] 100 [facility] [place] [address] 11/04/2024 10:10:28 11/04/2024 11:03:25 Abnormal auditory perception 34692719 H93.293 [id number] Audiologic al evaluation results: Right ear: Normal auditory thresholds with excellent speech discrimina tion. Left ear: Normal auditory thresholds with excellent speech discrimina tion. Tympanomet ry: Right Ear:Type A Left Ear:Type A Perennial allergic rhinitis 540593402 J30.89 The patient has significan t allergies. [...] to help manage their symptoms. Allergic rhinitis 200025 04 J30.9 Patient has an epinephrin e pen from her history of shellfish allergy [id number] RANDY FOSTER MD [facility] [address] [facility] [place] [address] 03/28/2025 12:48:31 03/28/2025 13:58:53 Hoarse 67474331 R49.0 323644 Gastric reflux 420024792 K21.9 762562 Dysphonia 09879729 R49.0 883257 Health Concerns Section Related Observation LastModified by Organization Detai ls LastModified Time None Recorded Concern Status LastModified by Organization Details LastModified Time None Recorded Advance Directives Directive None Recorded Payers Insurance Date Sequence Insurance Name Policy Number Policy Hamilton Covered Member ID Hamilton Member ID Guarantor Name 03/28/2025 1 [facility] (MEDICAID REPLACEMENT - HMO) GERALDGENEJacob Andrew Gonzalez [id number] Andrew Gonzalez Notes Date Note Type Note [...] the size and discomfort. RANDY FOSTER MD [address] [place] [address], [address], [facility] - [facility] 08/26/2024 16:54:40 11/04/2024 text/html ROS as [...] - conservative management RANDY FOSTER MD 100 [facility],[address] [address], [place], [address], [facility] - [facility] 11/04/2024 10:56:14 03/28/2025 text/html laryngitis 10/02/24 [...] voice after blowing up balloons for a green party. This progressed to difficulty speaking, with exhaustion [...] a separate appointment. RANDY FOSTER MD 100 [facility],[address] [address], [place], [address], [facility] - [facility] 03/28/2025 13:57:36 OBGyn Episode No OBEpisode recorded.
--- OUTSIDE RECORDS SUMMARY | 2025-05-10 14:19 | XMS_ITS | Encounter Summary ---
Author Organization [facility] Address [address] [place] [address] Phone Care Team Providers Care Tax Examining Technician Name Role Phone Ashly Ozuna MD Primary Care Provider [phone] Encounter Details Date Type Department Care Team (Late st Contact Info) Description 02/16/2017 Conversion Encounter [facility] [place] [address] [place] [address] Social History Tobacco Use Types Packs/Day Years [...] on filedocumented in this encounter Care Teams Tax Examining Technician Relationship Specialty Start Date End Date Ashly Ozuna MD [address] [place] [address] PCP - General Pediatrics 10/25/18 07/21/22 documented as of this encounter
--- OUTSIDE RECORDS SUMMARY | 2025-05-10 14:19 | XMS_ITS | Continuity of Care Document ---
Author Organization [place] - [facility], [facility] Address [address] [place] [address] Care Team Providers Care Electroencephalogram Technologist Name Role Phone IRVING OROZCO Primary Care Provider Assessment Encounter Date Assessment Date Assessment LastModified by Organization Details LastModified Time 03/28/2025 03/28/2025 Vocal cord tension, likely related [...] care doctor for a referral to a groundskeeper porter to evaluate potential breathing issues. My office will initiate the referral to voice therapy. Follow-up will be based on the patient's progress and any additional concerns. [email or web address] Not available 03/28/2025 13:57:27 Plan of Treatment Reminders Order Date Submit Date Provider Last Modified By Organization Details Last Modified Time Details Appointments None recorded. Lab None recorded. Referral speech therapy referral 2024 025 BRYN Devlin, [address] [place] [address], [place], [address], 14:25:03 Procedures None recorded. Surgeries None recorded. Imaging None recorded. Medication Orders None recorded. Patient TargetsNo targets recorded. Patient Instructions Encounter Date Encounter Id Patient Instructions Last Modified By Organization Details Last Modified Time 03/28/2025 [id number] Follow up with a speech pathologist for voice therapy. Continue current medications for esophagitis. Consult primary care doctor for pulmonology referral if breathing issues persist. [email or web address] Not available 03/28/2025 13:56:54 Please note: Parts of this encounter note have been generated by AI based on audio conversation. Patient consent was required prior to utilizing this technology. Content review was required prior to finalizing the note. [email or web address] Not available 03/28/2025 13:56:54 Reason for Referral Referring Physician: Randy Foster, Otolaryngology, Encounter Date: 03/28/2025 Problems Name Problem SNOMED Code Status Onset Date Resolution Date Notes Provider Name and Address Organization Details Recorded Time Dysphagia 38094172 Active 2024 RANDY FOSTER MD [address] [place] [address], [place], [address], [place] - [facility] 09:51:12 Allergic rhinitis 46355371 Active 2024 RANDY FOSTER MD [address] [place] [address], [place], [address], [place] - [facility] [place] 09:51:28 Non-allergi c rhinitis 374125665696 Active 2024 RANDY FOSTER MD [address] [place] [address], [place], [address], [facility] - [facility] [place] 09:51:28 Seasonal allergic rhinitis 386148974 Active 2024 RANDY FOSTER MD [address] [place] [address], [place], [address], [place] [facility] [place] 09:51:28 Amygdalolit h 9574072 Active 2024 Tenisha owens [place] - [facility] [place] 14:41:43 Hypertrophy of tonsils 01108793 Active 2024 Tenisha owens [place] - [facility] [place] 14:42:38 Perennial allergic rhinitis 258940343 Active 2024 DOUGLAS NEWTON [address] [address], [place], [address], [facility] - [facility] [place] 09:11:19 Abnormal auditory perception 35060632 Active 2024 BISMARK MACDONALD [address] [address], [place], [address], [facility] - [facility] [place] 10:23:53 Hoarse 88468937 Active 2024 RANDY FOSTER MD [address] [address], [place], [address], [facility] - [facility] [place] 13:55:21 Gastric reflux 402230958 Active 2024 RANDY FOSTER MD [address] [address], [place], [address], [facility] - [facility] [place] 13:55:35 Dysphonia 65286756 Active 2024 RANDY FOSTER MD [address] [address], [place], [address], [facility] - [facility] [place] 13:55:50 Problem Notes None recorded. Procedures Surgical History Date Name Laterality Status Provider Name and Address Organization Details Recorded Time 03/28/20 25 FOL_DP completed RANDY FOSTER MD [address], [address], [facility] - [facility] [place] 03/28/2025 13:55:10 11/05/19 25 Air & Speech Audio with Tymps - 14885, [address] & 97289 completed BISMARK MACDONALD 100 [facility],[address], [address], [facility] - [facility] [place] 11/04/2024 10:20:53 10/03/19 25 Allergy Testing-Full completed DOUGLAS NEWTON 100 [facility],[address], [address], [facility] - [facility] [place] 10/02/2024 09:47:27 09/19/19 25 Allergy Testing Modified- Quantitative Testing (MQT) Only completed DOUGLAS NEWTON 100 [facility],[address], [address], [facility] 09/18/2024 14:59:58 08/05/19 25 FOL_DP completed RANDY FOSTER MD 100 [facility],[address], [address], [facility] 08/05/2024 09:50:42 Imaging Results None recorded. Procedure Notes None recorded. Medical Equipment None Reported. Allergies Allergen ID Allergen Name Allergen Category Reaction Reaction Severity Criticality Documentation Date Start Date Code Code System Note Provider Name and Address Organization Details Recorded Time 862957 sertralin e medicatio n chest pain mild Not available 09/18/2024 41101 RxNorm DOUGLAS NEWTON [address], [address], [facility] 5 14:12:54 674790 Aloe vera preparati on food,medi cation swelling moderate Not available 11/03/2024 92435 0 RxNorm RANDY FOSTER MD [address], [address], [facility] 5 09:45:11 593405 pineapple extract food itching mild Not available 11/03/2024 64315 74 RxNorm RANDY FOSTER MD [address], [address], [facility] 5 09:45:11 653287 banana extract food,medi cation other mild Not available 11/03/2024 49790 9 RxAleksey FOSTER MD [address], [address], [facility] 5 09:45:11 972036 shellfish derived food,medi cation swelling severe Not available 11/03/2024 RANDY FOSTER MD [address] [place] [address] [place], [place], [address], [facility] - [facility] 5 09:45:11 Medications Name Sig Start Date [...] Not Available Vitals Date Recorded Body height Provider Name an d Address Organization Details Last Updated DateTime 03/28/2025 152.4 cm ISAAC GUEVARA [place] - [facility] 03/28/2025 13:33:27 Social History None recorded. Functional [...] ICD10 Code Diagnosis IMO Codes Diagnosis Note [id number] RANDY FOSTER MD [facility] [address] [address] 03/28/2025 12:48:31 03/28/2025 13:58:53 Hoarse 46218779 R49.0 769777 Gastric reflux 715298725 K21.9 039192 Dysphonia 11568363 R49.0 605615 Health Concerns Section Related Observation LastModified by Organization Detai ls LastModified Time None Recorded Concern Status LastModified by Organization Details LastModified Time None Recorded Payers Encounter Date Sequence Insurance Name Policy Number Policy Hamilton Covered Member ID Hamilton Member ID Guarantor Name 03/28/2025 1 [facility] [employer] (MEDICAID REPLACEMENT - HMO) RICHARD Gonzalez [id number] Andrew Gonzalez Notes Date Note Type Note Provider Name and Address Organization Details Recorded Time 03/28/2025 text/html laryngitis 10/02/24 allergy skin test +Trees, weeds, grass, CASTRO, DUST, molds, CAT, dog PV 11/04/24 Cristian reviewed allergy test results. offered immunotherapy. pt elected not to move forward with treatment PV 08/05/24 Cristian FOL - 1mm ulcer left arytenoid, attributed to reflux. on omeprazole, working with GI Carley Gonzalez is a 24-year-old female who presents for evaluation of vocal cord function. Approximately one month ago, she experienced a loss of voice after blowing up balloons for a libertarian. This progressed to difficulty speaking, with exhaustion [...] requiring a separate appointment. RANDY FOSTER MD [address] [place] [address], [place], [address], [place] - [facility] 03/28/2025 13:57:36 OBGyn Episode No OBEpisode recorded.
--- OUTSIDE RECORDS SUMMARY | 2025-05-10 14:19 | XMS_ITS | Encounter Summary ---
Author Organization [facility] Address [address] [place] [address] Phone Care Team Providers Care Technology Architect Name Role Phone Ashly Ozuna MD Primary Care Provider [phone] Reason for Visit * Reason Comments Med Refill Encounter Details Date Type Department Care Team (Late st Contact Info) Description 12/02/2018 Refill [facility] [place] [address] [place] [address] Ashly Ozuna MD [address] [place] [address] Anxiety Social History Tobacco Use Types Packs/Day [...] apt for December. * Telephone Encounter - Eim Carmona [place] - 12/03/2018 12:17 PM EDT [...] unspecified documented in this encounter Care Teams Technology Architect Relationship Specialty Start Date End Date Ashly Ozuna MD [address] [place] [address] PCP - General Pediatrics 10/25/18 07/21/22 documented as of this encounter
--- OUTSIDE RECORDS SUMMARY | 2025-05-10 14:19 | XMS_ITS | Encounter Summary ---
Author Organization [facility] Address [address] [place] [address] Phone Care Team Providers Care National Stormwater Leader Name Role Phone Ashly Ozuna MD Primary Care Provider [phone] Reason for Visit * Reason Comments Med Refill Encounter Details Date Type Department Care Team (Late st Contact Info) Description 05/01/2020 Refill [facility] [place] [address] [place] [address] Ashly Ozuna MD [address] [place] [address] Vitamin D deficiency Social History Tobacco Use [...] a lab so they were faxed to [phone] and also to [facility]. EH * Telephone Encounter - Erasmo [...] deficiency documented in this encounter Care Teams National Stormwater Leader Relationship Specialty Start Date End Date Ashly Ozuna MD [address] [place] [address] PCP - General Pediatrics 10/25/18 07/21/22 documented as of this encounter
--- OUTSIDE RECORDS SUMMARY | 2025-05-10 14:19 | XMS_ITS | Clinical Summary ---
Author Organization [facility] Address [address] [place] [address] Phone Care Team Providers Care Enterprise Sales Person Name Role Phone Gisel Hartman Primary Care Provider [phone] Allergies Active Allergy Reactions Criticality Noted Date [...] MOLECULAR DIAGNOSTICS METHOD 11/09/2024 9:22 AM EDT [facility] Chlamydia trachomatis PCR Negative Negative LAB MOLECULAR DIAGNOSTICS METHOD 11/09/2024 9:22 AM EDT [facility] Urine Urine specimen from urethra / Unknown Non-blood Collection / Unknown 11/08/2024 6:26 PM EDT 11/08/2024 6:34 PM EDT Real Coyle MD LAB MICROBIOLOGY - GENERAL ORD ERABLES Final Result [facility] [address] [place] [address], from Last 3 Months or Most Recently Relevant to Health Maintenance Insurance [facility] [employer] Care Teams Enterprise Sales Person Relationship Specialty Start Date End Date Gisel Hartman FNP [address] [place] [address] [place] [phone] PCP - General Nurse Practitioner 11/08/24
--- OUTSIDE RECORDS SUMMARY | 2025-05-10 14:19 | XMS_ITS | Encounter Summary ---
Author Organization [facility] Address [address] [place] [address] Phone Care Team Providers Care Fermentation Manager Name Role Phone Ashly Ozuna MD Primary Care Provider [phone] Reason for Visit * Reason Comments Med Refill Encounter Details Date Type Department Care Team (Late st Contact Info) Description 11/14/2021 Refill [facility] [place] [address] [place] [address] Ashly Ozuna MD [address] [place] [address] Vitamin D deficiency; Depression, unspecified depression type [...] and ask her to go to a [facility] lab to have her vitamin D [...] type documented in this encounter Care Teams Fermentation Manager Relationship Specialty Start Date End Date Ashly Ozuna MD [address] [place] [id number] PCP - General Pediatrics 10/25/18 07/21/22 documented as of this encounter
[2025-05-10 15:10] VITALS: BP 157/71; PULSE 100; RESP 14; TEMP 37.3; O2SAT 100
== END 2025-05-10 15:11 | disposition home or self-care (01) ==
PROVIDERS: Emergency Provider Emergency Medicine Emergency Medical Services; PCP Nurse Practitioner Family
DX: S16.1XXA Strain of muscle, fascia and tendon at neck level, initial encounter (principal); S39.012A Strain of muscle, fascia and tendon of lower back, initial encounter; W07.XXXA Fall from chair, initial encounter; Y93.89 Activity, other specified; Y92.811 Bus as the place of occurrence of the external cause; Y99.9 Unspecified external cause status; Z88.8 Allergy status to other drugs, medicaments and biological substances
CPT/HCPCS: 71046; 72100; 99282; 99283

== ENCOUNTER → 2025-05-10 14:10 | Outpatient (BNV) | payer OTHER, SELFPAY | PROVIDERS: Emergency Provider Emergency Medicine Emergency Medical Services; PCP Nurse Practitioner Family; Visit Provider Radiology Diagnostic Radiology | DX: M54.50 Low back pain, unspecified (principal); R07.9 Chest pain, unspecified | CPT/HCPCS: 71046; 72100 ==